=== PATIENT | female | born 1945 | race Caucasian/White ===

== ENCOUNTER → 2017-12-20 11:15 | Outpatient (CLI) | payer MEDICARE, OTHER, SELFPAY | PROVIDERS: PCP General Practice; Visit Provider Internal Medicine Cardiovascular Disease | DX: R55 Syncope and collapse (principal) ==

== ENCOUNTER → 2017-12-30 11:12 | Outpatient (CLI) | payer MEDICARE, OTHER, SELFPAY ==
[2017-12-30 13:02] LABS: Magnesium 1.8 mg/dL (1.8-2.4); Potassium 3.9 mmol/L (3.5-5.1); TSH (W/Ref FT4) 0.57 uIU/mL (0.358-3.74)
== END ==
PROVIDERS: PCP General Practice; Visit Provider General Practice
DX: I47.1 Supraventricular tachycardia (principal)
CPT/HCPCS: 36415; 83735; 84132; 84443

== ENCOUNTER 2018-04-05 16:53 | Emergency (ER) | payer MEDICARE, OTHER, SELFPAY ==
[2018-04-05 17:02] VITALS: BP 141/60; PULSE 67; RESP 16; TEMP 36.5; O2SAT 98
--- NOTE | 2018-04-05 17:13 | ED.GENADUL_ITS ---
Discharge Plan Disposition Patient Disposition: HOME Condition: Stable Discharge Details Chief Complaint: Orthopedic Clinical Impression: Contusion of right shoulder, Right shoulder strain, Contusion of right wrist, Contusion of finger, left Primary Care Provider: Brenden Camilo ED Provider: Rosemary Wells Home Meds and New Rx's Prescriptions: New oxycodone 5 mg tablet 5 mg PO Q6H PRN (Reason: pain) Qty: 10 RF: 0 Continue multivitamin [Multi-Day] 1 EACH tablet 1 ea PO DAILY RF: 0 aspirin [Aspir-81] 81 MG tablet,delayed release (DR/EC) 81 mg PO DAILY RF: 0 ropinirole [Requip] 0.5 MG tablet 0.5 mg PO TID RF: 0 fish oil-dha-epa 1 EACH capsule 1 ea PO DAILY RF: 0 sertraline [Zoloft] 100 MG tablet 100 mg PO DAILY Qty: 90 RF: 3 gabapentin 300 MG capsule 300 - 600 mg PO HS MDD 2 Qty: 60 RF: 1 ibuprofen 600 MG tablet 600 mg PO QID PRN PRN (Reason: Pain) Qty: 30 RF: 0 Discharge Instructions Instructions: Contusion in Adults (ED) Additional Instructions: Rest and ice right shoulder and upper arm as much as possible. Call orthopedics to schedule follow-up appointment for reevaluation as needed. Return immediately to the emergency department any worsening or new concerning symptoms. Referrals: Jarek Benjamin MD [ [facility] STAFF PHYSICIAN] - Discharge Data Discharge Physician: Rosemary Wells Medical Decision Making 72yo F w/ L 2nd finger pain and and right shoulder and wrist pain after injury today. Patient slammed her left second finger in a car door and then slipped and fell hitting her right shoulder and right wrist. Unable to move her right shoulder due to pain. No obvious deformity. Neurovascularly intact. There is edema and ecchymosis to left second finger pad. No right snuffbox tenderness but pain with range of motion at base of right thumb and lateral wrist. No other injuries noted. Chest, abdomen, C-spine, T-spine, L-spine nontender. Lungs clear to auscultation. No right chest rib bony tenderness and no right scapular tenderness. We will give a dose of oxycodone and sent for right shoulder, right wrist and left second finger x-rays. 1854 --patient still with pain. We will give another dose of oxycodone a dose of Motrin. 1904 --x-rays negative for fracture. Pt still w/ significant pain. Will send for CT R shoulder. 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 Discussed with patient that this may be contributing to her pain, or she may have ligamentous or muscular injury. 1954 --CT negative for fracture. Patient feels a little better after second dose of oxycodone. She has some movement in the right shoulder. Patient was given sling for comfort. She is instructed to perform gentle range of motion to prevent frozen shoulder. Patient is followed by orthopedics Dr. Sanchez. She is instructed to call him on Saturday to schedule follow-up appointment for evaluation. Patient is instructed to return here with any concerns. She was given 2 tabs of oxycodone for home as well as prescription. HPI General Mode of arrival: ambulatory . Date/Time Provider Initiated Documentation: 04/05/18 16:56 . Limitations to Documentation: no limitations . Information obtained by: patient . HPI Narrative: Patient is a 72-year-old female who presents with left second finger injury and right shoulder injury. Patient states she slammed her left second distal finger into a car door today. A. Patient states when she walked around to the other side of the car she slipped on the ground and hit her right shoulder on the ground. She is complaining of right shoulder and wrist pain. Patient has not taken any medication for pain. Patient denies head injury or any other injuries. Patient states she did not hit her chest or abdomen. Related Data Home Medications Medication Instructions Recorded Confirmed aspirin [Aspir-81] 81 mg PO DAILY 09/04/12 04/05/18 fish oil-dha-epa 1 ea PO DAILY 09/04/12 04/05/18 multivitamin [Multi-Day] 1 ea PO DAILY 09/04/12 04/05/18 ropinirole [Requip] 0.5 mg PO TID 09/04/12 04/05/18 ibuprofen 600 mg PO QID PRN PRN #30 tablet 08/03/16 04/05/18 sertraline [Zoloft] 100 mg PO DAILY #90 tab-cap 01/25/17 04/05/18 gabapentin 300 - 600 mg PO HS #60 tab-cap MDD 02/06/17 04/05/18 2 oxycodone 5 mg PO Q6H PRN #10 tab 04/05/18 Previous Rx's Medication Instructions Recorded ibuprofen 600 mg PO QID PRN PRN #30 tablet 08/03/16 sertraline [Zoloft] 100 mg PO DAILY #90 tab-cap 01/25/17 gabapentin 300 - 600 mg PO HS #60 tab-cap MDD 02/06/17 2 oxycodone 5 mg PO Q6H PRN #10 tab 04/05/18 Allergies Allergy/AdvReac Type Severity Reaction Status Date / Time benzalkonium chloride Allergy Unverified 04/05/18 17:06 [From Travatan] meperidine HCl [From Demerol] Allergy UNSURE Unverified 04/05/18 17:06 travoprost [From Travatan] Allergy Unverified 04/05/18 17:06 BLUE SURGICAL SCRUB? AdvReac Intermediate RASH, Uncoded 04/05/18 17:06 ITCHING General Stated Complaint: Orthopedic SHAGUFTA: 4 Review of Systems Review of Systems All systems reviewed & are unremarkable except as noted in HPI and below Constitutional Reports as per HPI, Denies chills and Denies fever(s) Eyes Denies blurry vision ENT Denies dizziness, Denies sore throat and Denies throat swelling Cardiovascular Denies chest pain and Denies dyspnea Respiratory Denies dyspnea Gastrointestinal Denies abdominal pain, Denies diarrhea and Denies vomiting Genitourinary Denies hematuria and Denies dysuria Musculoskeletal Denies back pain and Denies numbness Integumentary/Breasts Denies lesions and Denies rash Neurologic Denies dizziness and Denies numbness Allergic/Immunologic Denies throat swelling PFSH Medical History Arthritis Back pain Cervical pain Difficulty walking Glaucoma Hip pain Hypercholesteremia Iron deficiency Irregular heart beat Leg pain Lumbar stenosis Lumbosacral radiculopathy Restless legs syndrome Social History Smoking/Tobacco Use Status: Former Tobacco Use Surgical History L knee repair Oophrectomy, Left Oophrectomy, Right Spinal Fusion Vaginal hysterectomy Varicose vein stripping Exam Const General: cooperative, healthy appearing and no acute distress HENMT Head: normal to inspection Mouth: oral mucosae normal Eyes General: appearance normal, both eyes and all related structures Neck Neck: normal visual inspection Resp Effort & Inspection: normal respiratory effort and able to speak in complete sentences Auscultation: clear to auscultation bilaterally Cardio Rate: regular rate Rhythm: regular rhythm GI Inspection: normal to inspection and no abdominal wall ecchymosis Palpation: soft and nontender Auscultation: normal bowel sounds Back/Spine/Pelvis Thoracic/Lumbar Spine: thoracic and lumbar spine normal to inspection, No thoracic spinal tenderness and No lumbar spinal tenderness Pelvis: no pain with anterior-posterior compression Skin General skin exam: no rashes or lesions noted Neuro General: alert, awake and oriented x3 Motor: muscle tone normal throughout Extrem Right upper extremity: shoulder/upper arm (unable to move R shoulder/upper arm due to pain. Tenderness to palpation right anterior/lateral/posterior shoulder/ upper arm. No obvious deformity noted.), elbow/forearm Details: normal to inspection; no tenderness and no swelling, wrist Details: normal to inspection; no tenderness and no swelling and hand (Tenderness to palpation base of right thumb near her wrist. No obvious deformity. ) Left upper extremity: hand (Tenderness to palpation and mild to moderate edema/ ecchymosis of distal second finger/finger pad. No deformity.) Psych Appearance: grossly normal Affect: normal affect Course Vital Signs Temperature 97.7 F 04/05/18 17:02 Pulse 67 04/05/18 17:02 Respiratory Rate 16 04/05/18 17:02 Blood Pressure 141/60 H 04/05/18 17:02 Pulse Oximetry 98 04/05/18 17:02 Temperature 97.7 F 04/05/18 17:02 Temperature Source Skin 04/05/18 17:02 Pulse 67 04/05/18 17:02 Respiratory Rate 16 04/05/18 17:02 Respiratory Effort Non-Labored 04/05/18 17:03 Blood Pressure 141/60 H 04/05/18 17:02 Pulse Oximetry 98 04/05/18 17:02 Pain Level 10 04/05/18 17:02
[2018-04-05] MEDS: oxyCODONE 5 MG TAB PO ×2 (17:30→19:04)
--- NOTE | 2018-04-05 17:36 | DI.RAD_ITS ---
SYMPTOM/DIAGNOSIS: S/P SLAMMED FINGER IN CAR DOOR LEFT INDEX FINGER: There are degenerative changes of the interphalangeal joints. No fracture or dislocation is seen.
--- NOTE | 2018-04-05 17:36 | DI.RAD_ITS ---
SYMPTOM/DIAGNOSIS: S/P FALL ON TO RT SHOULDER, R/O ACUTE FRACTURE RIGHT SHOULDER: No fracture or dislocation is seen. There are degenerative changes at the AC joint and glenohumeral joint. IMPRESSION: Degenerative changes. No acute abnormality.
--- NOTE | 2018-04-05 17:36 | DI.RAD_ITS ---
SYMPTOM/DIAGNOSIS: S/P FALL, R/O ACUTE FRACTURE RIGHT WRIST: No fracture or dislocation is seen. There are intercarpal degenerative changes. IMPRESSION: No acute abnormality.
--- NOTE | 2018-04-05 19:00 | DI.VRAD_ITS ---
EXAM: XR Left Finger(s), 2 or More Views EXAM DATE/TIME: 04/05/2018 5:37 PM CLINICAL HISTORY: 72 years old, female; Pain; Finger(s); Left; Patient HX: S/P slammed finger in car door; Additional info: R/O fracture distal index finger TECHNIQUE: XR Left finger minimum 2 views. COMPARISON: No relevant prior studies available. FINDINGS: Degenerative arthritis of the interphalangeal joints. Degenerative arthritis of the first carpal metacarpal joint. No evidence of acute bony injury. No radiopaque foreign bodies. IMPRESSION: No evidence of acute bony injury. Dictated and Authenticated by: Sergio Espinosa MD. Ordering:JACKY QUINTERO MD
--- NOTE | 2018-04-05 19:01 | DI.VRAD_ITS ---
EXAM: XR Right Shoulder Complete, 2 or More Views EXAM DATE/TIME: 04/05/2018 5:37 PM CLINICAL HISTORY: 72 years old, female; Pain; Shoulder; Right; Patient HX: S/P fall onto r shoulder; Additional info: R/O acute fracture TECHNIQUE: XR Right shoulder complete 2 or more views. COMPARISON: No relevant prior studies available. FINDINGS: Degenerative arthritis of the glenohumeral joint. Degenerative arthritis of the acromioclavicular joint. Anatomic alignment. No acute fracture. IMPRESSION: No evidence of acute bony injury. Dictated and Authenticated by: Sergio Espinosa MD. Ordering:JAKCY QUINTERO MD
--- NOTE | 2018-04-05 19:01 | DI.VRAD_ITS ---
EXAM: XR Right Wrist Complete, 3 or more Views EXAM DATE/TIME: 04/05/2018 5:37 PM CLINICAL HISTORY: 72 years old, female; Pain; Wrist; Right; Patient HX: S/P fall; Additional info: R/O acute fracture TECHNIQUE: XR Right wrist 3 or more views. COMPARISON: US RIGHT EXTREMITY ULTRASOUND 08/03/2016 8:15 AM FINDINGS: The bony structures are in anatomic alignment. No fracture is present. No radiopaque foreign body is identified. The joint spaces are well maintained. IMPRESSION: No evidence of acute bony injury. Dictated and Authenticated by: Sergio Espinosa MD. Ordering:JACKY QUINTERO MD
[2018-04-05] MEDS: Ibuprofen 600 MG TAB PO (19:04)
--- NOTE | 2018-04-05 19:16 | DI.CT_ITS ---
SYMPTOM/DIAGNOSIS: S/P FALL ON TO RT SHOULDER, R/O ACUTE FRACTURE CT RIGHT SHOULDER: There are degenerative changes of the AC joint and glenohumeral joint. There is a subchondral cyst in the acromion as well as several subchondral cysts in the humeral head. No fracture or dislocation is seen. Hardware is seen in the cervical spine related to previous anterior fusion. The visualized portions of the spine are unremarkable. A small area of scarring is seen in the right upper lobe. IMPRESSION: No acute abnormality Degenerative changes.
--- NOTE | 2018-04-05 19:47 | DI.VRAD_ITS ---
EXAM: CT Right Upper Extremity Without Intravenous Contrast, Shoulder EXAM DATE/TIME: 04/05/2018 7:17 PM CLINICAL HISTORY: 72 years old, female; Pain; Shoulder; Right; Prior surgery; Patient HX: S/P fall onto r shoulder; Additional info: R/O acute fracture TECHNIQUE: CT of the Right upper extremity without Intravenous contrast was performed. Exam focused on the shoulder. Coronal and sagittal reformatted images were created and reviewed. COMPARISON: CR XR shoulder RT complete 2+V 04/05/2018 6:01 PM FINDINGS: Degenerative arthritis of the glenohumeral joint. Mild degenerative arthritis of the acromioclavicular joint. Prior anterior interbody fusion with plate and screw fixation of the mid and lower cervical spine. Soft tissues unremarkable. Mild right anterior apical lung scarring. IMPRESSION: No evidence of acute bony abnormality. Dictated and Authenticated by: Sergio Espinosa MD. Ordering:JACKY QUINTERO MD
[2018-04-05] MEDS: oxyCODONE 5 MG TAB 10 MG PO (20:05)
[2018-04-05 20:14] VITALS: BP 128/75; PULSE 65; RESP 16; TEMP 36.5; O2SAT 98
== END 2018-04-05 20:16 | disposition home or self-care (01) ==
PROVIDERS: Emergency Provider Physician Assistant; PCP General Practice
DX: S40.011A Contusion of right shoulder, initial encounter (principal); S60.211A Contusion of right wrist, initial encounter; S60.032A Contusion of left middle finger without damage to nail, initial encounter; W23.0XXA Caught, crushed, jammed, or pinched between moving objects, initial encounter; W00.0XXA Fall on same level due to ice and snow, initial encounter
CPT/HCPCS: 99284; 73030; 73110; 73140; 73200; L3650

== ENCOUNTER 2018-12-02 12:06 | Outpatient (CLI) | payer MEDICARE, OTHER, SELFPAY ==
[2018-12-02 13:22] LABS: C-Reactive Protein 0.37 mg/dL (0.0-0.3)
[2018-12-04 10:47] LABS: Lyme Ab w Rflx to Lyme Confirm Positive
[2018-12-05 12:32] LABS: IgG Immunoblot Negative; IgM Immunoblot Positive; Immunoblot Interpretation SEE COMMENTS
== END 2018-12-02 12:26 ==
PROVIDERS: PCP General Practice; Visit Provider General Practice
DX: R51 Headache (principal)
CPT/HCPCS: 36415; 86617; 86140; 86618

== ENCOUNTER 2019-01-06 12:06 | Outpatient (CLI) | payer MEDICARE, OTHER, SELFPAY ==
--- NOTE | 2019-01-06 12:07 | DI.RAD_ITS ---
SYMPTOM/DIAGNOSIS: FELL, TENDER 8TH LATERALLY PA AND LATERAL CHEST AND RIGHT RIBS: There are no prior comparison exams. The heart size is normal. The lungs are clear. No infiltrate, effusion or pneumothorax is seen. Four views of the right ribs were performed. A marker was placed over the lower ribs in the area of the patient's tenderness. No rib fracture is seen. There are degenerative disc changes in the mid thoracic spine and lower cervical spine. There are degenerative changes of both shoulders. IMPRESSION: No acute abnormality.
== END 2019-01-06 12:26 ==
PROVIDERS: PCP General Practice; Visit Provider General Practice
DX: R07.81 Pleurodynia (principal)
CPT/HCPCS: 71046; 71100

== ENCOUNTER 2019-03-04 10:55 | Outpatient (CLI) | payer MEDICARE, OTHER, SELFPAY ==
[2019-03-04 13:42] LABS: TSH 0.84 uIU/mL (0.36-3.74); Vitamin B12 521 pg/mL (193-986)
== END 2019-03-04 11:15 ==
PROVIDERS: PCP General Practice; Visit Provider Nurse Practitioner Adult Health
DX: R41.3 Other amnesia (principal); R41.89 Other symptoms and signs involving cognitive functions and awareness; M25.551 Pain in right hip
CPT/HCPCS: 36415; 99204; 99215; 82607; 84443

== ENCOUNTER 2019-03-10 01:48 | Outpatient (CLI) | payer MEDICARE, OTHER, SELFPAY ==
--- NOTE | 2019-03-10 14:30 | DI.MRI_ITS ---
EXAM: MR BRAIN WO CLINICAL HISTORY: cognitive impairment R41.89.,MEMORY LOSS TECHNIQUE: Multiplanar multisequence MRI was performed. COMPARISON: No exams were available for comparison FINDINGS: The ventricles and sulci are consistent with the patient's age. There are areas of hyperintensity on the T2 and FLAIR images. These areas most likely represent areas of small vessel ischemic disease. The diffusion-weighted images show no evidence of an acute infarct. No intracranial hemorrhage is p resent. The ventricles are intact. The basilar cisterns are patent. There is a normal flow void pr esent in the [place]. There is mucosal thickening seen in the sphenoid sinus. The remainin g visualized paranasal sinuses are clear. The pituitary gland appears unremarkable. IMPRESSION: 1. No evidence of an acute infarct or hemorrhage. 2. Findings suggestive of cerebral atrophy and small vessel ischemic disease.
== END 2019-03-10 02:08 ==
PROVIDERS: PCP General Practice; Visit Provider Nurse Practitioner Adult Health
DX: R41.89 Other symptoms and signs involving cognitive functions and awareness (principal); R41.3 Other amnesia; G31.89 Other specified degenerative diseases of nervous system; I67.82 Cerebral ischemia
CPT/HCPCS: 70551

== ENCOUNTER → 2019-04-06 12:27 | Outpatient (BNVA) | payer MEDICARE, OTHER, SELFPAY | PROVIDERS: PCP Nurse Practitioner Adult Health; Referring Provider Nurse Practitioner Adult Health; Visit Provider Nurse Practitioner Adult Health | DX: R41.3 Other amnesia (principal); R25.1 Tremor, unspecified; F41.8 Other specified anxiety disorders; Z86.19 Personal history of other infectious and parasitic diseases | CPT/HCPCS: 99213 ==

== ENCOUNTER 2019-07-12 00:18 | Outpatient (CLI) | payer MEDICARE, OTHER, SELFPAY ==
[2019-07-12 09:54] LABS: HCT 41.5 % (36.0-46.0); HGB 13.9 g/dL (12.0-15.5); Mean Corp. HGB Concentration 33.5 g/dL (32.0-36.0); Mean Corpuscular Hemoglobin 32.9 pg (27.0-33.0); Mean Corpuscular Volume 98.1 fL (80-95); Mean Platelet Volume 9.1 fL (8.0-11.0); Platelet Count 190 x1000/uL (130-400); RBC 4.23 m/cumm (4.00-5.20)
--- NOTE | 2019-07-12 10:39 | DI.US_ITS ---
APPROVED REPORT EXAM: Comprehensive 2D, Doppler, and color-flow Echocardiogram Patient Location: Out-Patient Motion Picture Set Grip: Alondra Snow RDCS (AE) Indications: Murmur Conclusion Left Ventricle : The left ventricle is normal size. The left ventricular systolic function is normal . The left ventricular ejection fraction is within the normal range. There is normal left ventricula r wall thickness. There is normal LV segmental wall motion. The left ventricular diastolic function is normal. LVEF is 55-59%. Right Ventricle : The right ventricle is normal size. The right ventricular systolic function is norm al. Atria : The left atrium size is normal. The right atrium size is normal. Aortic Valve : Mild aortic valve sclerosis. Aortic valve is trileaflet. Trace aortic regurgitation. M ild aortic stenosis. Mitral Valve : The mitral valve is normal in structure. Trace mitral regurgitation. No evidence of mi tral valve stenosis. Great Vessels : IVC is normal in size and collapses >50% with inspiration. Estimated RVSP is 22-25 m mHg. There is no prior echocardiogram available for comparison. Wall motion Left Ventricle The left ventricle is normal size. The left ventricular systolic function is normal. The left ventric ular ejection fraction is within the normal range. There is normal left ventricular wall thickness. T here is normal LV segmental wall motion. The left ventricular diastolic function is normal. LVEF is 5 5-59%. Right Ventricle The right ventricle is normal size. The right ventricular systolic function is normal. Atria The left atrium size is normal. The right atrium size is normal. Aortic Valve Mild aortic valve sclerosis. Aortic valve is trileaflet. Mild aortic stenosis. Trace aortic regurgita tion. Mitral Valve The mitral valve is normal in structure. No evidence of mitral valve stenosis. Trace mitral regurgita tion. Tricuspid Valve The tricuspid valve is normal in structure. There is no tricuspid valve stenosis. Trace tricuspid reg urgitation. Pulmonic Valve The pulmonary valve is normal in structure. There is no pulmonic valvular stenosis. Trace pulmonic re gurgitation. Great Vessels The aortic root is normal in size. The ascending aorta size is dilated. IVC is normal in size and col lapses >50% with inspiration. Estimated RVSP is 22-25 mmHg. Pericardium There is no pericardial effusion. 2D Dimensions IVSD d PLAX 0.96 cm F: 0.6-1.0 LV Vol A2C d MOD 86.9 mL LVPW d PLAX 0.96 cm F: 0.6 - 1.0 LV Vol A4C d MOD 92.1 mL LVID d PLAX 4.57 cm F: 3.8 - 5.2 LA vol/ BSA A2C s A-L 28.6 mL/m2 LVDs 3.45 cm F: 2.2 - 3.5 LA vol/ BSA A4C s A-L 25.7 mL/m2 Ao Root d 3.13 cm F: 2.7 - 3.3 LA Vol/ BSA Biplane s A-L 27.6 mL/m2 RA Area A4C 12.51 cm2 LA Area A4C s MOD 15.44 cm2 RA Vol/ BSA A4C s A-L 17.5 mL/m2 LA Area A2C s MOD 16.55 cm2 Ao Asc Diam d 3.42 cm F: 2.3 - 3.1 LV EF A4C MOD 57.0 % LV EF Teichholz 47.2 % LV EF A2C MOD 58.4 % LVEF (Robb's) 57.23 % F: 54 - 74 LV EF Biplane MOD 57.2 % LV Volume 69.87 mL F: 46 - 106 LV Volume Index 37.76 mL/m2 F: 29 - 61 LV Vol Biplane MOD 90.8 mL FS 23.55 % LV Diastology MV E' medial 0.060 (>0.07 m/s) E/A Ratio 1.0 LV E/e MED 12.70 (<14) MV E Vmax 0.76 (0.4-1.3 m/s) MV E' lateral 0.108 (>0.1 m/s) MV A Vmax 0.75 (0.4-1.3 m/s) LV E/e LAT 7.05 (<14) MV E/A Ratio 0.96 MV E/E' medial 12.70 MV E/E' lateral 7.07 Aortic Valve LVOT Area 3.20 cm2 AoV Area Vmax 1.69 cm2 LVOT Vmax 1.10 m/s AoV Area/ BSA (Vmax) 0.91 cm2/m2 LVOT Mean Herbert. 0.79 m/s LISSY Mean Herbert. 1.76 cm2 LVOT Peak Grad 4.9 mmHg LISSY Mean Herbert. Index 0.95 cm2/m2 LVOT Mean Grad 2.8 mmHg AR DT 2922 msec LVOT VTI 0.250 m AR PHT 847 msec LVOT Diam s 2.00 cm (M/F) 1.5-2.5 AoV Vmax 2.09 (0.5-1.3 m/s) Velocity Ratio 0.52 AoV Mean Herbert. 1.44 m/s AoV Peak Grad 17.4 mmHg LVOT SV 79.98 mL AoV Mean Grad 9.3 (<5 mmHg) AoV VTI 0.457 (0.18-0.25 m) AoV Area VTI 1.75 (2.5-4.5 cm2) AoV Area/ BSA (VTI) 0.94 cm/m2 Mitral Valve MV DT 247 (160-240 msec) MV PHT 72 msec MV Area PHT 3.08 cm2 Pulmonary Valve PV Vmax 1.01 (0.5-1.5 m/s) RVOT Peak Gr. 2.01 mmHg PV Peak Grad 4.1 mmHg RVOT Mean Gr. 1.00 mmHg PV Mean Grad 2.0 mmHg RVOT VTI 0.151 m PV VTI 0.207 m RVOT Vmax 0.71 m/s Tricuspid Valve TR Peak Grad 22.4 mmHg TR Vmax 2.37 m/s RA Pressure 3.00 mmHg RVSP (TR) 25.5 mmHg
[2019-07-12 11:29] LABS: ALT 26 U/L (14-59); AST 20 U/L (15-37); Albumin 3.8 g/dL (3.4-5.0); Alkaline Phosphatase 98 U/L (46-116); Anion Gap 5.6 mmol/L (3-11); BUN 21 mg/dL (7-18); Bilirubin, Total 0.3 mg/dL (0.2-1.0); CO2 30.4 mmol/L (21.0-32.0); CREATININE 0.63 mg/dL (0.55-1.02); Calcium 8.7 mg/dL (8.5-10.1); Calculated LDL 135 mg/dL (<100); Chloride 107 mmol/L (98-107); Cholesterol 233 mg/dL (<200); Glucose 86 mg/dL (74-106); HDL Cholesterol 77 mg/dL (40-60); Potassium 4.6 mmol/L (3.5-5.1); Sodium 143 mmol/L (136-145); Total Protein 6.7 g/dL (6.4-8.2); Triglyceride 107 mg/dL (<150); Vitamin B12 748 pg/mL (193-986)
[2019-07-13 06:43] LABS: Vitamin D 25 Total 40.1 ng/ml (30-100)
== END 2019-07-12 00:38 ==
PROVIDERS: PCP Nurse Practitioner Adult Health; Visit Provider Nurse Practitioner Adult Health
DX: R01.1 Cardiac murmur, unspecified (principal); I35.2 Nonrheumatic aortic (valve) stenosis with insufficiency; I34.0 Nonrheumatic mitral (valve) insufficiency; E78.00 Pure hypercholesterolemia, unspecified; M85.80 Other specified disorders of bone density and structure, unspecified site; R41.3 Other amnesia; R53.83 Other fatigue
CPT/HCPCS: 36415; 80053; 80061; 82306; 85027; 93306; 82607

== ENCOUNTER → 2019-10-06 12:45 | Outpatient (BNVA) | payer MEDICARE, OTHER, SELFPAY | PROVIDERS: PCP Nurse Practitioner Adult Health; Referring Provider Nurse Practitioner Adult Health; Visit Provider Nurse Practitioner Adult Health | DX: G31.84 Mild cognitive impairment of uncertain or unknown etiology (principal); R29.6 Repeated falls | CPT/HCPCS: 99214 ==

== ENCOUNTER 2019-11-05 10:54 | Outpatient (CLI) | payer MEDICARE, OTHER, SELFPAY ==
--- NOTE | 2019-11-05 13:30 | DI.RAD_ITS ---
EXAM: XR FOOT LT COMPLETE CLINICAL HISTORY: Left foot pain, M79.672, suspected fracture. TECHNIQUE: COMPARISON: CR LEFT FOOT COMPLETE from 01/14/2015 FINDINGS: Three views were obtained. There is a mildly displaced fracture of the distal metaphyseal diaphyseal junction of the 5th metatarsal. No additional fracture seen. IMPRESSION:
== END 2019-11-05 11:14 ==
PROVIDERS: PCP Nurse Practitioner Adult Health; Visit Provider Family Medicine
DX: M79.672 Pain in left foot (principal); S92.352A Displaced fracture of fifth metatarsal bone, left foot, initial encounter for closed fracture
CPT/HCPCS: 73630

== ENCOUNTER 2019-11-27 10:01 | Outpatient (CLI) | payer MEDICARE, OTHER, SELFPAY ==
--- NOTE | 2019-11-27 09:45 | DI.RAD_ITS ---
EXAM: XR FOOT LT COMPLETE CLINICAL HISTORY: f/u fracture TECHNIQUE: COMPARISON: CR XR FOOT LT COMPLETE from 11/05/2019 FINDINGS: Three views were obtained. Previously described fracture of the distal aspect of the 5th metatarsal is again noted, there appears to be slightly increased loss of length of the bone with increased disp lacement in comparison with previous examination of November 04. There is callus formation now visible at the fracture site. IMPRESSION:
== END 2019-11-27 10:21 ==
PROVIDERS: PCP Nurse Practitioner Adult Health; Referring Provider Nurse Practitioner Adult Health; Visit Provider Student in an Organized Health Care Education/Training Program
DX: S92.352A Displaced fracture of fifth metatarsal bone, left foot, initial encounter for closed fracture (principal); X58.XXXA Exposure to other specified factors, initial encounter
CPT/HCPCS: 99203; 99214; 73630

== ENCOUNTER 2019-12-18 11:36 | Outpatient (CLI) | payer MEDICARE, OTHER, SELFPAY ==
--- NOTE | 2019-12-18 11:15 | DI.RAD_ITS ---
EXAM: XR FOOT LT COMPLETE CLINICAL HISTORY: L foot fx TECHNIQUE: COMPARISON: CR XR FOOT LT COMPLETE from 11/27/2019 FINDINGS: Three views were obtained. Previously described fracture of the 5th metatarsal is again noted, there is increased callus formation at the fracture site, no gross interval change in alignment of the fra cture fragments comparison with examination November 26. IMPRESSION:
== END 2019-12-18 11:56 ==
PROVIDERS: PCP Nurse Practitioner Adult Health; Referring Provider Nurse Practitioner Adult Health; Visit Provider Student in an Organized Health Care Education/Training Program
DX: S92.352D Displaced fracture of fifth metatarsal bone, left foot, subsequent encounter for fracture with routine healing (principal); X58.XXXD Exposure to other specified factors, subsequent encounter
CPT/HCPCS: 99213; 73630

== ENCOUNTER 2020-02-04 02:07 | Outpatient (CLI) | payer MEDICARE, OTHER, SELFPAY ==
--- NOTE | 2020-02-04 08:26 | DI.DEXA_ITS ---
EXAM: XR DEXA BONE DENSITY W/WO TABITHA CLINICAL HISTORY: s/p fracture-assess bones;compare with 2017,N95.9MENOPAUSAL DISORDER,M85.88 TECHNIQUE: COMPARISON: Comparison examination is 11/06/2016. FINDINGS: Lateral Spine Image: Posterior spinal surgery at L5-S1. No compression deformities identified. Left hip: Total T-Score: -1.2. This compares with -0.8 on the prior examination. Total Z-Score: 0.5 T- and Z-scores: Findings consistent with osteopenia and increased fracture risk. Lumbar Spine: Total T-Score: 1.9. This compares with 1.2 on the prior examination. Total Z-Score: 4.1 T- and Z-scores: Within normal limits. IMPRESSION: No evidence of osteoporosis.
--- NOTE | 2020-02-04 13:25 | DI.MAMMO_ITS ---
EXAM: MG MAMMO SCREENING CLINICAL HISTORY: screening,Z12.39 TECHNIQUE: Bilateral full field digital CC and MLO mammographic images were obtained with 3D tomosyn thesis and utilizing computer aided detection (CAD). COMPARISON: Available for comparison. FINDINGS: Masses/Architectural Distortion: None seen. Microcalcifications: No suspicious pleomorphic-type are seen. Skin Thickening/Nipple Retraction: None. IMPRESSION: 1. No significant interval change with no specific features of malignancy noted. 2. Unless there is more urgent need, screening mammography is recommended, as per [employer] guidelines. BI-RADS Category 1 - Negative Breast Density - Category B - Scattered areas of fibroglandular density A negative radiographic report should not delay biopsy if a dominant or clinically suspicious mass is present. Up to ten percent of cancers are not identified on mammography. A negative report may reinforce clinical impression. Adenosis and dense breasts may obscure an underlying neoplasm. False positive reports average 6 to 10%. Patient will receive a letter notifying them of these results.
== END 2020-02-04 02:27 ==
PROVIDERS: PCP Nurse Practitioner Adult Health; Visit Provider Nurse Practitioner Adult Health
DX: Z12.31 Encounter for screening mammogram for malignant neoplasm of breast (principal); M85.88 Other specified disorders of bone density and structure, other site; N95.8 Other specified menopausal and perimenopausal disorders
CPT/HCPCS: 77063; 77067; 77080

== ENCOUNTER 2020-03-14 07:20 | Outpatient (CLI) | payer MEDICARE, OTHER, SELFPAY ==
[2020-03-18 17:18] LABS: Patient Race White; SARS-CoV-2 RNA Undetected (Undetected); SARS-CoV-2 Specimen Source Nasal
== END 2020-03-14 07:40 ==
PROVIDERS: PCP Nurse Practitioner Adult Health; Visit Provider Nurse Practitioner Adult Health
DX: Z11.59 Encounter for screening for other viral diseases (principal)
CPT/HCPCS: U0003

== ENCOUNTER 2020-03-21 10:47 | Outpatient (CLI) | payer MEDICARE, OTHER, SELFPAY ==
--- NOTE | 2020-03-21 10:30 | DI.RAD_ITS ---
EXAM: XR FOOT RT COMPLETE CLINICAL HISTORY: R foot fracture TECHNIQUE: COMPARISON: CR XR FOOT LT COMPLETE from 12/18/2019 FINDINGS: Three views were obtained. There is a fracture of the midshaft of the 5th metatarsal with mild displ acement. No other fracture seen. IMPRESSION: RADIATION DOSE DELIVERED: Total DLP
== END 2020-03-21 11:07 ==
PROVIDERS: PCP Nurse Practitioner Adult Health; Referring Provider Nurse Practitioner Adult Health; Visit Provider Student in an Organized Health Care Education/Training Program
DX: S92.351A Displaced fracture of fifth metatarsal bone, right foot, initial encounter for closed fracture (principal); W18.49XA Other slipping, tripping and stumbling without falling, initial encounter
CPT/HCPCS: 99214; 73630

== ENCOUNTER 2020-04-11 15:39 | Outpatient (CLI) | payer MEDICARE, OTHER, SELFPAY ==
--- NOTE | 2020-04-11 14:15 | DI.RAD_ITS ---
EXAM: XR FOOT RT COMPLETE CLINICAL HISTORY: f.u fracture. TECHNIQUE: 2D digital imaging was performed. COMPARISON: CR XR FOOT RT COMPLETE from 03/21/2020 FINDINGS: Again noted is the previously described oblique fracture of the 5th metatarsal. Fracture line is sti ll evident. No obvious callus formation. No further displacement. No new additional fractures evid ent. IMPRESSION: Unchanged appearance of the 5th metatarsal fracture. DATA REPOSITORY: RADIATION DOSE DELIVERED:
== END 2020-04-11 15:59 ==
PROVIDERS: PCP Nurse Practitioner Adult Health; Referring Provider Nurse Practitioner Adult Health; Visit Provider Student in an Organized Health Care Education/Training Program
DX: S92.351A Displaced fracture of fifth metatarsal bone, right foot, initial encounter for closed fracture; S92.351D Displaced fracture of fifth metatarsal bone, right foot, subsequent encounter for fracture with routine healing; X58.XXXD Exposure to other specified factors, subsequent encounter
CPT/HCPCS: 99213; 73630

== ENCOUNTER → 2020-04-25 07:26 | Outpatient (BNVA) | payer MEDICARE, OTHER, SELFPAY | PROVIDERS: PCP Nurse Practitioner Adult Health; Referring Provider Nurse Practitioner Adult Health; Visit Provider Nurse Practitioner Adult Health | DX: G31.84 Mild cognitive impairment of uncertain or unknown etiology (principal) | CPT/HCPCS: 99213; 99442 ==

== ENCOUNTER 2020-05-05 10:45 | Emergency (ER) | payer MEDICARE, OTHER, SELFPAY ==
[2020-05-05 10:49] VITALS: BP 157/75; PULSE 69; RESP 17; TEMP 36.4; O2SAT 96
--- NOTE | 2020-05-05 11:07 | ED.GENADUL_ITS ---
Discharge Plan Disposition Patient Disposition: HOME Condition: Improving Discharge Details Clinical Impression: Acute diverticulitis Primary Care Provider: Anne Bob ED Provider: Rosemary Wells Home Meds and New Rx's Prescriptions: New amoxicillin-pot clavulanate [Augmentin] 875-125 mg tablet 1 tab PO BID 8 Days Qty: 16 RF: 0 Continued aspirin 81 mg tablet 81 mg PO DAILY RF: 0 famotidine 20 mg tablet 20 mg PO DAILY PRN (Reason: heartburn) Qty: 90 RF: 3 ibuprofen 600 mg tablet 600 mg PO BID PRN (Reason: pain) Qty: 180 RF: 0 cholecalciferol (vitamin D3) 50 mcg (2,000 unit) capsule 50 mcg PO DAILY RF: 0 dextroamphetamine-amphetamine [Adderall] 20 mg tablet 25 mg PO DAILY RF: 0 docusate sodium [Colace] 100 mg capsule 100 mg PO DAILY RF: 0 bupropion HCl [Wellbutrin XL] 150 mg tablet extended release 24 hr 300 mg PO QAM RF: 0 trazodone 50 mg tablet 100 mg PO QHS RF: 0 Viibryd 20 mg tablet 20 mg PO DAILY RF: 0 ropinirole 0.5 mg tablet 0.5 mg PO RF: 0 Discharge Instructions Instructions: Diverticulitis (ED), Diverticulitis Diet (ED) Additional Instructions: Drink plenty of fluids and get plenty of rest. Take antibiotics until finished. Follow-up with your primary care doctor in 1 week. Return to the emergency department with any worsening or new concerning symptoms such as fever, vomiting or worsening pain. Discharge Data Discharge Physician: Rosemary Wells Medical Decision Making 74-year-old female with a history of hyperlipidemia, depression, hysterectomy who presents with constant sharp lower abdominal pain with occasional radiation to her back and right shoulder for the past 4 days. She has tenderness to palpation in her epigastrium and across lower quadrants, most specifically suprapubic and right lower quadrant. She is afebrile and appears nontoxic. Differential diagnosis includes UTI, pyelonephritis, colitis, gastroenteritis, appendicitis, bowel obstruction, cholelithiasis, cholecystitis, diverticulitis. We will place an IV, check screening labs, urinalysis, CT abdomen and pelvis and give a dose of IV Tylenol and reassess. Labs and imaging reviewed. Normal white blood cell count at 6. Urinalysis appears contaminated. CT consistent with findings of acute sigmoid diverticulitis. No abscess or free air. Patient reassessed and she feels much better. She feels good to go home. She was given a dose of Augmentin here and to go Advised to follow up with the primary care doctor for re-evaluation. Usual and customary return precautions given prior to discharge. Medical Records Medical records reviewed: Yes I reviewed the patient's medical records. Imaging Data Radiologic Study: Radiologist's impression: CT ABDOMEN PELVIS W CLINICAL HISTORY: lower abd pain, tender suprapubic, RLQ TECHNIQUE: Imaging Protocol: Axial computed tomography images with coronal and sagittal reformatted images were created and reviewed CONTRAST MATERIAL: Intravenous: Omnipaque 350 Contrast volume:100 mL Oral: No COMPARISON: CT UPPER ABD WITH CONTRAST (P) from 05/23/2015 FINDINGS: ABDOMEN: Lung Bases: The lungs are hyperinflated suggesting underlying COPD. Dependent atelectasis is seen in the lung bases. Liver: Hepatic cysts. No measurable mass. Portal, Superior Mesenteric, and Splenic Veins: Unremarkable. Gallbladder and Biliary Tract: No radiodense calculus or dilation. Pancreas: Normal density, no abnormal calcifications or inflammatory process. Spleen: Normal. Adrenals: No masses seen. Kidneys: Normal size, contour and axis. No radiodense stones or obstructive uropathy. No masses seen. Abdominal Aorta: Abdominal portion non-dilated. Atherosclerosis. Bowel: No evidence of obstruction. There is diverticulosis in the descending and sigmoid colon. Bowel wall thickening and pericolonic inflammatory changes seen in the mid sigmoid colon complete system with acute diverticulitis. No abscess or free air. Appendix is unremarkable. Peritoneal Cavity: No ascites, collection or mesenteric inflammatory response. Lymph Nodes: Within normal limits. Bones: Degenerative changes are seen in the spine there is L4-5 disc fusion and posterior spinal rods with pedicle screws from from L4 through S1. Soft Tissues: Unremarkable. PELVIS: Bladder: Incompletely distended but grossly unremarkable. Reproductive Organs: Status post hysterectomy. Lymph Nodes: Within normal limits. Bones: Please see above. IMPRESSION: Findings of acute sigmoid diverticulitis. No abscess or free air. Lab Data Lab results reviewed: Yes I reviewed the patient's lab results. Labs: Laboratory Tests Range/Units 05/05/20 05/05/20 05/05/20 11:11 11:11 11:11 WBC (4.4-10.8) 10^3/uL 6.15 RBC (3.93-5.22) 10^6/uL 3.69 L Hgb (11.2-15.7) g/dL 12.1 Hct (36.0-46.0) % 36.0 MCV (80-95) fL 97.6 H MCH (27.0-33.0) pg 32.8 MCHC (32.0-36.0) % 33.6 RDW (11.7-14.6) % 12.6 Plt Count (130-400) 10^3/uL 165 MPV (8.0-11.0) fL 9.9 Immature Gran % 0.2 Neutrophils % 58.2 Lymphocytes % 31.7 Monocytes % 6.7 Eosinophils % 2.9 Basophils % 0.3 Nucleated RBC % % 0 Absolute Neutrophils (1.2-6.7) 10^3/uL 3.58 Absolute Lymphocytes (1.2-3.4) 10^3/uL 1.95 Absolute Monocytes (0.1-0.8) 10^3/uL 0.41 Absolute Eosinophils (0.0-0.7) 10^3/uL 0.18 Absolute Basophils (0.0-0.2) 10^3/uL 0.02 PT (9.3-11.0) sec 10.3 INR (0.9-1.1) 1.0 APTT (21.0-27.5) sec 27.4 Sodium (136-145) mmol/L 139 Potassium (3.5-5.1) mmol/L 3.6 Chloride (98-107) mmol/L 105 Carbon Dioxide (21.0-32.0) mmol/L 25.9 Anion Gap (3-11) mmol/L 8.1 BUN (7-18) mg/dL 20 H Creatinine (0.55-1.02) mg/dL 0.60 Estimated GFR/1.73 m2 (mL/min/1.73m2) >= 60.00 Glucose (74-106) mg/dL 95 Calcium (8.5-10.1) mg/dL 8.6 Magnesium (1.8-2.4) mg/dL 2.0 Total Bilirubin (0.2-1.0) mg/dL 0.4 AST (15-37) U/L 16 ALT (14-59) U/L 23 Alkaline Phosphatase (46-116) U/L 68 Troponin I (<0.06) ng/mL < 0.05 Total Protein (6.4-8.2) g/dL 6.8 Albumin (3.4-5.0) g/dL 3.4 Lipase (73-393) U/L 88 Urine Color (Yellow) Urine Clarity (Clear) Urine pH (5-8) Ur Specific [place] (1.005-1.025) Urine Protein (Negative) mg/dL Urine Ketones (Negative) mg/dL Urine Blood (Negative) Urine Nitrite (Negative) Urine Bilirubin (Negative) Urine Urobilinogen (Up TO 0.2) EU/dL Ur Leukocyte Esterase (Negative) Urine RBC (0-2) HPF Urine WBC (0-5) HPF Ur Epithelial Cells (Negative) HPF Urine Crystals (Negative) HPF Urine Bacteria (Negative) HPF Urine Casts (Negative) LPF Urine Mucus (Negative) Ur Culture Indicated? Urine Glucose (Negative) mg/dL Range/Units 05/05/20 11:11 WBC (4.4-10.8) 10^3/uL RBC (3.93-5.22) 10^6/uL Hgb (11.2-15.7) g/dL Hct (36.0-46.0) % MCV (80-95) fL MCH (27.0-33.0) pg MCHC (32.0-36.0) % RDW (11.7-14.6) % Plt Count (130-400) 10^3/uL MPV (8.0-11.0) fL Immature Gran % Neutrophils % Lymphocytes % Monocytes % Eosinophils % Basophils % Nucleated RBC % % Absolute Neutrophils (1.2-6.7) 10^3/uL Absolute Lymphocytes (1.2-3.4) 10^3/uL Absolute Monocytes (0.1-0.8) 10^3/uL Absolute Eosinophils (0.0-0.7) 10^3/uL Absolute Basophils (0.0-0.2) 10^3/uL PT (9.3-11.0) sec INR (0.9-1.1) APTT (21.0-27.5) sec Sodium (136-145) mmol/L Potassium (3.5-5.1) mmol/L Chloride (98-107) mmol/L Carbon Dioxide (21.0-32.0) mmol/L Anion Gap (3-11) mmol/L BUN (7-18) mg/dL Creatinine (0.55-1.02) mg/dL Estimated GFR/1.73 m2 (mL/min/1.73m2) Glucose (74-106) mg/dL Calcium (8.5-10.1) mg/dL Magnesium (1.8-2.4) mg/dL Total Bilirubin (0.2-1.0) mg/dL AST (15-37) U/L ALT (14-59) U/L Alkaline Phosphatase (46-116) U/L Troponin I (<0.06) ng/mL Total Protein (6.4-8.2) g/dL Albumin (3.4-5.0) g/dL Lipase (73-393) U/L Urine Color (Yellow) Yellow Urine Clarity (Clear) Clear Urine pH (5-8) 6.0 Ur Specific [place] (1.005-1.025) 1.025 Urine Protein (Negative) mg/dL 30 H Urine Ketones (Negative) mg/dL Negative Urine Blood (Negative) Trace-intact H Urine Nitrite (Negative) Negative Urine Bilirubin (Negative) Negative Urine Urobilinogen (Up TO 0.2) EU/dL 1.0 H Ur Leukocyte Esterase (Negative) Trace H Urine RBC (0-2) HPF 5-10 H Urine WBC (0-5) HPF 3-5 Ur Epithelial Cells (Negative) HPF Moderate Urine Crystals (Negative) HPF Negative Urine Bacteria (Negative) HPF Few Urine Casts (Negative) LPF Negative Urine Mucus (Negative) Moderate Ur Culture Indicated? No/sq. contamination Urine Glucose (Negative) mg/dL Negative HPI General Mode of arrival: ambulatory . Date/Time Provider Initiated Documentation: 05/05/20 10:45 . Limitations to Documentation: no limitations . Information obtained by: patient . HPI Narrative: Patient is a 74-year-old female with a history of hyperlipidemia,, depression, hysterectomy who presents with lower abdominal pain for the past 2 days. Patient describes the pain as constant, sharp, worse with movement and eating certain foods. She does admit to occasional epigastric pain but states the pain is mainly lower with occasional radiation to her back and right up to her right shoulder. She states the pain is currently 2/10 but increases with movement. She had constipation recently for which she took a laxative yesterday and had 2 normal bowel movements today. She states this did not relieve the pain. She denies any fever, nausea, vomiting, urinary symptoms, recent travel, recent known sick contacts, recent antibiotics. Related Data Home Medications Medication Instructions Recorded Confirmed docusate sodium 100 mg capsule 100 mg PO DAILY 04/06/19 05/05/20 bupropion HCl 150 mg 24 hr tablet, 300 mg PO QAM tab 06/12/19 05/05/20 extended release famotidine 20 mg tablet 20 mg PO DAILY PRN #90 tab 01/04/20 05/05/20 ibuprofen 600 mg tablet 600 mg PO BID PRN #180 tab 01/04/20 05/05/20 trazodone 50 mg tablet 100 mg PO QHS tab 01/13/20 05/05/20 cholecalciferol (vitamin D3) 50 50 mcg PO DAILY 03/23/20 05/05/20 mcg (2,000 unit) capsule aspirin 81 mg tablet 81 mg PO DAILY 04/25/20 05/05/20 dextroamphetamine-amphetamine 20 25 mg PO DAILY tab 04/25/20 05/05/20 mg tablet vilazodone 20 mg tablet 20 mg PO DAILY tab 04/25/20 05/05/20 amoxicillin-pot clavulanate 1 tab PO BID 8 Days #16 tab 05/05/20 [Augmentin] ropinirole 0.5 mg PO 05/05/20 Previous Rx's Medication Instructions Recorded famotidine 20 mg tablet 20 mg PO DAILY PRN #90 tab 01/04/20 ibuprofen 600 mg tablet 600 mg PO BID PRN #180 tab 01/04/20 amoxicillin-pot clavulanate 1 tab PO BID 8 Days #16 tab 05/05/20 [Augmentin] Allergies Allergy/AdvReac Type Severity Reaction Status Date / Time benzalkonium chloride Allergy Unknown unknown Verified 04/25/20 08:09 [From Travatan] brimonidine [From Alphagan P] Allergy Unknown unknown Verified 04/25/20 08:09 meperidine HCl [From Demerol] Allergy Unknown UNSURE Verified 04/25/20 08:09 travoprost [From Travatan] Allergy Unknown unknown Verified 04/25/20 08:09 BLUE SURGICAL SCRUB? AdvReac Intermediate RASH, Uncoded 04/25/20 08:09 ITCHING General Stated Complaint: Abd Prob SHAGUFTA: 3 Review of Systems All systems reviewed & are unremarkable except as noted in HPI and below Constitutional Constitutional: Reports as per HPI, Denies chills and Denies fever(s) Eyes Eyes: Denies blurry vision ENT Ears, Nose, Mouth, and Throat: Denies dizziness, Denies sore throat and Denies throat swelling Cardiovascular Cardiovascular: Denies chest pain and Denies dyspnea Respiratory Respiratory: Denies cough and Denies dyspnea Gastrointestinal Gastrointestinal: Reports abdominal pain, Denies diarrhea and Denies vomiting Genitourinary Genitourinary: Denies hematuria and Denies dysuria Musculoskeletal Musculoskeletal: Reports back pain and Denies numbness Integumentary/Breasts Skin/Breast: Denies lesions and Denies rash Neurologic Neurologic: Denies dizziness, Denies localized weakness and Denies numbness Allergic/Immunologic Allergic/Immunologic: Denies throat swelling [facility] Medical History Ankle fracture Ankle sprain Anxiety NKHS Arthralgia of hip (02/04/17) R, muscular; PT Depression (08/31/11) NK Dysarthria-clumsy hand syndrome Elevated MCV Glaucoma (02/04/17) Heartburn Hip fx History of Lyme disease Early Disseminated-10/29 Dr. Manuel Lucia Hypercholesterolemia (02/04/17) Insomnia Iron deficiency (02/04/17) Lumbar pain with radiation down left leg Improved s/p lumbar spine fusion; stable; Dr. Devi Memory impairment Depression vs. other--see 08/14/2019 note; Neuro 03/2019; normal brain MRI and labs [id number] Mild aortic stenosis ECHO 06/2019 Mild cognitive impairment Osteopenia DEXA 2016 & 2019 Restless legs syndrome (02/04/17) Years; Dr. Ruffin Neuro; medication helps (Requip & Shirlene PRN; Shirlene 300mg HS PRN discontinued 08/14/2019) Spinal stenosis of lumbar region (02/04/17) s/p Neurosurgery Trigger finger, right middle finger [facility] Dr. 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 Parks, R then L (pending 11/2019) History of knee replacement B/L History of lumbar laminectomy L knee repair Oophrectomy, Left Age 20 for cyst Oophrectomy, Right with hyst 1997 Spinal Fusion CERVICAL Status post cervical spinal arthrodesis (02/04/17) Vaginal hysterectomy 1997 - Prolapse Varicose vein stripping Family History Mother Parkinson disease Heart disease Hypertension Brother Depression Diabetes Heart disease Hypertension Father Heart disease Hypertension Social History Smoking/Tobacco Use Status: Former Tobacco Use Quit Date: 05/13/89 Tobacco: How many years used: 10 Smoking risk assessment performed?: Yes Alcohol Intake: current Alcohol Intake frequency: holidays/special occasions only Alcohol type: other Drug use: Never Substance use type: does not use Adopted: No Caregiver/Support person: No Foster care: No Household members: family Housing: house Number of Children: 2 Communication Needs: Corrective Lenses Do you need help understanding health information?: Rarely current occupation: Retired Sexually active: Yes Do you think of yourself as: straight/heterosexual Current gender identity: female What is your relationship status?: Panel score (0-1 are the most socially isolated patients): 1 What type of physical activity do you participate in: none Seatbelt use: always Working smoke detector in home: Yes Fire extinguisher in home: Yes Carbon monox detector in home: Yes Do you feel safe at home: Yes Do you feel safe in your relationship?: Yes Exam Const General: cooperative, healthy appearing and no acute distress [facility] Head: normal to inspection Face and sinus: normal facial exam Eyes General: appearance normal, both eyes and all related structures EOM: EOM intact bilaterally Neck Neck: normal visual inspection and No submandibular swelling Lymphatic: no lymphadenopathy noted Chest Chest: normal inspection of the chest and no tenderness Resp Effort & Inspection: normal respiratory effort and able to speak in complete sentences Auscultation: clear to auscultation bilaterally Cardio Rate: regular rate Rhythm: regular rhythm GI Inspection: normal to inspection Palpation: soft, not firm, not rigid and tender in the epigastrum, in the RLQ and suprapubicly Auscultation: hypoactive bowel sounds Back/Spine/Pelvis Back: no CVA tenderness Skin General skin exam: no rashes or lesions noted Neuro General: patient alert, patient awake and patient oriented x3 Cognition: normal cognition Speech: speech normal Motor: muscle tone normal throughout Sensory Exam: no sensory deficits noted Extrem General: normal to inspection, full ROM, capillary refill normal, no calf tenderness bilaterally and no edema Psych Appearance: grossly normal Mental Status: mental status grossly normal Speech and Movement: speech and movement normal Affect: normal affect Course Vital Signs Vital signs: Vital Signs Temperature 97.5 F L 05/05/20 10:49 Pulse 69 05/05/20 10:49 Respiratory Rate 17 05/05/20 10:49 Blood Pressure 157/75 H 05/05/20 10:49 Pulse Oximetry 96 05/05/20 10:49 Temperature 97.5 F L 05/05/20 10:49 Temperature Source Temporal Artery Scan 05/05/20 10:49 Pulse 69 05/05/20 10:49 Respiratory Rate 17 05/05/20 10:49 Respiratory Effort Non-Labored 05/05/20 10:53 Blood Pressure 157/75 H 05/05/20 10:49 Blood Pressure Position Sitting 05/05/20 10:49 Pulse Oximetry 96 05/05/20 10:49 Oxygen Delivery Method Nasal Cannula 05/05/20 10:49 Pain Level 8 05/05/20 10:49
--- NOTE | 2020-05-05 11:15 | DI.CT_ITS ---
EXAM: CT ABDOMEN PELVIS W CLINICAL HISTORY: lower abd pain, tender suprapubic, RLQ TECHNIQUE: Imaging Protocol: Axial computed tomography images with coronal and sagittal reformatted images were created and reviewed CONTRAST MATERIAL: Intravenous: Omnipaque 350 Contrast volume:100 mL Oral: No COMPARISON: CT UPPER ABD WITH CONTRAST (P) from 05/23/2015 FINDINGS: ABDOMEN: Lung Bases: The lungs are hyperinflated suggesting underlying COPD. Dependent atelectasis is seen in the lung bases. Liver: Hepatic cysts. No measurable mass. Portal, Superior Mesenteric, and Splenic Veins: Unremarkable. Gallbladder and Biliary Tract: No radiodense calculus or dilation. Pancreas: Normal density, no abnormal calcifications or inflammatory process. Spleen: Normal. Adrenals: No masses seen. Kidneys: Normal size, contour and axis. No radiodense stones or obstructive uropathy. No masses seen. Abdominal Aorta: Abdominal portion non-dilated. Atherosclerosis. Bowel: No evidence of obstruction. There is diverticulosis in the descending and sigmoid colon. [place] el wall thickening and pericolonic inflammatory changes seen in the mid sigmoid colon complete system with acute diverticulitis. No abscess or free air. Appendix is unremarkable. Peritoneal Cavity: No ascites, collection or mesenteric inflammatory response. Lymph Nodes: Within normal limits. Bones: Degenerative changes are seen in the spine there is L4-5 disc fusion and posterior spinal rods with pedicle screws from from L4 through S1. Soft Tissues: Unremarkable. PELVIS: Bladder: Incompletely distended but grossly unremarkable. Reproductive Organs: Status post hysterectomy. Lymph Nodes: Within normal limits. Bones: Please see above. IMPRESSION: Findings of acute sigmoid diverticulitis. No abscess or free air. Findings were discussed with the emergency department on the date of the examination. RADIATION DOSE DELIVERED: 1,042.17mGy.cm Total DLP DATA REPOSITORY: All CT scans at this facility are submitted to the National Radiology Data Registry (NRDR) Dose Index Registry (DIR) with the [employer] ([employer]). RADIATION OPTIMIZATION: All CT scans at this facility use at least one of these dose optimization te chniques: automated exposure control; mA and/or kV adjustment per patient size (includes targeted exa ms where dose is matched to clinical indication); or iterative reconstruction.
[2020-05-05 11:22] LABS: Abs Immature Grans 0.01 10^3/uL (0.0-0.06); Absolute Basophil Count 0.02 10^3/uL (0.0-0.2); Absolute Eosinophil Count 0.18 10^3/uL (0.0-0.7); Absolute Lymphocyte Count 1.95 10^3/uL (1.2-3.4); Absolute Monocyte Count 0.41 10^3/uL (0.1-0.8); Absolute Neutrophil Count 3.58 10^3/uL (1.2-6.7); Basophils % 0.3; Eosinophils % 2.9; HGB 12.1 g/dL (11.2-15.7); Immature Grans % 0.2; Lymphocytes % 31.7; MCH 32.8 pg (27.0-33.0); MCHC 33.6 % (32.0-36.0); MCV 97.6 fL (80-95); MPV 9.9 fL (8.0-11.0); Monocytes % 6.7; Neutrophils % 58.2; Nucleated RBC 0 %; Platelet Count 165 10^3/uL (130-400); RBC 3.69 10^6/uL (3.93-5.22); RDW 12.6 % (11.7-14.6); RDW-SD 45.2 fL; WBC 6.15 10^3/uL (4.4-10.8)
[2020-05-05 11:29] LABS: Bilirubin Negative (Negative); Blood Trace-intact (Negative); Clarity Clear (Clear); Glucose Negative (Negative); Ketones Negative (Negative); Leukocyte Esterase Trace (Negative); Nitrite Negative (Negative); Specific Gravity 1.025 (1.005-1.025)
[2020-05-05 11:32] LABS: PTT Activated 27.4 sec (21.0-27.5); Prothrombin Time 10.3 sec (9.3-11.0)
[2020-05-05 11:33] LABS: ALT 23 U/L (14-59); AST 16 U/L (15-37); Albumin 3.4 g/dL (3.4-5.0); Alkaline Phosphatase 68 U/L (46-116); Anion Gap 8.1 mmol/L (3-11); BUN 20 mg/dL (7-18); Bilirubin, Total 0.4 mg/dL (0.2-1.0); CO2 25.9 mmol/L (21.0-32.0); Calcium 8.6 mg/dL (8.5-10.1); Chloride 105 mmol/L (98-107); Glucose 95 mg/dL (74-106); Lipase 88 U/L (73-393); Potassium 3.6 mmol/L (3.5-5.1); Sodium 139 mmol/L (136-145); Total Protein 6.8 g/dL (6.4-8.2); Troponin I < 0.05 ng/mL (<0.06)
[2020-05-05] MEDS: ACETAMINOPHEN 1,000 MG/100 ML BTL 400 MG IVPB (11:41)
[2020-05-05] MEDS: Normal Saline 1,000 ML 1000 ML IV (11:41)
[2020-05-05 11:43] LABS: Bacteria Few HPF (Negative); C & S Indicated? No/Sq. Contamination; Casts Negative LPF (Negative); Crystals Negative HPF (Negative); Epithelial Cells Moderate HPF (Negative); Mucus Moderate (Negative)
[2020-05-05] MEDS: Omnipaque 350 MG/ML 100 ML BTL IJ (12:17)
[2020-05-05] MEDS: Normal Saline - Diluent 50 ML VIAL IV (12:17)
[2020-05-05 13:26] VITALS: BP 157/81; PULSE 78; RESP 17; TEMP 36.5; O2SAT 100
[2020-05-05] MEDS: Amox. 875/Clav. 125, 2 TABS/BTL 1 TAB PO ×2 (13:27)
[2020-05-05] MEDS: Amoxicillin 875/Clav. 125 TAB PO (13:28)
== END 2020-05-05 13:59 | disposition home or self-care (01) ==
PROVIDERS: Emergency Provider Physician Assistant; PCP Nurse Practitioner Adult Health
DX: K57.32 Diverticulitis of large intestine without perforation or abscess without bleeding (principal)
CPT/HCPCS: 36415; 80053; 83690; 96361; 96365; 99285; 74177; 81003; 81015; 83735; 84484; 85025; 85610; 85730; J0131; J3490

== ENCOUNTER 2020-05-12 11:20 | Outpatient (CLI) | payer MEDICARE, OTHER, SELFPAY ==
--- NOTE | 2020-05-12 10:42 | DI.RAD_ITS ---
EXAM: XR FOOT RT COMPLETE CLINICAL HISTORY: F/U FRACTURE. TECHNIQUE: 2D digital imaging was performed. COMPARISON: CR XR FOOT RT COMPLETE from 04/11/2020 FINDINGS: Again noted is the oblique fracture of the diaphysis of the 5th metatarsal. Fracture line is still e vident without bridging callus but there has not been further displacement of the fracture fragments. IMPRESSION: Radiographically unchanged from 04/11/2020 DATA REPOSITORY: RADIATION DOSE DELIVERED:
== END 2020-05-12 11:40 ==
PROVIDERS: PCP Nurse Practitioner Adult Health; Referring Provider Nurse Practitioner Adult Health; Visit Provider Student in an Organized Health Care Education/Training Program
DX: S92.351A Displaced fracture of fifth metatarsal bone, right foot, initial encounter for closed fracture; X58.XXXA Exposure to other specified factors, initial encounter
CPT/HCPCS: 99213; 73630

== ENCOUNTER → 2020-05-24 14:15 | Outpatient (BNVA) | payer MEDICARE, OTHER, SELFPAY | PROVIDERS: PCP Nurse Practitioner Adult Health; Referring Provider Nurse Practitioner Adult Health; Visit Provider Nurse Practitioner Adult Health | DX: R69 Illness, unspecified (principal) ==

== ENCOUNTER → 2020-06-10 11:22 | Outpatient (CLI) | payer MEDICARE, OTHER, SELFPAY ==
--- NOTE | 2020-06-10 10:45 | DI.RAD_ITS ---
EXAM: XR FOOT RT COMPLETE CLINICAL HISTORY: follow up. TECHNIQUE: 2D digital imaging was performed. COMPARISON: CR XR FOOT RT COMPLETE from 05/12/2020 FINDINGS: Again noted is E oblique fracture in the diaphysis of the 5th metatarsal. Fracture line is still yisel dent but there is no further displacement. There is some callus formation evident. No radiopaque fo reign body. No new fractures evident. IMPRESSION: DATA REPOSITORY: RADIATION DOSE DELIVERED:
== END ==
PROVIDERS: PCP Nurse Practitioner Adult Health; Referring Provider Nurse Practitioner Adult Health; Visit Provider Student in an Organized Health Care Education/Training Program
DX: S92.351D Displaced fracture of fifth metatarsal bone, right foot, subsequent encounter for fracture with routine healing; X58.XXXD Exposure to other specified factors, subsequent encounter; M76.71 Peroneal tendinitis, right leg
CPT/HCPCS: 99213; 73630

== ENCOUNTER → 2020-06-15 08:06 | Outpatient (BNVA) | payer MEDICARE, OTHER, SELFPAY | PROVIDERS: PCP Nurse Practitioner Adult Health; Referring Provider Nurse Practitioner Adult Health; Visit Provider Nurse Practitioner Adult Health | DX: G31.84 Mild cognitive impairment of uncertain or unknown etiology (principal) | CPT/HCPCS: 99212; 99443 ==

== ENCOUNTER → 2020-07-08 10:25 | Outpatient (BNVA) | payer MEDICARE, OTHER, SELFPAY | PROVIDERS: PCP Nurse Practitioner Adult Health; Referring Provider Nurse Practitioner Adult Health; Visit Provider Student in an Organized Health Care Education/Training Program | DX: R69 Illness, unspecified (principal) ==

== ENCOUNTER 2020-08-02 01:29 | Outpatient (CLI) | payer MEDICARE, OTHER, SELFPAY ==
--- NOTE | 2020-08-02 14:01 | DI.US_ITS ---
APPROVED REPORT EXAM: Comprehensive 2D, Doppler, and color-flow Echocardiogram Patient Location: Out-Patient Special Education Superintendent: Alondra Snow RDCS (AE) Indications: assess aortic stenosis Other Information Study Quality: Good Conclusion Left Ventricle : The left ventricle is normal size. The left ventricular systolic function is normal. The left ventricular ejection fraction is within the normal range. There is normal left ventricular wall thickness. There is normal LV segmental wall motion. The left ventricular diastolic function is normal. LVEF is 60%. Right Ventricle : The right ventricle is normal size. The right ventricular systolic function is norm al. The RVSP is 17.9 mmHg. Atria : The left atrium size is normal. The right atrium size is normal. Aortic Valve : Aortic valve is calcified. The Aortic valve is sclerotic. Aortic valve is trileaflet. Trace aortic regurgitation. Mild aortic stenosis. Great Vessels : The aortic root is normal in size. The ascending aorta is mildly dilated. Aortic arch is normal in caliber. IVC is normal in size and collapses >50% with inspiration. Compared to study from 07/12/2019, there is no significant change. Wall motion Left Ventricle The left ventricle is normal size. The left ventricular systolic function is normal. The left ventric ular ejection fraction is within the normal range. There is normal left ventricular wall thickness. T here is normal LV segmental wall motion. The left ventricular diastolic function is normal. There is no ventricular septal defect visualized. LVEF is 60%. Right Ventricle The right ventricle is normal size. The right ventricular systolic function is normal. The RVSP is 17 .9 mmHg. Atria The left atrium size is normal. The right atrium size is normal. The interatrial septum is intact wit h no evidence for an atrial septal defect. Aortic Valve Aortic valve is calcified. The Aortic valve is sclerotic. Aortic valve is trileaflet. Mild aortic gretchen nosis. Trace aortic regurgitation. Mitral Valve Mild mitral annular calcification. No evidence of mitral valve stenosis. Trace mitral regurgitation. Tricuspid Valve The tricuspid valve is normal in structure. There is no tricuspid valve stenosis. Trace tricuspid reg urgitation. Pulmonic Valve The pulmonary valve is normal in structure. There is no pulmonic valvular stenosis. Trace pulmonic re gurgitation. Great Vessels The aortic root is normal in size. The ascending aorta is mildly dilated. Aortic arch is normal in ca liber. IVC is normal in size and collapses >50% with inspiration. Pericardium There is no pericardial effusion. 2D Dimensions IVSD d PLAX 1.03 cm F: 0.6-1.0 LV Vol A2C d MOD 103.0 mL LVPW d PLAX 1.01 cm F: 0.6 - 1.0 LV Vol A4C d MOD 130.9 mL LVID d PLAX 4.50 cm F: 3.8 - 5.2 LA vol/ BSA A2C s A-L 36.9 mL/m2 LVDs 3.15 cm F: 2.2 - 3.5 LA vol/ BSA A4C s A-L 27.7 mL/m2 Ao Root d 2.98 cm F: 2.7 - 3.3 LA Vol/ BSA Biplane s A-L 32.3 mL/m2 RA Area A4C 12.79 cm2 LA Area A4C s MOD 17.49 cm2 RA Vol/ BSA A4C s A-L 17.8 mL/m2 LA Area A2C s MOD 20.40 cm2 Ao Asc Diam d 3.42 cm F: 2.3 - 3.1 LV EF A4C MOD 58.3 % LV EF Teichholz 57.2 % LV EF A2C MOD 60.1 % LVEF (Robb's) 61.15 % F: 54 - 74 LV EF Biplane MOD 61.2 % LV Volume 94.57 mL F: 46 - 106 SV 74.98 mL LV Volume Index 51.39 mL/m2 F: 29 - 61 SV Index 40.68 mL/m2 LV Vol Biplane MOD 122.6 mL FS 29.85 % M-Mode TAPSE 2.13 cm (M/F) >1.7 LV Diastology MV E' medial 0.081 (>0.07 m/s) E/A Ratio 0.8 LV E/e MED 9.85 (<14) MV E Vmax 0.80 (0.4-1.3 m/s) MV E' lateral 0.106 (>0.1 m/s) MV A Vmax 1.05 (0.4-1.3 m/s) LV E/e LAT 7.45 (<14) MV E/A Ratio 0.74 MV E/E' medial 9.87 MV E/E' lateral 7.49 Aortic Valve LVOT Area 3.10 cm2 AoV Area Vmax 1.75 cm2 LVOT Vmax 1.18 m/s AoV Area/ BSA (Vmax) 0.95 cm2/m2 LVOT Mean Herbert. 0.77 m/s LISSY Mean Herbert. 1.63 cm2 LVOT Peak Grad 5.5 mmHg LISSY Mean Herbert. Index 0.88 cm2/m2 LVOT Mean Grad 2.8 mmHg AR DT 2293 msec LVOT VTI 0.272 m AR PHT 665 msec LVOT Diam s 1.95 cm AoV Vmax 2.08 m/s Velocity Ratio 0.56 AoV Mean Herbert. 1.46 m/s AoV Peak Grad 17.3 mmHg LVOT SV 84.09 mL AoV Mean Grad 9.3 mmHg AoV VTI 0.453 m AoV Area VTI 1.86 cm2 AoV Area/ BSA (VTI) 1.01 cm/m2 Mitral Valve MV DT 205 (160-240 msec) MV PHT 60 msec MV Area PHT 3.69 cm2 Pulmonary Valve PV Vmax 0.99 (0.5-1.5 m/s) RVOT Peak Gr. 2.15 mmHg PV Peak Grad 3.9 mmHg RVOT Mean Gr. 1.35 mmHg PV Mean Grad 2.2 mmHg RVOT VTI 0.124 m PV VTI 0.207 m RVOT Vmax 0.73 m/s Tricuspid Valve TR Peak Grad 14.9 mmHg TR Vmax 1.93 m/s RA Pressure 3.00 mmHg RVSP (TR) 17.9 mmHg
== END 2020-08-02 01:49 ==
PROVIDERS: PCP Nurse Practitioner Adult Health; Visit Provider Nurse Practitioner Adult Health
DX: I35.0 Nonrheumatic aortic (valve) stenosis (principal)
CPT/HCPCS: 93306

== ENCOUNTER 2020-09-08 10:14 | Outpatient (CLI) | payer MEDICARE, OTHER, SELFPAY ==
--- NOTE | 2020-09-08 11:00 | DI.RAD_ITS ---
Exam(s) XR FOOT RT COMPLETE EXAM: XR FOOT RT COMPLETE CLINICAL HISTORY: Reinjured R 5th MTP--please reassess r/o fx, [id number]. TECHNIQUE: 2D digital imaging was performed. COMPARISON: CR RIGHT ANKLE COMPLETE from 08/13/2015 CR XR FOOT RT COMPLETE from 06/10/2020 FINDINGS: Again noted is a healing oblique fracture site at midshaft of the 5th metatarsal. No further displac ement and there has been further callus formation. No new additional fractures evident. No diastasi s of the Lisfranc joint. IMPRESSION: Further healing at the oblique fracture site in the 5th metatarsal. No further displacement. DATA REPOSITORY: RADIATION DOSE DELIVERED:
== END 2020-09-08 10:34 ==
PROVIDERS: PCP Nurse Practitioner Adult Health; Visit Provider Nurse Practitioner Adult Health
DX: S92.351D Displaced fracture of fifth metatarsal bone, right foot, subsequent encounter for fracture with routine healing (principal)
CPT/HCPCS: 73630

== ENCOUNTER 2020-09-12 02:28 | Outpatient (CLI) | payer MEDICARE, OTHER, SELFPAY ==
[2020-09-12 10:59] LABS: Anion Gap 8.5 mmol/L (3-11); BUN 21 mg/dL (7-18); CO2 28.5 mmol/L (21.0-32.0); CREATININE 0.6 mg/dL (0.55-1.02); Calcium 8.7 mg/dL (8.5-10.1); Calculated LDL 130 mg/dL (<100); Chloride 107 mmol/L (98-107); Cholesterol 234 mg/dL (<200); Glucose 85 mg/dL (74-106); HDL Cholesterol 90 mg/dL (40-60); Potassium 4.4 mmol/L (3.5-5.1); Sodium 144 mmol/L (136-145); TSH (W/Ref FT4) 0.44 uIU/mL (0.36-3.74); Triglyceride 74 mg/dL (<150)
[2020-09-12 11:14] LABS: Vitamin D 25 Total 49.3 ng/mL (30-100)
== END 2020-09-12 02:29 | disposition home or self-care (01) ==
LOC: LBO 02:28
PROVIDERS: PCP Nurse Practitioner Adult Health; Visit Provider Nurse Practitioner Adult Health
DX: E78.00 Pure hypercholesterolemia, unspecified (principal); F41.9 Anxiety disorder, unspecified; F32.9 Major depressive disorder, single episode, unspecified; M85.80 Other specified disorders of bone density and structure, unspecified site
CPT/HCPCS: 36415; 80048; 80061; 82306; 84443

== ENCOUNTER 2020-10-22 09:53 | Emergency (ER) | payer MEDICARE, MEDICAID, SELFPAY ==
[2020-10-22 10:01] VITALS: BP 142/54; PULSE 81; RESP 16; TEMP 36.4; O2SAT 96
--- NOTE | 2020-10-22 10:15 | DI.RAD_ITS ---
Exam(s) XR WRIST RT COMPLETE EXAM: XR WRIST RT COMPLETE CLINICAL HISTORY: DANTE. TECHNIQUE: 2D digital imaging was performed. COMPARISON: CR XR wrist RT complete from 04/05/2018 FINDINGS: BONES: There is an acute impacted comminuted fracture of the distal radius. There is deformity of th e ulnar styloid process which may be old. No bony destructive lesion is seen. JOINTS: The carpal bones are normally aligned. Degenerative changes in the wrist are seen, particular ly at the 1st CMC joint. SOFT TISSUE: Soft tissue swelling of the wrist. Chondrocalcinosis. IMPRESSION: Acute distal right radial fracture. DATA REPOSITORY: RADIATION DOSE DELIVERED:
--- NOTE | 2020-10-22 10:22 | ED.GENADUL_ITS ---
Discharge Plan Disposition Patient Disposition: HOME Condition: Stable Discharge Details Clinical Impression: Closed fracture distal radius and ulna Primary Care Provider: Anne Bob ED Provider: Cheryl Driver Home Meds and New Rx's Prescriptions: New oxycodone 5 mg tablet 5 mg PO BID PRN (Reason: pain) Qty: 7 RF: 0 Continued aspirin 81 mg tablet 81 mg PO DAILY RF: 0 famotidine 20 mg tablet 20 mg PO DAILY PRN (Reason: heartburn) Qty: 90 RF: 3 cholecalciferol (vitamin D3) 50 mcg (2,000 unit) capsule 50 mcg PO DAILY RF: 0 buspirone 15 mg tablet 15 mg PO BID RF: 0 dextroamphetamine-amphetamine [Adderall XR] 25 mg capsule,extended release 24hr 25 mg PO DAILY RF: 0 ropinirole 3 mg tablet 3 mg PO QHS RF: 0 acetaminophen 500 mg capsule 1,000 mg PO BID RF: 0 docusate sodium [Colace] 100 mg capsule 100 mg PO DAILY RF: 0 bupropion HCl [Wellbutrin XL] 150 mg tablet extended release 24 hr 300 mg PO QAM RF: 0 Viibryd 20 mg tablet 20 mg PO DAILY RF: 0 trazodone 50 mg tablet 100 mg PO QHS RF: 0 Discharge Instructions Instructions: Wrist Fracture in Adults (ED) Additional Instructions: Encourage rest, ice, elevation. Tylenol and/or ibuprofen as needed for discomfort. If this is insufficient at alleviating your discomfort, please take the oxycodone as prescribed. Please not drive while taking this medication and take only as prescribed. Please keep splint on until evaluated by orthopedics. You may use sling to help elevate the arm. Please call orthopedics on Saturday to schedule follow-up appointment. If you develop any new or worsening symptoms please seek care urgently once again Referrals: Scar Oliver MD [ [facility] STAFF PHYSICIAN] - Anne Bob LINK TRAINER MAINTENANCE WORKER [Primary Care Provider] - Medical Decision Making Patient is a pleasant 74-year-old [id number] female presenting today with chief complaint of right wrist pain. She reports that last night standing on a 1 foot stool when it tipped and she fell landed on her outstretched right hand. She denies other injuries from the incident. Did not strike her head, no loss of consciousness. Denies any neck, back pain. Describes isolated injury to the right wrist. Has noted swelling and discomfort since that time. Denies any numbness or tingling. States that she is having difficulty moving her hand is unclear if this is associate with pain in the wrist. On exam, patient appears nontoxic. She is able to move her fingers slightly but this does cause increased discomfort in the wrist. No pain to palpation about the hand. No pain with palpation over the anatomical snuffbox or axial thumb loading. Sensation is intact, 2+ distal pulses, brisk capillary refill. She has swelling to the dorsal aspect of the distal radius. Good range of motion of the elbow although supination pronation does cause discomfort in the wrist. No palpable defect. Will give Tylenol and ibuprofen for discomfort. Will obtain x-ray to evaluate for potential fracture. X-ray reviewed by myself. Patient has a distal radius and ulnar fracture. I discussed his imaging with the patient. Plaster splint was applied by myself. Patient is feeling much improved after splint was applied. She has improved range of motion of her fingers at this time with the wrist immobilized is now able to abduct the fingers and fully flex and extend. Continues to be ne urovascularly intact. Encourage rest, ice, elevation. Tylenol and/or ibuprofen as needed for disco mfort. Patient is concerned that this will not be sufficient to help her sleep at night. Will prescribe a short course of oxycodone to help with discomfort prior to bed. Return precautions were discussed. She will follow up with orthopedics and will call Saturday to schedule appointment. All of her questions and concerns were addressed and she is understanding of this plan. FINDINGS: Bones/joints: Incompletely healed ulnar styloid fracture Degenerative changes in the radiocarpal joint Degenerative changes between the scaphoid in the trapezium and thumb carpometacarpal joint Comminuted displaced impacted distal radius fracture. Seen best on the lateral.. Soft tissues: Soft tissue swelling of the wrist IMPRESSION: Comminuted displaced impacted distal radius fracture. Seen best on the lateral.. HPI General Mode of arrival: ambulatory . Date/Time Provider Initiated Documentation: 10/22/20 10:22 . Limitations to Documentation: no limitations . Information obtained by: patient and RN notes reviewed . History of Present Illness 74 year old F presents to the emergency department with the chief complaint of right wrist pain, described as severe, with intensity rated at 8. Quality is described as aching, and is localized to the right and upper extremity. Patient extremity. Patient started experiencing this day(s) (1) and it has been constant. Immobilization improves symptom(s), Movement worsens symptoms . Patient notes no other symptoms.. Patient did receive the following treatments prior to arrival, none Related Data Home Medications Medication Instructions Recorded Confirmed docusate sodium 100 mg capsule 100 mg PO DAILY 04/06/19 10/22/20 bupropion HCl 150 mg 24 hr tablet, 300 mg PO QAM tab 06/12/19 10/22/20 extended release famotidine 20 mg tablet 20 mg PO DAILY PRN #90 tab 01/04/20 10/22/20 cholecalciferol (vitamin D3) 50 50 mcg PO DAILY 03/23/20 10/22/20 mcg (2,000 unit) capsule aspirin 81 mg tablet 81 mg PO DAILY 04/25/20 10/22/20 vilazodone 20 mg tablet 20 mg PO DAILY tab 04/25/20 10/22/20 acetaminophen 500 mg capsule 1,000 mg PO BID cap 09/05/20 10/22/20 buspirone 15 mg tablet 15 mg PO BID 09/05/20 10/22/20 dextroamphetamine-amphetamine ER 25 mg PO DAILY 09/05/20 10/22/20 25 mg 24hr capsule,extend release ropinirole 3 mg tablet 3 mg PO QHS 09/05/20 10/22/20 trazodone 50 mg tablet 100 mg PO QHS tab 09/20/20 10/22/20 oxycodone 5 mg PO BID PRN #7 tab 10/22/20 Previous Rx's Medication Instructions Recorded famotidine 20 mg tablet 20 mg PO DAILY PRN #90 tab 01/04/20 oxycodone 5 mg PO BID PRN #7 tab 10/22/20 Allergies Allergy/AdvReac Type Severity Reaction Status Date / Time benzalkonium chloride Allergy Unknown unknown Verified 10/22/20 10:05 [From Travatan] brimonidine [From Alphagan P] Allergy Unknown unknown Verified 10/22/20 10:05 meperidine HCl [From Demerol] Allergy Unknown UNSURE Verified 10/22/20 10:05 travoprost [From Travatan] Allergy Unknown unknown Verified 10/22/20 10:05 BLUE SURGICAL SCRUB? AdvReac Intermediate RASH, Uncoded 10/22/20 10:05 ITCHING General Stated Complaint: Orthopedic SHAGUFTA: 4 Review of Systems Constitutional Constitutional: Reports as per HPI, Denies chills, Denies fever(s), Denies headache(s) and Denies weakness ENT Ears, Nose, Mouth, and Throat: Denies headache(s) Cardiovascular Cardiovascular: Reports as per HPI Respiratory Respiratory: Reports as per HPI and Denies cough Musculoskeletal Musculoskeletal: Reports as per HPI and Denies tingling Integumentary/Breasts Skin/Breast: Reports as per HPI, Denies rash and Denies wounds Neurologic Neurologic: Reports as per HPI, Denies headache(s), Denies tingling, Denies paresthesias and Denies weakness [facility] Medical History Ankle fracture Ankle sprain Anxiety [facility] Arthralgia of hip (02/04/17) R, muscular; PT Atrophic vaginitis (09/07/13) Depression (08/31/11) [facility] Dysarthria-clumsy hand syndrome Elevated MCV Glaucoma (02/04/17) Heartburn Famotidine 20mg daily Hip fx History of Lyme disease Early Disseminated-10/29 Dr. Manuel Lucia Hypercholesterolemia (02/04/17) Insomnia RX Trazodone Iron deficiency (02/04/17) Lumbar pain with radiation down left leg Improved s/p lumbar spine fusion; stable; Dr. Devi Memory impairment Depression vs. other--see 08/14/2019 note; Neuro 03/2019; normal brain MRI and labs [id number] [facility] Memory Clinic consult 2020--no [facility]; they are following Mild aortic stenosis ECHO 06/2019; 07/2020 (stable) Osteopenia DEXA 2016 & 2020 Restless legs syndrome (02/04/17) Years; Dr. Ruffin Neuro; medication helps (Requip & Shirlene PRN; Shirlene 300mg HS PRN discontinued 08/14/2019) Spinal stenosis of lumbar region (02/04/17) s/p Neurosurgery Trigger finger, right middle finger [facility] Dr. 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 Parks, R then L (pending 11/2019) History of knee replacement B/L History of lumbar laminectomy L knee repair Oophrectomy, Left Age 20 for cyst Oophrectomy, Right with hyst 1997 Spinal Fusion CERVICAL Status post cervical spinal arthrodesis (02/04/17) Vaginal hysterectomy 1997 - Prolapse Varicose vein stripping Family History Mother Parkinson disease Heart disease Hypertension Brother Depression Diabetes Heart disease Hypertension Father Heart disease Hypertension Social History Smoking/Tobacco Use Status: Former Tobacco Use Quit Date: 05/13/89 Tobacco: How many years used: 10 Smoking risk assessment performed?: Yes Alcohol Intake: current Drug use: Never Substance use type: does not use Adopted: No Caregiver/Support person: No Foster care: No Household members: family Housing: house Number of Children: 2 Communication Needs: Corrective Lenses Do you need help understanding health information?: Rarely current occupation: Retired Sexually active: Yes Do you think of yourself as: straight/heterosexual Current gender identity: female What is your relationship status?: Panel score (0-1 are the most socially isolated patients): 1 What type of physical activity do you participate in: none Seatbelt use: always Working smoke detector in home: Yes Fire extinguisher in home: Yes Carbon monox detector in home: Yes Do you feel safe at home: Yes Do you feel safe in your relationship?: Yes Exam Const General: cooperative, healthy appearing, comfortable, no acute distress, well developed and well groomed Nutritional Appearance: average body habitus and well nourished Orientation: alert and awake Resp Effort & Inspection: normal respiratory effort, able to speak in complete sentences and no respiratory distress Cardio Rate: regular rate Rhythm: regular rhythm Skin General skin exam: no rashes or lesions noted Lesions: no lesions Rashes: no rashes Trauma: no lacerations or abrasions Neuro General: patient alert and patient awake Cognition: normal cognition Speech: speech normal Gait: normal gait Motor: muscle tone normal throughout Sensory Exam: no sensory deficits noted Extrem Elbow/forearm/wrist images: 1. Area of swelling and discomfort. No ecchymosis or break in the skin. No palpable deformity. 2+ distal pulses. Capillary refill within normal limits. Sensation intact. Patient is able to move her fingers slightly but this causes significant discomfort in the wrist. No pain to palpation about the fingers or the hand. No pain over the anatomical snuffbox. No pain with axial thumb loading. Psych Appearance: grossly normal and well kempt Mental Status: mental status grossly normal Speech and Movement: speech and movement normal Course Vital Signs Vital signs: Vital Signs Temperature 36.4 C L 10/22/20 10:01 Pulse 81 10/22/20 10:01 Respiratory Rate 16 10/22/20 10:01 Blood Pressure 142/54 H 10/22/20 10:01 Pulse Oximetry 96 10/22/20 10:01 Temperature 36.4 C L 10/22/20 10:01 Temperature Source Skin 10/22/20 10:01 Pulse 81 10/22/20 10:01 Respiratory Rate 16 10/22/20 10:01 Respiratory Effort Non-Labored 10/22/20 10:01 Blood Pressure 142/54 H 10/22/20 10:01 Blood Pressure Position Sitting 10/22/20 10:01 Pulse Oximetry 96 10/22/20 10:01 Oxygen Delivery Method Room Air 10/22/20 10:01 Oxygen Flow Rate 0 10/22/20 10:01 Pain Level 8 10/22/20 10:08
[2020-10-22] MEDS: Acetaminophen 325 MG TAB 650 MG PO (10:34)
[2020-10-22] MEDS: Ibuprofen 600 MG TAB PO (10:34)
--- NOTE | 2020-10-22 11:51 | DI.VRAD_ITS ---
PROCEDURE INFORMATION: Exam: XR Right Wrist Exam date and time: 10/22/2020 10:27 AM Age: 74 years old Clinical indication: Injury or trauma; Other: Fall; Sprain or strain; Wrist; Right TECHNIQUE: Imaging protocol: XR Right wrist. Views: 3 or more views. COMPARISON: CR XR wrist RT complete 04/05/2018 6:04 PM FINDINGS: Bones/joints: Incompletely healed ulnar styloid fracture Degenerative changes in the radiocarpal joint Degenerative changes between the scaphoid in the trapezium and thumb carpometacarpal joint Comminuted displaced impacted distal radius fracture. Seen best on the lateral.. Soft tissues: Soft tissue swelling of the wrist IMPRESSION: Comminuted displaced impacted distal radius fracture. Seen best on the lateral.. Dictated and Authenticated by: Jose Andres MD. Ordering:BLAIR Luna MD
[2020-10-22 12:04] VITALS: PULSE 68; RESP 14; TEMP 36.6; O2SAT 97
== END 2020-10-22 12:04 | disposition home or self-care (01) ==
PROVIDERS: Emergency Provider Physician Assistant; PCP Nurse Practitioner Adult Health
DX: S52.591A Other fractures of lower end of right radius, initial encounter for closed fracture (principal); S52.614A Nondisplaced fracture of right ulna styloid process, initial encounter for closed fracture; W08.XXXA Fall from other furniture, initial encounter
CPT/HCPCS: 25600; 73110

== ENCOUNTER 2020-11-04 08:52 | Outpatient (CLI) | payer MEDICARE, MEDICAID, SELFPAY ==
--- NOTE | 2020-11-04 08:00 | DI.RAD_ITS ---
Exam(s) XR WRIST RT LIMITED EXAM: XR WRIST RT LIMITED INDICATION: f/u fracture. COMPARISON: CR,XR XR WRIST RT COMPLETE from 10/22/2020 TECHNIQUE: 2D digital imaging was performed. FINDINGS: There has been no change in the alignment of the distal radial fracture. The appearance of the ulnar styloid is unchanged. DATA REPOSITORY: RADIATION DOSE DELIVERED:
== END 2020-11-04 08:53 | disposition home or self-care (01) ==
LOC: DIORS 08:52
PROVIDERS: PCP Nurse Practitioner Adult Health; Referring Provider Nurse Practitioner Adult Health; Visit Provider Student in an Organized Health Care Education/Training Program
DX: S52.591A Other fractures of lower end of right radius, initial encounter for closed fracture (principal); S52.611A Displaced fracture of right ulna styloid process, initial encounter for closed fracture; W08.XXXA Fall from other furniture, initial encounter; M19.042 Primary osteoarthritis, left hand
CPT/HCPCS: 20600; 99214; 73100; J1030

== ENCOUNTER 2020-11-11 10:58 | Outpatient (CLI) | payer MEDICARE, MEDICAID, SELFPAY ==
--- NOTE | 2020-11-11 09:00 | DI.RAD_ITS ---
Exam(s) XR WRIST RT LIMITED EXAM: XR WRIST RT LIMITED CLINICAL HISTORY: f/u fracture TECHNIQUE: COMPARISON: CR XR WRIST RT LIMITED from 11/04/2020 FINDINGS: Two views were obtained. The wrist is in a splint. Previously described fracture of the distal radi us with associated ulnar styloid fracture again noted. No gross interval change in alignment of the fracture fragments comparison with examination November 04. IMPRESSION: RADIATION DOSE DELIVERED: Total DLP
== END 2020-11-11 10:59 | disposition home or self-care (01) ==
LOC: DIORS 10:59
PROVIDERS: PCP Nurse Practitioner Adult Health; Referring Provider Nurse Practitioner Adult Health; Visit Provider Physician Assistant
DX: S52.591D Other fractures of lower end of right radius, subsequent encounter for closed fracture with routine healing (principal); S52.611D Displaced fracture of right ulna styloid process, subsequent encounter for closed fracture with routine healing; X58.XXXD Exposure to other specified factors, subsequent encounter
CPT/HCPCS: 99213; 73100

== ENCOUNTER 2020-12-08 13:29 | Outpatient (CLI) | payer MEDICARE, MEDICAID, SELFPAY ==
--- NOTE | 2020-12-08 11:45 | DI.RAD_ITS ---
Exam(s) XR WRIST RT LIMITED EXAM: XR WRIST RT LIMITED CLINICAL HISTORY: fx R wrist. TECHNIQUE: 2D digital imaging was performed. COMPARISON: CR XR WRIST RT LIMITED from 11/11/2020 FINDINGS: Fracture of the base of the ulnar styloid is unchanged. There has been some further healing at the f racture site in the distal radius. No displacement. No new additional fractures evident. IMPRESSION: DATA REPOSITORY: RADIATION DOSE DELIVERED:
== END 2020-12-08 13:30 | disposition home or self-care (01) ==
LOC: DIORS 13:29
PROVIDERS: PCP Nurse Practitioner Adult Health; Referring Provider Nurse Practitioner Adult Health; Visit Provider Student in an Organized Health Care Education/Training Program
DX: S52.591D Other fractures of lower end of right radius, subsequent encounter for closed fracture with routine healing (principal); S52.611D Displaced fracture of right ulna styloid process, subsequent encounter for closed fracture with routine healing; X58.XXXD Exposure to other specified factors, subsequent encounter
CPT/HCPCS: 99212; 73100

== ENCOUNTER 2021-01-19 10:52 | Outpatient (CLI) | payer MEDICARE, MEDICAID, SELFPAY ==
--- NOTE | 2021-01-19 10:45 | DI.RAD_ITS ---
Exam(s) XR WRIST RT LIMITED EXAM: XR WRIST RT LIMITED CLINICAL HISTORY: F/U R WRIST FRACTURE. TECHNIQUE: 2D digital imaging was performed. COMPARISON: CR XR WRIST RT LIMITED from 12/08/2020 FINDINGS: There has been further healing at the distal radius fracture site. No displacement. Fracture at the base of the ulnar styloid is again noted. No additional fractures evident. No carpal dislocation. IMPRESSION: DATA REPOSITORY: RADIATION DOSE DELIVERED:
== END 2021-01-19 10:53 | disposition home or self-care (01) ==
LOC: DIORS 10:53
PROVIDERS: PCP Nurse Practitioner Adult Health; Referring Provider Nurse Practitioner Adult Health; Visit Provider Student in an Organized Health Care Education/Training Program
DX: S52.501D Unspecified fracture of the lower end of right radius, subsequent encounter for closed fracture with routine healing (principal); S52.601D Unspecified fracture of lower end of right ulna, subsequent encounter for closed fracture with routine healing; G56.01 Carpal tunnel syndrome, right upper limb; X58.XXXD Exposure to other specified factors, subsequent encounter
CPT/HCPCS: 99214; 73100

== ENCOUNTER 2021-01-31 11:19 | Outpatient (CLI) | payer MEDICARE, MEDICAID, SELFPAY ==
--- NOTE | 2021-01-31 | DI.RAD_ITS ---
Exam(s) XR RIBS LT W PA LAT CHEST EXAM: XR RIBS LT W PA LAT CHEST CLINICAL HISTORY: LT-SIDED RIB PAIN S/P FALL, R07.81, FEELS LIKE CANNOT TAKE A FULL BREATH TECHNIQUE: 2D digital imaging was performed. Seven images were obtained. PA and lateral chest view s were obtained. AP and oblique images of the delete left ribs were obtained. COMPARISON: No exams were available for comparison FINDINGS: MEDIASTINUM: Normal. HEART: Normal. PULMONARY VASCULATURE: Normal. LUNGS: Clear. PLEURAL SPACE: No pleural effusion or pneumothorax. BONE:Normal. LEFT RIBS: Nondisplaced fractures of the anterolateral aspects of the left 7th and 8th ribs are noted . OTHER FINDINGS:There is a right convex scoliosis of the thoracic spine. Anterior cervical spine fusi on is seen in the lower cervical spine. Lumbar spine surgery is seen. IMPRESSION: 1. No acute pulmonary findings. 2. Nondisplaced fractures of the anterolateral aspects of the left 7th and 8th ribs. No pneumothorax . DATA REPOSITORY: RADIATION DOSE DELIVERED:
== END 2021-01-31 11:39 ==
PROVIDERS: PCP Nurse Practitioner Adult Health; Visit Provider Nurse Practitioner Family
DX: R07.81 Pleurodynia (principal); S22.42XA Multiple fractures of ribs, left side, initial encounter for closed fracture; W19.XXXA Unspecified fall, initial encounter
CPT/HCPCS: 71046; 71100

== ENCOUNTER 2021-03-03 02:03 | Outpatient (CLI) | payer MEDICARE, MEDICAID, SELFPAY ==
[2021-03-03 16:59] LABS: Vitamin D 25 Total 46.4 ng/mL (30-100)
== END 2021-03-03 02:04 | disposition home or self-care (01) ==
LOC: LBO 02:03
PROVIDERS: PCP Nurse Practitioner Adult Health; Visit Provider Nurse Practitioner Adult Health
DX: M85.88 Other specified disorders of bone density and structure, other site (principal)
CPT/HCPCS: 82306

== ENCOUNTER 2021-04-11 00:32 | Outpatient (CLI) | payer MEDICARE, MEDICAID, SELFPAY ==
--- NOTE | 2021-04-11 13:02 | DI.MAMMO_ITS ---
Exam(s) MAMMO SCREENING EXAM: MAMMO SCREENING CLINICAL HISTORY: screening,z12.39 TECHNIQUE: Bilateral full field digital CC and MLO mammographic images were obtained with 3D tomosyn thesis and utilizing computer aided detection (CAD). COMPARISON: Available for comparison. FINDINGS: Masses/Architectural Distortion: None seen. Microcalcifications: No suspicious pleomorphic-type are seen. Skin Thickening/Nipple Retraction: None. IMPRESSION: 1. No significant interval change with no specific features of malignancy noted. 2. Unless there is more urgent need, screening mammography is recommended, as per [employer] guidelines. BI-RADS Category 1 - Negative Breast Density - Category B - Scattered areas of fibroglandular density Breast density category C or D implies that the patient has dense breast tissue. Dense breast tissue is very common and is not abnormal but dense breast tissue can make it harder to find cancer on a ma mmogram. Also, dense breast tissue may increase their breast cancer risk. This information about the result of the mammogram report was provided to the patient to raise their awareness. Use this report when you speak with the patient about their risks for breast cancer, which includes their family hist ory. At that time, you may recommend for more screening tests (Ultrasound or MRI) as they might be us eful based on their risk. A negative radiographic report should not delay biopsy if a dominant or clinically suspicious mass is present. Up to ten percent of cancers are not identified on mammography. A negative report may reinforce clinical impression. Adenosis and dense breasts may obscure an underlying neoplasm. False positive reports average 6 to 10%. Patient will receive a letter notifying them of these results.
== END 2021-04-11 00:52 ==
PROVIDERS: PCP Nurse Practitioner Adult Health; Visit Provider Nurse Practitioner Adult Health
DX: Z12.31 Encounter for screening mammogram for malignant neoplasm of breast (principal)
CPT/HCPCS: 77063; 77067

== ENCOUNTER 2021-05-03 01:22 | Outpatient (CLI) | payer MEDICARE, MEDICAID, SELFPAY ==
--- NOTE | 2021-05-03 07:44 | DI.DEXA_ITS ---
Exam(s) XR DEXA BONE DENSITY W/WO TABITHA EXAM: XR DEXA BONE DENSITY W/WO TABITHA CLINICAL HISTORY: Cont with mutiple fractures; h/o osteopenia, m85.88 TECHNIQUE: [employer] Horizon C densitometer COMPARISON: DX DEXA BONE DENSITY WITH TABITHA from 11/06/2016 PAIN CLINIC LUMBAR SP 2 VIEW from 02/06/2017 CR XR DEXA BONE DENSITY W/WO TABITHA from 02/04/2020 FINDINGS: Lateral view of the thoracic and lumbar spine shows no evidence of compression fractures. Fusion cristina dware is seen from L4 through S1. L1 through L3 were analyzed. Degenerative disc changes and scolio sis are also noted. Bone mineral density measurements of the lumbar spine correspond to a total T-score of 2.4, in the no rmal range. This represents a 5.2 percent increase when compared with 2019 and a 5.2 percent increas e when compared with 2005. Bone mineral density measurements of the left hip correspond to a total T-score of -1.5, in the oste openic range.. The femoral neck T-score is -1.7 a. This represents a 4.6 percent decrease when comp ared with 2019 and 17.4 percent decrease when compared with 2005. There WHO 10 year fracture risk of major osteoporotic fracture is calculated at 17 percent. The risk of hip fracture calculated at 3.4 percent.. The left forearm bone mineral density measurements correspond to a T-score of the distal 3rd of -1.0 , at the low normal range. This represents a 6.9 percent decrease compared with 2016 but is unchange d from 2019.. IMPRESSION: Osteopenia of the left hip with decrease in density over time. Normal bone mineral density of the quoc mbar spine with increased density when compared with previous exams which could in part be secondary to worsening degenerative changes. Borderline osteopenia of the left forearm with little change from previous exams.
== END 2021-05-03 01:42 ==
PROVIDERS: PCP Nurse Practitioner Adult Health; Visit Provider Nurse Practitioner Adult Health
DX: M85.88 Other specified disorders of bone density and structure, other site (principal)
CPT/HCPCS: 77080

== ENCOUNTER 2021-06-19 14:51 | Outpatient (CLI) | payer MEDICARE, MEDICAID, SELFPAY ==
--- NOTE | 2021-06-19 14:45 | DI.RAD_ITS ---
Exam(s) XR KNEE RT 2V AP,LAT EXAM: XR KNEE RT 2V AP,LAT CLINICAL HISTORY: pain. TECHNIQUE: 2D digital imaging was performed. COMPARISON: No exams were available for comparison FINDINGS: Satisfactory position appearance of prosthesis.. IMPRESSION: DATA REPOSITORY: RADIATION DOSE DELIVERED:
== END 2021-06-19 14:52 | disposition home or self-care (01) ==
LOC: DIORS 14:51
PROVIDERS: PCP Nurse Practitioner Adult Health; Referring Provider Nurse Practitioner Adult Health; Visit Provider Student in an Organized Health Care Education/Training Program
DX: Z96.651 Presence of right artificial knee joint (principal); M18.12 Unilateral primary osteoarthritis of first carpometacarpal joint, left hand; G56.01 Carpal tunnel syndrome, right upper limb; M25.561 Pain in right knee
CPT/HCPCS: 20600; 99213; 73560; J1030

== ENCOUNTER 2021-07-10 02:15 | Outpatient (CLI) | payer MEDICARE, MEDICAID, SELFPAY ==
[2021-07-10 12:58] LABS: Source Nasal/Nares
[2021-07-10 16:21] LABS: COVID-19 PCR Negative (Negative)
== END 2021-07-10 02:16 | disposition home or self-care (01) ==
LOC: LBO 02:16
PROVIDERS: PCP Nurse Practitioner Adult Health; Visit Provider Student in an Organized Health Care Education/Training Program
DX: Z20.822 Contact with and (suspected) exposure to COVID-19 (principal); Z01.818 Encounter for other preprocedural examination
CPT/HCPCS: 87635; U0005

== ENCOUNTER 2021-07-11 12:01 | Day surgery (SDC) | payer MEDICARE, MEDICAID, SELFPAY ==
--- NOTE | 2021-07-11 09:15 | PDOC.DSDIS_ITS ---
Discharge Plan Disposition Patient Disposition: HOME Condition: Good Discharge Details Reason For Visit: Right ECTR Attending Provider: Paul Robles Primary Care Provider: Anne Bob Home Meds and New Rx's Prescriptions: New hydrocodone-acetaminophen 5-325 mg tablet 1 tab PO Q6H PRNQty: 5 0RF Continued aspirin 81 mg tablet 81 mg PO DAILY 0RF dextroamphetamine-amphetamine [Adderall XR] 25 mg capsule,extended release 24hr 25 mg PO DAILY 0RF acetaminophen 500 mg capsule 1,000 mg PO BID 0RF docusate sodium [Colace] 100 mg capsule 100 mg PO DAILY 0RF buspirone 15 mg tablet See Rx Instructions PO TID 0RF Rx Instructions: 2tabs AM, 1tab PM PO three times a day; NENASIMAS bupropion HCl [Wellbutrin XL] 150 mg tablet extended release 24 hr 300 mg PO QAM 0RF Viibryd 20 mg tablet 20 mg PO DAILY 0RF Rx Instructions: must administer with a meal/food 01/21/20 [facility] - Started 02/18/20 [facility] - Increase to 40 mg trazodone 50 mg tablet 50 - 100 mg PO QHS PRN (Reason: insomnia) 0RF Label Comments: [facility] 10/07/20 note Rx Instructions: for sleep Lactobacillus acidoph-L.bulgar [Floranex] 1 million cell tablet 1 tab PO DAILY 0RF Label Comments: 10/07/20 NK visit ibuprofen 600 mg tablet 600 mg PO BID PRN (Reason: pain) Qty: 90 0RF Rx Instructions: fracture pain cholecalciferol (vitamin D3) 50 mcg (2,000 unit) capsule 50 mcg PO DAILY Qty: 90 3RF Rx Instructions: Bone health/osteopenia BLISTER BRAD PO 0RF Rx Instructions: [facility] famotidine 20 mg tablet 20 mg PO DAILY Qty: 90 3RF Rx Instructions: Heartburn ropinirole 0.5 mg tablet 0.5 mg PO QHS 0RF Rx Instructions: 01/18/21-per last rx on file at pt's previous pharmacy, [facility], rx written by Dr. Saldaña on 01/10/21 for 0.5mg QHS 2 hours before bedtime. [facility](pt's new pharm) notified and they will request the transfer of this rx over to them. [place] Discharge Instructions Stand Alone Forms: [place] Tunnel Release Referrals: Paul Robles MD [ [facility] STAFF PHYSICIAN] - Activity:: Activity as Tolerated Remove Dressings/Wound Care:: 72 hours Shower/Bathe:: 72 hours Diet:: As Tolerated Discharge Orders Discharge Orders: Discharge Order (Routine); Ordered 07/11/21 Ordered By: Leonor Galvez DS: Diagnosis Discharge Diagnosis (1) Carpal tunnel syndrome, right: Status: Acute
[2021-07-11 12:16] VITALS: BP 162/69; PULSE 74; RESP 16; TEMP 35.6; O2SAT 93
--- NOTE | 2021-07-11 12:40 | W.ANESPRE ---
General Info Date of Service Date Performed: 07/11/21 Height: 5 ft 6 in Weight: 79.4 kg Body Mass Index (BMI): 28.2 Surgical Procedure: Operation Date: 07/11/21 14:55 Proposed Procedure Side Surgeon p Wrist ECTR RT Right Paul Robles MD Meds Allergies and Home Medications Allergies Allergy/AdvReac Type Severity Reaction Status Date / Time benzalkonium chloride Allergy Unknown unknown Verified 07/11/21 12:30 [From Travatan] brimonidine [From Alphagan P] Allergy Unknown unknown Verified 07/11/21 12:30 meperidine HCl [From Demerol] Allergy Unknown UNSURE Verified 07/11/21 12:30 travoprost [From Travatan] Allergy Unknown unknown Verified 07/11/21 12:30 BLUE SURGICAL SCRUB? AdvReac Intermediate RASH, Uncoded 07/11/21 12:30 ITCHING Home Medication Medication Instructions Recorded docusate sodium 100 mg capsule 100 mg PO DAILY 04/06/19 (Colace) bupropion HCl 150 mg 24 hr tablet, 300 mg PO QAM tab 06/12/19 extended release (Wellbutrin XL) aspirin 81 mg tablet 81 mg PO DAILY 04/25/20 vilazodone 20 mg tablet (Viibryd) 20 mg PO DAILY tab 04/25/20 acetaminophen 500 mg capsule 1,000 mg PO BID cap 09/05/20 dextroamphetamine-amphetamine ER 25 mg PO DAILY 09/05/20 25 mg 24hr capsule,extend release (Adderall XR) Lactobacillus acidoph-L.bulgaricus 1 tab PO DAILY 10/24/20 1 million cell tablet (Floranex) trazodone 50 mg tablet 50 - 100 mg PO QHS PRN tab 10/24/20 ibuprofen 600 mg tablet 600 mg PO BID PRN #90 tab 11/07/20 BLISTER BRAD PO 01/06/21 cholecalciferol (vitamin D3) 50 50 mcg PO DAILY #90 cap 01/06/21 mcg (2,000 unit) capsule famotidine 20 mg tablet 20 mg PO DAILY #90 tab 01/06/21 ropinirole 0.5 mg tablet 0.5 mg PO QHS 01/18/21 buspirone 15 mg tablet See Rx Instructions PO TID tab 05/15/21 hydrocodone 5 mg-acetaminophen 325 1 tab PO Q6H PRN #5 tab 07/11/21 mg tablet Current Visit Medications: Current Medications Generic Name Dose Route Start Last Admin Trade Name Freq PRN Reason Stop Dose Admin Acetaminophen 650 mg 07/11/21 09:14 Acetaminophen 325 Mg Tab PO Q4H PRN PRN Hydrocodone Bitart/Acetaminophen 0 tab 07/11/21 09:14 Hydrocodone 5/Acetaminophen 325 Tab PO Q3H PRN PRN Pain Ringer's Solution 1,000 mls @ 80 mls/hr 07/11/21 06:00 IV 08/09/21 23:59 INFUSION MALENA Ondansetron HCl 4 mg/ Sodium 52 mls @ 200 mls/hr 07/11/21 09:14 Chloride IVPB Q6H PRN PRN IV Miscellaneous Supplies 1 each 07/11/21 06:00 Iv Access IV 08/09/21 23:59 DIRECTED MALENA Sodium Chloride 0 ml 07/11/21 06:00 Normal Saline Flush 10 Ml Syr IV 08/09/21 23:59 PRN PRN Sodium Chloride 0 ml 07/11/21 06:00 Normal Saline 10 Ml Vial IJ 08/09/21 23:59 DIRECTED PRN Sterile Water 0 ml 07/11/21 06:00 Water,Injection,Sterile 10 Ml Vial IJ 08/09/21 23:59 DIRECTED PRN PFSH Active Problems Active Problems: Problem Status Onset Code Carpal tunnel syndrome, right G56.01 History of arthroplasty of right knee Z96.651 Scoliosis of thoracic spine M41.9 Arthritis of carpometacarpal joint M19.049 Heartburn R12 Bladder incontinence R32 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 Memory impairment R41.3 Mild aortic stenosis I35.0 Elevated MCV R71.8 Trigger finger, right middle finger M65.331 Osteopenia M85.80 Insomnia G47.00 Anxiety F41.9 Depression 08/31/11 F32.9 Restless legs syndrome 02/04/17 G25.81 Spinal stenosis of lumbar region 02/04/17 M48.061 Hypercholesterolemia 02/04/17 E78.00 Arthralgia of hip 02/04/17 M25.559 Glaucoma 02/04/17 H40.9 Medical History Medical History Ankle fracture Ankle sprain Atrophic vaginitis (09/07/13) 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 Manuel Lucia Iron deficiency (02/04/17) Lumbar pain with radiation down left leg Improved s/p lumbar spine fusion; stable; Dr. Devi Peroneal tendonitis of right lower extremity Medical History Comments:: Per pt. stated when she was coming out of anesthesia, her brother was at her bedside where he noticed it seemed as if she had a hard time breathing, labored. Surgical History Surgical History Acquired absence of both cervix and uterus (08/31/11) History of cataract extraction B/L eyes [facility] Dr. Parks, R then L (pending 11/2019) History of knee replacement B/L History of lumbar laminectomy L knee repair Oophrectomy, Left Age 20 for cyst Oophrectomy, Right with hyst 1998 Spinal Fusion CERVICAL Status post cervical spinal arthrodesis (02/04/17) Vaginal hysterectomy 1997 - Prolapse Varicose vein stripping Tobacco Smoking/Tobacco Use Status: Former Tobacco Use Alcohol Alcohol Intake: never Substance Use Substance use: Never Substance use type: does not use Vital Signs and Lab Results Vital Signs Most Recent Vital Signs in EMR: Most Recent Vital Signs Temp Pulse Resp BP Pulse Ox 35.6 C L 74 16 162/69 H 93 07/11/21 12:16 07/11/21 12:16 07/11/21 12:16 07/11/21 12:16 07/11/21 12:16 Lab Results Blood Type / Crossmatch: No Data to Display Complete Blood Count: No Data to Display Complete Metabolic Panel: No Data to Display Liver Function Panel: No Data to Display Coagulation Panel: No Data to Display Cardiac Panel: No Data to Display Arterial Blood Gas: No Data to Display Venous Blood Gas: No Data to Display Pancreas Panel: No Data to Display Thyroid Panel: No Data to Display Infectious Disease: Coronavirus (COVID-19)(PCR) Negative (Negative) 07/10/21 10:34 07/10/21 Coronavirus 2019 Source Nasal/Nares 07/10/21 10:34 07/10/21 Blood Cultures: No Data to Display Toxicology Panel: No Data to Display Imaging and Studies Imaging and Studies Study information below may be from another EMR and interpreted by another provider. Please see original notes in EMR for more complete details. Echocardiogram Summary: Left Ventricle : The left ventricle is normal size. The left ventricular systolic function is normal. The left ventricular ejection fraction is within the normal range. There is normal left ventricular wall thickness. There is normal LV segmental wall motion. The left ventricular diastolic function is normal. LVEF is 60%. Right Ventricle : The right ventricle is normal size. The right ventricular systolic function is normal. The RVSP is 17.9 mmHg. Atria : The left atrium size is normal. The right atrium size is normal. Aortic Valve : Aortic valve is calcified. The Aortic valve is sclerotic. Aortic valve is trileaflet. Trace aortic regurgitation. Mild aortic stenosis. Great Vessels : The aortic root is normal in size. The ascending aorta is mildly dilated. Aortic arch is normal in caliber. IVC is normal in size and collapses >50% with inspiration. Compared to study from 07/12/2019, there is no significant change. 08/02/20 Anesthesia Assessment and Plan Anesthesia History Personal History: No History of Anesthesia Complications and Other (Pt reports rare anesthesia complication back in 80s but unsure. No issues since.) Family History: No Family History of Anesthesia Complications Exercise Tolerance Exercise Tolerance: Metabolic Equivalents>4 Pertinent Negatives Pertinent Negatives: No Symptoms of GERD (Sometimes) and Other (Has heart palpitations sometimes) Cardiac & Pulmonary Exam Cardiac Exam: Normal S1/S2 Heart Sounds and Heart Murmur Present Pulmonary Exam: Clear Bilateral Breath Sounds Implantable Cardiac Device Does patient have a Pacemaker or an ICD?: No Airway Exam Known Difficult Airway: No Mallampati Class: 4 Mouth Opening: Normal (> 3cm) Thyromental Distance: Greater than 3 cm Neck Range of Motion: Limited ROM Neck Circumference: Normal Teeth Condition: Loose or Chipped (Chipped front tooth, chipped left molar) ASA Classification ASA Score: ASA 3 Emergency Case?: No NPO Status NPO Status: NPO Clears >2 hours, Solids >8 hours and NPO Clear Liquids>2 hours Anesthesia Plan Resuscitation Status: DNR Modified During Perioperative Period Resuscitation Modifications: Pt. Requests for Clinical Judgement to be Used Anesthesia Technique: MAC Anesthesia Airway Planned: Natural Airway Monitors Used: Standard Monitors
[2021-07-11 12:42] VITALS: BMI 28.2
[2021-07-11] MEDS: Lactated Ringers 1,000 ML 80 ML IV (12:46)
--- NOTE | 2021-07-11 13:39 | W.PREOPHP ---
Assessment and Plan Assessment and plan (1) Carpal tunnel syndrome, right: Status: Acute Assessment and plan: Edith is a 75yo who has carpal tunnel syndrome of the right hand. She is here today for endoscopic carpal tunnel release. She has no acute medical changes. I have reviewed the risks of the procedure to include bleeding, infection, pain, stiffness, persistent numbness. Despite these risks, she elects to proceed. History of Present Illness Narrative: Edith is a 75yo who has carpal tunnel of the right wrist. Please see the previous office note for a detailed history of the current problem. She has failed nonoperative treatments and desires to proceed with carpal tunnel release on the right. She has had no actue medical concerns. Negative COVID-19. Review of Systems All systems reviewed & are unremarkable except as noted in HPI and below PFSH All Active Problems Carpal tunnel syndrome, right (Acute) History of arthroplasty of right knee (Acute) Scoliosis of thoracic spine (Chronic) R convex scoliosis Arthritis of carpometacarpal joint (Acute) left Heartburn (Chronic) Famotidine 20mg daily Bladder incontinence (Acute) Kegels & bladder training instruction Dysarthria-clumsy hand syndrome (Acute) Memory impairment (Acute) Depression vs. other--see 08/14/2019 note; Neuro 03/2019; normal brain MRI and labs [id number] [facility] consult 2020--no [facility]; they are following Mild aortic stenosis (Acute) ECHO 06/2019; 07/2020 (stable) Elevated MCV (Acute) Trigger finger, right middle finger (Chronic) [facility] Dr. Meza Osteopenia (Chronic) DEXA 2016 & 2020 Insomnia (Chronic) RX Trazodone Anxiety (Chronic) [facility] Depression (Chronic 08/31/11) [facility] Restless legs syndrome (Chronic 02/04/17) Years; Dr. 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 Manuel Lucia Iron deficiency (02/04/17) Lumbar pain with radiation down left leg Improved s/p lumbar spine fusion; stable; Dr. Devi Peroneal tendonitis of right lower extremity Surgical History Acquired absence of both cervix and uterus (08/31/11) History of cataract extraction B/L eyes [facility] Dr. Parks, R then L (pending 11/2019) History of knee replacement B/L History of lumbar laminectomy L knee repair Oophrectomy, Left Age 20 for cyst Oophrectomy, Right with hyst 1997 Spinal Fusion CERVICAL Status post cervical spinal arthrodesis (02/04/17) Vaginal hysterectomy 1997 - Prolapse Varicose vein stripping Family History Mother Parkinson disease Heart disease Hypertension Brother Depression Diabetes Heart disease Hypertension Father Heart disease Hypertension Social History Smoking/Tobacco Use Status: Former Tobacco Use Quit Date: 05/13/89 Tobacco: How many years used: 10 Smoking risk assessment performed?: Yes Alcohol Intake: never Drug use: Never Substance use type: does not use Adopted: No Caregiver/Support person: No Foster care: No Household members: family Housing: house Number of Children: 2 Communication Needs: Corrective Lenses Do you need help understanding health information?: Rarely current occupation: Retired Sexually active: Yes Do you think of yourself as: straight/heterosexual Current gender identity: female What is your relationship status?: Panel score (0-1 are the most socially isolated patients): 1 What type of physical activity do you participate in: none Seatbelt use: always Working smoke detector in home: Yes Fire extinguisher in home: Yes Carbon monox detector in home: Yes Do you feel safe at home: Yes Do you feel safe in your relationship?: Yes Meds Allergies and Home Medications Allergies Allergy/AdvReac Type Severity Reaction Status Date / Time benzalkonium chloride Allergy Unknown unknown Verified 07/11/21 12:30 [From Travatan] brimonidine [From Alphagan P] Allergy Unknown unknown Verified 07/11/21 12:30 meperidine HCl [From Demerol] Allergy Unknown UNSURE Verified 07/11/21 12:30 travoprost [From Travatan] Allergy Unknown unknown Verified 07/11/21 12:30 BLUE SURGICAL SCRUB? AdvReac Intermediate RASH, Uncoded 07/11/21 12:30 ITCHING Home Medications Medication Instructions Recorded Confirmed Type docusate sodium 100 mg capsule 100 mg PO DAILY 04/06/19 07/11/21 History (Colace) bupropion HCl 150 mg 24 hr tablet, 300 mg PO QAM tab 06/12/19 07/11/21 History extended release (Wellbutrin XL) aspirin 81 mg tablet 81 mg PO DAILY 04/25/20 07/11/21 History vilazodone 20 mg tablet (Viibryd) 20 mg PO DAILY tab 04/25/20 07/11/21 History acetaminophen 500 mg capsule 1,000 mg PO BID cap 09/05/20 07/11/21 History dextroamphetamine-amphetamine ER 25 mg PO DAILY 09/05/20 07/11/21 History 25 mg 24hr capsule,extend release (Adderall XR) Lactobacillus acidoph-L.bulgaricus 1 tab PO DAILY 10/24/20 07/11/21 History 1 million cell tablet (Floranex) trazodone 50 mg tablet 50 - 100 mg PO QHS PRN tab 10/24/20 07/11/21 History ibuprofen 600 mg tablet 600 mg PO BID PRN #90 tab 11/07/20 07/11/21 Rx BLISTER BRAD PO 01/06/21 06/26/21 History cholecalciferol (vitamin D3) 50 50 mcg PO DAILY #90 cap 01/06/21 07/11/21 Rx mcg (2,000 unit) capsule famotidine 20 mg tablet 20 mg PO DAILY #90 tab 01/06/21 07/11/21 Rx ropinirole 0.5 mg tablet 0.5 mg PO QHS 01/18/21 07/11/21 History buspirone 15 mg tablet See Rx Instructions PO TID tab 05/15/21 07/11/21 History hydrocodone 5 mg-acetaminophen 325 1 tab PO Q6H PRN #5 tab 07/11/21 Rx mg tablet Exam Resp Auscultation: clear to auscultation bilaterally Cardio Rate: regular rate Rhythm: regular rhythm Results Last Vital Signs Temp 35.6 C L 07/11/21 12:16 Pulse 74 07/11/21 12:16 Resp 16 07/11/21 12:16 BP 162/69 H 07/11/21 12:16 Pulse Ox 93 07/11/21 12:16
[2021-07-11] MEDS: ceFAZolin 2 GM/50 ML BAG IVPB (13:53)
[2021-07-11 14:12] VITALS: BP 149/73; PULSE 67; RESP 16; TEMP 36.1; O2SAT 16
[2021-07-11] MEDS: Sodium Bicarbonate 50 MEQ/50 ML VIAL (14:23)
[2021-07-11] MEDS: Lidocaine 1% Multi-Dose 50 ML VIAL (14:24)
--- NOTE | 2021-07-11 14:43 | W.ANESPOSTOP ---
Postoperative Evaluation Date, Time and Location Date Performed: 07/11/21 Time Performed: 14:12 Patient Location: Day Surgery Unit Vital Signs Most Recent Imported Vital Signs: Most Recent Vital Signs Temp Pulse Resp BP Pulse Ox 36.1 C L 67 16 149/73 H 16 L 07/11/21 14:12 07/11/21 14:12 07/11/21 14:12 07/11/21 14:12 07/11/21 14:12 Pain Score Most Recent Pain Score: Most Recent Pain Score Pain Level 0 07/11/21 14:12 Assessment Mental Status: Awake (Alert & Oriented to Patient Baseline) Airway and Respiratory Function: Patent airway with normal (patient baseline) respiratory exam Cardiovascular Function: Hemodynamically Stable Hydration Status: Adequately Hydrated Nausea & Vomiting: No Nausea or Vomiting Pain: Pt. Denies Any Pain Peripheral Nerve Block: Patient did not receive a nerve block
[2021-07-11 14:57] VITALS: BP 150/67; PULSE 68; RESP 16; TEMP 36; O2SAT 96
--- NOTE | 2021-07-11 20:24 | W.PM.OP ---
Date of service: 07/11/21 Time of Service: 13:20 Operative Note Operative Note DATE OF PROCEDURE: 07/11/21 PRE-OP DIAGNOSIS: Right Carpal Tunnel Syndrome POST-OP DIAGNOSIS: same PROCEDURE: Right Endoscopic Carpal Tunnel Release SURGEON: Paul Robles ANESTHESIA TYPE: General:No Airway Refer to Anesthesia Record ESTIMATED BLOOD LOSS: 0 PATHOLOGY: none sent TOURNIQUET TIME: 5 COMPLICATIONS: None Patient was transported to: same day Patient's condition: stable Indications: I have seen Edith in clinic for symptoms of carpal tunnel syndrome followin wrist fracture. The numbness, tingling, and pain limited function. Clinical exam findings with nerve conduction tests confirmed the diagnosis of carpal tunnel syndrome. Nonoperative measures such as bracing, time, activity modifications had been tried but disability and pain persisted. I discussed carpal tunnel release with the patient. I reviewed the risks of the procedure to include, but not limited to, bleeding, infection, pain, stiffness, incomplete release, damage to nerves or vessels, persistent numbness, recurrence. Despite these risks, the patient elected to proceed. Findings: There was tightened carpal tunnel. This was dilated and released successfully with the endoscopic with increased space within the tunnel. The antebrachial fascia was released proximally freeing the median nerve at the wrist. Procedure Description: Edith was greeted in the preoperative holding area where the correct side was identified and marked. The consent was reviewed with the patient and signed. The history and physical was updated. All questions were answered. She was taken back to the operating room. The patient was placed into the supine position on the operating room table with the right arm on an arm board. A nonsterile tourniquet was placed high onto the arm. All bony prominences were well padded. Prophylactic antibiotics in the form of Cefazolin were administered. The right arm was then prepped with Chloraprep and draped in a standard fashion with stockinette and extremity drape. A timeout to confirm correct identity, side and site, procedure, allergies, anesthesia, and medical concerns was performed. The surgical site was marked in the volar wrist creases in line with the radial border of the fourth ray. This area was anesthetized with approximately 6cc of 1% Lidocaine. The limb was then exsanguinated with an Esmarch. The skin was incised with a 15 blade, approximately 1cm. The skin only was cut and the deeper tissue was dissected bluntly with a tenotomy scissor, avoiding passing nerve and venous structures. The fascia was penetrated and opened bluntly. A two-prong skin hook was placed under this proximal fascial edge. A series of hamate finders were used to identify and dilate the carpal tunnel. Synovial elevator was used to free synovial attachments to the underside of the transverse carpal ligament. My thumb was kept in the palm to clark the distal extent of the carpal tunnel and correctly position the hand. The Microaire endoscope was inserted without difficulty and without resistance. Excellent visualization showed horizontally running fibers of the transverse carpal ligament (TCL). The distal extent of the TCL was visualized and the end of the scope palpated with the thumb. The blade was elevated and withdrawn from distal to proximal. The TCL was split into two flaps. The endoscope was reinserted to confirm complete release and any remnant ligament was incised. The scope was withdrawn and the proximal aspect of the carpal tunnel was grossly inspected and appeared release with the median nerve visible. The antebrachial fascia at the level of the wrist was then freed from the overlying skin and then the underlying median nerve with blunt dissection. This was transected longitudinally for about 3cm proximal to the wrist incision. The wound was then irrigated with easy flow of irrigant distally and proximally. The incision was closed with a single 4-0 Nylon suture. The wound was dressed with Xeroform, Gauze, Kerlix and Rajat. The tourniquet was deflated with the initial dressing and held with some pressure. Blood flow returned easily to all digits with capillary refill less than 2 seconds. The patient tolerated the procedure well and was returned to the Same Day Surgery area in a stable condition suffering no known complication.
== END 2021-07-11 15:17 | disposition home or self-care (01) ==
LOC: SUR 12:01
PROVIDERS: PCP Nurse Practitioner Adult Health; Visit Provider Student in an Organized Health Care Education/Training Program
PROC: 01N54ZZ Release Median Nerve, Percutaneous Endoscopic Approach (ICD-10-PCS; CPT 29848; principal; 2021-07-11 14:45)
DX: G56.01 Carpal tunnel syndrome, right upper limb (principal); I35.0 Nonrheumatic aortic (valve) stenosis; F41.9 Anxiety disorder, unspecified; E78.00 Pure hypercholesterolemia, unspecified; H40.9 Unspecified glaucoma
CPT/HCPCS: 29848; J0690; J1885; J2001; J2704

== ENCOUNTER → 2021-07-20 11:55 | Outpatient (BNVA) | payer MEDICARE, MEDICAID, SELFPAY | PROVIDERS: PCP Nurse Practitioner Adult Health; Referring Provider Nurse Practitioner Adult Health; Visit Provider Student in an Organized Health Care Education/Training Program | DX: G56.01 Carpal tunnel syndrome, right upper limb (principal) ==

== ENCOUNTER 2021-08-14 04:41 | Outpatient (CLI) | payer MEDICARE, MEDICAID, SELFPAY ==
--- NOTE | 2021-09-07 15:35 | W.CARDEVENT ---
Date of service: 09/07/21 Time of Service: 15:37 Cardiac Event Recorder Referring Provider:: Anne Bob Indications:: Palpitations Cardiac Event Note: This is a 14-day campus monitor, ordered for palpitations and history of SVT Predominant rhythm was sinus. Average heart rate was 77. Minimum was 51, maximum 113 There were occasional ventricular ectopic beats, rare couplets, no ventricular tachycardia There were moderately frequent atrial premature beats. There were multiple episodes of supraventricular tachycardia, most of these were 8-30 beats in duration. Some lasted 30 seconds, some longer. These appear to be atrial tachycardia. SVT was asymptomatic There was no atrial fibrillation, no high-grade AV block, no pauses greater than 3 seconds Patient symptoms were reported which corresponded to atrial and ventricular ectopic beats
--- NOTE | 2021-09-21 12:15 | W.CARDEVENT ---
Date of service: 09/21/21 Time of Service: 11:16 Cardiac Event Recorder Referring Provider:: Anne Bob Indications:: Palpitations Cardiac Event Note: This is a cardiac event recorder. The test duration was 3 days 11 hours 17 minutes. Of this 12 hours 49 minutes and 24 seconds was analyzed Predominant rhythm was sinus with first degree AV block. Average heart rate was 81. Minimum was 64, maximum 101 There were occasional ventricular ectopic beat There were frequent atrial premature beats. There were multiple self-limited atrial runs, the longest of which was 41 seconds in duration. There was no atrial fibrillation, no high-grade AV block, no pauses greater than 3 seconds Patient symptoms were reported. The majority of these did not correspond to any dysrhythmia, others to atrial premature beats
== END 2021-08-14 04:42 | disposition home or self-care (01) ==
LOC: RT 04:41
PROVIDERS: PCP Nurse Practitioner Adult Health; Visit Provider Nurse Practitioner Adult Health
DX: R00.2 Palpitations (principal); Z86.79 Personal history of other diseases of the circulatory system; M85.88 Other specified disorders of bone density and structure, other site
CPT/HCPCS: 93246

== ENCOUNTER 2021-09-07 15:37 | Outpatient (CLI) | payer MEDICARE, MEDICAID, SELFPAY | END 2021-09-07 15:38 | LOC: CARDO 10-19 14:46 | PROVIDERS: PCP Nurse Practitioner Adult Health; Referring Provider Nurse Practitioner Adult Health; Visit Provider Internal Medicine Cardiovascular Disease | DX: R00.2 Palpitations (principal); Z86.79 Personal history of other diseases of the circulatory system; M85.88 Other specified disorders of bone density and structure, other site | CPT/HCPCS: 93248 ==

== ENCOUNTER 2021-09-21 11:16 | Outpatient (CLI) | payer MEDICARE, MEDICAID, SELFPAY | END 2021-09-21 11:17 | LOC: CARDO 11-27 13:53 | PROVIDERS: PCP Nurse Practitioner Adult Health; Referring Provider Nurse Practitioner Adult Health; Visit Provider Internal Medicine Cardiovascular Disease | DX: R00.2 Palpitations (principal); Z86.79 Personal history of other diseases of the circulatory system; I47.1 Supraventricular tachycardia | CPT/HCPCS: 93248 ==

== ENCOUNTER 2021-09-25 03:27 | Outpatient (CLI) | payer MEDICARE, MEDICAID, SELFPAY ==
[2021-09-25 10:31] LABS: Vitamin D 25 Total 43.3 ng/mL (30-100)
[2021-09-25 10:39] LABS: ALT 26 U/L (14-59); AST 23 U/L (15-37); Albumin 3.9 g/dL (3.4-5.0); Alkaline Phosphatase 82 U/L (46-116); Anion Gap 8.2 mmol/L (3-11); BUN 24 mg/dL (7-18); CO2 29.8 mmol/L (21.0-32.0); CREATININE 0.6 mg/dL (0.55-1.02); Calcium 8.4 mg/dL (8.5-10.1); Calculated LDL 137 mg/dL (<100); Chloride 105 mmol/L (98-107); Cholesterol 244 mg/dL (<200); Glucose 88 mg/dL (74-106); HDL Cholesterol 92 mg/dL (40-60); Potassium 3.6 mmol/L (3.5-5.1); Sodium 143 mmol/L (136-145); TSH (W/Ref FT4) 0.52 uIU/mL (0.36-3.74); Total Protein 6.8 g/dL (6.4-8.2); Triglyceride 75 mg/dL (<150); Vitamin B12 555 pg/mL (193-986)
[2021-09-25 10:49] LABS: Folate > 20.0 ng/mL (8.6-20.0)
[2021-09-25 11:02] LABS: Bilirubin, Total 0.4 mg/dL (0.2-1.0)
== END 2021-09-25 03:28 | disposition home or self-care (01) ==
LOC: LBO 03:27
PROVIDERS: PCP Nurse Practitioner Adult Health; Visit Provider Nurse Practitioner Adult Health
DX: E78.00 Pure hypercholesterolemia, unspecified (principal); M85.80 Other specified disorders of bone density and structure, unspecified site; R00.2 Palpitations; Z86.79 Personal history of other diseases of the circulatory system
CPT/HCPCS: 36415; 80053; 80061; 82306; 82607; 82746; 84443

== ENCOUNTER → 2022-01-01 14:07 | Outpatient (BNVA) | payer MEDICARE, MEDICAID, SELFPAY | PROVIDERS: PCP Nurse Practitioner Adult Health; Referring Provider Nurse Practitioner Adult Health; Visit Provider Internal Medicine Cardiovascular Disease | DX: I47.1 Supraventricular tachycardia (principal); R00.2 Palpitations; I35.0 Nonrheumatic aortic (valve) stenosis; Z86.79 Personal history of other diseases of the circulatory system | CPT/HCPCS: 93005; 99203; 99214 ==

== ENCOUNTER 2022-01-01 14:21 | Outpatient (CLI) | payer MEDICARE, MEDICAID, SELFPAY ==
--- NOTE | 2022-01-01 14:15 | RT.EKG_ITS ---
APPROVED REPORT Exam: Resting ECG Reason for Exam: NPW Baseline needed Patient Location: O HR:53 bpm ECG Measurements Heart Rate 53 AXIS SC 168 P 71 QRSd 111 QRS -20 QT 440 T 7 QTc 414 Conclusion Sinus rhythm...normal P axis, V-rate 50- 99 Atrial premature complexes...SV Minor diffuse nondiagnostic ST-T abnormalities
== END 2022-01-01 14:22 | disposition home or self-care (01) ==
LOC: DI.CARD 14:22
PROVIDERS: PCP Nurse Practitioner Adult Health; Visit Provider Internal Medicine Cardiovascular Disease
DX: I47.1 Supraventricular tachycardia (principal); R00.2 Palpitations; Z86.79 Personal history of other diseases of the circulatory system; R94.31 Abnormal electrocardiogram [ECG] [EKG]; I49.1 Atrial premature depolarization
CPT/HCPCS: 93010

== ENCOUNTER → 2022-01-18 16:15 | Outpatient (CLI) | payer MEDICARE, MEDICAID, SELFPAY ==
--- NOTE | 2022-01-18 14:45 | DI.RAD_ITS ---
Exam(s) XR FOOT RT COMPLETE EXAM: XR FOOT RT COMPLETE CLINICAL HISTORY: pain, swelling,m79.671,7m79.89. TECHNIQUE: 2D digital imaging was performed of the right foot. Three images were obtained. AP, obl ique and lateral views were obtained. COMPARISON: CR XR FOOT RT COMPLETE from 09/08/2020 FINDINGS: BONES: No acute fracture is present. There is an old healed 5th metatarsal fracture deformity. Ther e is a small enthesophyte at the posterior calcaneus. No bony destructive lesion is seen. JOINTS: No dislocation present. Mild degenerative changes are seen in the interphalangeal joints. SOFT TISSUE: There is soft tissue swelling of the foot. IMPRESSION: 1. Mild degenerative changes in the toes. 2. Diffuse soft tissue swelling of the foot. 3. No acute fracture or dislocation. DATA REPOSITORY: RADIATION DOSE DELIVERED:
== END ==
PROVIDERS: PCP Nurse Practitioner Adult Health; Visit Provider Nurse Practitioner
DX: M19.071 Primary osteoarthritis, right ankle and foot (principal); M79.89 Other specified soft tissue disorders
CPT/HCPCS: 73630

== ENCOUNTER 2022-01-19 01:59 | Outpatient (CLI) | payer MEDICARE, MEDICAID, SELFPAY ==
[2022-01-19 17:10] LABS: ESR 1 mm/hr (0-30)
[2022-01-19 17:37] LABS: Uric Acid 3.2 mg/dL (2.6-6.0)
== END 2022-01-19 02:00 | disposition home or self-care (01) ==
LOC: LBO 02:00
PROVIDERS: PCP Nurse Practitioner Adult Health; Visit Provider Nurse Practitioner
DX: M25.59 Pain in other specified joint (principal)
CPT/HCPCS: 36415; 85652; 84550

== ENCOUNTER 2022-01-21 14:14 | Emergency (ER) | payer MEDICARE, MEDICAID, SELFPAY ==
[2022-01-21 14:22] VITALS: BP 115/75; PULSE 68; RESP 20; TEMP 36.8; O2SAT 95
--- NOTE | 2022-01-21 14:45 | ED.GENADUL_ITS ---
Discharge Plan Disposition Patient Disposition: HOME Condition: Improving Discharge Details Clinical Impression: Arthritis of foot, right Primary Care Provider: Anne Bob ED Provider: Umesh Shah Home Meds and New Rx's Prescriptions: New prednisone 50 mg tablet 50 mg PO DAILY 5 Days Qty: 5 0RF Continued aspirin 81 mg tablet 81 mg PO DAILY dextroamphetamine-amphetamine [Adderall XR] 25 mg capsule,extended release 24hr 25 mg PO DAILY acetaminophen 500 mg capsule 1,000 mg PO BID docusate sodium [Colace] 100 mg capsule 100 mg PO DAILY buspirone 15 mg tablet See Rx Instructions PO TID Rx Instructions: 2tabs AM, 1tab PM PO three times a day; NEKHS bupropion HCl [Wellbutrin XL] 150 mg tablet extended release 24 hr 300 mg PO QAM vilazodone [Viibryd] 20 mg tablet 20 mg PO DAILY Rx Instructions: must administer with a meal/food 01/21/20 [facility] - Started 02/18/20 NK - Increase to 40 mg trazodone 50 mg tablet 50 - 100 mg PO QHS PRN (Reason: insomnia) Label Comments: [facility] 10/07/20 note Rx Instructions: for sleep Lactobacillus acidoph-L.bulgar [Floranex] 1 million cell tablet 1 tab PO DAILY Label Comments: 10/07/20 [facility] visit ibuprofen 600 mg tablet 600 mg PO BID PRN (Reason: pain) Qty: 90 0RF Rx Instructions: fracture pain ropinirole 0.5 mg tablet 0.5 mg PO QHS Rx Instructions: 01/18/21-per last rx on file at pt's previous pharmacy, [facility], rx written by Dr. Saldaña on 01/10/21 for 0.5mg QHS 2 hours before bedtime. [facility](pt's new pharm) notified and they will request the transfer of this rx over to them. [place] cholecalciferol (vitamin D3) 50 mcg (2,000 unit) capsule See Rx Instructions .ROUTE .COMPLEX Qty: 90 3RF Dose Instruction: TAKE 1 CAPSULE BY MOUTH DAILY FOR BONE HEALTH/OSTEOPENIA Rx Instructions: TAKE 1 CAPSULE BY MOUTH DAILY FOR BONE HEALTH/OSTEOPENIA famotidine 20 mg tablet See Rx Instructions .ROUTE .COMPLEX Qty: 90 3RF Dose Instruction: TAKE 1 TABLET BY MOUTH DAILY FOR HEARTBURN Rx Instructions: TAKE 1 TABLET BY MOUTH DAILY FOR HEARTBURN No Action BLISTER BRAD PO Rx Instructions: [facility] Discharge Instructions Additional Instructions: Please follow-up in clinic for your scheduled appointment this week. Postop shoe as needed for comfort. Take prednisone as prescribed, next dose tomorrow morning. May use Tylenol if needed for discomfort and continue your regularly prescribed ibuprofen if needed. Return if you develop a fever, spreading redness, swelling of the leg, or any other acute concern. Medical Decision Making 76-year-old female reports the atraumatic onset approximately 5 days ago of right foot burning discomfort on the dorsum that she feels was brought on by wearing socks at bedtime. She states she removed the sock with some improvement. She went on to develop mild discomfort for which she was seen in clinic. A CRP, ESR and uric acid were obtained and unremarkable. Patient was referred for outpatient foot x-ray on January 18 which showed mild degenerative changes and soft tissue swelling. She presents to the ER today with ongoing burning discomfort. There is no evidence of edema or vascular insufficiency. Does not seem to be consistent with cellulitis. This may be a dermatitis versus flare of underlying arthritides. Discussed with her that we will trial a burst of prednisone. She has follow-up planned for this Saturday in primary care clinic for recheck. She is stable and understands indications to seek reevaluation in the interim. [facility] General Mode of arrival: ambulatory . Date/Time Provider Initiated Documentation: 01/21/22 14:14 . Limitations to Documentation: no limitations . Information obtained by: patient . History of Present Illness 76 year old F presents to the emergency department with the chief complaint of Right foot burning and discolored, described as mild, Quality is described as constant, and is localized to the right and lower extremity. Patient reports no radiation. Patient started experiencing this day(s) and it has been constant. No relieving factors improve symptom(s), Movement worsens symptoms . Patient notes denies chest pain, fever/chills and shortness of breath. Patient did receive the following treatments prior to arrival, none Related Data Home Medications Medication Instructions Recorded Confirmed docusate sodium 100 mg capsule 100 mg PO DAILY 04/06/19 01/21/22 (Colace) bupropion HCl 150 mg 24 hr tablet, 300 mg PO QAM 06/12/19 01/21/22 extended release (Wellbutrin XL) aspirin 81 mg tablet 81 mg PO DAILY 04/25/20 01/18/22 vilazodone 20 mg tablet (Viibryd) 20 mg PO DAILY 04/25/20 01/21/22 acetaminophen 500 mg capsule 1,000 mg PO BID 09/05/20 01/18/22 dextroamphetamine-amphetamine ER 25 mg PO DAILY 09/05/20 01/21/22 25 mg 24hr capsule,extend release (Adderall XR) Lactobacillus acidoph-L.bulgaricus 1 tab PO DAILY 10/24/20 01/21/22 1 million cell tablet (Floranex) trazodone 50 mg tablet 50 - 100 mg PO QHS PRN insomnia 10/24/20 01/21/22 ibuprofen 600 mg tablet 600 mg PO BID PRN pain #90 tabs 11/07/20 01/21/22 BLISTER BRAD PO 01/06/21 01/18/22 ropinirole 0.5 mg tablet 0.5 mg PO QHS 01/18/21 01/21/22 buspirone 15 mg tablet See Rx Instructions PO TID 05/15/21 01/21/22 cholecalciferol (vitamin D3) 50 See Rx Instructions .Route 12/08/21 01/18/22 mcg (2,000 unit) capsule .COMPLEX #90 caps famotidine 20 mg tablet See Rx Instructions .Route 12/08/21 01/21/22 .COMPLEX #90 tabs prednisone 50 mg tablet 50 mg PO DAILY 5 days #5 tabs 01/21/22 Previous Rx's Medication Instructions Recorded ibuprofen 600 mg tablet 600 mg PO BID PRN pain #90 tabs 11/07/20 cholecalciferol (vitamin D3) 50 See Rx Instructions .Route 12/08/21 mcg (2,000 unit) capsule .COMPLEX #90 caps famotidine 20 mg tablet See Rx Instructions .Route 12/08/21 .COMPLEX #90 tabs prednisone 50 mg tablet 50 mg PO DAILY 5 days #5 tabs 01/21/22 Allergies Allergy/AdvReac Type Severity Reaction Status Date / Time benzalkonium chloride Allergy Unknown unknown Verified 01/21/22 14:28 [From Travatan] brimonidine [From Alphagan P] Allergy Unknown unknown Verified 01/21/22 14:28 meperidine HCl [From Demerol] Allergy Unknown UNSURE Verified 01/21/22 14:28 travoprost [From Travatan] Allergy Unknown unknown Verified 01/21/22 14:28 [facility]? AdvReac Intermediate RASH, Uncoded 01/21/22 14:28 ITCHING General Stated Complaint: Orthopedic SHAGUFTA: 4 Review of Systems Narrative: 6 systems reviewed and otherwise negative. No fever, chills, spreading redness. No swelling. No chest pain, cough or shortness of breath. PFSH All Active Problems (Updated 01/21/22 @ 14:49 by Umesh Shah MD) Arthritis of foot, right (Acute) Supraventricular tachycardia (Chronic ~08/2021) Started 2013 with repeat air sampling and monitoring 08/2021 validating Palpitations (Acute ~07/2021) H/O supraventricular tachycardia (Acute ~2013) 2013 & 2018 cardiac monitors Scoliosis of thoracic spine (Chronic) R convex scoliosis Arthritis of carpometacarpal joint (Acute) left Heartburn (Chronic) Famotidine 20mg daily Bladder incontinence (Acute) Kegels & bladder training instruction Dysarthria-clumsy hand syndrome (Acute) Mild aortic stenosis (Acute ~06/2019) ECHO 06/2019; 07/2020 (stable) Elevated MCV (Acute) Trigger finger, right middle finger (Chronic) [facility] Dr. Meza Osteopenia (Chronic) DEXA 2016 & 2020 Insomnia (Chronic) RX Trazodone Anxiety (Chronic) [facility] Depression (Chronic 08/31/11) [facility] Restless legs syndrome (Chronic 02/04/17) Years; Dr. 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 Manuel Lucia Iron deficiency (02/04/17) Lumbar pain with radiation down left leg Improved s/p lumbar spine fusion; stable; Dr. Devi Memory impairment Depression vs. 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 Parks, R then L (pending 11/2019) History of knee replacement B/L History of lumbar laminectomy L knee repair Oophrectomy, Left Age 20 for cyst Oophrectomy, Right with hyst 1998 Spinal Fusion CERVICAL Status post cervical spinal arthrodesis (02/04/17) Vaginal hysterectomy 1997 - Prolapse Varicose vein stripping Family History Mother Parkinson disease Heart disease Hypertension Brother Depression Diabetes Heart disease Hypertension Father Heart disease Hypertension Social History Smoking/Tobacco Use Status: Former Tobacco Use Quit Date: 05/13/89 Tobacco: How many years used: 10 Smoking risk assessment performed?: Yes Alcohol Intake: never Drug use: Never Substance use type: does not use Adopted: No Caregiver/Support person: No Foster care: No Household members: family Housing: house Number of Children: 2 Communication Needs: Corrective Lenses Do you need help understanding health information?: Rarely current occupation: Retired Sexually active: Yes Do you think of yourself as: straight/heterosexual Current gender identity: female What is your relationship status?: Panel score (0-1 are the most socially isolated patients): 1 What type of physical activity do you participate in: none Seatbelt use: always Working smoke detector in home: Yes Fire extinguisher in home: Yes Carbon monox detector in home: Yes Do you feel safe at home: Yes Do you feel safe in your relationship?: Yes Exam Narrative Exam Narrative: GEN: awake, alert, oriented 3. Pleasant, well groomed, interactive. HEAD: Normocephalic, atraumatic EYES: PERRL, EOMI NECK: Full ROM, no GWYN, no menigismus CHEST/RESP: Nontender, clear to auscultation bilateral, no wheeze/rhonchi/rales CARDIOVASCULAR: RRR, no murmur appreciable. 2+ Rad pulse bilateral ABDOMEN: Soft, nontender, no mass. +Bowel sounds EXT: Full ROM, no edema, the dorsum of the right foot has a slightly erythematous and blanching rash. It is not warm to the touch. Palpable DP and PT pulses present. Capillary refill less than 2 seconds. Range of motion is wi thin normal limits. Neuro: Grossly normal neurologic exam, conversant, interactive. Psych: Speech fluent, thoughts congruent, affect normal Course Vital Signs Vital signs: Vital Signs Temperature 36.8 C 01/21/22 14:22 Pulse 68 01/21/22 14:22 Respiratory Rate 20 01/21/22 14:22 Blood Pressure 115/75 01/21/22 14:22 Pulse Oximetry 95 01/21/22 14:22 Temperature 36.8 C 01/21/22 14:22 Temperature Source Oral 01/21/22 14:22 Pulse 68 01/21/22 14:22 Respiratory Rate 20 01/21/22 14:22 Respiratory Effort 01/21/22 14:25 Blood Pressure 115/75 01/21/22 14:22 Blood Pressure Position Sitting 01/21/22 14:22 Pulse Oximetry 95 01/21/22 14:22 Oxygen Delivery Method Room Air 01/21/22 14:22 Oxygen Flow Rate 0 01/21/22 14:22
== END 2022-01-21 15:17 | disposition home or self-care (01) ==
PROVIDERS: Emergency Provider Emergency Medicine; PCP Nurse Practitioner Adult Health
DX: M19.071 Primary osteoarthritis, right ankle and foot (principal); Z87.891 Personal history of nicotine dependence
CPT/HCPCS: 99283; 99284

== ENCOUNTER → 2022-02-20 01:21 | Outpatient (CLI) | payer MEDICARE, MEDICAID, SELFPAY ==
--- NOTE | 2022-02-20 07:00 | DI.RAD_ITS ---
Exam(s) XR LUMBAR SPINE COMPLETE EXAM: XR LUMBAR SPINE COMPLETE CLINICAL HISTORY: h/o laminectomy 2013; assess spinal stenosis,radicular pain rt lower ext,. TECHNIQUE: 2D digital imaging was performed of the lumbar spine. Five images were obtained. AP, la teral, right oblique, left oblique and L5-S1 spot views were obtained. COMPARISON: CR LUMBAR SPINE COMPLETE from 08/12/2014 CR XR DEXA BONE DENSITY W/WO TABITHA from 02/04/2020 CR XR DEXA BONE DENSITY W/WO TABITHA from 05/03/2021 FINDINGS: BONES: No fracture or destructive lesion. Endplate osteophytes are present throughout the lumbar spin e. No facet hypertrophy identified. The patient is status post posterior spinal fusion from L4 throu gh S1. The patient is also status post discectomy at L4-5. DISKS: There is disc space narrowing at all levels of the lumbar spine with vacuum discs also present . ALIGNMENT: There is a moderate left convex lumbar scoliosis. Mild retrolisthesis of L2 on L3 and L3 on L4 is noted. This is likely degenerative in nature. No spondylolysis. SOFT TISSUE: Atherosclerosis. IMPRESSION: 1. Marked lumbar spondylosis. 2. Postsurgical changes from L4 through S1. 3. Left convex scoliosis. DATA REPOSITORY: RADIATION DOSE DELIVERED:
== END ==
PROVIDERS: PCP Nurse Practitioner Adult Health; Visit Provider Nurse Practitioner Adult Health
DX: M48.061 Spinal stenosis, lumbar region without neurogenic claudication (principal); M54.10 Radiculopathy, site unspecified; M47.816 Spondylosis without myelopathy or radiculopathy, lumbar region; M41.9 Scoliosis, unspecified
CPT/HCPCS: 72110

== ENCOUNTER → 2022-03-26 08:13 | Outpatient (BNVA) | payer MEDICARE, MEDICAID, SELFPAY | PROVIDERS: PCP Nurse Practitioner Adult Health; Referring Provider Nurse Practitioner Adult Health; Visit Provider Student in an Organized Health Care Education/Training Program | DX: M18.12 Unilateral primary osteoarthritis of first carpometacarpal joint, left hand (principal); M54.10 Radiculopathy, site unspecified | CPT/HCPCS: 20600; J1030 ==

== ENCOUNTER 2022-04-01 06:29 | Emergency (ER) | payer MEDICARE, MEDICAID, SELFPAY ==
[2022-04-01 06:29] VITALS: BP 146/76; PULSE 65; RESP 16; TEMP 36.6; O2SAT 95
--- NOTE | 2022-04-01 06:44 | ED.GENADUL_ITS ---
Discharge Plan Disposition Patient Disposition: Home Condition: Good Discharge Details Clinical Impression: Back pain Primary Care Provider: Anne Bob ED Provider: Barry Duncan Home Meds and New Rx's Prescriptions: New cyclobenzaprine 10 mg tablet 10 mg PO TID Qty: 14 0RF lidocaine [Lidoderm] 5 % adhesive patch,medicated 1 patch Topical Q24H Qty: 15 0RF No Action aspirin 81 mg tablet 81 mg PO DAILY dextroamphetamine-amphetamine [Adderall XR] 25 mg capsule,extended release 24hr 25 mg PO DAILY acetaminophen 500 mg capsule 1,000 mg PO BID docusate sodium [Colace] 100 mg capsule 100 mg PO DAILY buspirone 15 mg tablet See Rx Instructions PO TID Rx Instructions: 2tabs AM, 1tab PM PO three times a day; [facility] methylprednisolone [Medrol (Joshua)] 4 mg tablets,dose pack See Rx Instructions PO DIRECTED Qty: 21 1RF Rx Instructions: 1 pack PO as directed; for severe radicular lumbar spine pain lidocaine 5 % adhesive patch,medicated 1 patch topical DAILY PRN (Reason: neck pain, back pain) Qty: 30 3RF Rx Instructions: leave on most painful area for 12 hrs then remove; may cut to size; for lumbar spine with right leg radicular pain (central spinal stenosis) bupropion HCl [Wellbutrin XL] 150 mg tablet extended release 24 hr 300 mg PO QAM vilazodone [Viibryd] 20 mg tablet 20 mg PO DAILY Rx Instructions: must administer with a meal/food 01/21/20 NK - Started 02/18/20 [facility] - Increase to 40 mg trazodone 50 mg tablet 50 - 100 mg PO QHS PRN (Reason: insomnia) Label Comments: [facility] 10/07/20 note Rx Instructions: for sleep Lactobacillus acidoph-L.bulgar [Floranex] 1 million cell tablet 1 tab PO DAILY Label Comments: 10/07/20 NK visit ibuprofen 600 mg tablet 600 mg PO BID PRN (Reason: pain) Qty: 90 0RF Rx Instructions: fracture pain BLISTER JOSHUA PO Rx Instructions: [facility] ropinirole 0.5 mg tablet 0.5 mg PO QHS Rx Instructions: 01/18/21-per last rx on file at pt's previous pharmacy, [facility], rx written by Dr. Saldaña on 01/10/21 for 0.5mg QHS 2 hours before bedtime. [facility](pt's new pharm) notified and they will request the transfer of this rx over to them. [place] cholecalciferol (vitamin D3) 50 mcg (2,000 unit) capsule See Rx Instructions .ROUTE .COMPLEX Qty: 90 3RF Dose Instruction: TAKE 1 CAPSULE BY MOUTH DAILY FOR BONE HEALTH/OSTEOPENIA Rx Instructions: TAKE 1 CAPSULE BY MOUTH DAILY FOR BONE HEALTH/OSTEOPENIA famotidine 20 mg tablet See Rx Instructions .ROUTE .COMPLEX Qty: 90 3RF Dose Instruction: TAKE 1 TABLET BY MOUTH DAILY FOR HEARTBURN Rx Instructions: TAKE 1 TABLET BY MOUTH DAILY FOR HEARTBURN Discharge Instructions Instructions: Back Pain (ED) Additional Instructions: At this time your signs and symptoms are clinically consistent with a back sprain. This can cause significant pain and take a fair bit of time to heal. I expect 1 to 2 months for potential resolution. In the meantime do not lift anything greater than 5 pounds for the next 2 weeks. Avoid any significant vigorous physical activity. Perform easy gentle regular activities at home without any significant bending or lifting. You have been given a prescription for Lidoderm patch. If your insurance does not cover this you can get [id number] Lidoderm patches at 4% which are almost just as effective. Please take the Flexeril as directed but do not take it when driving or operating any vehicles or heavy machinery, swimming, taking long baths, or operating firearms. Please use a heating pad as often as possible on your back. Perform daily gentle stretches on your back. Please continue to take the Tylenol and apply the Voltaren gel regularly. If you notice any worsening of your symptoms, or any new symptoms such as vomiting, diarrhea, fever, chills, sh ortness of breath, chest pain, numbness or tingling in your groin or legs, weakness in your legs, loss of control for your bowels or bladder, or fainting , please return immediately to the emergency department for reevaluation. Please follow up with your primary care provider as soon as possible for reassessment and reevaluation. As always, it was a pleasure participating in your medical care today. Referrals: Anne Bob NP [Primary Care Provider] - Medical Decision Making This is a 76-year-old female with a past medical history of chronic back pain, previous back surgeries, restless leg syndrome, mild aortic stenosis, who presents today for back pain. Patient has a history of back pain and was recently on steroid Dosepak, and has been prescribed muscle relaxants and NSAIDs and Lidoderm patches before. Patient states that last night she slept with her dog next to her in a funny position, and woke up with notable pain. She applied a Lidoderm patch and notable improvement. She did contact EMS and was brought to the ED for further evaluation. She has an MRI scheduled in 2 weeks for further assessment of her back. Patient denies any saddle anesthesia, numbness or tingling in the groin, change in sensation when wiping. Patient denies any bowel or bladder incontinence, leakage, or retention. Patient denies any weakness in the lower extremities, atypical falls or imbalance. No other complaints at this time. She has not taken any NSAIDs this morning. She has not taken any muscle relaxants this morning. Physical exam demonstrates well-appearing female, back pain is already improved after Lidoderm patch. Notable right-sided paraspinal spasm. No concerning red flags for cauda equina syndrome. No falls or trauma to suggest new osseous fracture deformities. Patient does have definitive MRI scheduled in 2 weeks. It is currently the weekend and I am not able to get her an expedited MRI today. Will recommend Voltaren gel, will give Toradol and Tylenol here, will recommend cyclobenzaprine and Lidoderm patches for home. Discussed the plan with the patient as well as her son. They are in agreement. I have extensively reviewed the treatment plan and discharge instructions with the patient and their family. I have addressed all patient concerns at this time. The patient and family was made aware of what symptoms to monitor for that would warrant a return to the emergency department. Discussed the plan with the patient and family, they demonstrate verbal understanding and agreement with our assessment and plan at this time. The documentation in this chart was dictated using [employer] dictation software. Please excuse any dictation errors. Sign Out No HPI General Date/Time Provider Initiated Documentation: 04/01/22 07:32 . HPI Narrative: This is a 76-year-old female with a past medical history of chronic back pain, previous back surgeries, restless leg syndrome, mild aortic stenosis, who presents today for back pain. Patient has a history of back pain and was recently on steroid Dosepak, and has been prescribed muscle relaxants and NSAIDs and Lidoderm patches before. Patient states that last night she slept with her dog next to her in a funny position, and woke up with notable pain. She applied a Lidoderm patch and notable improvement. She did contact EMS and was brought to the ED for further evaluation. She has an MRI scheduled in 2 weeks for further assessment of her back. Patient denies any saddle anesthesia, numbness or tingling in the groin, change in sensation when wiping. Patient denies any bowel or bladder incontinence, leakage, or retention. Patient denies any weakness in the lower extremities, atypical falls or imbalance. No other complaints at this time. She has not taken any NSAIDs this morning. She has not taken any muscle relaxants this morning. Related Data Home Medications Medication Instructions Recorded Confirmed docusate sodium 100 mg capsule 100 mg PO DAILY 04/06/19 03/26/22 (Colace) bupropion HCl 150 mg 24 hr tablet, 300 mg PO QAM 06/12/19 03/26/22 extended release (Wellbutrin XL) aspirin 81 mg tablet 81 mg PO DAILY 04/25/20 03/26/22 vilazodone 20 mg tablet (Viibryd) 20 mg PO DAILY 04/25/20 03/26/22 acetaminophen 500 mg capsule 1,000 mg PO BID 09/05/20 03/26/22 dextroamphetamine-amphetamine ER 25 mg PO DAILY 09/05/20 03/26/22 25 mg 24hr capsule,extend release (Adderall XR) Lactobacillus acidoph-L.bulgaricus 1 tab PO DAILY 10/24/20 03/26/22 1 million cell tablet (Floranex) trazodone 50 mg tablet 50 - 100 mg PO QHS PRN insomnia 10/24/20 03/26/22 ibuprofen 600 mg tablet 600 mg PO BID PRN pain #90 tabs 11/07/20 03/26/22 BLISTER JOSHUA PO 01/06/21 03/26/22 ropinirole 0.5 mg tablet 0.5 mg PO QHS 01/18/21 03/26/22 buspirone 15 mg tablet See Rx Instructions PO TID 05/15/21 03/26/22 cholecalciferol (vitamin D3) 50 See Rx Instructions .Route 07/29/22 11/14/22 mcg (2,000 unit) capsule .COMPLEX #90 caps famotidine 20 mg tablet See Rx Instructions .Route 12/08/21 03/26/22 .COMPLEX #90 tabs lidocaine 5 % topical patch 1 patch topical DAILY PRN neck 02/19/22 03/26/22 pain, back pain #30 ea methylprednisolone 4 mg tablets in See Rx Instructions PO DIRECTED 02/19/22 03/26/22 a dose pack (Medrol (Joshua)) #21 dose pk cyclobenzaprine 10 mg tablet 10 mg PO TID #14 tabs 04/01/22 lidocaine 5 % topical patch 1 patch topical Q24H #15 ea 04/01/22 (Lidoderm) Previous Rx's Medication Instructions Recorded ibuprofen 600 mg tablet 600 mg PO BID PRN pain #90 tabs 11/07/20 cholecalciferol (vitamin D3) 50 See Rx Instructions .Route 12/08/21 mcg (2,000 unit) capsule .COMPLEX #90 caps famotidine 20 mg tablet See Rx Instructions .Route 12/08/21 .COMPLEX #90 tabs lidocaine 5 % topical patch 1 patch topical DAILY PRN neck 02/19/22 pain, back pain #30 ea methylprednisolone 4 mg tablets in See Rx Instructions PO DIRECTED 02/19/22 a dose pack (Medrol (Joshua)) #21 dose pk cyclobenzaprine 10 mg tablet 10 mg PO TID #14 tabs 04/01/22 lidocaine 5 % topical patch 1 patch topical Q24H #15 ea 04/01/22 (Lidoderm) Allergies Allergy/AdvReac Type Severity Reaction Status Date / Time benzalkonium chloride Allergy Unknown unknown Verified 03/26/22 08:15 [From Travatan] brimonidine [From Alphagan P] Allergy Unknown unknown Verified 03/26/22 08:15 meperidine HCl [From Demerol] Allergy Unknown UNSURE Verified 03/26/22 08:15 travoprost [From Travatan] Allergy Unknown unknown Verified 03/26/22 08:15 BLUE SURGICAL SCRUB? AdvReac Intermediate RASH, Uncoded 03/26/22 08:15 ITCHING General Stated Complaint: Nk/Back Pain SHAGUFTA: 3 Review of Systems All systems reviewed & are unremarkable except as noted in HPI and below PFSH All Active Problems Back pain (Acute) Radicular pain of right lower extremity (Acute ~02/2022) Supraventricular tachycardia (Chronic ~08/2021) Started 2013 with repeat diagnostic cardiac sonographer 08/2021 validating ?Stimulant contributory Cardiology consult 01/2022--consider BB or diltiazem Scoliosis of thoracic spine (Chronic) R convex scoliosis Arthritis of carpometacarpal joint (Acute) left Heartburn (Chronic) Famotidine 20mg daily Bladder incontinence (Acute) Kegels & bladder training instruction Dysarthria-clumsy hand syndrome (Acute) Mild aortic stenosis (Acute ~06/2019) ECHO 06/2019; 07/2020 (stable) Elevated MCV (Acute) Trigger finger, right middle finger (Chronic) [facility] Dr. Meza Osteopenia (Chronic) DEXA 2016 & 2020 Insomnia (Chronic) RX Trazodone Anxiety (Chronic) [facility] Depression (Chronic 08/31/11) [facility] Restless legs syndrome (Chronic 02/04/17) Years; Dr. 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 Manuel Lucia Iron deficiency (02/04/17) Lumbar pain with radiation down left leg Improved s/p lumbar spine fusion; stable; Dr. Devi Memory impairment Depression vs. other--see 08/14/2019 note; Neuro 03/2019; normal brain MRI and labs [id number] [facility] consult 2020 & 2021--no [facility]; they are following Palpitations (~07/2021) Peroneal tendonitis of right lower extremity Surgical History Acquired absence of both cervix and uterus (08/31/11) Carpal tunnel syndrome, right (07/11/21) s/p ECTR DOS: 07/11/2021 History of arthroplasty of right knee History of cataract extraction B/L eyes [facility] Dr. Parks, R then L (pending 11/2019) History of knee replacement B/L History of lumbar discectomy L4-5 History of lumbar laminectomy (~2013) L knee repair Oophrectomy, Left Age 20 for cyst Oophrectomy, Right with hyst 1997 Spinal Fusion Lumbar L4-S1; also cervical Status post cervical spinal arthrodesis (02/04/17) Vaginal hysterectomy 1997 - Prolapse Varicose vein stripping Family History Mother Parkinson disease Heart disease Hypertension Brother Depression Diabetes Heart disease Hypertension Father Heart disease Hypertension Social History Smoking/Tobacco Use Status: Former Tobacco Use Quit Date: 05/13/89 Tobacco: How many years used: 10 Smoking risk assessment performed?: Yes Alcohol Intake: never Drug use: Never Substance use type: does not use Adopted: No Caregiver/Support person: No Foster care: No Household members: family Housing: house Number of Children: 2 Communication Needs: Corrective Lenses Do you need help understanding health information?: Rarely current occupation: Retired Sexually active: Yes Do you think of yourself as: straight/heterosexual Current gender identity: female What is your relationship status?: Panel score (0-1 are the most socially isolated patients): 1 What type of physical activity do you participate in: none Seatbelt use: always Working smoke detector in home: Yes Fire extinguisher in home: Yes Carbon monox detector in home: Yes Do you feel safe at home: Yes Do you feel safe in your relationship?: Yes Exam Narrative Exam Narrative: 1.Const: Well-nourished, Well-developed, appearing stated age 2.Eyes: PERRL, no conjunctival injection, and symmetrical lids. 3.ENT: Atraumatic external nose and ears. Moist MM. Neck: Symmetric, trachea midline, No thyromegaly. 4.CVS: +S1/S2, No murmurs or gallops. Peripheral pulses 2+ and equal in all extremities. Brisk capillary refill in all extremities. 5.RESP: Unlabored respiratory effort. Clear to auscultation bilaterally. No wheezes rales or rhonchi 6.GI: Soft, Nontender/Nondistended, No hepatosplenomegaly. No guarding or rebound. 7.MSK: Normocephalic/Atraumatic, Extremities w/o deformity or ttp No cyanosis or clubbing, Normal movement of all extremities No midline tenderness to palpation over the CTLS spine. Mild right-sided juancho jairon spasm. Normal ROM in flexion, extension, side bend, and rotation. Patient has +5 out of 5 strength in the lower extremities in dorsiflexion and plantarflexion, knee flexion and extension, hip flexion and extension. Normal strength for dorsiflexion and plantar flexion of the great toe bilaterally. There is +2 over 2 dorsalis pedis pulses bilaterally. There is normal sensation to the skin with light touch at the foot, knee, and hip. Normal saddle sensation. Good sensation over the deep sural nerve area bilaterally. Rectal exam deferred. Reflexes are +2 over 4 in the patellar reflex bilaterally. +5 out of 5 strength in the medial, ulnar, radial nerve distribution bilaterally in the hands as well as intact light touch sensation to these dermatomes on the hands 8.Skin: Warm, Dry. No rashes or lesions. 9.Neuro: size worker II-XII grossly intact. Sensation grossly intact, no focal neurologic deficits. 10.Psych: (AAO) x3. Appropriate mood and affect Course Vital Signs Vital signs: Vital Signs Temperature 36.6 C 04/01/22 06:29 Pulse 65 04/01/22 06:29 Respiratory Rate 16 04/01/22 06:29 Blood Pressure 146/76 H 04/01/22 06:29 Pulse Oximetry 95 04/01/22 06:29 Temperature 36.6 C 04/01/22 06:29 Temperature Source Oral 04/01/22 06:29 Pulse 65 04/01/22 06:29 Respiratory Rate 16 04/01/22 06:29 Respiratory Effort 04/01/22 06:36 Blood Pressure 146/76 H 04/01/22 06:29 Blood Pressure Position Supine 04/01/22 06:29 Pulse Oximetry 95 04/01/22 06:29 Oxygen Delivery Method Room Air 04/01/22 06:29 Oxygen Flow Rate 0 04/01/22 06:29 Pain Level 5 04/01/22 06:40
[2022-04-01] MEDS: Cyclobenzaprine 10 MG TAB PO (06:56)
[2022-04-01] MEDS: Acetaminophen 500 MG TAB 1000 MG PO (06:56)
[2022-04-01] MEDS: Ketorolac 15 MG/ML VIAL IM (06:56)
== END 2022-04-01 07:49 | disposition home or self-care (01) ==
LOC: ER 07:06
PROVIDERS: Emergency Provider Student in an Organized Health Care Education/Training Program; PCP Nurse Practitioner Adult Health
DX: M54.50 Low back pain, unspecified (principal); G89.29 Other chronic pain; M62.830 Muscle spasm of back
CPT/HCPCS: 96372; 99284; 99283; J1885

== ENCOUNTER → 2022-04-16 01:27 | Outpatient (CLI) | payer MEDICARE, MEDICAID, SELFPAY ==
--- NOTE | 2022-04-16 07:45 | DI.MRI_ITS ---
Exam(s) MR LUMBAR SPINE WO EXAM: MR LUMBAR SPINE WO CLINICAL HISTORY: PAIN,M54.10,RADICULOPATHY,M54.10. TECHNIQUE: Multiplanar multisequence MRI of the Lumbar spine was performed. COMPARISON: MR MRI - LUMBAR SPINE WO CONTRAST from 12/04/2016 CR XR LUMBAR SPINE COMPLETE from 02/20/2022 FINDINGS: Bones: The last intervertebral disc space is designated the L5/S1 level for the numbering purpose of this examination. The vertebral body heights are well maintained. Degenerative levoscoliosis.. The marrow signal characteristics are unremarkable. There is metallic posterior fusion hardware in place extending from L3 through S1 which creates artif act. Cord: The conus tip ends at the T12 L1 level. It is of normal size and signal intensity. T12-L1: No disc herniations or bulges are present. No central spinal canal or neural foraminal stenos is. L1-2: Severe loss of disc height. Blood broad-based endplate osteophytes. Minimal central canal gretchen nosis. Moderate bilateral neural foraminal narrowing. L2-3: Severe loss of disc height and broad-based end plate osteophytes. Facet degenerative changes. Mild central canal stenosis. Severe right and moderate left neural foraminal narrowing. L3-4: Asymmetric disc space narrowing and endplate osteophytes severe on the right. severe right ne ural foraminal narrowing. Moderate central canal stenosis. Moderate to severe left neural foraminal narrowing. L4-5: Disc spacer. No central canal stenosis. Mild bilateral neural foraminal narrowing. L5-S1: Asymmetric loss of disc height and endplate osteophytes toward the left. Artifact related to spinal hardware. Severe bilateral neural foraminal narrowing. no central spinal canal stenosis. The visualized SI joints and sacrum are well maintained. Soft tissues: The paraspinal soft tissues are unremarkable. IMPRESSION: No evidence of a disc herniation. Multi level neural foraminal narrowing. Moderate central canal stenosis at L 3 4. DATA REPOSITORY:
== END ==
PROVIDERS: PCP Nurse Practitioner Adult Health; Visit Provider Student in an Organized Health Care Education/Training Program
DX: M51.17 Intervertebral disc disorders with radiculopathy, lumbosacral region; M48.07 Spinal stenosis, lumbosacral region; M47.27 Other spondylosis with radiculopathy, lumbosacral region
CPT/HCPCS: 72148

== ENCOUNTER → 2022-04-26 08:20 | Outpatient (BNVA) | payer MEDICARE, MEDICAID, SELFPAY | PROVIDERS: PCP Nurse Practitioner Adult Health; Referring Provider Nurse Practitioner Adult Health; Visit Provider Student in an Organized Health Care Education/Training Program | DX: M19.042 Primary osteoarthritis, left hand (principal); M70.61 Trochanteric bursitis, right hip; M48.061 Spinal stenosis, lumbar region without neurogenic claudication | CPT/HCPCS: 20600; 20610; J1030; J1040 ==

== ENCOUNTER 2022-05-16 09:10 | Outpatient (CLI) | payer MEDICARE, MEDICAID, SELFPAY ==
[2022-05-16 09:28] VITALS: BP 148/71; PULSE 60; RESP 20; TEMP 36.6; O2SAT 96
--- NOTE | 2022-05-16 10:04 | DI.RAD_ITS ---
Exam(s) XR PAIN CLINIC LUMBAR SP 2V EXAM: XR PAIN CLINIC LUMBAR SP 2V CLINICAL HISTORY: Dx: Lumbar Radiculopathy. TECHNIQUE: Fluoroscopy was provided for the referring physician for guidance with performing pain cl inic injection procedure. COMPARISON: No exams were available for comparison FINDINGS: Please see procedure note for details. Fluoro time: 929.9 seconds RADIATION DOSE DELIVERED: Ka,r=16.18 mGy
--- NOTE | 2022-05-16 10:06 | PDOC.PAIN_ITS ---
Date of service: 05/16/22 Time of Service: 10:09 Pain Clinic Procedure Note Procedure Note Procedure Note: CAUDAL EPIDURAL STEROID WITH CATHETER INJECTION PROCEDURE NOTE COMMENTS: She has a Chloroprep allergy and thus we used Alcohol for skin prep. Pre-procedure pain VAS was 6/10. She has lumbar fusion. This is the reason for using the caudal approach. Dx: Lumbosacral radiculopathy Edith Corbin has been referred to the [facility] for lumbar epidural steroid injection. Patient was greeted by the nurse who verified the patient?s name and .? Patient was then taken to the fluoroscopy suite. The patient was interviewed and the medical record was reviewed.? There were no medical, pharmacologic, radiographic, or other structural contraindications to attempting fluoroscopically guided caudal epidural steroid injection. Risks and expected side effects as well as potential benefits of the procedure were reviewed and voiced concerns addressed.? The patient consent form was signed.? Standard time-out procedure was performed. The patient was placed in the prone position on the fluoroscopy table and automated blood pressure cuff, pulse oximeter, and 3 lead EKG was applied.? The skin entry point for entering/approaching the sacral hiatus was marked.? Following thorough alcohol preparation of the skin and draping and 1% lidocaine infiltration of the skin entry point and subcutaneous tissues, a 17 gauge Touhy needle was placed under fluoroscopic guidance through the sacral hiatus.? Needle tip placement and depth were aided and confirmed by fluoroscopy. There was no paresthesia or return of blood or CSF through the needle. A 19G Arrow spinal catheter was threaded to the L5 height and 1 cc's of Omnipaque 240 was injected with clear epidural spread confirmed with fluoroscopy.? Aspiration was performed with no resulting blood or clear fluid. One cc of depomedrol (80 mg/cc) was injected.? This was followed by 2 cc of 1% Lidocaine to flush the catheter.?There was not any unusual discomfort expressed.? The needle and catheter were removed together without difficulty. Vital signs were stable throughout the procedure and were as recorded in nursing records.? Follow up plans and appointments were discussed.? Post procedure instruction was given as documented in nursing records and having met discharge criteria and was discharged from the [facility] Management [facility]. This procedure can be completed up to 3 times per 12 months if it is found to be helpful. Post-procedure pain VAS was 0/10. Brenden Haxtun, DO, MPH [facility]
[2022-05-16] MEDS: methylPREDNISolone ACETATE 80 MG/ML VIAL IJ (10:12)
[2022-05-16] MEDS: Omnipaque 240 MG/ML 50 ML BTL IJ (10:12)
[2022-05-16 10:18] VITALS: BP 146/69; PULSE 66; RESP 14; O2SAT 97
== END 2022-05-16 09:11 | disposition home or self-care (01) ==
LOC: PC 09:11
PROVIDERS: PCP Nurse Practitioner Adult Health; Visit Provider Preventive Medicine Occupational Medicine
DX: M54.17 Radiculopathy, lumbosacral region (principal); M54.50 Low back pain, unspecified
CPT/HCPCS: 62323; 72100; J1040; Q9967

== ENCOUNTER 2022-06-12 01:12 | Outpatient (CLI) | payer MEDICARE, MEDICAID, SELFPAY ==
--- NOTE | 2022-06-12 06:30 | DI.US_ITS ---
APPROVED REPORT EXAM: Comprehensive 2D, Doppler, and color-flow Echocardiogram Patient Location: Out-Patient Suggestion Clerk: Alondra Snow RDCS (AE) Indications: f/u mild aortic stenosis Other Information Study Quality: Adequate Conclusion Normal left ventricular wall thickness and chamber size. Estimated ejection fraction is 55 to 60%. Wall motion is normal Normal right ventricular size and systolic function Both atria are normal in size The aortic valve is sclerotic and probably trileaflet. There is no aortic stenosis. There is trace aortic regurgitation Mildly dilated ascending aorta measuring 3.51 cm Wall motion Left Ventricle The left ventricle is normal size. The left ventricular systolic function is normal. The left ventric ular ejection fraction is within the normal range. There is normal left ventricular wall thickness. T here is normal LV segmental wall motion. There is no ventricular septal defect visualized. LVEF is 57 %. Right Ventricle The right ventricle is normal size. The right ventricular systolic function is normal. Atria The left atrium size is normal. The right atrium size is normal. The interatrial septum is intact wit h no evidence for an atrial septal defect. Aortic Valve Aortic valve is calcified. Aortic valve is probably trileaflet. No hemodynamically significant valvul ar aortic stenosis. Trace aortic regurgitation. Mitral Valve The mitral valve is normal in structure. No evidence of mitral valve stenosis. Trace mitral regurgita tion. Tricuspid Valve The tricuspid valve is normal in structure. There is no tricuspid valve stenosis. Trace tricuspid reg urgitation. Unable to assess PA pressure. Pulmonic Valve The pulmonary valve is normal in structure. There is no pulmonic valvular stenosis. Trace pulmonic re gurgitation. Great Vessels The aortic root is normal in size. The ascending aorta is mildly dilated. Aortic arch is normal in ca liber. The IVC collapses <50% with inspiration. Pericardium There is no pericardial effusion. 2D Dimensions IVSD d PLAX 1.01 cm F: 0.6-1.0 LV Vol A2C d MOD 116.0 mL LVPW d PLAX 1.01 cm F: 0.6 - 1.0 LV Vol A4C d MOD 120.1 mL LVID d PLAX 4.38 cm F: 3.8 - 5.2 LA vol/ BSA A2C s A-L 41.5 mL/m2 LVDs 3.15 cm F: 2.2 - 3.5 LA vol/ BSA A4C s A-L 15.5 mL/m2 Ao Root d 3.18 cm F: 2.7 - 3.3 LA Vol/ BSA Biplane s A-L 27.6 mL/m2 RA Area A4C 11.64 cm2 LA Area A4C s MOD 12.29 cm2 RA Vol/ BSA A4C s A-L 15.1 mL/m2 LA Area A2C s MOD 21.86 cm2 Ao Asc Diam d 3.51 cm F: 2.3 - 3.1 LV EF A4C MOD 57.8 % LV EF Teichholz 54.3 % LV EF A2C MOD 51.9 % LVEF (Robb's) 55.17 % F: 54 - 74 LV EF Biplane MOD 55.2 % LV Volume 91.75 mL F: 46 - 106 SV 65.75 mL LV Volume Index 49.59 mL/m2 F: 29 - 61 SV Index 35.49 mL/m2 LV Vol Biplane MOD 119.2 mL FS 27.85 % M-Mode TAPSE 1.65 cm (M/F) >1.7 LV Diastology MV E' medial 0.065 (>0.07 m/s) E/A Ratio 0.9 LV E/e MED 11.60 (<14) MV E Vmax 0.76 (0.4-1.3 m/s) MV E' lateral 0.117 (>0.1 m/s) MV A Vmax 0.85 (0.4-1.3 m/s) LV E/e LAT 6.45 (<14) MV E/A Ratio 0.86 MV E/E' medial 11.62 MV E/E' lateral 6.46 Aortic Valve LVOT Area 3.37 cm2 AoV Area Vmax 1.67 cm2 LVOT Vmax 0.98 m/s AoV Area/ BSA (Vmax) 0.90 cm2/m2 LVOT Mean Herbert. 0.66 m/s LISSY Mean Herbert. 1.63 cm2 LVOT Peak Grad 3.8 mmHg LISSY Mean Herbert. Index 0.88 cm2/m2 LVOT Mean Grad 2.0 mmHg AR DT 4263 msec LVOT VTI 0.253 m AR PHT 1236 msec LVOT Diam s 2.05 cm AoV Vmax 1.98 m/s Velocity Ratio 0.49 AoV Mean Herbert. 1.37 m/s AoV Peak Grad 15.6 mmHg LVOT SV 85.39 mL AoV Mean Grad 8.3 mmHg AoV VTI 0.460 m AoV Area VTI 1.86 cm2 AoV Area/ BSA (VTI) 1.00 cm/m2 Mitral Valve MV DT 209 (160-240 msec) MV PHT 61 msec MV Area PHT 3.63 cm2 MV VTI 0.447 m MV Area VTI 1.91 (4.0-6.0 cm2) Pulmonary Valve PV Vmax 0.77 (0.5-1.5 m/s) RVOT Peak Gr. 1.68 mmHg PV Peak Grad 2.4 mmHg RVOT Mean Gr. 0.80 mmHg PV Mean Grad 1.3 mmHg RVOT VTI 0.156 m PV VTI 0.185 m RVOT Vmax 0.65 m/s
== END 2022-06-12 01:32 ==
LOC: DI 01:12
PROVIDERS: PCP Nurse Practitioner Adult Health; Visit Provider Nurse Practitioner Adult Health
DX: I35.0 Nonrheumatic aortic (valve) stenosis (principal)
CPT/HCPCS: 93306

== ENCOUNTER → 2022-07-30 08:10 | Outpatient (BNVA) | payer MEDICARE, MEDICAID, SELFPAY | PROVIDERS: PCP Nurse Practitioner Adult Health; Referring Provider Student in an Organized Health Care Education/Training Program; Visit Provider Psychiatry & Neurology Neurology | DX: G62.9 Polyneuropathy, unspecified (principal); M70.61 Trochanteric bursitis, right hip; M54.16 Radiculopathy, lumbar region | CPT/HCPCS: 36415; 95885; 95908; 99214; 83036; 84165 ==

== ENCOUNTER 2022-07-30 13:06 | Outpatient (CLI) | payer MEDICARE, MEDICAID, SELFPAY ==
[2022-07-30 10:34] LABS: Hemoglobin A1C 5.6 % (<5.7)
[2022-07-31 12:51] LABS: Albumin 64.2 % (55.8-66.1); Total Protein 6.2 g/dL (6.3-8.2)
== END 2022-07-30 13:07 | disposition home or self-care (01) ==
LOC: LBO 13:06
PROVIDERS: PCP Nurse Practitioner Adult Health; Visit Provider Psychiatry & Neurology Neurology
DX: R73.9 Hyperglycemia, unspecified (principal); I10 Essential (primary) hypertension; E78.5 Hyperlipidemia, unspecified; G62.9 Polyneuropathy, unspecified
CPT/HCPCS: 36415; 83036; 84165

== ENCOUNTER 2022-08-07 22:36 | Outpatient (REF) | payer MEDICARE, MEDICAID, SELFPAY ==
[2022-08-07 20:46] LABS: Influenza A PCR Negative (Negative); Influenza B PCR Negative (Negative); RSV PCR Negative (Negative)
[2022-08-07 20:54] LABS: Source Nasopharynx
[2022-08-07 20:56] LABS: COVID-19 PCR Positive (Negative)
== END 2022-08-07 22:37 | disposition home or self-care (01) ==
LOC: LBN 22:36
PROVIDERS: PCP Nurse Practitioner Adult Health; Visit Provider Nurse Practitioner
DX: U07.1 COVID-19 (principal)
CPT/HCPCS: 87637

== ENCOUNTER 2022-08-22 00:46 | Outpatient (CLI) | payer MEDICARE, MEDICAID, SELFPAY ==
--- NOTE | 2022-08-22 | DI.MRI_ITS ---
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 COMPARISON: MR MRI - CERVICAL SPINE WO CONT from 03/31/2014 FINDINGS: There has been interval multilevel fusion surgery since the 2013 study. There is anterior fusion marshal te and screws at C4-C7, inclusive. There is artifact from these screws. At C4 and C5 levels there i s artifact which extends posterior to the posterior cortex of the vertebral body. See below. CERVICOMEDULLARY JUNCTION: Intact with no evidence of cerebellar tonsillar ectopia. No obvious abnor mality of the odontoid process. No evidence of Chiari 1 malformation. CERVICAL SPINAL CORD: There is no abnormal signal in the cervical spinal cord and no evidence of foca l cord atrophy nor focal cord swelling. OSSEOUS:There are no cervical fractures evident. No significant osseous lesions in the cervical vert ebrae. INDIVIDUAL LEVELS: C2-3: There is significant disc space narrowing now evident at this level when compared to 2013 and t here is mild anterolisthesis of C2 upon C3. There is posterior annular bulging without a dominant di sc herniation. Central canal dimensions are lower normal. There are facet joint degenerative change s. There is bilateral foraminal stenosis at this level due to annular bulging into the exiting neura l foramina and decreased disc height at this level. This causes impingement of the exiting nerve zaina ts bilaterally at this level. Also facet arthropathy noted at this level. C3-4: This is 1 level above the fusion. There is artifact in this region. There is element of mild anterolisthesis C3 upon C4. Posterior bony ridging noted bilateral Luschka joint osteophytes. Promi nent posterior artifact noted from the screws but is doubtful that this screws project posterior to t he posterior cortex of the vertebral body.Mild central spinal canal stenosis. Bilateral foraminal st enosis. Facet arthropathy. C4-5: Prominent artifact from the hardware noted at this level. No obvious disc herniation at this l evel. No obvious central canal stenosis. No obvious facet prominent hypertrophy. Mild bilateral fo raminal stenosis. C5-6: No disc herniation. Central canal dimensions lower normal. Some facet degenerative changes. Mild foraminal stenosis bilaterally. C6-7: Chronic disc space narrowing. No disc herniation. No central canal stenosis. Mild bilateral foraminal stenosis. Mild facet degenerative changes. C7-T1: No disc herniation nor central canal stenosis. The facet arthropathy.No foraminal stenosis IMPRESSION: 1. Studies difficult to assess because of the abundant artifact from C4 through C7 hardware. Finding s as above. 2. No prominent central canal stenosis. 3. Multilevel foraminal stenosis. DATA REPOSITORY:
== END 2022-08-22 01:06 ==
LOC: DI 00:46
PROVIDERS: PCP Nurse Practitioner Adult Health; Visit Provider Physician Assistant Medical
DX: M50.01 Cervical disc disorder with myelopathy, high cervical region (principal); Z98.1 Arthrodesis status; M50.323 Other cervical disc degeneration at C6-C7 level; M47.12 Other spondylosis with myelopathy, cervical region
CPT/HCPCS: 80048; 72141; 81003; 81015; 87086

== ENCOUNTER 2022-08-22 03:01 | Outpatient (CLI) | payer MEDICARE, MEDICAID, SELFPAY ==
[2022-08-22 13:34] LABS: Bilirubin Negative (Negative); Blood Trace-intact (Negative); Clarity Clear (Clear); Glucose Negative (Negative); Ketones Negative (Negative); Leukocyte Esterase Trace (Negative); Nitrite Negative (Negative); Specific Gravity >= 1.030 (1.005-1.025); Urobilinogen 0.2 mg/dL (Up to 0.2); pH 5.5 (5-8)
[2022-08-22 13:57] LABS: Bacteria Rare HPF (Negative); C & S Indicated? Yes; Casts 0-2 Hyaline LPF (Negative); Crystals Negative HPF (Negative); Epithelial Cells Few HPF (Negative); Mucus Negative (Negative)
[2022-08-22 14:21] LABS: Anion Gap 8.8 mmol/L (3-11); BUN 20 mg/dL (7-18); CO2 27.2 mmol/L (21.0-32.0); CREATININE 0.7 mg/dL (0.55-1.02); Calcium 9.1 mg/dL (8.5-10.1); Chloride 105 mmol/L (98-107); Estimated GFR 90.14 (mL/min/1.73m2); Glucose 94 mg/dL (74-106); Potassium 3.8 mmol/L (3.5-5.1); Sodium 141 mmol/L (136-145)
== END 2022-08-22 03:02 | disposition home or self-care (01) ==
LOC: LBO 03:01
PROVIDERS: PCP Nurse Practitioner Adult Health; Visit Provider Nurse Practitioner Adult Health
DX: I10 Essential (primary) hypertension (principal); R35.0 Frequency of micturition
CPT/HCPCS: 80048; 81003; 81015; 87086

== ENCOUNTER → 2022-09-20 14:04 | Outpatient (BNVA) | payer MEDICARE, MEDICAID, SELFPAY | PROVIDERS: PCP Nurse Practitioner Adult Health; Referring Provider Nurse Practitioner Adult Health; Visit Provider Student in an Organized Health Care Education/Training Program | DX: M19.042 Primary osteoarthritis, left hand (principal) | CPT/HCPCS: 20604; J1030 ==

== ENCOUNTER → 2022-10-02 12:18 | Outpatient (BNVA) | payer MEDICARE, MEDICAID, SELFPAY | PROVIDERS: PCP Nurse Practitioner Adult Health; Referring Provider Nurse Practitioner Adult Health; Visit Provider Psychiatry & Neurology Neurology | DX: G62.9 Polyneuropathy, unspecified (principal); M70.61 Trochanteric bursitis, right hip; I10 Essential (primary) hypertension | CPT/HCPCS: 99214 ==

== ENCOUNTER 2022-10-04 11:40 | Emergency (ER) | payer MEDICARE, MEDICAID, SELFPAY ==
--- NOTE | 2022-10-04 11:45 | RT.EKG_ITS ---
APPROVED REPORT Exam: Resting ECG Reason for Exam: dizzy Patient Location: E HR:54 bpm ECG Measurements Heart Rate 54 AXIS MI 188 P 59 QRSd 116 QRS -24 QT 433 T -21 QTc 411 Conclusion Sinus bradycardia...rate< 60 Left ventricular hypertrophy...multiple voltage criteria Nonspecific T abnormalities, inferior leads...T <-0.10mV, II III aVF. Sinus. Less than 1mm ST depression/T wave inversion in III and aVF. No STEMI. I have reviewed and interpreted ECG and agree with software generated interpretation.
[2022-10-04 11:54] VITALS: BP 165/69; PULSE 55; RESP 18; TEMP 36.5; O2SAT 96
[2022-10-04 12:20] VITALS: BP 136/71; PULSE 54; RESP 14; O2SAT 96
[2022-10-04 12:29] VITALS: BP 150/66; PULSE 52; RESP 12; O2SAT 97
[2022-10-04 12:36] LABS: Abs Immature Grans 0.01 10^3/uL (0.0-0.06); Absolute Basophil Count 0.05 10^3/uL (0.0-0.2); Absolute Eosinophil Count 0.19 10^3/uL (0.0-0.7); Absolute Lymphocyte Count 1.43 10^3/uL (1.2-3.4); Absolute Monocyte Count 0.32 10^3/uL (0.1-0.8); Absolute Neutrophil Count 2.28 10^3/uL (1.2-6.7); Basophils % 1.2; Eosinophils % 4.4; HCT 37.5 % (36.0-46.0); HGB 12.7 g/dL (11.2-15.7); Immature Grans % 0.2; Lymphocytes % 33.4; MCH 33.8 pg (27.0-33.0); MCHC 33.9 % (32.0-36.0); MCV 100 fL (80-95); MPV 9.6 fL (8.0-11.0); Monocytes % 7.5; Neutrophils % 53.3; Platelet Count 177 10^3/uL (130-400); RBC 3.76 10^6/uL (3.93-5.22); RDW 12.8 % (11.7-14.6); RDW-SD 46.9 fL; WBC 4.28 10^3/uL (4.4-10.8)
[2022-10-04 12:57] LABS: ALT 24 U/L (14-59); AST 27 U/L (15-37); Albumin 3.5 g/dL (3.4-5.0); Alkaline Phosphatase 67 U/L (46-116); Anion Gap 5.8 mmol/L (3-11); BUN 20 mg/dL (7-18); Bilirubin, Total 0.3 mg/dL (0.2-1.0); CO2 29.2 mmol/L (21.0-32.0); CREATININE 0.6 mg/dL (0.55-1.02); Calcium 8.6 mg/dL (8.5-10.1); Chloride 106 mmol/L (98-107); Estimated GFR 93.55 (mL/min/1.73m2); Glucose 87 mg/dL (74-106); Magnesium 1.9 mg/dL (1.8-2.4); Potassium 4.3 mmol/L (3.5-5.1); Sodium 141 mmol/L (136-145); Total Protein 6.6 g/dL (6.4-8.2); Troponin I < 50 ng/L (<or=60)
[2022-10-04 13:11] VITALS: RESP 16
[2022-10-04 13:25] LABS: Bilirubin Negative (Negative); Blood Trace-intact (Negative); Clarity Clear (Clear); Glucose Negative (Negative); Ketones Negative (Negative); Leukocyte Esterase Trace (Negative); Nitrite Negative (Negative); Specific Gravity 1.015 (1.005-1.025); Urobilinogen 0.2 mg/dL (Up to 0.2); pH 7.5 (5-8)
[2022-10-04 13:31] LABS: Bacteria Negative HPF (Negative); Crystals Negative HPF (Negative); Epithelial Cells Few HPF (Negative); Mucus Negative (Negative); RBC 0-2 HPF (0-2)
[2022-10-04 13:32] LABS: C & S Indicated? Yes; Casts Negative LPF (Negative)
--- NOTE | 2022-10-04 13:45 | DI.CT_ITS ---
Exam(s) CT LUMBAR SPINE WO EXAM: CT LUMBAR SPINE WO CLINICAL HISTORY: midline lower back pain, r/o fx. TECHNIQUE: Imaging Protocol: Axial computed tomography images with coronal and sagittal reformatted images were created and reviewed. COMPARISON: CT CT ABDOMEN PELVIS W from 05/05/2020 CR XR LUMBAR SPINE COMPLETE from 02/20/2022 FINDINGS: There is artifact from the patient's posterior spinal surgery standing from L4 through S1. Bones: No fractures or dislocations are seen. There is a left convex curvature of the lumbar spine. There is 2-3 mm of retro listhesis at L2 on L3. There is minimal anterolisthesis of L4 on L5. Vacuum discs are seen at multiple levels of the lumbar spine. Endplate osteophytes are present throughout the lumbar spine. Facet arthropathy is also present. Soft tissues: The soft tissues of the visualized abdomen and chest are unremarkable. No large disk he rniations are identified. There is atherosclerosis present. There is diverticulosis in the colon, bu t no evidence of acute diverticulitis. Stable cysts are seen in the liver. IMPRESSION: 1. No acute fracture or subluxation in the lumbar spine. 2. Findings were discussed with the emergency department at 3:10 p.m. on 10/04/2022. RADIATION DOSE DELIVERED: 705.38mGy.cm Total DLP 705.38mGy.cm Total DLP DATA REPOSITORY: All CT scans at this facility are submitted to the National Radiology Data Registry (NRDR) Dose Index Registry (DIR) with the [employer] ([employer]). RADIATION OPTIMIZATION: All CT scans at this facility use at least one of these dose optimization te chniques: automated exposure control; mA and/or kV adjustment per patient size (includes targeted exa ms where dose is matched to clinical indication); or iterative reconstruction.
--- NOTE | 2022-10-04 13:45 | DI.RAD_ITS ---
Exam(s) XR CHEST 2V PA LATERAL EXAM: XR CHEST 2V PA LATERAL CLINICAL HISTORY: possible cva, r/o acute disease TECHNIQUE: 2D digital imaging was performed of the chest. Two images were obtained. PA and lateral views were obtained. COMPARISON: CR XR RIBS LT W PA LAT CHEST from 01/31/2021 FINDINGS: MEDIASTINUM: Normal. HEART: Normal. PULMONARY VASCULATURE: Normal. LUNGS: Clear. PLEURAL SPACE: No pleural effusion or pneumothorax. BONE:Within normal limits for the patient's age. There is a right convex curvature of the spine. Pa tient has had prior anterior cervical disc fusion. OTHER FINDINGS:Normal. IMPRESSION: 1. No acute pulmonary findings. 2. Findings were discussed with the emergency department at 5:40 p.m. on 10/04/2022. DATA REPOSITORY: RADIATION DOSE DELIVERED:
--- NOTE | 2022-10-04 13:46 | DI.CT_ITS ---
Exam(s) CT BRAIN NECK CTA EXAM: CT BRAIN NECK CTA CLINICAL HISTORY: dizziness, fatigue, visual hallucinations. TECHNIQUE: Imaging Protocol: Axial CT angiography was performed with multi-slice acquisition and mu lti-planar and/or 3D reconstructions. CONTRAST MATERIAL: Intravenous: Omnipaque 350 contrast volume:85 mL COMPARISON: CT CT ABDOMEN PELVIS W from 05/05/2020 FINDINGS: CT Head W/O and W: Ventricles and Extra axial spaces: Normal in size and morphology for the patient's age. Hemorrhage: None. Cerebral parenchyma: There are areas of decreased attenuation in the white matter most consistent wit h small vessel ischemic disease. There is no evidence of an acute territorial infarct. Midline shift: None. Brainstem/Cerebellum: Normal. Calvarium: Normal. Visualized Paranasal sinuses/Mastoids: There is mucosal thickening in the right sphenoid sinus. The r emaining visualized paranasal sinuses are clear. Soft Tissues: Unremarkable. Enhancement: Unremarkable. CTA Neck W: Common Carotid: Right: No dissection, occlusion or significant stenosis. Atherosclerosis is present. Left: No dissection, occlusion or significant stenosis. Atherosclerosis is present. External Carotid: Right: No occlusion or significant stenosis. Left: No occlusion or significant stenosis. Internal Carotid: Right: No dissection, occlusion or significant stenosis. Atherosclerosis at the origin. Left: No dissection, occlusion or significant stenosis. Atherosclerosis at the origin. Vertebral Artery: Right: No dissection, occlusion or significant stenosis. Left: No dissection, occlusion or significant stenosis. Lung Apices: Normal. Bones: Within normal limits for the patient's age. There is anterior cervical disc fusion from C4 thr ough C7. Multilevel degenerative changes are present. Soft Tissues: Normal. Thyroid gland: There is a 1.4 cm nodule in the right lobe of the thyroid gland. Nonemergent thyroid u ltrasound should be considered for further evaluation. CTA Brain W: Internal Carotid Arteries: Normal. Anterior Cerebral Arteries: Right: No aneurysm, occlusion or significant stenosis. Left: No aneurysm, occlusion or significant stenosis. Middle Cerebral Arteries: Right: No aneurysm, occlusion or significant stenosis. Left: No aneurysm, occlusion or significant stenosis. Posterior Cerebral Arteries: Right: No aneurysm, occlusion or significant stenosis. Left: No aneurysm, occlusion or significant stenosis. Vertebral Arteries: Right: No aneurysm, occlusion or significant stenosis. Left: No aneurysm, occlusion or significant stenosis. Basilar Artery: No aneurysm, occlusion or significant stenosis. IMPRESSION: 1. No large vessel occlusion or significant stenosis on the CT angiography of the head. 2. No acute intracranial process. 3. No occlusion or significant stenosis on the CT angiography of the neck. 4. Findings were discussed with the emergency department at 3:27 p.m. on 10/04/2022. RADIATION DOSE DELIVERED: 2,088.14mGy.cm Total DLP DATA REPOSITORY: All CT scans at this facility are submitted to the National Radiology Data Registry (NRDR) Dose Index Registry (DIR) with the [employer] ([employer]). RADIATION OPTIMIZATION: All CT scans at this facility use at least one of these dose optimization te chniques: automated exposure control; mA and/or kV adjustment per patient size (includes targeted exa ms where dose is matched to clinical indication); or iterative reconstruction.
--- NOTE | 2022-10-04 13:56 | ED.GENADUL_ITS ---
Discharge Plan Disposition Patient Disposition: Home Condition: Improving Discharge Details Clinical Impression: Dizziness, Fatigue, Visual hallucination Primary Care Provider: Anne Bob ED Provider: Rosemary Wells Home Meds and New Rx's Prescriptions: Continued aspirin 81 mg tablet 81 mg PO DAILY Vyvanse 20 mg capsule 20 mg PO QAM Rx Instructions: to replace Adderal per [facility] 08/15/22 cc lorazepam [Ativan] 0.5 mg tablet 0.5 mg PO HS PRN docusate sodium [Colace] 100 mg capsule 100 mg PO DAILY buspirone 15 mg tablet See Rx Instructions PO TID Rx Instructions: 2tabs AM, 1tab PM PO three times a day; NEKHS multivitamin Tablet 1 tab PO DAILY gabapentin 300 mg capsule See Rx Instructions PO .COMPLEX Qty: 60 5RF Rx Instructions: 300mg HS x 1wk, then 600mg HS thereafter bupropion HCl [Wellbutrin XL] 150 mg tablet extended release 24 hr 300 mg PO QAM vilazodone [Viibryd] 20 mg tablet 20 mg PO DAILY Rx Instructions: must administer with a meal/food 01/21/20 [facility] - Started 02/18/20 [facility] - Increase to 40 mg trazodone 50 mg tablet 50 - 100 mg PO QHS PRN (Reason: insomnia) Patient Comments: [facility] 10/07/20 note Rx Instructions: for sleep Lactobacillus acidoph-L.bulgar [Floranex] 1 million cell tablet 1 tab PO DAILY Patient Comments: 10/07/20 [facility] visit BLISTER BRAD PO Rx Instructions: [facility] [employer] [facility] cholecalciferol (vitamin D3) 50 mcg (2,000 unit) capsule See Rx Instructions .ROUTE .COMPLEX Qty: 90 3RF Dose Instruction: TAKE 1 CAPSULE BY MOUTH DAILY FOR BONE HEALTH/OSTEOPENIA Rx Instructions: TAKE 1 CAPSULE BY MOUTH DAILY FOR BONE HEALTH/OSTEOPENIA famotidine 20 mg tablet See Rx Instructions .ROUTE .COMPLEX Qty: 90 3RF Dose Instruction: TAKE 1 TABLET BY MOUTH DAILY FOR HEARTBURN Rx Instructions: TAKE 1 TABLET BY MOUTH DAILY FOR HEARTBURN metoprolol succinate 25 mg tablet extended release 24 hr 25 mg PO .bedtime Qty: 90 3RF Rx Instructions: Blood pressure ropinirole 0.5 mg tablet 3 mg PO QHS Rx Instructions: 01/18/21-per last rx on file at pt's previous pharmacy, , rx written by Dr. Saldaña on 01/10/21 for 0.5mg QHS 2 hours before bedtime. [facility](pt's new pharm) notified and they will request the transfer of this rx over to them. NC lidocaine [Lidoderm] 5 % adhesive patch,medicated 1 patch Topical Q24H Qty: 15 0RF No Action ibuprofen 600 mg tablet 600 mg PO BID PRN (Reason: pain) Qty: 90 0RF Rx Instructions: back pain; take with food Discharge Instructions Instructions: Dizziness (ED), Fatigue (ED), Hallucinations (ED) Additional Instructions: Your blood tests, EKG and imaging today are reassuring and show no evidence of acute concerning or significant findings. Your urine culture was sent for further analysis and you will be notified if it shows findings consistent with a urinary tract infection. Drink plenty of fluids and get plenty of rest. Continue all your regular medications as needed and directed. You have been placed on care management list to arrange for a follow-up appointment with your primary care doctor within the next week for reevaluation. Return to the emergency department with any worsening or new concerning symptoms. Discharge Data Discharge Date/Time-TO BE ENTERED AT DEPARTURE: 10/04/22 18:01 Discharge Physician: Rosemary Wells Medical Decision Making 1200 -- 76-year-old female with a history of hypertension, hyperlipidemia, anxiety, depression, GERD, history of Lyme disease who presents for dizziness today while speaking with her counselor during an appointment. She also endorsed visual hallucinations while speaking with her counselor. She also endorsed midline lower back pain after a fall over a fence a few days ago. Blood pressure moderately hypertensive. Heart rate 50s which is close to her baseline, she is on a beta-vandana. Patient appears generally fatigued but nontoxic. She has no focal deficits, fever or altered mental status to suggest meningitis or CVA. She has no cauda equina symptoms or focal deficits to suggest cauda equina syndrome or disc herniation. She has no complaint of fever, vomiting, abdominal pain to suggest an acute abdominal etiology. She has no chest pain or shortness of breath to suggest ACS. Differential diagnosis includes dehydration, electrolyte abnormality, UTI, stress response, CVA, muscle strain. Will obtain screening labs, urinalysis, CTA head and neck, chest x-ray and CT lumbar spine. We will give a dose of IV Tylenol and fluid bolus and reassess. 1730 --Labs and imaging reviewed and unremarkable. Normal electrolytes. Urinalysis notes 3-5 WBCs, trace leukocyte esterase, but negative bacteria and nitrates, urine culture sent. She has no urinary symptoms, leukocytosis or fever so we will hold on antibiotics at this time. FLUVID negative. CTA head and neck, lumbar spine CT and chest x-ray negative for acute findings. Patient reassessed and she feels much better and is requesting to go home. She discussed that she took Ativan for feelings of stress and anxiety earlier with her usual medications and she does not take this often. Discussed that she did not eat or drink much today and in the setting of benzodiazepines and feeling stress or anxiety, this certainly could have contributed to her symptoms. She denies any further hallucinations. Patient would like to go home. As she feels much better and has a reassuring work-up, I feel that discharge home is appropriate at this time. Disposition decision made weighing the risks and benefits of hospitalization versus outpatient treatment, the risk for further decompensation, and the patient's wishes. Advised to follow up with the primary care doctor for re-evaluation. Usual and customary return precautions given prior to discharge. Medical Records Medical records reviewed: Yes I reviewed the patient's medical records. Imaging Data Radiologic Study: Radiologist's impression: CT BRAIN ? NECK CTA CLINICAL HISTORY: ? dizziness, fatigue, visual hallucinations. ? TECHNIQUE:? Imaging Protocol:? Axial CT angiography was performed with multi- slice acquisition and multi-planar and/or 3D reconstructions. CONTRAST MATERIAL:? Intravenous: Omnipaque 350 contrast volume:85 mL COMPARISON:? CT CT ABDOMEN ? PELVIS W from 05/05/2020 FINDINGS: CT Head W/O and W: Ventricles and Extra axial spaces: Normal in size and morphology for the patient's age. Hemorrhage: None. Cerebral parenchyma: There are areas of decreased attenuation in the white matter most consistent with small vessel ischemic disease.? There is no evidence of an acute territorial infarct.? Midline shift: None. Brainstem/Cerebellum: Normal. Calvarium: Normal. Visualized Paranasal sinuses/Mastoids: There is mucosal thickening in the right sphenoid sinus. The remaining visualized paranasal sinuses are clear. Soft Tissues: Unremarkable. Enhancement: Unremarkable.? CTA Neck W: Common Carotid: Right:? No dissection, occlusion or significant stenosis. Atherosclerosis is present. Left:? No dissection, occlusion or significant stenosis. Atherosclerosis is present. External Carotid: Right:? No occlusion or significant stenosis. Left:? No occlusion or significant stenosis. Internal Carotid: Right:? No dissection, occlusion or significant stenosis. Atherosclerosis at the origin. Left:? No dissection, occlusion or significant stenosis. Atherosclerosis at the origin. Vertebral Artery: Right:? No dissection, occlusion or significant stenosis. Left:? No dissection, occlusion or significant stenosis. Lung Apices: Normal. Bones: Within normal limits for the patient's age. There is anterior cervical disc fusion from C4 through C7. Multilevel degenerative changes are present. Soft Tissues: Normal. Thyroid gland: There is a 1.4 cm nodule in the right lobe of the thyroid gland. Nonemergent thyroid ultrasound should be considered for further evaluation. CTA Brain W: Internal Carotid Arteries: Normal.? Anterior Cerebral Arteries: Right:? No aneurysm, occlusion or significant stenosis. Left:? No aneurysm, occlusion or significant stenosis. Middle Cerebral Arteries: Right:? No aneurysm, occlusion or significant stenosis. Left:? No aneurysm, occlusion or significant stenosis. Posterior Cerebral Arteries: Right:? No aneurysm, occlusion or significant stenosis. Left:? No aneurysm, occlusion or significant stenosis. Vertebral Arteries: Right:? No aneurysm, occlusion or significant stenosis. Left:? No aneurysm, occlusion or significant stenosis. Basilar Artery:? No aneurysm, occlusion or significant stenosis. IMPRESSION: 1. No large vessel occlusion or significant stenosis on the CT angiography of the head.? 2. No acute intracranial process.? 3. No occlusion or significant stenosis on the CT angiography of the neck.? CT LUMBAR SPINE WO CLINICAL HISTORY: ? midline lower back pain, r/o fx. ? TECHNIQUE:? Imaging Protocol: Axial computed tomography images with coronal and sagittal reformatted images were created and reviewed. COMPARISON:? CT CT ABDOMEN ? PELVIS W from 05/05/2020 CR XR LUMBAR SPINE COMPLETE from 02/20/2022 FINDINGS: There is artifact from the patient's posterior spinal surgery standing from L4 through S1. Bones: No fractures or dislocations are seen. There is a left convex curvature of the lumbar spine.? There is 2-3 mm of retro listhesis at L2 on L3.? There is minimal anterolisthesis of L4 on L5. Vacuum discs are seen at multiple levels of the lumbar spine.? Endplate osteophytes are present throughout the lumbar spine.? Facet arthropathy is also present. Soft tissues: The soft tissues of the visualized abdomen and chest are unremarkable. No large disk herniations are identified. There is atherosclerosis present.? There is diverticulosis in the colon, but no evidence of acute diverticulitis.? Stable cysts are seen in the liver. IMPRESSION: 1. No acute fracture or subluxation in the lumbar spine.? XR CHEST 2V PA ? LATERAL CLINICAL HISTORY:? possible cva, r/o acute disease TECHNIQUE:? 2D digital imaging was performed of the chest.? Two images were obtained.? PA and lateral views were obtained. COMPARISON:? CR XR RIBS LT W PA ? LAT CHEST from 01/31/2021 FINDINGS: MEDIASTINUM: Normal.? HEART: Normal. PULMONARY VASCULATURE: Normal. LUNGS: Clear. ? PLEURAL SPACE: No pleural effusion or pneumothorax. BONE:Within normal limits for the patient's age.? There is a right convex curvature of the spine.? Patient has had prior anterior cervical disc fusion. OTHER FINDINGS:Normal.? IMPRESSION: 1. No acute pulmonary findings. Lab Data Lab results reviewed: Yes I reviewed the patient's lab results. Labs: 10/04/22 13:05 Urine - Reflex from Ua Urine Culture - Pending Laboratory Tests Range/Units 10/04/22 10/04/22 10/04/22 12:25 12:25 13:05 WBC (4.4-10.8) 10^3/uL 4.28 L RBC (3.93-5.22) 10^6/uL 3.76 L Hgb (11.2-15.7) g/dL 12.7 Hct (36.0-46.0) % 37.5 MCV (80-95) fL 100 H MCH (27.0-33.0) pg 33.8 H MCHC (32.0-36.0) % 33.9 RDW (11.7-14.6) % 12.8 Plt Count (130-400) 10^3/uL 177 MPV (8.0-11.0) fL 9.6 Immature Gran % 0.2 Neutrophils % 53.3 Lymphocytes % 33.4 Monocytes % 7.5 Eosinophils % 4.4 Basophils % 1.2 Nucleated RBC % (0.0-0.3) % 0.0 Absolute Neutrophils (1.2-6.7) 10^3/uL 2.28 Absolute Lymphocytes (1.2-3.4) 10^3/uL 1.43 Absolute Monocytes (0.1-0.8) 10^3/uL 0.32 Absolute Eosinophils (0.0-0.7) 10^3/uL 0.19 Absolute Basophils (0.0-0.2) 10^3/uL 0.05 Sodium (136-145) mmol/L 141 Potassium (3.5-5.1) mmol/L 4.3 Chloride (98-107) mmol/L 106 Carbon Dioxide (21.0-32.0) mmol/L 29.2 Anion Gap (3-11) mmol/L 5.8 BUN (7-18) mg/dL 20 H Creatinine (0.55-1.02) mg/dL 0.6 Est GFR (CKD-EPI 2020) (mL/min/1.73m2) 93.55 Glucose (74-106) mg/dL 87 Calcium (8.5-10.1) mg/dL 8.6 Magnesium (1.8-2.4) mg/dL 1.9 Total Bilirubin (0.2-1.0) mg/dL 0.3 AST (15-37) U/L 27 ALT (14-59) U/L 24 Alkaline Phosphatase (46-116) U/L 67 Troponin I (<or=60) ng/L < 50 Total Protein (6.4-8.2) g/dL 6.6 Albumin (3.4-5.0) g/dL 3.5 Urine Color (Yellow) Yellow Urine Clarity (Clear) Clear Urine pH (5-8) 7.5 Ur Specific [place] (1.005-1.025) 1.015 Urine Protein (Negative) mg/dL Negative Urine Ketones (Negative) mg/dL Negative Urine Blood (Negative) Trace-intact H Urine Nitrite (Negative) Negative Urine Bilirubin (Negative) Negative Urine Urobilinogen (Up to 0.2) mg/dL 0.2 Ur Leukocyte Esterase (Negative) Trace H Urine RBC (0-2) HPF 0-2 Urine WBC (0-5) HPF 3-5 Ur Epithelial Cells (Negative) HPF Few Urine Crystals (Negative) HPF Negative Urine Bacteria (Negative) HPF Negative Urine Casts (Negative) LPF Negative Urine Mucus (Negative) Negative Ur Culture Indicated? Yes Urine Glucose (Negative) mg/dL Negative COVID-19 Source SARS-CoV-2 (PCR) (Negative) Influenza Type A (PCR) (Negative) Influenza Type B (PCR) (Negative) RSV (PCR) (Negative) Range/Units 10/04/22 13:17 WBC (4.4-10.8) 10^3/uL RBC (3.93-5.22) 10^6/uL Hgb (11.2-15.7) g/dL Hct (36.0-46.0) % MCV (80-95) fL MCH (27.0-33.0) pg MCHC (32.0-36.0) % RDW (11.7-14.6) % Plt Count (130-400) 10^3/uL MPV (8.0-11.0) fL Immature Gran % Neutrophils % Lymphocytes % Monocytes % Eosinophils % Basophils % Nucleated RBC % (0.0-0.3) % Absolute Neutrophils (1.2-6.7) 10^3/uL Absolute Lymphocytes (1.2-3.4) 10^3/uL Absolute Monocytes (0.1-0.8) 10^3/uL Absolute Eosinophils (0.0-0.7) 10^3/uL Absolute Basophils (0.0-0.2) 10^3/uL Sodium (136-145) mmol/L Potassium (3.5-5.1) mmol/L Chloride (98-107) mmol/L Carbon Dioxide (21.0-32.0) mmol/L Anion Gap (3-11) mmol/L BUN (7-18) mg/dL Creatinine (0.55-1.02) mg/dL Est GFR (CKD-EPI 2020) (mL/min/1.73m2) Glucose (74-106) mg/dL Calcium (8.5-10.1) mg/dL Magnesium (1.8-2.4) mg/dL Total Bilirubin (0.2-1.0) mg/dL AST (15-37) U/L ALT (14-59) U/L Alkaline Phosphatase (46-116) U/L Troponin I (<or=60) ng/L Total Protein (6.4-8.2) g/dL Albumin (3.4-5.0) g/dL Urine Color (Yellow) Urine Clarity (Clear) Urine pH (5-8) Ur Specific [place] (1.005-1.025) Urine Protein (Negative) mg/dL Urine Ketones (Negative) mg/dL Urine Blood (Negative) Urine Nitrite (Negative) Urine Bilirubin (Negative) Urine Urobilinogen (Up to 0.2) mg/dL Ur Leukocyte Esterase (Negative) Urine RBC (0-2) HPF Urine WBC (0-5) HPF Ur Epithelial Cells (Negative) HPF Urine Crystals (Negative) HPF Urine Bacteria (Negative) HPF Urine Casts (Negative) LPF Urine Mucus (Negative) Ur Culture Indicated? Urine Glucose (Negative) mg/dL COVID-19 Source Nasopharynx SARS-CoV-2 (PCR) (Negative) Negative Influenza Type A (PCR) (Negative) Negative Influenza Type B (PCR) (Negative) Negative RSV (PCR) (Negative) Negative ECG Data Attestation: I personally reviewed and interpreted this ECG (s) as follows: Interpretation: Rate of 54, sinus, less than [address] depression and T wave inversion in inferior leads. Normal QTc. No acute ischemic findings. HPI General Mode of arrival: ambulatory . Date/Time Provider Initiated Documentation: 10/04/22 11:55 . Limitations to Documentation: no limitations . Information obtained by: patient . HPI Narrative: Patient is a 76-year-old female with a history of hypertension, hyperlipidemia, GERD, anxiety, depression and Lyme disease who presents for dizziness that started while sitting in her counselor's office today. Patient states that she meets with her frequently to discuss her anxiety, depression and after her in 2019. Patient states she was sitting when she felt lightheaded. She states during that time she also saw 4 people in her office that she knows were hallucinations and not there. She discussed this with her counselor and she advised she come here for further evaluation. Patient states she had 1 cup of water and a bite of an apple today. Patient states she does not drink enough water and reports she is only drinks 1 glass of water daily. She usually also has 1 cup of coffee and 1 cup of tea daily. She states she has not eaten nearly enough of what she would normally eat today. Patient states a few days ago she fell over a fence in which her abdomen was caught over the wooden fence and she instantly felt pain across her lower back and down her right leg. She denies any abdominal pain, nausea, vomiting, diarrhea or urinary symptoms since then. She denies any new urinary or fecal incontinence. She states she took Tylenol and ibuprofen at 8 AM this morning for her back pain without relief. She states she has noticed some blurry vision since she got new glasses 2 weeks ago but states this is no worse than usual. She denies any headache, chest pain, difficulty breathing, leg pain or swelling. Related Data Home Medications Medication Instructions Recorded Confirmed docusate sodium 100 mg capsule 100 mg PO DAILY 04/06/19 10/15/22 (Colace) bupropion HCl 150 mg 24 hr tablet, 300 mg PO QAM 06/12/19 10/15/22 extended release (Wellbutrin XL) aspirin 81 mg tablet 81 mg PO DAILY 04/25/20 10/15/22 vilazodone 20 mg tablet (Viibryd) 20 mg PO DAILY 04/25/20 10/15/22 Lactobacillus acidoph-L.bulgaricus 1 tab PO DAILY 10/24/20 10/15/22 1 million cell tablet (Floranex) trazodone 50 mg tablet 50 - 100 mg PO QHS PRN insomnia 10/24/20 10/15/22 BLISTER BRAD PO 01/06/21 10/15/22 buspirone 15 mg tablet See Rx Instructions PO TID 05/15/21 10/15/22 cholecalciferol (vitamin D3) 50 See Rx Instructions .Route 12/08/21 10/15/22 mcg (2,000 unit) capsule .COMPLEX #90 caps famotidine 20 mg tablet See Rx Instructions .Route 12/08/21 10/15/22 .COMPLEX #90 tabs lidocaine 5 % topical patch 1 patch topical Q24H #15 ea 04/01/22 10/15/22 (Lidoderm) multivitamin 1 tab PO DAILY 04/24/22 10/15/22 lorazepam 0.5 mg tablet (Ativan) 0.5 mg PO HS PRN 08/07/22 10/15/22 metoprolol succinate 25 mg 25 mg PO .bedtime #90 tabs 08/08/22 10/15/22 tablet,extended release 24 hr lisdexamfetamine 20 mg capsule 20 mg PO QAM 04/05/23 06/05/23 (Vyvanse) gabapentin 300 mg capsule See Rx Instructions PO .COMPLEX 10/02/22 10/15/22 #60 caps ropinirole 0.5 mg tablet 3 mg PO QHS 10/02/22 10/15/22 ibuprofen 600 mg tablet 600 mg PO BID PRN pain #90 tabs 10/15/22 10/15/22 Previous Rx's Medication Instructions Recorded cholecalciferol (vitamin D3) 50 See Rx Instructions .Route 12/08/21 mcg (2,000 unit) capsule .COMPLEX #90 caps famotidine 20 mg tablet See Rx Instructions .Route 12/08/21 .COMPLEX #90 tabs lidocaine 5 % topical patch 1 patch topical Q24H #15 ea 04/01/22 (Lidoderm) metoprolol succinate 25 mg 25 mg PO .bedtime #90 tabs 08/08/22 tablet,extended release 24 hr gabapentin 300 mg capsule See Rx Instructions PO .COMPLEX 10/02/22 #60 caps ibuprofen 600 mg tablet 600 mg PO BID PRN pain #90 tabs 10/15/22 Allergies Allergy/AdvReac Type Severity Reaction Status Date / Time benzalkonium chloride Allergy Unknown unknown Verified 10/15/22 09:48 [From Travatan] brimonidine [From Alphagan P] Allergy Unknown unknown Verified 10/15/22 09:48 meperidine HCl [From Demerol] Allergy Unknown UNSURE Verified 10/15/22 09:48 travoprost [From Travatan] Allergy Unknown unknown Verified 10/15/22 09:48 BLUE SURGICAL SCRUB? AdvReac Intermediate RASH, Uncoded 10/15/22 09:48 ITCHING General Stated Complaint: Dizzy/Sync SHAGUFTA: 3 Review of Systems All systems reviewed & are unremarkable except as noted in HPI and below Constitutional Constitutional: Reports as per HPI, Denies chills, Reports fatigue, Denies fever(s) and Reports weakness Eyes Eyes: Denies blurry vision ENT Ears, Nose, Mouth, and Throat: Reports dizziness, Denies sore throat and Denies throat swelling Cardiovascular Cardiovascular: Denies chest pain and Denies dyspnea Respiratory Respiratory: Denies cough and Denies dyspnea Gastrointestinal Gastrointestinal: Denies abdominal pain, Denies diarrhea and Denies vomiting Genitourinary Genitourinary: Denies hematuria and Denies dysuria Musculoskeletal Musculoskeletal: Reports back pain and Denies numbness Integumentary/Breasts Skin/Breast: Denies lesions and Denies rash Neurologic Neurologic: Reports dizziness, Denies localized weakness, Denies numbness and Reports weakness Endocrine Endocrine: Reports fatigue Allergic/Immunologic Allergic/Immunologic: Denies throat swelling PFSH All Active Problems (Updated 10/04/22 @ 17:47 by Rosemary Wells DO) Dizziness (Acute) Fatigue (Acute) Visual hallucination (Acute) Peripheral neuropathy (Acute) Hypertension (Chronic ~05/2022) Trochanteric bursitis, right hip (Acute) Radicular pain of right lower extremity (Acute ~02/2022) Supraventricular tachycardia (Chronic ~08/2021) Started 2013 with repeat city assessor 08/2021 validating ?Stimulant contributory Cardiology consult 01/2022--consider BB or diltiazem Scoliosis of thoracic spine (Chronic) R convex scoliosis Arthritis of carpometacarpal joint (Acute) left Heartburn (Chronic) Famotidine 20mg daily Bladder incontinence (Acute) Kegels & bladder training instruction Dysarthria-clumsy hand syndrome (Acute) Mild aortic stenosis (Acute ~06/2019) ECHO 06/2019; 07/2020 (stable); 2022 ECHO normalized (no aortic stenosis); recheck in 1-2y Elevated MCV (Acute) Trigger finger, right middle finger (Chronic) [facility] Dr. Meza Osteopenia (Chronic) DEXA 2016 & 2020 Insomnia (Chronic) RX Trazodone Anxiety (Chronic) [facility] Depression (Chronic 08/31/11) [facility] Restless legs syndrome (Chronic 02/04/17) Years; Dr. 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 Manuel Lucia Iron deficiency (02/04/17) Lumbar pain with radiation down left leg Improved s/p lumbar spine fusion; stable; Dr. Devi Memory impairment Depression vs. other--see 08/14/2019 note; Neuro 03/2019; normal brain MRI and labs [id number] [facility] Memory Clinic consult 2020 & 2021--no [facility]; they are following Palpitations (~07/2021) Peroneal tendonitis of right lower extremity Surgical History Acquired absence of both cervix and uterus (08/31/11) Carpal tunnel syndrome, right (07/11/21) s/p ECTR DOS: 07/11/2021 History of arthroplasty of right knee History of cataract extraction B/L eyes [facility] Dr. Parks, R then L (pending 11/2019) History of knee replacement B/L History of lumbar discectomy L4-5 History of lumbar laminectomy (~2013) L knee repair Oophrectomy, Left Age 20 for cyst Oophrectomy, Right with hyst 1997 Spinal Fusion Lumbar L4-S1; also cervical Status post cervical spinal arthrodesis (02/04/17) Vaginal hysterectomy 1997 - Prolapse Varicose vein stripping Family History Mother Parkinson disease Heart disease Hypertension Brother Depression Diabetes Heart disease Hypertension Father Heart disease Hypertension Social History Smoking/Tobacco Use Status: Former Tobacco Use Quit Date: 05/13/89 Tobacco: How many years used: 10 Smoking risk assessment performed?: Yes Alcohol Intake: never Drug use: Never Substance use type: does not use Adopted: No Caregiver/Support person: No Foster care: No Household members: family Housing: house Number of Children: 2 Communication Needs: Corrective Lenses Do you need help understanding health information?: Rarely current occupation: Retired Sexually active: Yes Do you think of yourself as: straight/heterosexual Current gender identity: female What is your relationship status?: Panel score (0-1 are the most socially isolated patients): 1 What type of physical activity do you participate in: none Seatbelt use: always Working smoke detector in home: Yes Fire extinguisher in home: Yes Carbon monox detector in home: Yes Do you feel safe at home: Yes Do you feel safe in your relationship?: Yes Exam Const General: cooperative, healthy appearing and no acute distress HENMT Head: normal to inspection Face and sinus: normal facial exam Eyes General: appearance normal, both eyes and all related structures Pupils: PERRL EOM: EOM intact bilaterally Neck Neck: normal visual inspection and No submandibular swelling Lymphatic: no lymphadenopathy noted Chest Chest: normal inspection of the chest and no tenderness Resp Effort & Inspection: normal respiratory effort and able to speak in complete sentences Auscultation: clear to auscultation bilaterally Cardio Rate: bradycardic Rhythm: regular rhythm GI Inspection: normal to inspection Palpation: soft, not firm, not rigid and nontender Auscultation: normal bowel sounds and hypoactive bowel sounds Back/Spine/Pelvis Thoracic/Lumbar Spine: thoracic and lumbar spine normal to inspection, No thoracic spinal tenderness and No lumbar spinal tenderness Skin General skin exam: no rashes or lesions noted Neuro General: patient alert, patient awake, patient oriented x3, moves all ext remities, no meningeal signs and no focal motor deficits Cranial Nerves: CN's II-XI intact bilaterally Cognition: normal cognition Speech: speech normal Motor: muscle tone normal throughout and strength 5/5 throughout Sensory Exam: no sensory deficits noted DTR's: Rt Patellar: 0, Lt Patellar: 0, Rt Ankle: 1+ and Lt Ankle: 1+ Plantar Reflexes: Equivocal: bilateral (negative babinski b/l ) Extrem General: normal to inspection, full ROM and no edema Other: B/L DP/PT pulses intact Psych Appearance: grossly normal Mental Status: mental status grossly normal Speech and Movement: speech and movement normal Affect: normal affect Course Vital Signs Vital signs: Vital Signs Temperature 97.7 F 10/04/22 11:54 Pulse 55 L 0525/23 11:54 Respiratory Rate 18 10/04/22 11:54 Blood Pressure 165/69 H 10/04/22 11:54 Pulse Oximetry 96 10/04/22 11:54 Temperature 97.7 F 10/04/22 11:54 Temperature Source Oral 10/04/22 11:54 Pulse 52 L 10/04/22 12:29 Respiratory Rate 16 10/04/22 13:11 Respiratory Effort Normal, Non-Labored 10/04/22 13:13 Respiratory Depth Normal 10/04/22 13:11 Respiratory Pattern Normal 10/04/22 13:11 Blood Pressure 150/66 H 10/04/22 12:29 Blood Pressure Position Sitting 10/04/22 11:54 Pulse Oximetry 97 10/04/22 12:29 Oxygen Delivery Method Room Air 10/04/22 12:29 Oxygen Flow Rate 0 10/04/22 12:29 Pain Level 0 10/04/22 11:54 Lab/Test Results Lab/Test Results: 10/04/22 13:05 Urine - Reflex from Ua Urine Culture - Pending Laboratory Tests Range/Units 10/04/22 10/04/22 10/04/22 12:25 12:25 13:05 WBC (4.4-10.8) 10^3/uL 4.28 L RBC (3.93-5.22) 10^6/uL 3.76 L Hgb (11.2-15.7) g/dL 12.7 Hct (36.0-46.0) % 37.5 MCV (80-95) fL 100 H MCH (27.0-33.0) pg 33.8 H MCHC (32.0-36.0) % 33.9 RDW (11.7-14.6) % 12.8 Plt Count (130-400) 10^3/uL 177 MPV (8.0-11.0) fL 9.6 Immature Gran % 0.2 Neutrophils % 53.3 Lymphocytes % 33.4 Monocytes % 7.5 Eosinophils % 4.4 Basophils % 1.2 Nucleated RBC % (0.0-0.3) % 0.0 Absolute Neutrophils (1.2-6.7) 10^3/uL 2.28 Absolute Lymphocytes (1.2-3.4) 10^3/uL 1.43 Absolute Monocytes (0.1-0.8) 10^3/uL 0.32 Absolute Eosinophils (0.0-0.7) 10^3/uL 0.19 Absolute Basophils (0.0-0.2) 10^3/uL 0.05 Sodium (136-145) mmol/L 141 Potassium (3.5-5.1) mmol/L 4.3 Chloride (98-107) mmol/L 106 Carbon Dioxide (21.0-32.0) mmol/L 29.2 Anion Gap (3-11) mmol/L 5.8 BUN (7-18) mg/dL 20 H Creatinine (0.55-1.02) mg/dL 0.6 Est GFR (CKD-EPI 2020) (mL/min/1.73m2) 93.55 Glucose (74-106) mg/dL 87 Calcium (8.5-10.1) mg/dL 8.6 Magnesium (1.8-2.4) mg/dL 1.9 Total Bilirubin (0.2-1.0) mg/dL 0.3 AST (15-37) U/L 27 ALT (14-59) U/L 24 Alkaline Phosphatase (46-116) U/L 67 Troponin I (<or=60) ng/L < 50 Total Protein (6.4-8.2) g/dL 6.6 Albumin (3.4-5.0) g/dL 3.5 Urine Color (Yellow) Yellow Urine Clarity (Clear) Clear Urine pH (5-8) 7.5 Ur Specific [place] (1.005-1.025) 1.015 Urine Protein (Negative) mg/dL Negative Urine Ketones (Negative) mg/dL Negative Urine Blood (Negative) Trace-intact H Urine Nitrite (Negative) Negative Urine Bilirubin (Negative) Negative Urine Urobilinogen (Up to 0.2) mg/dL 0.2 Ur Leukocyte Esterase (Negative) Trace H Urine RBC (0-2) HPF 0-2 Urine WBC (0-5) HPF 3-5 Ur Epithelial Cells (Negative) HPF Few Urine Crystals (Negative) HPF Negative Urine Bacteria (Negative) HPF Negative Urine Casts (Negative) LPF Negative Urine Mucus (Negative) Negative Ur Culture Indicated? Yes Urine Glucose (Negative) mg/dL Negative
[2022-10-04] MEDS: Omnipaque 350 MG/ML 100 ML BTL 85 ML IJ (14:45)
[2022-10-04 14:46] LABS: COVID-19 PCR Negative (Negative); Influenza A PCR Negative (Negative); Influenza B PCR Negative (Negative); RSV PCR Negative (Negative)
[2022-10-04] MEDS: Normal Saline - Diluent 50 ML VIAL IJ (14:46)
[2022-10-04 15:05] LABS: Source Nasopharynx
[2022-10-04] MEDS: Normal Saline 1,000 ML 1000 ML IV (15:15)
[2022-10-04] MEDS: ACETAMINOPHEN 1,000 MG/100 ML BTL 400 MG IVPB (15:15)
--- NOTE | 2022-10-04 17:54 | NUR.NOTE ---
Nursing Note: Referral faxed to PCP for dizziness and hallucinations/ 1 week.
--- NOTE | 2022-10-06 10:13 | NUR.NOTE ---
Nursing Note: Accessed pt chart to determine if patient is on antibiotics.
== END 2022-10-04 18:01 | disposition home or self-care (01) ==
PROVIDERS: Emergency Provider Physician Assistant; PCP Nurse Practitioner Adult Health
DX: R42 Dizziness and giddiness (principal); R53.83 Other fatigue; R44.1 Visual hallucinations; F41.9 Anxiety disorder, unspecified; F32.A Depression, unspecified; I10 Essential (primary) hypertension
CPT/HCPCS: 36415; 70496; 70498; 80053; 87637; 93005; 96361; 96374; 99285; 71046; 72131; 81003; 81015; 83735; 84484; 85025; 87086; 93010; 99284; J0131; J3490

== ENCOUNTER 2022-11-18 19:32 | Emergency (ER) | payer MEDICARE, MEDICAID, SELFPAY ==
[2022-11-18 19:38] VITALS: BP 139/82; PULSE 60; RESP 18; TEMP 36.8; O2SAT 99
--- NOTE | 2022-11-18 20:00 | DI.RAD_ITS ---
Exam(s) XR FOOT RT COMPLETE EXAM: XR FOOT RT COMPLETE CLINICAL HISTORY: toe pain, great. TECHNIQUE: 2D digital imaging was performed. COMPARISON: CR XR FOOT RT COMPLETE from 01/18/2022 FINDINGS: 3 views No evidence of acute fracture or diastasis of the Lisfranc joint. Healed oblique fracture of the mid shaft of the 5th metatarsal is again noted. Small in these 0 fight posterior calcaneus at insertion of Achilles tendon noted. IMPRESSION: Healed 5th metatarsal fracture again noted. No acute fractures evident. DATA REPOSITORY: RADIATION DOSE DELIVERED:
[2022-11-18] MEDS: predniSONE 20 MG TAB 40 MG PO (21:04)
--- NOTE | 2022-11-18 21:13 | DI.VRAD_ITS ---
PROCEDURE INFORMATION: Exam: XR Right Foot Exam date and time: 11/18/2022 8:33 PM Age: 77 years old Clinical indication: Injury or trauma; Other: Dropped item on R great toe; Blunt trauma; Toes; Right TECHNIQUE: Imaging protocol: Radiologic exam of the right foot. Views: 3 or more views. COMPARISON: CR XR FOOT RT COMPLETE 01/18/2022 2:57 PM FINDINGS: Bones/joints: There is no acute fracture or dislocation. There is a tiny plantar spur. Enthesopathic spur in the posterosuperior calcaneal tuberosity. Hammertoe deformities from 2nd through 5th digits. There is chronic fracture deformity of the midshaft of 5th metatarsal bone. Soft tissues: Normal. IMPRESSION: 1. No definite acute fracture or dislocation visualized. 2. Old healed fracture deformity of the 5th metatarsal bone. Dictated and Authenticated by: Roshan Luque MD. Ordering:KETAN Silverio MD
--- NOTE | 2022-11-19 16:38 | ED.GENADUL_ITS ---
Discharge Plan Disposition Patient Disposition: Home Discharge Details Clinical Impression: Sciatica Primary Care Provider: Anne Bob ED Provider: Nusrat Leung Home Meds and New Rx's Prescriptions: New prednisone 10 mg tablet 10 mg PO DAILY Qty: 54 0RF Rx Instructions: take 4 tabs for 6 days, take 3 tabs for 5 days, take 2 tabs for 5 days, and 1 tab x 5days Continued aspirin 81 mg tablet 81 mg PO DAILY Vyvanse 20 mg capsule 20 mg PO QAM Rx Instructions: to replace Adderal per [facility] 08/15/22 cc lorazepam [Ativan] 0.5 mg tablet 0.5 mg PO HS PRN docusate sodium [Colace] 100 mg capsule 100 mg PO DAILY buspirone 15 mg tablet See Rx Instructions PO TID Rx Instructions: 2tabs AM, 1tab PM PO three times a day; NEKHS multivitamin Tablet 1 tab PO DAILY gabapentin 300 mg capsule See Rx Instructions PO .COMPLEX Qty: 60 5RF Rx Instructions: 300mg in morning, 600mg at night. 300mg daytime PRN. ibuprofen 600 mg tablet 600 mg PO BID PRN (Reason: pain) Qty: 90 0RF Rx Instructions: back pain; take with food bupropion HCl [Wellbutrin XL] 150 mg tablet extended release 24 hr 150 mg PO QAM vilazodone [Viibryd] 20 mg tablet 20 mg PO DAILY Rx Instructions: must administer with a meal/food 01/21/20 NK - Started 02/18/20 NKHS - Increase to 40 mg trazodone 50 mg tablet 50 - 100 mg PO QHS PRN (Reason: insomnia) Patient Comments: [facility] 10/07/20 note Rx Instructions: for sleep Lactobacillus acidoph-L.bulgar [Floranex] 1 million cell tablet 1 tab PO DAILY Patient Comments: 10/07/20 [facility] visit BLISTER BRAD PO Rx Instructions: [facility] metoprolol succinate 25 mg tablet extended release 24 hr 25 mg PO .bedtime Qty: 90 3RF Rx Instructions: Blood pressure ropinirole 0.5 mg tablet 3 mg PO QHS Rx Instructions: 01/18/21-per last rx on file at pt's previous pharmacy, [facility], rx written by Dr. Saldaña on 01/10/21 for 0.5mg QHS 2 hours before bedtime. [facility](pt's new pharm) notified and they will request the transfer of this rx over to them. [place] cholecalciferol (vitamin D3) 50 mcg (2,000 unit) capsule See Rx Instructions .ROUTE .COMPLEX Qty: 90 3RF Dose Instruction: TAKE 1 CAPSULE BY MOUTH DAILY FOR BONE HEALTH/OSTEOPENIA Rx Instructions: TAKE 1 CAPSULE BY MOUTH DAILY FOR BONE HEALTH/OSTEOPENIA famotidine 20 mg tablet See Rx Instructions .ROUTE .COMPLEX Qty: 90 3RF Dose Instruction: TAKE 1 TABLET BY MOUTH DAILY FOR HEARTBURN Rx Instructions: TAKE 1 TABLET BY MOUTH DAILY FOR HEARTBURN lidocaine [Lidoderm] 5 % adhesive patch,medicated 1 patch Topical Q24H Qty: 15 0RF Discharge Instructions Instructions: Sciatica (ED) Additional Instructions: Take prednisone as prescribed continue on your prescribed medications Follow-up with the pain center and see if they are able to schedule earlier Take the Neurontin as prescribed Return earlier should you have new or worsening complaints Referrals: Anne Bob COUNSELING PROGRAM LEADER [Primary Care Provider] - Discharge Data Discharge Date/Time-TO BE ENTERED AT DEPARTURE: 11/18/22 21:06 Medical Decision Making Patient is alert, oriented, actually sleeping in room when I enter, arouses easily, tenderness to the right sacroiliac region, with report of radiation down to toes some lateral leg, positive straight leg raise, neurovascularly intact distally, no weakness to hamstrings or quadriceps muscles on exam, sensation intact distally No abdominal tenderness, no abdominal bruit or pulsatile mass, no CVA tenderness I suspect patient has sciatica versus lumbar radiculopathy, will place on prednisone taper, on high-dose Neurontin, no indication for opiate analgesia at this time, encouraged to follow-up with pain clinic for early appointment and neurosurgeon Return precautions reviewed and patient expressed understanding Low suspicion for discitis or epidural abscess clinically, denies any illicit drug use, afebrile, and pain is not out of proportion to current state on exam Ambulatory with steady but antalgic gait and safe for discharge home at this time Careful return precautions reviewed in detail and patient expressed understanding HPI General Date/Time Provider Initiated Documentation: 11/18/22 19:49 . HPI Narrative: This 77-year-old female with history of back pain, SVT, aortic stenosis presents with report of back pain with radiation to right lower extremity. Denies fever or chills. History of acute exacerbation of chronic pain. Has been evaluated by her neurosurgeon who was ordered outpatient pain clinic evaluation and steroid injection which is scheduled for January per patient. Denies any abdominal pain, changes in bowel or bladder, groin paresthesias, fever or chills. States she had MRI previously at [facility] and will be followed by neurosurgery there. Also has followed up with her orthopedist regarding this complaint who referred her to neurosurgery. She has been taking her Neurontin, up to 1200 mg a day for pain. She states she is able to ambulate around her home with discomfort. Related Data Home Medications Medication Instructions Recorded Confirmed docusate sodium 100 mg capsule 100 mg PO DAILY 04/06/19 11/18/22 (Colace) bupropion HCl 150 mg 24 hr tablet, 150 mg PO QAM 06/12/19 11/18/22 extended release (Wellbutrin XL) aspirin 81 mg tablet 81 mg PO DAILY 04/25/20 11/18/22 vilazodone 20 mg tablet (Viibryd) 20 mg PO DAILY 04/25/20 11/18/22 Lactobacillus acidoph-L.bulgaricus 1 tab PO DAILY 10/24/20 11/18/22 1 million cell tablet (Floranex) trazodone 50 mg tablet 50 - 100 mg PO QHS PRN insomnia 10/24/20 11/18/22 BLISTER BRAD PO 01/06/21 10/15/22 buspirone 15 mg tablet See Rx Instructions PO TID 05/15/21 11/18/22 lidocaine 5 % topical patch 1 patch topical Q24H #15 ea 04/01/22 11/18/22 (Lidoderm) multivitamin 1 tab PO DAILY 04/24/22 11/18/22 lorazepam 0.5 mg tablet (Ativan) 0.5 mg PO HS PRN 08/07/22 11/18/22 metoprolol succinate 25 mg 25 mg PO .bedtime #90 tabs 08/08/22 11/18/22 tablet,extended release 24 hr lisdexamfetamine 20 mg capsule 20 mg PO QAM 08/15/22 11/18/22 (Vyvanse) gabapentin 300 mg capsule See Rx Instructions PO .COMPLEX 10/02/22 11/18/22 #60 caps ropinirole 0.5 mg tablet 3 mg PO QHS 10/02/22 11/18/22 ibuprofen 600 mg tablet 600 mg PO BID PRN pain #90 tabs 10/15/22 11/18/22 cholecalciferol (vitamin D3) 50 See Rx Instructions .Route 11/16/22 11/18/22 mcg (2,000 unit) capsule .COMPLEX #90 caps famotidine 20 mg tablet See Rx Instructions .Route 11/16/22 11/18/22 .COMPLEX #90 tabs prednisone 10 mg tablet 10 mg PO DAILY #54 tabs 11/18/22 Previous Rx's Medication Instructions Recorded lidocaine 5 % topical patch 1 patch topical Q24H #15 ea 04/01/22 (Lidoderm) metoprolol succinate 25 mg 25 mg PO .bedtime #90 tabs 08/08/22 tablet,extended release 24 hr gabapentin 300 mg capsule See Rx Instructions PO .COMPLEX 10/02/22 #60 caps ibuprofen 600 mg tablet 600 mg PO BID PRN pain #90 tabs 10/15/22 cholecalciferol (vitamin D3) 50 See Rx Instructions .Route 11/16/22 mcg (2,000 unit) capsule .COMPLEX #90 caps famotidine 20 mg tablet See Rx Instructions .Route 11/16/22 .COMPLEX #90 tabs prednisone 10 mg tablet 10 mg PO DAILY #54 tabs 11/18/22 Allergies Allergy/AdvReac Type Severity Reaction Status Date / Time benzalkonium chloride Allergy Unknown unknown Verified 11/18/22 19:44 [From Travatan] brimonidine [From Alphagan P] Allergy Unknown unknown Verified 11/18/22 19:44 meperidine HCl [From Demerol] Allergy Unknown UNSURE Verified 11/18/22 19:44 travoprost [From Travatan] Allergy Unknown unknown Verified 11/18/22 19:44 BLUE SURGICAL SCRUB? AdvReac Intermediate RASH, Uncoded 11/18/22 19:44 ITCHING General Stated Complaint: Orthopedic SHAGUFTA: 4 PFSH All Active Problems (Updated 11/18/22 @ 20:56 by BETO Toussaint) Sciatica (Acute) Peripheral neuropathy (Acute) Hypertension (Chronic ~05/2022) Trochanteric bursitis, right hip (Acute) Radicular pain of right lower extremity (Acute ~02/2022) Supraventricular tachycardia (Chronic ~08/2021) Started 2013 with repeat monitor technician 08/2021 validating ?Stimulant contributory Cardiology consult 01/2022--consider BB or diltiazem Scoliosis of thoracic spine (Chronic) R convex scoliosis Arthritis of carpometacarpal joint (Acute) left Heartburn (Chronic) Famotidine 20mg daily Bladder incontinence (Acute) Kegels & bladder training instruction Dysarthria-clumsy hand syndrome (Acute) Mild aortic stenosis (Acute ~06/2019) ECHO 06/2019; 07/2020 (stable); 2022 ECHO normalized (no aortic stenosis); recheck in 1-2y Elevated MCV (Acute) Trigger finger, right middle finger (Chronic) [facility] Dr. Meza Osteopenia (Chronic) DEXA 2016 & 2020 Insomnia (Chronic) RX Trazodone Anxiety (Chronic) NKHS Depression (Chronic 08/31/11) NKHS Restless legs syndrome (Chronic 02/04/17) Years; Dr. 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 Manuel Lucia Iron deficiency (02/04/17) Lumbar pain with radiation down left leg Improved s/p lumbar spine fusion; stable; Dr. Devi Memory impairment Depression vs. other--see 08/14/2019 note; Neuro 03/2019; normal brain MRI and labs [id number] [facility] Memory [facility] consult 2020 & 2021--no [facility]; they are following Palpitations (~07/2021) Peroneal tendonitis of right lower extremity Surgical History Acquired absence of both cervix and uterus (08/31/11) Carpal tunnel syndrome, right (07/11/21) s/p ECTR DOS: 07/11/2021 History of arthroplasty of right knee History of cataract extraction B/L eyes [facility] Dr. Parks, R then L (pending 11/2019) History of knee replacement B/L History of lumbar discectomy L4-5 History of lumbar laminectomy (~2013) L knee repair Oophrectomy, Left Age 20 for cyst Oophrectomy, Right with hyst 1997 Spinal Fusion Lumbar L4-S1; also cervical Status post cervical spinal arthrodesis (02/04/17) Vaginal hysterectomy 1997 - Prolapse Varicose vein stripping Family History Mother Parkinson disease Heart disease Hypertension Brother Depression Diabetes Heart disease Hypertension Father Heart disease Hypertension Social History Smoking/Tobacco Use Status: Former Tobacco Use Quit Date: 05/13/89 Tobacco: How many years used: 10 Smoking risk assessment performed?: Yes Alcohol Intake: never Drug use: Never Substance use type: does not use Adopted: No Caregiver/Support person: No Foster care: No Household members: family Housing: house Number of Children: 2 Communication Needs: Corrective Lenses Do you need help understanding health information?: Rarely current occupation: Retired Sexually active: Yes Do you think of yourself as: straight/heterosexual Current gender identity: female What is your relationship status?: Panel score (0-1 are the most socially isolated patients): 1 What type of physical activity do you participate in: none Seatbelt use: always Working smoke detector in home: Yes Fire extinguisher in home: Yes Carbon monox detector in home: Yes Do you feel safe at home: Yes Do you feel safe in your relationship?: Yes Course Vital Signs Vital signs: Vital Signs Temperature 36.8 C 11/18/22 19:38 Pulse 60 11/18/22 19:38 Respiratory Rate 18 11/18/22 19:38 Blood Pressure 139/82 11/18/22 19:38 Pulse Oximetry 99 11/18/22 19:38 Temperature 36.8 C 11/18/22 19:38 Temperature Source Oral 11/18/22 19:38 Pulse 60 11/18/22 19:38 Respiratory Rate 18 11/18/22 19:38 Blood Pressure 139/82 11/18/22 19:38 Blood Pressure Position Supine 11/18/22 19:38 Pulse Oximetry 99 11/18/22 19:38 Oxygen Delivery Method Room Air 11/18/22 19:38 Oxygen Flow Rate 0 11/18/22 19:38 Pain Level 8 11/18/22 19:38
== END 2022-11-18 21:06 | disposition home or self-care (01) ==
PROVIDERS: Emergency Provider Physician Assistant; PCP Nurse Practitioner Adult Health
DX: M54.31 Sciatica, right side (principal); M25.561 Pain in right knee; Z79.82 Long term (current) use of aspirin; Z96.651 Presence of right artificial knee joint
CPT/HCPCS: 99283; 73630; J7512

== ENCOUNTER 2023-01-17 12:49 | Outpatient (CLI) | payer MEDICARE, MEDICAID, SELFPAY ==
--- NOTE | 2023-01-17 06:00 | DI.RAD_ITS ---
Exam(s) XR PAIN CLINIC LUMBAR SP 2V EXAM: XR PAIN CLINIC LUMBAR SP 2V CLINICAL HISTORY: Dx:Lumbar Radiculopathy TECHNIQUE: 2D and realtime digital imaging was performed. CONTRAST MATERIAL: Refer to procedure report. COMPARISON: No exams were available for comparison FINDINGS: Fluoroscopy was provided for Dr. Plaza during the performance of a transforaminal epidural steroid in [facility]. Please refer to the procedure report for complete details. Ka,r=16.5 mGy IMPRESSION:
[2023-01-17 13:02] VITALS: BP 111/73; PULSE 69; RESP 20; TEMP 36.7; O2SAT 96
[2023-01-17] MEDS: Omnipaque 240 MG/ML 50 ML BTL IJ (13:43)
[2023-01-17] MEDS: Dexamethasone Sod. Phos./Pres-Free 10 MG/ML VIAL IJ (13:43)
[2023-01-17 13:44] VITALS: BP 135/67; PULSE 70; RESP 15; O2SAT 94
--- NOTE | 2023-01-18 10:28 | PDOC.PAIN ---
Date of service: 01/17/23 Time of Service: 14:00 Pain Managment Procedure Note Procedure Note Procedure Note: PROCEDURE NOTE RIGHT S1 TRANSFORAMINAL EPIDURAL STEROID INJECTION Chief Complaint: RIGHT leg pain. Date of Service: January 17, 2023 Patient: Edith Corbin Provider: Brenden Plaza DO, MPH Edith Corbin has been referred to the [facility] Management Center for a right S1 transforaminal epidural steroid injection. Pre-operative diagnosis: Lumbosacral Radiculopathy Post-operative diagnosis: Same Pre-Procedure Pain: VAS= 8/10 Comments: She is a direct referral by her spine surgeon for this procedure. She has had L4-S1 instrumented fusion and has pain in the right S1 distribution. Edith was interviewed and the medical record reviewed. There were no medical, pharmacologic, radiographic or other structural contraindications to attempting a fluoroscopically-guided transforaminal lumbar epidural steroid injection. The risks, benefits, and potential side effects were reviewed with the patient. Risks include, but are not limited to, [id number] headache, infection, bleeding, nerve injury, spinal cord damage, allergic reaction, possible increase in symptoms over the ensuing 24 to 48 hours, paralysis, and . The patient appeared to understand, questions were answered to the patient?s satisfaction and the patient agreed to proceed. Once I obtained informed verbal consent, the printed consent form was signed by the patient and myself. A standard time-out procedure was performed. Edith was placed in the prone position on the fluoroscopy table and automated blood pressure cuff, three lead EKG, and pulse oximeter were applied. The skin entry point for entering/approaching the right S1 space for the transforaminal epidural steroid injection was marked. Following thorough chlorhexadine preparation of the skin and draping, 2 ml of 1% lidocaine was infiltrated into the skin over the entry point and subcutaneous tissues. Under fluoroscopic guidance, in ipsilateral oblique view, a co-axial approach using a 5 22G spinal needle was advanced to the superior sacrum. The needle was advanced to the superio-posterior aspect of the neural foramen under lateral view. Oblique and AP views were rechecked. Under AP and lateral views, 1 ml of Omnipaque-240 was injected while visualized with fluoroscopy. There was no evidence of intravascular or intrathecal uptake, the epidural space was delineated. Next 1.5 ml of preservative-free Dexamethasone (10 mg/ml) was injected after negative aspiration. This was followed by 1 ml of preservative-free 1% lidocaine. (49 mls of Omnipaque-240 was wasted) There was no unusual discomfort expressed by Edith. The needle was withdrawn without difficulty. Edith was observed and was without hemodynamic, neurologic, or allergic reactions.? Fluoroscopic images were digitally archived. Edith's vital signs were stable throughout the procedure and were as recorded in the docflowsheet by the nursing staff.? If given, dosages of intravenous drugs for anxiolysis and analgesia were documented in MAR. Follow up plans and appointments were discussed with Edith. Post procedure instruction was given as documented in nursing records and having met discharge criteria Edith was discharged from the [facility]. COMMENTS: Post-procedure pain (To the right leg): VAS= 0/10. Edith to contact [facility] as needed. If at least 50% improvement in pain and/or function for at least 3 months is achieved, this procedure can be repeated. I personally performed this entire procedure. BRENDEN PLAZA DO, MPH ABPMR-subspecialty board certification in Pain Medicine [facility]
== END 2023-01-17 12:50 | disposition home or self-care (01) ==
LOC: PC 12:50
PROVIDERS: PCP Family Medicine; Visit Provider Preventive Medicine Occupational Medicine
DX: M54.50 Low back pain, unspecified (principal); M54.17 Radiculopathy, lumbosacral region
CPT/HCPCS: 64483; 72100; Q9967

== ENCOUNTER 2023-04-15 16:03 | Outpatient (CLI) | payer MEDICARE, MEDICAID, SELFPAY ==
--- NOTE | 2023-04-15 15:00 | DI.RAD_ITS ---
Exam(s) XR SHOULDER RT COMPLETE 2+V EXAM: XR SHOULDER RT COMPLETE 2+V CLINICAL HISTORY: right shoulder pain. TECHNIQUE: 2D digital imaging was performed. Two views. COMPARISON: CT CT upper extremity RT wo from 04/05/2018 FINDINGS: BONES: No acute fracture is present. No bony destructive lesion is seen.Degenerative subchondral cyst s in the greater tuberosity. JOINTS: No dislocation present. Moderate narrowing of the glenohumeral joint space. Spurring at the inferior glenoid and inferior humeral head as well as greater tuberosity. Humeral head is normally positioned. SOFT TISSUE: Normal. IMPRESSION: Moderate degenerative changes of the glenohumeral joint. DATA REPOSITORY: RADIATION DOSE DELIVERED:
== END 2023-04-15 16:04 | disposition home or self-care (01) ==
LOC: DIORS 16:03
PROVIDERS: PCP Family Medicine; Referring Provider Family Medicine; Visit Provider Student in an Organized Health Care Education/Training Program
DX: M25.511 Pain in right shoulder (principal); M19.042 Primary osteoarthritis, left hand; M19.011 Primary osteoarthritis, right shoulder
CPT/HCPCS: 20600; 20611; 73030; J1030; J1040

== ENCOUNTER 2023-07-25 14:47 | Outpatient (CLI) | payer MEDICARE, MEDICAID, SELFPAY ==
--- NOTE | 2023-07-25 10:30 | DI.RAD_ITS ---
Exam(s) XR KNEE RT 2V AP,LAT EXAM: XR KNEE RT 2V AP,LAT CLINICAL HISTORY: R KNEE PAIN. TECHNIQUE: 2D digital imaging was performed. COMPARISON: CR XR KNEE RT 2V AP,LAT from 06/19/2021 FINDINGS: Two views. Stable position alignment of the components of the prosthesis. No fracture nor loosening evident. IMPRESSION: Stable satisfactory appearance. DATA REPOSITORY: RADIATION DOSE DELIVERED:
== END 2023-07-25 14:48 | disposition home or self-care (01) ==
LOC: DIORS 14:49
PROVIDERS: PCP Family Medicine; Visit Provider Physician Assistant
DX: Z96.651 Presence of right artificial knee joint (principal); M25.561 Pain in right knee; W19.XXXA Unspecified fall, initial encounter
CPT/HCPCS: 99213; 73560

== ENCOUNTER 2023-09-16 15:53 | Outpatient (CLI) | payer MEDICARE, MEDICAID, SELFPAY ==
--- NOTE | 2023-09-16 13:45 | DI.RAD_ITS ---
Exam(s) XR HIP RT AP LAT ONLY EXAM: XR HIP RT AP LAT ONLY CLINICAL HISTORY: R hip pain. TECHNIQUE: 2D digital imaging was performed of the right hip. Two images were obtained. AP pelvis a nd lateral right hip views were obtained. COMPARISON: CR RT HIP COMPLETE AP PELVIS from 08/13/2015 FINDINGS: BONES: No acute fracture is present. No bony destructive lesion is seen. Enthesophytes are seen at th e greater trochanter. JOINTS: No dislocation present. There is moderate narrowing of the superior joint space of the right hip. Small osteophytes are seen at the right femoral head. SOFT TISSUE: Normal. IMPRESSION: Moderate degenerative changes seen in the right hip. DATA REPOSITORY: RADIATION DOSE DELIVERED:
== END 2023-09-16 15:54 | disposition home or self-care (01) ==
LOC: DIORS 15:54
PROVIDERS: PCP Family Medicine; Visit Provider Student in an Organized Health Care Education/Training Program
DX: M70.61 Trochanteric bursitis, right hip
CPT/HCPCS: 99213; 73502

== ENCOUNTER 2023-10-20 18:45 | Emergency (ER) | payer MEDICARE, MEDICAID, SELFPAY ==
[2023-10-20] VITALS (19 sets, daily range): BP systolic 154–190; BP diastolic 64–98; PULSE 55–71; RESP 10–20; TEMP 36; O2SAT 88–100
--- NOTE | 2023-10-20 18:45 | RT.EKG_ITS ---
APPROVED REPORT Exam: Resting ECG Reason for Exam: sob Patient Location: E HR:55 bpm ECG Measurements Heart Rate 55 AXIS CA 170 P 62 QRSd 115 QRS -18 QT 428 T 24 QTc 404 Conclusion Sinus bradycardia...rate< 60 Atrial premature complex...SV complex w/ short R-R interval Probable left atrial enlargement...P >50mS, <-0.10mV V1 Left ventricular hypertrophy...multiple LVH criteria Lateral infarct, age indeterminate...Q>35mS, T neg, V5-V6 I aVL
--- NOTE | 2023-10-20 18:45 | DI.CT_ITS ---
Exam(s) CT HEAD CERV SPINE FACIAL WO EXAM: CT HEAD CERV SPINE FACIAL WO CLINICAL HISTORY: fall, right sided head and face pain. TECHNIQUE: Imaging Protocol: Axial computed tomography images with coronal and sagittal reformatted images were created and reviewed COMPARISON: CT CT BRAIN NECK CTA from 10/04/2022 FINDINGS: CT BRAIN: There is a prominent right-sided occipital hematoma and there is a subjacent right occipital and subo ccipital linear skull fracture which is nondepressed. There is no evidence of intracranial hemorrhage, mass effect, or shift of midline structures. There are no extra-axial fluid collections. The ventricles are not enlarged or shifted and there is no blo od within the ventricular system nor within the basal cisterns. CT MAXILLOFACIAL BONES: There is no evidence of facial fractures nor fluid in the visualized paranasal sinuses. There is, ho wever, some mucosal thickening in the floor of the right maxillary sinus, not associated with fluid l evel. Other paranasal sinuses are clear. No evidence of significant nasal bone fracture. There is no evidence of orbital blowout fracture. CT CERVICAL SPINE: There is anterior fusion plate at C 4-5-6-7 levels. There are no fractures. No listhesis. Multilev el facet arthropathy but no facet malalignment evident. No significant osseous lesions evident. IMPRESSION: Large posterior scalp hematoma with subjacent non displaced/nondepressed right of center fracture of the right occipital bone. No evidence of intracranial hemorrhage at this time. No evidence of facial nor orbital blowout fractures. No evidence of acute cervical spine fracture, malalignment, nor acute compromise of the cervical spin al canal. Multilevel fusion plate in the cervical spine noted. RADIATION DOSE DELIVERED: 1,757mGy.cm Total DLP 1,757mGy.cm Total DLP DATA REPOSITORY: All CT scans at this facility are submitted to the National Radiology Data Registry (NRDR) Dose Index Registry (DIR) with the [employer] (A[employer]). RADIATION OPTIMIZATION: All CT scans at this facility use at least one of these dose optimization te chniques: automated exposure control; mA and/or kV adjustment per patient size (includes targeted exa ms where dose is matched to clinical indication); or iterative reconstruction.
--- NOTE | 2023-10-20 18:59 | ED.GENADUL_ITS ---
Discharge Plan Disposition Patient Disposition: Home Condition: Stable Discharge Details Clinical Impression: Closed skull fracture, Fall Primary Care Provider: Armando Castañeda ED Provider: Solomon Camacho Home Meds and New Rx's Prescriptions: Continued trazodone 50 mg tablet 50 - 100 mg PO QHS PRN (Reason: insomnia) Qty: 180 3RF Rx Instructions: for sleep, patient can decide if she needs 1 or 2 tabs per night, and can take an extra if she wakes up in the night multivitamin Tablet 1 tab PO DAILY ibuprofen 600 mg tablet 600 mg PO BID PRN (Reason: pain) Qty: 180 0RF Rx Instructions: back pain; take with food ropinirole 3 mg tablet 3 mg PO QHS Qty: 90 3RF Rx Instructions: administer 1-3 hours before bedtime buspirone 15 mg tablet See Rx Instructions PO TID Qty: 270 3RF Rx Instructions: 2tabs AM, 1tab PM PO three times a day; cholecalciferol (vitamin D3) 50 mcg (2,000 unit) capsule See Rx Instructions .ROUTE .COMPLEX Qty: 90 3RF Dose Instruction: TAKE 1 CAPSULE BY MOUTH DAILY FOR BONE HEALTH/OSTEOPENIA Rx Instructions: TAKE 1 CAPSULE BY MOUTH DAILY FOR BONE HEALTH/OSTEOPENIA famotidine 20 mg tablet See Rx Instructions .ROUTE .COMPLEX Qty: 90 3RF Dose Instruction: TAKE 1 TABLET BY MOUTH DAILY FOR HEARTBURN Rx Instructions: TAKE 1 TABLET BY MOUTH DAILY FOR HEARTBURN vilazodone 40 mg tablet 40 mg PO DAILY Qty: 90 3RF Rx Instructions: must administer with a meal/food Lactobacillus acidoph-L.bulgar [Floranex] 1 million cell tablet 1 tab PO DAILY Qty: 90 3RF metoprolol succinate 25 mg tablet extended release 24 hr 25 mg PO .bedtime Qty: 90 3RF Rx Instructions: Blood pressure atomoxetine 40 mg capsule 40 mg PO DAILY Qty: 60 3RF Discharge Instructions Additional Instructions: Your blood work did not show any concerning findings at this time. Your CAT scan showed a nondisplaced skull fracture, there is no bleeding inside the head. This was discussed with the neurosurgical team at [facility] who recommended a CT with contrast to evaluate for signs of vessel tears in the head. Your CAT scan with contrast did not show any tears so they felt he did not need any neurological intervention. You likely have symptoms of a concussion including intermittent headaches and possibly some memory issues over the next few days. Try to take it easy, and make sure you are drinking plenty of fluids is important. Follow-up with your primary care provider within 1 week If you feel more ill or have new symptoms such as high fevers or persistent vomiting return to the emergency department for reevaluation HPI General Mode of arrival: wheelchair . Date/Time Provider Initiated Documentation: 10/20/23 18:48 . Limitations to Documentation: no limitations . Information obtained by: patient . History of Present Illness 77 year old F presents to the emergency department with the chief complaint of fall, head pain, described as moderate, Quality is described as aching, and is localized to the head and face. Patient reports no radiation. Patient started experiencing this hour(s) (1) and it has been constant. No relieving factors improve symptom(s), No exacerbating factors reported . Patient notes other (dizziness); denies chest pain and shortness of breath. Patient did receive the following treatments prior to arrival, none Related Data Home Medications Medication Instructions Recorded Confirmed multivitamin 1 tab PO DAILY 04/24/22 10/20/23 cholecalciferol (vitamin D3) 50 See Rx Instructions .Route 11/16/22 10/20/23 mcg (2,000 unit) capsule .COMPLEX #90 caps famotidine 20 mg tablet See Rx Instructions .Route 11/16/22 10/20/23 .COMPLEX #90 tabs buspirone 15 mg tablet See Rx Instructions PO TID #270 01/31/23 10/20/23 tabs ibuprofen 600 mg tablet 600 mg PO BID PRN pain #180 tabs 01/31/23 10/20/23 ropinirole 3 mg tablet 3 mg PO QHS #90 tabs 01/31/23 10/20/23 Lactobacillus acidoph-L.bulgaricus 1 tab PO DAILY #90 tabs 04/22/23 10/20/23 1 million cell tablet (Floranex) vilazodone 40 mg tablet 40 mg PO DAILY #90 tabs 04/22/23 10/20/23 metoprolol succinate 25 mg 25 mg PO .bedtime #90 tabs 07/08/23 10/20/23 tablet,extended release 24 hr trazodone 50 mg tablet 50 - 100 mg (1 - 2 x 50 mg) PO QHS 07/26/23 10/20/23 PRN insomnia #180 tabs atomoxetine 40 mg capsule 40 mg PO DAILY #60 caps 10/01/23 10/20/23 Previous Rx's Medication Instructions Recorded cholecalciferol (vitamin D3) 50 See Rx Instructions .Route 11/16/22 mcg (2,000 unit) capsule .COMPLEX #90 caps famotidine 20 mg tablet See Rx Instructions .Route 11/16/22 .COMPLEX #90 tabs buspirone 15 mg tablet See Rx Instructions PO TID #270 01/31/23 tabs ibuprofen 600 mg tablet 600 mg PO BID PRN pain #180 tabs 01/31/23 ropinirole 3 mg tablet 3 mg PO QHS #90 tabs 01/31/23 Lactobacillus acidoph-L.bulgaricus 1 tab PO DAILY #90 tabs 04/22/23 1 million cell tablet (Floranex) vilazodone 40 mg tablet 40 mg PO DAILY #90 tabs 04/22/23 metoprolol succinate 25 mg 25 mg PO .bedtime #90 tabs 07/08/23 tablet,extended release 24 hr trazodone 50 mg tablet 50 - 100 mg (1 - 2 x 50 mg) PO QHS 07/26/23 PRN insomnia #180 tabs atomoxetine 40 mg capsule 40 mg PO DAILY #60 caps 10/01/23 Allergies Allergy/AdvReac Type Severity Reaction Status Date / Time benzalkonium chloride Allergy Unknown unknown Verified 10/20/23 18:56 [From Travatan] brimonidine [From Alphagan P] Allergy Unknown unknown Verified 10/20/23 18:56 meperidine HCl [From Demerol] Allergy Unknown UNSURE Verified 10/20/23 18:56 travoprost [From Travatan] Allergy Unknown unknown Verified 10/20/23 18:56 BLUE SURGICAL SCRUB? AdvReac Intermediate RASH, Uncoded 10/20/23 18:56 ITCHING General Stated Complaint: HeadInjury SHAGUFTA: 2 Review of Systems All systems reviewed & are unremarkable except as noted in HPI and below Constitutional Constitutional: Denies chills, Denies fever(s) and Denies weakness Eyes Eyes: Denies loss of vision Cardiovascular Cardiovascular: Denies chest pain and Denies dyspnea Respiratory Respiratory: Denies cough and Denies dyspnea Gastrointestinal Gastrointestinal: Denies abdominal pain and Denies vomiting Musculoskeletal Musculoskeletal: Denies joint swelling Neurologic Neurologic: Denies loss of vision and Denies weakness Exam Const Orientation: alert [facility] Head: no palpable skull fracture, normocephalic and no lacerations Ears: external ears normal General nose exam: external nose normal Mouth: moist mucous membranes Eyes General: appearance normal, both eyes and all related structures Neck Neck: normal visual inspection and nontender Resp Effort & Inspection: normal respiratory effort and able to speak in complete sentences Auscultation: clear to auscultation bilaterally Cardio Jugular venous pressure: no JVD Rate: regular rate GI Palpation: soft and nontender Back/Spine/Pelvis Back: no CVA tenderness Thoracic/Lumbar Spine: No thoracic spinal tenderness Skin General skin exam: no rashes or lesions noted Neuro General: patient alert and patient oriented x3 Extrem General: normal to inspection Psych Mental Status: mental status grossly normal Course Vital Signs Vital signs: Vital Signs Temperature 36.0 C L 10/20/23 18:51 Pulse 66 10/20/23 18:51 Respiratory Rate 16 10/20/23 18:51 Blood Pressure 190/98 H 10/20/23 18:51 Pulse Oximetry 100 10/20/23 18:51 Temperature 36.0 C L 10/20/23 18:51 Temperature Source Temporal Artery Scan 10/20/23 18:51 Pulse 66 10/20/23 18:51 Respiratory Rate 16 10/20/23 18:51 Blood Pressure 190/98 H 10/20/23 18:51 Blood Pressure Position Sitting 10/20/23 18:51 Pulse Oximetry 100 10/20/23 18:51 Oxygen Delivery Method Room Air 10/20/23 18:51 Oxygen Flow Rate 0 10/20/23 18:51 Pain Level 10 10/20/23 18:51 Medical Decision Making 77-year-old female with a history of ADD, peripheral artery disease, hypertension, restless leg syndrome, comes in with right head and face pain after a fall. She says she was standing doing dishes when she became lightheaded and dizzy. She fell over and hit her right side of her face on the ground, did not have loss of consciousness. She denies any chest pain, difficulty breathing, she currently has a headache but states prior to that hitting her head she had no headache. She is alert and oriented on arrival speaking clearly holding the right side of her head. She has an approximately 5cm scalp hematoma on the right occipatal part of her scalp. Also has tenderness over the right zygomatic arch, no periorbital swelling, pupils are equal and reactive to light with full range of motion of her eyes are intact. No midline C-spine, T-spine, L-spine tenderness, no chest or abdominal tenderness. Unclear etiology for her dizziness and lightheadedness, will check an EKG, troponin, CBC and CMP along with UA. In terms of her fall and hitting her head will obtain CT head and CT face to evaluate for traumatic injuries and even though she has no C-spine tenderness she has distracting injuries of her head and given her age will obtain CT C-spine. ct shows nondisplaced skull fracture near scaslp hemoatoma otherwise negative, pt stable, caox4. Will consult with neurosurgery at [facility] Spoke with Dr. Chaney from [facility] reviewed the images and case, she recommends obtaining a CT with contrast to evaluate for possible cerebral sinus injury. She states that if this is negative she is cleared from neurosurgical standpoint. Patient stable, will obtain CT. CT with IV contrast shows no evidence of venous tear. Patient is stable and has no acute complaints other than mild headache. Discussed with her observation admission versus discharge and she would prefer discharge and given reassuring workup within the skull fracture I feel is reasonable. She will follow-up with her PCP and return precautions given Differential Diagnosis Differential Diagnosis: Orthostasis, TBI, facial trauma Medical Records Medical records reviewed: Yes I reviewed the patient's medical records. Imaging Data Radiologic Study: Attestation: I personally reviewed and interpreted this imaging study as follows: Imaging: CT Scan Radiologist's impression: IMPRESSION: 1. No evidence for acute intracranial abnormality. Right occipital and suboccipital nondisplaced skull fracture. 2. Senescent changes noted. Radiologic Study #2: Attestation: I personally reviewed and interpreted this imaging study as follows: Imaging: CT Scan Radiologist's impression: IMPRESSION: Unremarkable vascular exam. No evidence for venous tear. Lab Data Lab results reviewed: Yes I reviewed the patient's lab results. ECG Data Attestation: I personally reviewed and interpreted this ECG (s) as follows: Prior ECG tracings: available for review Interpretation: Sinus bradycardia, rate of 55, MO 170, no STEMI Quality:SDOH Health Related Social Needs: No Data to Display [facility] All Active Problems (Updated 10/20/23 @ 22:16 by Solomon Camacho MD) Fall (Acute) Closed skull fracture (Acute) ADD (attention deficit disorder) (Acute) Arthritis of right glenohumeral joint (Chronic) Intra-articular 80 mg injection: 04/15/2023 Neuropathy (Acute) Nail dystrophy (Acute) PAD (peripheral artery disease) (Acute) Venous insufficiency (Acute) Peripheral neuropathy (Acute) Hypertension (Chronic ~05/2022) Trochanteric bursitis, right hip (Acute) Radicular pain of right lower extremity (Acute ~02/2022) Supraventricular tachycardia (Chronic ~08/2021) Started 2013 with repeat supervisor sample 08/2021 validating ?Stimulant contributory Cardiology consult 01/2022--consider BB or diltiazem Scoliosis of thoracic spine (Chronic) R convex scoliosis Arthritis of carpometacarpal joint (Acute) left Most recent 40 mg Depo-Medrol injection: 04/15/2023 Heartburn (Chronic) Famotidine 20mg daily Bladder incontinence (Acute) Kegels & bladder training instruction Dysarthria-clumsy hand syndrome (Acute) Mild aortic stenosis (Acute ~06/2019) ECHO 06/2019; 07/2020 (stable); 2022 ECHO normalized (no aortic stenosis); recheck in 1-2y Elevated MCV (Acute) Trigger finger, right middle finger (Chronic) [facility] Dr. Meza Osteopenia (Chronic) DEXA 2016 & 2020 Insomnia (Chronic) RX Trazodone Depression (Chronic 08/31/11) [facility] Restless legs syndrome (Chronic 02/04/17) Years; Dr. 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 Manuel Lucia Iron deficiency (02/04/17) Lumbar pain with radiation down left leg Improved s/p lumbar spine fusion; stable; Dr. Devi Memory impairment Depression vs. other--see 08/14/2019 note; Neuro 03/2019; normal brain MRI and labs [id number] [facility] consult 2020 & 2021--no [facility]; they are following Palpitations (~07/2021) Peroneal tendonitis of right lower extremity Surgical History Acquired absence of both cervix and uterus (08/31/11) Carpal tunnel syndrome, right (07/11/21) s/p ECTR DOS: 07/11/2021 History of arthroplasty of right knee History of cataract extraction B/L eyes [facility] Dr. Parks, R then L (pending 11/2019) History of knee replacement B/L History of lumbar discectomy L4-5 History of lumbar laminectomy (~2013) L knee repair Oophrectomy, Left Age 20 for cyst Oophrectomy, Right with hyst 1997 Spinal Fusion Lumbar L4-S1; also cervical Status post cervical spinal arthrodesis (02/04/17) Vaginal hysterectomy 1997 - Prolapse Varicose vein stripping Family History Mother Parkinson disease Heart disease Hypertension Brother Depression Diabetes Heart disease Hypertension Father Heart disease Hypertension Social History Smoking/Tobacco Use Status: Former Tobacco Use Quit Date: 05/13/89 Tobacco: How many years used: 10 Smoking risk assessment performed?: Yes Alcohol Intake: never Drug use: Never Substance use type: does not use Adopted: No Caregiver/Support person: No Foster care: No Household members: family Housing: house Number of Children: 2 Communication Needs: Corrective Lenses Do you need help understanding health information?: Rarely current occupation: Retired Sexually active: Yes Do you think of yourself as: straight/heterosexual Current gender identity: female What is your relationship status?: Panel score (0-1 are the most socially isolated patients): 1 What type of physical activity do you participate in: none Seatbelt use: always Working smoke detector in home: Yes Fire extinguisher in home: Yes Carbon monox detector in home: Yes Do you feel safe at home: Yes Do you feel safe in your relationship?: Yes
[2023-10-20 19:19] LABS: Abs Immature Grans 0.03 10^3/uL (0.0-0.06); Absolute Basophil Count 0.03 10^3/uL (0.0-0.2); Absolute Eosinophil Count 0.24 10^3/uL (0.0-0.7); Absolute Monocyte Count 0.41 10^3/uL (0.1-0.8); Basophils % 0.6 %; Eosinophils % 4.9 %; HCT 38.2 % (36.0-46.0); HGB 12.8 g/dL (11.2-15.7); Immature Grans % 0.6 %; Lymphocytes % 32.6 %; MCHC 33.5 % (32.0-36.0); MCV 99 fL (80-95); MPV 9.8 fL (8.0-11.0); Monocytes % 8.4 %; Neutrophils % 52.9 %; Platelet Count 155 10^3/uL (130-400); RBC 3.88 10^6/uL (3.93-5.22); RDW 12.3 % (11.7-14.6); RDW-SD 44.5 fL; WBC 4.91 10^3/uL (4.4-10.8)
[2023-10-20] MEDS: ACETAMINOPHEN 1,000 MG/100 ML BTL 400 MG IVPB (19:20)
[2023-10-20 19:32] LABS: Magnesium 1.9 mg/dL (1.8-2.4)
[2023-10-20 19:39] LABS: ALT 25 U/L (14-59); AST 22 U/L (15-37); Albumin 3.5 g/dL (3.4-5.0); Alkaline Phosphatase 96 U/L (46-116); Anion Gap 7.5 mmol/L (3-11); BUN 17 mg/dL (7-18); Bilirubin, Total 0.2 mg/dL (0.2-1.0); CO2 27.5 mmol/L (21.0-32.0); CREATININE 0.6 mg/dL (0.55-1.02); Calcium 8.9 mg/dL (8.5-10.1); Chloride 107 mmol/L (98-107); Estimated GFR 92.97 (mL/min/1.73m2); Glucose 99 mg/dL (74-106); Potassium 3.9 mmol/L (3.5-5.1); Sodium 142 mmol/L (136-145); Total Protein 6.7 g/dL (6.4-8.2); Troponin I < 50 ng/L (< or =60)
--- NOTE | 2023-10-20 20:05 | DI.VRAD_ITS ---
Addendum created by Angelina Graham MD on 10/20/2023 8:19:07 PM EDT: I discussed case findings with Solomon Camacho 10/20/2023 8:18 PM EDT. Initial report created on 10/20/2023 8:03:31 PM EDT: PROCEDURE INFORMATION: Exam: CT Head Without Contrast Exam date and time: 10/20/2023 7:30 PM Age: 77 years old Clinical indication: Injury or trauma; Blunt trauma (contusions or hematomas); Consciousness not specified; Head/scalp; Loss of consciousness not known; Injury date: 11/19/23; Injury details: Fall, hit head TECHNIQUE: Imaging protocol: Computed tomography of the head without contrast. Radiation optimization: All CT scans at this facility use at least one of these dose optimization techniques: automated exposure control; mA and/or kV adjustment per patient size (includes targeted exams where dose is matched to clinical indication); or iterative reconstruction. COMPARISON: CT BRAIN NECK CTA 10/04/2022 2:55 PM FINDINGS: Brain: Cerebral volume loss noted. Scattered areas of decreased attenuation in the deep periventricular white matter consistent with small vessel ischemic change. No evidence for acute intracranial hemorrhage. Cerebral ventricles: No ventriculomegaly. Paranasal sinuses: Right maxillary sinus retention cyst. Mastoid air cells: Visualized mastoid air cells are well aerated. Bones: See Soft tissues finding. Soft tissues: Right occipital scalp hematoma. There is an adjacent right occipital and suboccipital nondisplaced linear skull fracture. IMPRESSION: 1. No evidence for acute intracranial abnormality. Right occipital and suboccipital nondisplaced skull fracture. 2. Senescent changes noted. PROCEDURE INFORMATION: Exam: CT Maxillofacial Without Contrast Exam date and time: 10/20/2023 7:30 PM Age: 77 years old Clinical indication: Injury or trauma; Blunt trauma (contusions or hematomas); Consciousness not specified; Head/scalp; Loss of consciousness not known; Injury date: 11/19/23; Injury details: Fall, hit head TECHNIQUE: Imaging protocol: Computed tomography of the face without contrast. Radiation optimization: All CT scans at this facility use at least one of these dose optimization techniques: automated exposure control; mA and/or kV adjustment per patient size (includes targeted exams where dose is matched to clinical indication); or iterative reconstruction. COMPARISON: CT BRAIN NECK CTA 10/04/2022 2:55 PM FINDINGS: Orbital cavities: Orbits are normal. Globes are unremarkable. Paranasal sinuses: Right maxillary sinus retention cyst. Bones: No acute fracture. Soft tissues: Unremarkable. IMPRESSION: No evidence for fracture. PROCEDURE INFORMATION: Exam: CT Cervical Spine Without Contrast Exam date and time: 10/20/2023 7:30 PM Age: 77 years old Clinical indication: Injury or trauma; Blunt trauma (contusions or hematomas); Consciousness not specified; Head/scalp; Loss of consciousness not known; Injury date: 11/19/23; Injury details: Fall, hit head TECHNIQUE: Imaging protocol: Computed tomography of the cervical spine without contrast. Radiation optimization: All CT scans at this facility use at least one of these dose optimization techniques: automated exposure control; mA and/or kV adjustment per patient size (includes targeted exams where dose is matched to clinical indication); or iterative reconstruction. COMPARISON: MR CERVICAL SPINE WO 08/22/2022 12:33 PM FINDINGS: Bones: Status post cervical fusion C4-C7. There is mild anterolisthesis C2-C3 and C3-C4 with associated underlying facet arthropathy. No significant stenosis appreciated. Right occipital and suboccipital nondisplaced skull fracture noted. No evidence for cervical spine fracture. Lungs: Lung apices are normal. Thyroid: Low-density left lobe thyroid nodule 6 mm. Soft tissues: Unremarkable. IMPRESSION: Postsurgical change. Spondylosis. No evidence for fracture. Dictated and Authenticated by: Angelina Graham MD. Ordering:BENJAMIN Carbajal MD
[2023-10-20] MEDS: HYDROmorphone 2 MG/ML SYR 0.5 MG IVP ×2 (20:28→21:11)
[2023-10-20 20:30] LABS: Bilirubin Negative (Negative); Blood Trace-intact (Negative); Clarity Clear (Clear); Glucose Negative (Negative); Ketones Negative (Negative); Leukocyte Esterase Trace (Negative); Nitrite Negative (Negative); Specific Gravity 1.015 (1.005-1.025); Urobilinogen 0.2 mg/dL (Up to 0.2); pH 6.5 (5-8)
[2023-10-20 20:36] LABS: Bacteria Rare HPF (Negative); C & S Indicated? No; Casts Negative LPF (Negative); Crystals Negative HPF (Negative); Epithelial Cells Few HPF (Negative); Mucus Trace (Negative); RBC 0-2 HPF (0-2)
--- NOTE | 2023-10-20 20:45 | DI.CT_ITS ---
Exam(s) CT HEAD W EXAM: CT HEAD W CLINICAL HISTORY: skull fracutre, ?cerebral venous injury. TECHNIQUE: Imaging Protocol: Both noninfused and contrast infused CT scans of the brain were perform ed. IV Contrast Dose =75 cc Axial computed tomography images with coronal and sagittal reformatted images were created and review ed COMPARISON: CT CT HEAD CERV SPINE FACIAL WO from 10/20/2023 FINDINGS: The dural venous sinuses appear intact without evidence of thrombosis nor extra-axial hemorrhage in this patient who has a large posterior occipital parietal scalp hematoma and subjacent nondepressed r ight of center CIS skull fracture. There is no evidence of intracranial hemorrhage, intra nor extra-axial. There is no significant mass effect nor, Mass effect, or shift of midline structures. Ventricles are not enlarged or shifted and there is no blood within the ventricular system nor within the basal cisterns. There are no ring enhancing lesions in the brain and there is no abnormal meningeal enhancement, foca l or diffuse. With respect to the intracranial arteries, both internal carotid arteries are patent in the skull bas e and cavernous sinuses. Supraclinoid aspects are patent and nonaneurysmal. Both A1 segments are pa tent as are the anterior cerebral arteries. There is no aneurysm at the level of the anterior commun icating artery. Both middle cerebral arteries are patent. In the posterior circulation basilar artery is formed predominately by the dominant right vertebral a rtery. Basilar artery exhibits normal diameter. Distally terminates as patent bilateral posterior c erebral arteries. There is no aneurysm of the tip of the basilar artery nor elsewhere in the [place]. IMPRESSION: Large posterior scalp hematoma with subjacent nondisplaced fracture of the right occipital bone. No obvious abnormality of the dural venous sinuses. No evidence of intracranial hemorrhage, intra or extra-axial.. Patent intracranial arteries. No aneurysms evident. RADIATION DOSE DELIVERED: 813.84mGy.cm Total DLP DATA REPOSITORY: All CT scans at this facility are submitted to the National Radiology Data Registry (NRDR) Dose Index Registry (DIR) with the [employer] (ACR). RADIATION OPTIMIZATION: All CT scans at this facility use at least one of these dose optimization te chniques: automated exposure control; mA and/or kV adjustment per patient size (includes targeted exa ms where dose is matched to clinical indication); or iterative reconstruction.
[2023-10-20] MEDS: Omnipaque 350 MG/ML 100 ML BTL IJ (20:58)
[2023-10-20] MEDS: Normal Saline - Diluent 50 ML VIAL IJ (20:59)
[2023-10-20] MEDS: Normal Saline Flush 10 ML SYR IVP (21:00)
--- NOTE | 2023-10-20 22:02 | DI.VRAD_ITS ---
PROCEDURE INFORMATION: Exam: CTA Head With Contrast, Arteriography Exam date and time: 10/20/2023 9:03 PM Age: 77 years old Clinical indication: Other: Skull fracture, ? cerebral venous injury; Additional info: Venogram per provider TECHNIQUE: Imaging protocol: Computed tomographic angiography of the head with contrast. Exam focused on the arteries. 3D rendering (Not supervised by radiologist): MIP and/or 3D reconstructed images were created by the technologist. Contrast material: 350; Contrast volume: 100 ml; Contrast route: INTRAVENOUS (IV); COMPARISON: CT HEAD CERV SPINE FACIAL WO 10/20/2023 7:30 PM FINDINGS: ANTERIOR CIRCULATION: Right internal carotid artery: Intracranial segment is patent with no significant stenosis. No aneurysm. Right middle cerebral artery: No occlusion or significant stenosis. No aneurysm. Right anterior cerebral artery: No occlusion or significant stenosis. No aneurysm. Left internal carotid artery: Intracranial segment is patent with no significant stenosis. No aneurysm. Left middle cerebral artery: No occlusion or significant stenosis. No aneurysm. Left anterior cerebral artery: No occlusion or significant stenosis. No aneurysm. POSTERIOR CIRCULATION: Right vertebral artery: No occlusion or significant stenosis. No aneurysm. Left vertebral artery: No occlusion or significant stenosis. No aneurysm. Basilar artery: No occlusion or significant stenosis. No aneurysm. Right posterior cerebral artery: No occlusion or significant stenosis. No aneurysm. Left posterior cerebral artery: No occlusion or significant stenosis. No aneurysm. Brain: No definite mass, mass effect, or midline shift. Cerebral ventricles: No ventriculomegaly. Bones/joints: Nondisplaced linear right occipital bone fracture extending to the suboccipital level. Soft tissues: Large right occipital scalp hematoma. Sigmoid sinus: Intact. IMPRESSION: Unremarkable vascular exam. No evidence for venous tear. Dictated and Authenticated by: Angelina Graham MD. Ordering:BENJAMIN Carbajal MD
[2023-10-20 22:24] LABS: Troponin I < 50 ng/L (< or =60)
== END 2023-10-20 22:51 | disposition home or self-care (01) ==
PROVIDERS: Emergency Provider Emergency Medicine; PCP Family Medicine
DX: R42 Dizziness and giddiness (principal); S02.119A Unspecified fracture of occiput, initial encounter for closed fracture; R94.31 Abnormal electrocardiogram [ECG] [EKG]; I10 Essential (primary) hypertension; I73.9 Peripheral vascular disease, unspecified; Z98.1 Arthrodesis status; W18.39XA Other fall on same level, initial encounter; Y93.61 Activity, american tackle football; Y92.010 Kitchen of single-family (private) house as the place of occurrence of the external cause; Z87.891 Personal history of nicotine dependence
CPT/HCPCS: 36415; 80053; 93005; 96374; 99285; 70450; 70460; 70486; 72125; 81003; 81015; 83735; 84484; 85025; 93010; 99284; J0131; J1170; J3490

== ENCOUNTER 2023-11-01 10:51 | Emergency (ER) | payer MEDICARE, MEDICAID, SELFPAY ==
[2023-11-01 10:54] VITALS: BP 132/57; PULSE 60; RESP 18; TEMP 36.8; O2SAT 96
--- NOTE | 2023-11-01 11:00 | DI.CT_ITS ---
Exam(s) CT LUMBAR SPINE WO EXAM: CT LUMBAR SPINE WO CLINICAL HISTORY: pain s/p fall. TECHNIQUE: Imaging Protocol: Axial computed tomography images with coronal and sagittal reformatted images were created and reviewed COMPARISON: CT CT LUMBAR SPINE WO from 10/04/2022 FINDINGS: Bones: The last intervertebral disc space is designated the L5/S1 level for the numbering purpose of this examination. Posterior fusion hardware from L4 through S1 again noted. Disc spacer at L4-5. The vertebral body h eights are well maintained. Endplate osteophytes throughout. Alignment is unchanged. Stable levoscoliosis. No fracture is seen. The visualized SI joints and sacrum are will maintained. Soft Tissues: The paraspinal soft tissues are unremarkable. IMPRESSION: Postsurgical and degenerative changes. No acute abnormality. RADIATION DOSE DELIVERED: 835.72mGy.cm Total DLP DATA REPOSITORY: All CT scans at this facility are submitted to the National Radiology Data Registry (NRDR) Dose Index Registry (DIR) with the [employer] (ACR). RADIATION OPTIMIZATION: All CT scans at this facility use at least one of these dose optimization te chniques: automated exposure control; mA and/or kV adjustment per patient size (includes targeted exa ms where dose is matched to clinical indication); or iterative reconstruction.
--- NOTE | 2023-11-01 11:00 | DI.RAD_ITS ---
Exam(s) XR SHOULDER RT COMPLETE 2+V EXAM: XR SHOULDER RT COMPLETE 2+V CLINICAL HISTORY: pain s/p fall. TECHNIQUE: 2D digital imaging was performed. Five views. COMPARISON: CR XR SHOULDER RT COMPLETE 2+V from 04/15/[address] HEAD CERVICAL SPINE WO from 11/01/2023 FINDINGS: BONES: No acute fracture is present. No bony destructive lesion is seen. JOINTS: No dislocation present. Degenerative changes of the AC joint. Severe degenerative changes o f the glenohumeral joint. Spurring at the margin of the humeral head and glenoid. Degenerative cyst s in the superior humeral head. SOFT TISSUE: Normal. IMPRESSION: Degenerative changes. No acute abnormality DATA REPOSITORY: RADIATION DOSE DELIVERED:
--- NOTE | 2023-11-01 11:00 | DI.CT_ITS ---
Exam(s) CT HEAD CERVICAL SPINE WO EXAM: CT HEAD CERVICAL SPINE WO CLINICAL HISTORY: recent fall with skull fracture, increased pain. TECHNIQUE: Imaging Protocol: Axial computed tomography images with coronal and sagittal reformatted images were created and reviewed COMPARISON: CT CT HEAD CERV SPINE FACIAL WO from 10/20/[address] HEAD W from 10/20/2023 FINDINGS: Head CT Ventricles and Extra axial spaces: Normal in size and morphology for the patient's age. Hemorrhage: None. Cerebral parenchyma: No evidence of mass or acute infarct. Midline shift: None. Brainstem/Cerebellum: Normal. Calvarium: Normal. Visualized Paranasal sinuses/Mastoids: Clear. Soft tissues: On right posterior parietal scalp hematoma. Cervical Spine CT BONES: Anterior fusion noted from C3 through C7. Vertebral body heights are maintained. Alignment is normal. There is no evidence of acute fracture. Degenerative disc changes and facet degenerative changes are seen . SOFT TISSUES: No paraspinal hematoma. The airway appears intact. No pneumothorax is seen at the lung apices. Apical scarring. IMPRESSION: Head CT: No acute intracranial abnormality.Right posterior parietal scalp hematoma. C-spine CT: Degenerative changes, no acute abnormality. RADIATION DOSE DELIVERED: 1,390.87mGy.cm Total DLP DATA REPOSITORY: All CT scans at this facility are submitted to the National Radiology Data Registry (NRDR) Dose Index Registry (DIR) with the [employer] (ACR). RADIATION OPTIMIZATION: All CT scans at this facility use at least one of these dose optimization te chniques: automated exposure control; mA and/or kV adjustment per patient size (includes targeted exa ms where dose is matched to clinical indication); or iterative reconstruction.
--- NOTE | 2023-11-01 11:13 | W.ED.GENAD ---
Discharge Plan Disposition Patient Disposition: Home Condition: Stable Discharge Details Clinical Impression: Concussion Primary Care Provider: Armando Castañeda ED Provider: Solomon Camacho Home Meds and New Rx's Prescriptions: Continued trazodone 50 mg tablet 50 - 100 mg PO QHS PRN (Reason: insomnia) Qty: 180 3RF Rx Instructions: for sleep, patient can decide if she needs 1 or 2 tabs per night, and can take an extra if she wakes up in the night famotidine 20 mg tablet See Rx Instructions .ROUTE .COMPLEX Qty: 90 3RF Dose Instruction: TAKE 1 TABLET BY MOUTH DAILY FOR HEARTBURN Rx Instructions: TAKE 1 TABLET BY MOUTH DAILY FOR HEARTBURN multivitamin Tablet 1 tab PO DAILY ibuprofen 600 mg tablet 600 mg PO BID PRN (Reason: pain) Qty: 180 0RF Rx Instructions: back pain; take with food ropinirole 3 mg tablet 3 mg PO QHS Qty: 90 3RF Rx Instructions: administer 1-3 hours before bedtime buspirone 15 mg tablet See Rx Instructions PO TID Qty: 270 3RF Rx Instructions: 2tabs AM, 1tab PM PO three times a day; cholecalciferol (vitamin D3) 50 mcg (2,000 unit) capsule See Rx Instructions .ROUTE .COMPLEX Qty: 90 3RF Dose Instruction: TAKE 1 CAPSULE BY MOUTH DAILY FOR BONE HEALTH/OSTEOPENIA Rx Instructions: TAKE 1 CAPSULE BY MOUTH DAILY FOR BONE HEALTH/OSTEOPENIA vilazodone 40 mg tablet 40 mg PO DAILY Qty: 90 3RF Rx Instructions: must administer with a meal/food Lactobacillus acidoph-L.bulgar [Floranex] 1 million cell tablet 1 tab PO DAILY Qty: 90 3RF metoprolol succinate 25 mg tablet extended release 24 hr 25 mg PO .bedtime Qty: 90 3RF Rx Instructions: Blood pressure atomoxetine 40 mg capsule 40 mg PO DAILY Qty: 60 3RF Discharge Instructions Additional Instructions: Your lab work and imaging did not show any concerning findings at this time Follow-up with your primary care provider within 1 to 2 weeks If you feel more ill or have new symptoms such as high fevers or difficulty breathing return to the emergency department for reevaluation HPI General Mode of arrival: ambulatory. Date/Time Provider Initiated Documentation: 11/01/23 10:53. Limitations to Documentation: no limitations. Information obtained by: patient. History of Present Illness 77 year old F presents to the emergency department with the chief complaint of right shoulder pain, described as moderate, Quality is described as aching, Patient started experiencing this week(s) (2) and it has been constant. No relieving factors improve symptom(s), No exacerbating factors reported . Patient notes denies chest pain and shortness of breath. Patient did receive the following treatments prior to arrival, none Related Data Home Medications Medication Instructions Recorded Confirmed multivitamin 1 tab PO DAILY 04/24/22 10/25/23 cholecalciferol (vitamin D3) 50 See Rx Instructions .Route 11/16/22 10/25/23 mcg (2,000 unit) capsule .COMPLEX #90 caps buspirone 15 mg tablet See Rx Instructions PO TID #270 01/31/23 10/25/23 tabs ibuprofen 600 mg tablet 600 mg PO BID PRN pain #180 tabs 01/31/23 10/25/23 ropinirole 3 mg tablet 3 mg PO QHS #90 tabs 01/31/23 10/25/23 Lactobacillus acidoph-L.bulgaricus 1 tab PO DAILY #90 tabs 04/22/23 10/25/23 1 million cell tablet (Floranex) vilazodone 40 mg tablet 40 mg PO DAILY #90 tabs 04/22/23 10/25/23 metoprolol succinate 25 mg 25 mg PO .bedtime #90 tabs 07/08/23 10/25/23 tablet,extended release 24 hr trazodone 50 mg tablet 50 - 100 mg (1 - 2 x 50 mg) PO QHS 07/26/23 10/25/23 PRN insomnia #180 tabs atomoxetine 40 mg capsule 40 mg PO DAILY #60 caps 10/01/23 10/25/23 famotidine 20 mg tablet See Rx Instructions .Route 10/25/23 10/25/23 .COMPLEX #90 tabs Previous Rx's Medication Instructions Recorded cholecalciferol (vitamin D3) 50 See Rx Instructions .Route 11/16/22 mcg (2,000 unit) capsule .COMPLEX #90 caps buspirone 15 mg tablet See Rx Instructions PO TID #270 01/31/23 tabs ibuprofen 600 mg tablet 600 mg PO BID PRN pain #180 tabs 01/31/23 ropinirole 3 mg tablet 3 mg PO QHS #90 tabs 01/31/23 Lactobacillus acidoph-L.bulgaricus 1 tab PO DAILY #90 tabs 04/22/23 1 million cell tablet (Floranex) vilazodone 40 mg tablet 40 mg PO DAILY #90 tabs 04/22/23 metoprolol succinate 25 mg 25 mg PO .bedtime #90 tabs 07/08/23 tablet,extended release 24 hr trazodone 50 mg tablet 50 - 100 mg (1 - 2 x 50 mg) PO QHS 07/26/23 PRN insomnia #180 tabs atomoxetine 40 mg capsule 40 mg PO DAILY #60 caps 10/01/23 famotidine 20 mg tablet See Rx Instructions .Route 10/25/23 .COMPLEX #90 tabs Allergies Allergy/AdvReac Type Severity Reaction Status Date / Time benzalkonium chloride Allergy Unknown unknown Verified 10/25/23 10:50 [From Travatan] brimonidine [From Alphagan P] Allergy Unknown unknown Verified 10/25/23 10:50 meperidine HCl [From Demerol] Allergy Unknown UNSURE Verified 10/25/23 10:50 travoprost [From Travatan] Allergy Unknown unknown Verified 10/25/23 10:50 BLUE SURGICAL SCRUB? AdvReac Intermediate RASH, Uncoded 10/25/23 10:50 ITCHING General Stated Complaint: GenMedical SHAGUFTA: 3 Review of Systems All systems reviewed & are unremarkable except as noted in HPI and below Constitutional Constitutional: Denies chills, Denies fever(s) and Denies weakness Eyes Eyes: Denies loss of vision Cardiovascular Cardiovascular: Denies chest pain and Denies dyspnea Respiratory Respiratory: Denies cough and Denies dyspnea Gastrointestinal Gastrointestinal: Denies abdominal pain, Denies nausea and Denies vomiting Genitourinary Genitourinary: Denies dysuria Musculoskeletal Musculoskeletal: Denies joint swelling Neurologic Neurologic: Denies loss of vision and Denies weakness Exam Const General: no acute distress Orientation: alert HENMA Head: normal to inspection Ears: external ears normal General nose exam: external nose normal Mouth: moist mucous membranes Eyes General: appearance normal, both eyes and all related structures Neck Neck: normal visual inspection Resp Effort & Inspection: normal respiratory effort and able to speak in complete sentences Cardio Rate: regular rate GI Palpation: soft and nontender Back/Spine/Pelvis Back: no CVA tenderness Thoracic/Lumbar Spine: No thoracic spinal tenderness and lumbar spinal tenderness Skin General skin exam: no rashes or lesions noted Neuro General: patient alert and patient oriented x3 Extrem General: normal to inspection Psych Mental Status: mental status grossly normal Course Vital Signs Vital signs: Vital Signs Temperature 36.8 C 11/01/23 10:54 Pulse 60 11/01/23 10:54 Respiratory Rate 18 11/01/23 10:54 Blood Pressure 132/57 L 11/01/23 10:54 Pulse Oximetry 96 11/01/23 10:54 Temperature 36.8 C 11/01/23 10:54 Temperature Source Tympanic 11/01/23 10:54 Pulse 60 11/01/23 10:54 Respiratory Rate 18 11/01/23 10:54 Blood Pressure 132/57 L 11/01/23 10:54 Blood Pressure Position Sitting 11/01/23 10:54 Pulse Oximetry 96 11/01/23 10:54 Oxygen Delivery Method Room Air 11/01/23 10:54 Oxygen Flow Rate 0 11/01/23 10:54 Pain Level 7 11/01/23 10:54 Comment Pain is worst when getting in and out of the car 11/01/23 10:54 Medical Decision Making 77-year-old female with a history of peripheral artery disease, neuropathy, hypertension, who sustained a occipital skull fracture later this month after a fall and had negative CT with contrast imaging after neurosurgery recommendations comes in with continued intermittent headaches, intermittent issues with her memory, still has right shoulder pain and lower lumbar pain. She also notes some dull headaches. Also notes some neck stiffness. She denies any fevers, chills, vomiting, chest pain, abdominal pain. She has not had any other new falls. She is alert and oriented x 4 on arrival speaking clearly, she has no focal deficits on exam, cranial nerves II through XII are intact. She has some right lateral neck tenderness, no midline tenderness, no midline T-spine tenderness, has tenderness over L4 and L5 on palpation without palpable or visible deformities. Has some tenderness over the right lateral shoulder with full range of motion and intact distal sensation and pulses. Suspect her issues with her headaches and memory issues are from postconcussion syndrome. Will repeat a head CT to exclude new hemorrhage and also repeat a CT of her C-spine. Also obtain CT of her lumbar spine. Will check a CBC to evaluate for anemia and also check a CMP to evaluate for electrolyte abnormalities. Labs and imaging show no acute findings. She is stable, discussed this is likely related to question, she is stable for discharge and will follow-up with her PCP return precautions given Differential Diagnosis Differential Diagnosis: Contusion, fracture Medical Records Medical records reviewed: Yes I reviewed the patient's medical records. Imaging Data Radiologic Study: Attestation: I personally reviewed and interpreted this imaging study as follows: Imaging: CT Scan Radiologist's impression: No acute findings on head or C-spine CT Radiologic Study #2: Attestation: I personally reviewed and interpreted this imaging study as follows: Imaging: X-Ray Radiologist's impression: No acute findings on shoulder x-ray Radiologic Study #3: Attestation: I personally reviewed and interpreted this imaging study as follows: Imaging: CT Scan Radiologist's impression: No acute findings on lumbar CT Lab Data Lab results reviewed: Yes I reviewed the patient's lab results. Quality:SDOH Health Related Social Needs: No Data to Display PFSH All Active Problems (Updated 11/01/23 @ 12:48 by Solomon Camacho MD) Skull fracture (Acute) Concussion (Acute) Fall (Acute) Closed skull fracture (Acute) ADD (attention deficit disorder) (Acute) Arthritis of right glenohumeral joint (Chronic) Intra-articular 80 mg injection: 04/15/2023 Neuropathy (Acute) Nail dystrophy (Acute) PAD (peripheral artery disease) (Acute) Venous insufficiency (Acute) Peripheral neuropathy (Acute) Hypertension (Chronic ~05/2022) Trochanteric bursitis, right hip (Acute) Radicular pain of right lower extremity (Acute ~02/2022) Supraventricular tachycardia (Chronic ~08/2021) Started 2013 with repeat environmental monitoring specialist 08/2021 validating ?Stimulant contributory Cardiology consult 01/2022--consider BB or diltiazem Scoliosis of thoracic spine (Chronic) R convex scoliosis Arthritis of carpometacarpal joint (Acute) left Most recent 40 mg Depo-Medrol injection: 04/15/2023 Heartburn (Chronic) Famotidine 20mg daily Bladder incontinence (Acute) Kegels & bladder training instruction Dysarthria-clumsy hand syndrome (Acute) Mild aortic stenosis (Acute ~06/2019) ECHO 06/2019; 07/2020 (stable); 2022 ECHO normalized (no aortic stenosis); recheck in 1-2y Elevated MCV (Acute) Trigger finger, right middle finger (Chronic) [facility] Dr. Meza Osteopenia (Chronic) DEXA 2016 & 2019, 2020 Insomnia (Chronic) RX Trazodone Depression (Chronic 08/31/11) NKHS Restless legs syndrome (Chronic 02/04/17) Years; Dr. 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 Manuel Lucia Iron deficiency (02/04/17) Lumbar pain with radiation down left leg Improved s/p lumbar spine fusion; stable; Dr. Devi Memory impairment Depression vs. other--see 08/14/2019 note; Neuro 03/2019; normal brain MRI and labs [id number] [facility] consult 2020 & 2021--no [facility]; they are following Palpitations (~07/2021) Peroneal tendonitis of right lower extremity Surgical History Acquired absence of both cervix and uterus (08/31/11) Carpal tunnel syndrome, right (07/11/21) s/p ECTR DOS: 07/11/2021 History of arthroplasty of right knee History of cataract extraction B/L eyes [facility] Dr. Parks, R then L (pending 11/2019) History of knee replacement B/L History of lumbar discectomy L4-5 History of lumbar laminectomy (~2013) L knee repair Oophrectomy, Left Age 20 for cyst Oophrectomy, Right with hyst 1997 Spinal Fusion Lumbar L4-S1; also cervical Status post cervical spinal arthrodesis (02/04/17) Vaginal hysterectomy 1997 - Prolapse Varicose vein stripping Family History Mother Parkinson disease Heart disease Hypertension Brother Depression Diabetes Heart disease Hypertension Father Heart disease Hypertension Social History Smoking/Tobacco Use Status: Former Tobacco Use Quit Date: 05/13/89 Tobacco: How many years used: 10 Smoking risk assessment performed?: Yes Alcohol Intake: never Drug use: Never Substance use type: does not use Adopted: No Caregiver/Support person: No Foster care: No Household members: family Housing: house Number of Children: 2 Communication Needs: Corrective Lenses Do you need help understanding health information?: Rarely current occupation: Retired Sexually active: Yes Do you think of yourself as: straight/heterosexual Current gender identity: female What is your relationship status?: Panel score (0-1 are the most socially isolated patients): 1 What type of physical activity do you participate in: none Seatbelt use: always Working smoke detector in home: Yes Fire extinguisher in home: Yes Carbon monox detector in home: Yes Do you feel safe at home: Yes Do you feel safe in your relationship?: Yes
[2023-11-01 11:37] LABS: Abs Immature Grans 0.02 10^3/uL (0.0-0.06); Absolute Basophil Count 0.04 10^3/uL (0.0-0.2); Absolute Eosinophil Count 0.38 10^3/uL (0.0-0.7); Absolute Lymphocyte Count 1.53 10^3/uL (1.2-3.4); Absolute Monocyte Count 0.39 10^3/uL (0.1-0.8); Absolute Neutrophil Count 3.38 10^3/uL (1.2-6.7); Basophils % 0.7 %; Eosinophils % 6.6 %; HCT 39.9 % (36.0-46.0); HGB 13.2 g/dL (11.2-15.7); Immature Grans % 0.3 %; Lymphocytes % 26.7 %; MCH 33.2 pg (27.0-33.0); MCHC 33.1 % (32.0-36.0); MCV 100 fL (80-95); MPV 9.6 fL (8.0-11.0); Monocytes % 6.8 %; Neutrophils % 58.9 %; Platelet Count 220 10^3/uL (130-400); RBC 3.98 10^6/uL (3.93-5.22); RDW 12.6 % (11.7-14.6); WBC 5.74 10^3/uL (4.4-10.8)
[2023-11-01 11:49] LABS: ALT 22 U/L (14-59); AST 18 U/L (15-37); Albumin 3.6 g/dL (3.4-5.0); Alkaline Phosphatase 109 U/L (46-116); Anion Gap 5.5 mmol/L (3-11); BUN 20 mg/dL (7-18); Bilirubin, Total 0.27 mg/dL (0.2-1.0); CO2 29.5 mmol/L (21.0-32.0); CREATININE 0.6 mg/dL (0.55-1.02); Chloride 106 mmol/L (98-107); Estimated GFR 92.97 (mL/min/1.73m2); Glucose 92 mg/dL (74-106); Potassium 4.2 mmol/L (3.5-5.1); Sodium 141 mmol/L (136-145); Total Protein 7.2 g/dL (6.4-8.2)
[2023-11-01 12:06] LABS: Bilirubin Negative (Negative); Blood Negative (Negative); Clarity Clear (Clear); Glucose Negative (Negative); Ketones Negative (Negative); Leukocyte Esterase Negative (Negative); Nitrite Negative (Negative); Urobilinogen 0.2 mg/dL (Up to 0.2)
[2023-11-01 13:02] VITALS: BP 173/99; PULSE 58; RESP 15; TEMP 36.4; O2SAT 95
[2023-11-01 16:19] VITALS: RESP 15
== END 2023-11-01 13:09 | disposition home or self-care (01) ==
PROVIDERS: Emergency Provider Emergency Medicine; PCP Family Medicine
DX: S06.0X0A Concussion without loss of consciousness, initial encounter (principal); M25.511 Pain in right shoulder; M54.50 Low back pain, unspecified; I73.9 Peripheral vascular disease, unspecified; I10 Essential (primary) hypertension; Z87.891 Personal history of nicotine dependence; Z98.1 Arthrodesis status
CPT/HCPCS: 36415; 80053; 99285; 70450; 72125; 72131; 73030; 81003; 85025; 99284

== ENCOUNTER → 2023-11-11 13:08 | Outpatient (BNVA) | payer MEDICARE, MEDICAID, SELFPAY | PROVIDERS: PCP Family Medicine; Referring Provider Family Medicine; Visit Provider Student in an Organized Health Care Education/Training Program | DX: M70.61 Trochanteric bursitis, right hip (principal); M18.12 Unilateral primary osteoarthritis of first carpometacarpal joint, left hand | CPT/HCPCS: 20600; 20610; J1010 ==

== ENCOUNTER 2024-02-17 14:12 | Outpatient (CLI) | payer MEDICARE, MEDICAID, SELFPAY ==
--- NOTE | 2024-02-17 13:30 | DI.RAD_ITS ---
Exam(s) XR HAND LT COMPLETE EXAM: XR HAND LT COMPLETE CLINICAL HISTORY: left [facility] DJD. TECHNIQUE: 2D digital imaging was performed. Three views. COMPARISON: No exams were available for comparison FINDINGS: BONES: No acute fracture is present. No bony destructive lesion is seen. Bones appear osteopenic. JOINTS: No dislocation present. Severe degenerative changes are noted at the 1st carpal metacarpal joint. There is prominent periarticular spurring along with adjacent bony fragmentation. There is l ateral subluxation. Mild degenerative changes elsewhere. Positive ulnar variance. SOFT TISSUE: Normal. IMPRESSION: Severe degenerative changes of 1st carpal metacarpal joint. DATA REPOSITORY: RADIATION DOSE DELIVERED:
== END 2024-02-17 14:13 | disposition home or self-care (01) ==
LOC: DIORS 14:13
PROVIDERS: PCP Family Medicine; Referring Provider Family Medicine; Visit Provider Student in an Organized Health Care Education/Training Program
DX: M18.12 Unilateral primary osteoarthritis of first carpometacarpal joint, left hand (principal); M70.61 Trochanteric bursitis, right hip
CPT/HCPCS: 20610; 99213; J1010; 73130

== ENCOUNTER 2024-03-03 10:02 | Day surgery (SDC) | payer MEDICARE, MEDICAID, SELFPAY ==
[2024-03-03] VITALS (12 sets, daily range): BP systolic 135–170; BP diastolic 63–99; PULSE 56–67; RESP 14–20; TEMP 36.1–36.7; O2SAT 94–100; BMI 28.5
--- NOTE | 2024-03-03 09:48 | PDOC.DSDIS_ITS ---
Date of service: 03/03/24 Time of Service: 09:50 Discharge Plan Disposition Patient Disposition: Home Condition: Good Discharge Details Reason For Visit: Left CMC DJD Attending Provider: Paul Robles Primary Care Provider: Armando Castañeda Home Meds and New Rx's Prescriptions: New acetaminophen 500 mg tablet 500 mg PO Q6H PRN (Reason: pain) Qty: 60 2RF oxycodone 5 mg tablet 5 mg PO Q6H PRNQty: 12 0RF Rx Instructions: Take one tablet up to every 6 hours as needed for severe postoperative pain Continued trazodone 50 mg tablet 50 - 100 mg PO QHS PRN (Reason: insomnia) Qty: 180 3RF Rx Instructions: for sleep, patient can decide if she needs 1 or 2 tabs per night, and can take an extra if she wakes up in the night famotidine 20 mg tablet See Rx Instructions .ROUTE .COMPLEX Qty: 90 3RF Dose Instruction: TAKE 1 TABLET BY MOUTH DAILY FOR HEARTBURN Rx Instructions: TAKE 1 TABLET BY MOUTH DAILY FOR HEARTBURN multivitamin Tablet 1 tab PO DAILY ibuprofen 600 mg tablet 600 mg PO BID PRN (Reason: pain) Qty: 180 0RF Rx Instructions: back pain; take with food (DME) Orthopaedic shoes See Rx Instructions .Route .MEDSUPPLY Qty: 1 0RF Rx Instructions: As directed lactase [Lactaid Fast Act] 9,000 unit tablet 9,000 unit PO ONCE PRN Rx Instructions: administer with meals and/or snacks vilazodone 40 mg tablet 40 mg PO DAILY Qty: 90 3RF Rx Instructions: must administer with a meal/food triamcinolone acetonide 0.1 % cream 1 applic topical DAILY PRN (Reason: itching) Qty: 15 0RF Rx Instructions: Apply to area by knee when itching Lactobacillus acidoph-L.bulgar [Floranex] 1 million cell tablet 1 tab PO DAILY Qty: 90 3RF metoprolol succinate 25 mg tablet extended release 24 hr 25 mg PO .bedtime Qty: 90 3RF Rx Instructions: Blood pressure atomoxetine 40 mg capsule 40 mg PO DAILY Qty: 60 3RF cholecalciferol (vitamin D3) 50 mcg (2,000 unit) capsule See Rx Instructions .ROUTE .COMPLEX Qty: 90 3RF Dose Instruction: TAKE 1 CAPSULE BY MOUTH DAILY FOR BONE HEALTH/OSTEOPENIA Rx Instructions: TAKE 1 CAPSULE BY MOUTH DAILY FOR BONE HEALTH/OSTEOPENIA buspirone 15 mg tablet See Rx Instructions PO TID Qty: 270 3RF Rx Instructions: 2tabs AM, 1tab PM PO three times a day; ropinirole 3 mg tablet 3 mg PO QHS Qty: 90 3RF Rx Instructions: administer 1-3 hours before bedtime Discharge Instructions Additional Instructions: Thumb CMC Discharge Instructions Activity: You should keep the hand/thumb elevated as much as possible for the first few days. You may use the other fingers as tolerated but avoid trying to do too much too soon. You may perform light activities with the splint in place. Dressing/Cast: Your splint should stay in place at all times. Do NOT get it wet. You may loosen the JESUS MANUEL wrap if you feel it is too tight and then rewrap more loosely. Medications: - You should take Tylenol and Ibuprofen for baseline pain control. - You have Oxycodone for breakthrough pain. - You may apply ice over the thumb. Follow-up: 10-14 days Referrals: Paul Robles MD [ [facility] STAFF PHYSICIAN] - Equipment/Supplies: Splint Activity:: Elevate Remove Dressings/Wound Care:: Do Not Remove Shower/Bathe:: Cover Diet:: As Tolerated Discharge Orders Discharge Orders: Discharge Order (Routine); Ordered 03/03/24 Ordered By: Mercedes Hart
[2024-03-03] MEDS: Lactated Ringers 1,000 ML 80 ML IV (10:38)
--- NOTE | 2024-03-03 10:38 | W.ANESPRE ---
General Info Date of Service Date Performed: 03/03/24 Height: 5 ft 6 in Weight: 80.3 kg Body Mass Index (BMI): 28.5 Surgical Procedure: Operation Date: 03/03/24 12:10 Proposed Procedure Side Surgeon p CMC Arthroplasty, Thumb Left Paul Robles MD Meds Allergies and Home Medications Allergies Allergy/AdvReac Type Severity Reaction Status Date / Time benzalkonium chloride (From Allergy Unknown unknown Verified 03/03/24 10:17 Travatan) brimonidine (From Alphagan P) Allergy Unknown unknown Verified 03/03/24 10:17 meperidine HCl (From Demerol) Allergy Unknown UNSURE Verified 03/03/24 10:17 travoprost (From Travatan) Allergy Unknown unknown Verified 03/03/24 10:17 lactose AdvReac Intermediate Diarrhea Verified 03/03/24 10:17 BLUE SURGICAL SCRUB? AdvReac Intermediate RASH, Uncoded 03/03/24 10:17 ITCHING Home Medication ?Medication ?Instructions ?Recorded multivitamin 1 tab PO DAILY 04/24/22 ibuprofen 600 mg tablet 600 mg PO BID PRN pain #180 tabs 01/31/23 Lactobacillus acidoph-L.bulgaricus 1 tab PO DAILY #90 tabs 04/22/23 1 million cell tablet (Floranex) metoprolol succinate 25 mg 25 mg PO .bedtime #90 tabs 07/08/23 tablet,extended release 24 hr trazodone 50 mg tablet 50 - 100 mg (1 - 2 x 50 mg) PO QHS 07/26/23 PRN insomnia #180 tabs atomoxetine 40 mg capsule 40 mg PO DAILY #60 caps 10/01/23 famotidine 20 mg tablet See Rx Instructions .Route 10/25/23 .COMPLEX #90 tabs Orthopaedic shoes #1 ea 12/06/23 cholecalciferol (vitamin D3) 50 See Rx Instructions .Route 12/17/23 mcg (2,000 unit) capsule .COMPLEX #90 caps lactase 9,000 unit tablet (Lactaid 9,000 unit PO ONCE PRN 01/16/24 Fast Act) triamcinolone acetonide 0.1 % 1 applic topical DAILY PRN itching 01/16/24 topical cream #15 grams vilazodone 40 mg tablet 40 mg PO DAILY #90 tabs 01/16/24 buspirone 15 mg tablet See Rx Instructions PO TID #270 02/04/24 tabs ropinirole 3 mg tablet 3 mg PO QHS #90 tabs 02/04/24 acetaminophen 500 mg tablet 500 mg PO Q6H PRN pain #60 tabs 03/03/24 oxycodone 5 mg tablet 5 mg PO Q6H PRN #12 tabs 03/03/24 Current Visit Medications: Current Medications Generic Name Dose Route Start Last Admin Trade Name Freq PRN Reason Stop Dose Admin Acetaminophen 1,000 mg 03/03/24 06:00 Acetaminophen 500 Mg Tab PO 04/01/24 23:59 PREOP MALENA Acetaminophen 650 mg 03/03/24 09:46 Acetaminophen 325 Mg Tab PO 04/02/24 09:45 Q4H PRN PRN Celecoxib 400 mg 03/03/24 06:00 Celecoxib 200 Mg Cap PO 04/01/24 23:59 PREOP MALENA Ringer's Solution 1,000 mls @ 80 mls/hr 03/03/24 06:00 03/03/24 10:38 IV 04/01/24 23:59 80 mls/hr INFUSION [facility] Administration IV Miscellaneous Supplies 1 each 03/03/24 06:00 Iv Access IV 04/01/24 23:59 DIRECTED MALENA Oxycodone HCl 5 mg 03/03/24 09:46 Oxycodone 5 Mg Tab PO 04/02/24 09:45 Q3H PRN PRN Pain Sodium Chloride 0 ml 03/03/24 06:00 Normal Saline Flush 10 Ml Syr IV 04/01/24 23:59 PRN PRN Sodium Chloride 0 ml 03/03/24 06:00 Normal Saline 10 Ml Vial IJ 04/01/24 23:59 DIRECTED PRN Sterile Water 0 ml 03/03/24 06:00 Water,Injection,Sterile 10 Ml Vial IJ 04/01/24 23:59 DIRECTED PRN PFSH Active Problems Active Problems: Problem Status Onset Code Poor balance Acute R26.89 Idiopathic neuropathy Acute G60.9 Cervicalgia Acute M54.2 Arthritis of carpometacarpal (CMC) joint of left thumb Acute M18.12 Skull fracture Acute S02.91XA Concussion Acute S06.0XAA ADD (attention deficit disorder) Acute F98.8 Arthritis of right glenohumeral joint Chronic M19.011 Neuropathy Acute G62.9 Nail dystrophy Acute L60.3 PAD (peripheral artery disease) Acute I73.9 Venous insufficiency Acute I87.2 Peripheral neuropathy Acute G62.9 Hypertension Chronic ~05/2022 I10 Trochanteric bursitis, right hip Acute M70.61 Radicular pain of right lower extremity Acute ~02/2022 M54.10 Supraventricular tachycardia Chronic ~08/2021 I47.1 Scoliosis of thoracic spine Chronic M41.9 Arthritis of carpometacarpal joint Acute M19.049 Heartburn Chronic R12 Bladder incontinence Acute R32 Dysarthria-clumsy hand syndrome Acute G46.7 Mild aortic stenosis Acute ~06/2019 I35.0 Elevated MCV Acute R71.8 Trigger finger, right middle finger Chronic M65.331 Osteopenia Chronic M85.80 Insomnia Chronic G47.00 Depression Chronic 08/31/11 F32.9 Restless legs syndrome Chronic 02/04/17 G25.81 Spinal stenosis of lumbar region Acute 02/04/17 M48.061 Hypercholesterolemia Chronic 02/04/17 E78.00 Arthralgia of hip Acute 02/04/17 M25.559 Glaucoma Chronic 02/04/17 H40.9 Medical History Medical History Elevated BP without diagnosis of hypertension (~04/2022) Palpitations (~07/2021) H/O supraventricular tachycardia (~2013) 2013 & 2017 cardiac monitors; 2021 Closed fracture distal radius and ulna (10/22/20) right 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 other--see 08/14/2019 note; Neuro 03/2019; normal brain MRI and labs [id number] [facility] Memory Clinic consult 2020 & 2021--no [facility]; they are following History of Lyme disease Early Disseminated-10/29 Dr. Manuel Lucia Atrophic vaginitis (09/07/13) Iron deficiency (02/04/17) Lumbar pain with radiation down left leg Improved s/p lumbar spine fusion; stable; Dr. Devi Ankle fracture Ankle sprain Hip fx Medical History Comments:: I was told they had to put the mask with the bag on me but that was 100 years ago Surgical History Surgical History History of lumbar discectomy L4-5 Carpal tunnel syndrome, right (07/11/21) s/p ECTR DOS: 07/11/2021 History of arthroplasty of right knee History of cataract extraction B/L eyes [facility] Dr. Parks, R then L (pending 11/2019) History of knee replacement B/L Acquired absence of both cervix and uterus (08/31/11) Status post cervical spinal arthrodesis (02/04/17) History of lumbar laminectomy (~2013) Varicose vein stripping Spinal Fusion Lumbar L4-S1; also cervical Oophrectomy, Right with hyst 1997 Oophrectomy, Left Age 20 for cyst L knee repair Vaginal hysterectomy 1997 - Prolapse Tobacco Smoking/Tobacco Use Status: Former Tobacco Use Passive smoking exposure: No Alcohol Alcohol Intake: never Substance Use Substance use: Never Substance use type: does not use Vital Signs and Lab Results Vital Signs Most Recent Vital Signs in EMR: Most Recent Vital Signs Temp Pulse Resp BP Pulse Ox 36.7 C 63 18 135/75 94 03/03/24 10:22 03/03/24 10:22 03/03/24 10:22 03/03/24 10:22 03/03/24 10:22 Lab Results Blood Type / Crossmatch: No Data to Display Complete Blood Count: No Data to Display Complete Metabolic Panel: No Data to Display Liver Function Panel: No Data to Display Coagulation Panel: No Data to Display Cardiac Panel: No Data to Display Arterial Blood Gas: No Data to Display Venous Blood Gas: No Data to Display Pancreas Panel: No Data to Display Thyroid Panel: No Data to Display Infectious Disease: No Data to Display Blood Cultures: No Data to Display Toxicology Panel: No Data to Display Imaging and Studies Imaging and Studies Study information below may be from another EMR and interpreted by another provider. Please see original notes in EMR for more complete details. Echocardiogram Summary: Left Ventricle : The left ventricle is normal size. The left ventricular systolic function is normal. The left ventricular ejection fraction is within the normal range. There is normal left ventricular wall thickness. There is normal LV segmental wall motion. The left ventricular diastolic function is normal. LVEF is 60%. Right Ventricle : The right ventricle is normal size. The right ventricular systolic function is normal. The RVSP is 17.9 mmHg. Atria : The left atrium size is normal. The right atrium size is normal. Aortic Valve : Aortic valve is calcified. The Aortic valve is sclerotic. Aortic valve is trileaflet. Trace aortic regurgitation. Mild aortic stenosis. Great Vessels : The aortic root is normal in size. The ascending aorta is mildly dilated. Aortic arch is normal in caliber. IVC is normal in size and collapses >50% with inspiration. Compared to study from 07/12/2019, there is no significant change. 08/02/20 Anesthesia Assessment and Plan Anesthesia History Personal History: Delayed Emergence Family History: No Family History of Anesthesia Complications and Malignant Hyperthermia Exercise Tolerance Exercise Tolerance: Metabolic Equivalents<4 Pertinent Negatives Pertinent Negatives: No Symptoms of GERD, No Major Cardiovascular Symptoms or Complaints, No Major Pulmonary Symptoms or Complaints and No History of CVA/TIA Cardiac & Pulmonary Exam Cardiac Exam: Normal S1/S2 Heart Sounds Pulmonary Exam: Clear Bilateral Breath Sounds Implantable Cardiac Device Does patient have a Pacemaker or an ICD?: No Airway Exam Known Difficult Airway: No Mallampati Class: 4 Mouth Opening: Normal (> 3cm) Thyromental Distance: Greater than 3 cm Neck Range of Motion: Limited ROM Neck Circumference: Normal Teeth Condition: Normal Dentition ASA Classification ASA Score: ASA 2 Emergency Case?: No NPO Status NPO Status: NPO Clears >2 hours, Solids >8 hours Anesthesia Plan Resuscitation Status: Full Code Anesthesia Technique: General Anesthesia Airway Planned: LMA Monitors Used: Standard Monitors
[2024-03-03] MEDS: Celecoxib 200 MG CAP 400 MG PO (10:42)
[2024-03-03] MEDS: Acetaminophen 500 MG TAB 1000 MG PO (10:42)
[2024-03-03] MEDS: Bupivacaine 0.25% Pres-Free 30 ML VIAL (12:08)
[2024-03-03] MEDS: fentaNYL 100 MCG/2 ML VIAL IVP ×2 (12:35→13:00)
[2024-03-03] MEDS: LORazepam 2 MG/ML VIAL 0.5 MG IVP (12:54)
--- NOTE | 2024-03-03 12:59 | DI.RAD_ITS ---
Exam(s) XR HAND LT LIMITED EXAM: XR HAND LT LIMITED CLINICAL HISTORY: left arpometacarpal joint arthritis TECHNIQUE: 2D and realtime digital imaging was performed. CONTRAST MATERIAL: Refer to procedure report. COMPARISON: CR XR HAND LT COMPLETE from 02/17/2024 FINDINGS: Fluoroscopy was provided for Dr. Robles in the OR. Please refer to the procedure report for compl ete details. Ka,r=0.002 mGy IMPRESSION: RADIATION DOSE DELIVERED: 0.0 0.0 0
--- NOTE | 2024-03-03 13:10 | W.PM.OP ---
Date of service: 03/03/24 Time of Service: 11:15 Operative Note Operative Note DATE OF PROCEDURE: 03/03/24 PRE-OP DIAGNOSIS: Left Thumb CMC Arthritis POST-OP DIAGNOSIS: same PROCEDURE: Left trapezial resection arthroplasty with suture suspensionplasty SURGEON: Paul Robles ANESTHESIA TYPE: General LMA/ETT Refer to Anesthesia Record ESTIMATED BLOOD LOSS: 0 PATHOLOGY: none sent TOURNIQUET TIME: 41 COMPLICATIONS: None Patient was transported to: PACU Patient's condition: stable Indications: Edith is a 78 year old female who has had symptoms of thumb CMC arthritis with pain and decreased mobility. Nonoperative treatment options had been trialed. Given their failure, I offered operative intervention. I reviewed the technical details. I reviewed the risk of the procedure to include bleeding, infection, pain, stiffness, instability, subsidence, damage to neighboring arteries, damage to the superficial radial nerve, and weakness. Despite these risks, the patient elected to proceed. Findings: There is notable arthrosis between the trapezium and the first metacarpal with bone spur and deformity of the trapezium. There are large osteophytes around the entirety of the trapezium. Procedure Description: Edith was greeted in the preoperative holding area. Name and surgical site were confirmed. The history and physical was completed. The consent was reviewed the patient and signed. She was taken back to the operating room. The patient was placed and monitored anesthesia care. The left was then prepped with ChloraPrep and draped in a standard fashion after a nonsterile tourniquet was placed high up onto the arm. Prophylactic antibiotics in the form of cefazolin were administered. A timeout was performed for safe surgery. The surgical site was drawn on the skin overlying the dorsal radial border of the wrist. The planned surgical field was anesthetized with 0.25% bupivacaine with epinephrine. The limb was exsanguinated and the tourniquet was inflated where it stayed for 45 minutes. A 3 cm incision was made longitudinally over the radial wrist from the level of the radial styloid to just past the base of the first metacarpal. The skin was incised only. The deep tissue and subcutaneous fat was dissected with a tenotomy scissors trying to protect branches of the superficial radial nerve. Any branches that were identified were retracted out of the way. The first compartment extensor tendons were then identified. The first extensor compartment was released. The interval between EPL and EPB was identified. The base of the first metacarpal was palpated. A needle was placed into the joint between the first metacarpal and the trapezium. A single x-ray was used to confirm appropriate positioning. The capsule of the trapezium was then incised. The radial border of the bone was identified. Soft tissues around trapezium were dissected bluntly to allow relaxation of vital arterial structures traversing the trapezium. Using a [place] blade the capsule was elevated off the trapezium in a subperiosteal fashion. Once it appeared to have all the capsular attachments released, the trapezium was then removed using a rongeur. The wound was inspected to make sure all portions of the trapezium were removed. The wound was then thoroughly irrigated. Using a 2-0 FiberWire then performed a suture suspensionplasty. This was done by incorporating capsule and attachments of the APL at the base of the first metacarpal and creating a sling connected to the deep flexor carpi radialis tendon seen traversing deep within the wound towards the second metacarpal. This was done twice to create a crossing network of 2-0 suture. This was then tied overlying the base of the first metacarpal making sure not to over tighten and hourglass the tendons. This provided support to the first metacarpal to prevent any excessive subsidence. The tourniquet was then released. There is no significant bleeding. The capsule of the trapezium was then reapproximated with a 2-0 Vicryl. The skin was closed with 3-0 Vicryl and subcuticular 4-0 Monocryl, reinforced with skin glue. The hand was dressed with 4 x 4's, Kerlex and JESUS MANUEL to create a soft, thumb spica splint. All counts were correct. Patient was transferred back to PACU in a stable condition.
[2024-03-03] MEDS: oxyCODONE 5 MG TAB PO (14:19)
--- NOTE | 2024-03-03 14:52 | W.ANESPOSTOP ---
Postoperative Evaluation Date, Time and Location Date Performed: 03/03/24 Time Performed: 14:52 Patient Location: Day Surgery Unit Vital Signs Most Recent Imported Vital Signs: Most Recent Vital Signs Temp Pulse Resp BP Pulse Ox 36.4 C L 57 L 20 165/69 H 95 03/03/24 13:57 03/03/24 13:57 03/03/24 13:57 03/03/24 13:57 03/03/24 14:20 Pain Score Most Recent Pain Score: Most Recent Pain Score Pain Level 7 03/03/24 13:15 Assessment Mental Status: Awake (Alert & Oriented to Patient Baseline) Airway and Respiratory Function: Patent airway with normal (patient baseline) respiratory exam Cardiovascular Function: Hemodynamically Stable Hydration Status: Adequately Hydrated Nausea & Vomiting: No Nausea or Vomiting Pain: Pain is tolerable per patient Peripheral Nerve Block: Patient did not receive a nerve block Postoperative Comments:: Pt. will be leaving with grand-daughter who will make sure a family member is with patient until anesthesia medication wears off.
== END 2024-03-03 15:27 | disposition home or self-care (01) ==
LOC: SUR 10:03
PROVIDERS: PCP Family Medicine; Visit Provider Student in an Organized Health Care Education/Training Program
PROC: (CPT 25447; principal; 2024-03-03 12:00)
DX: M18.12 Unilateral primary osteoarthritis of first carpometacarpal joint, left hand (principal); G60.9 Hereditary and idiopathic neuropathy, unspecified; I73.9 Peripheral vascular disease, unspecified; I87.2 Venous insufficiency (chronic) (peripheral); I10 Essential (primary) hypertension; I47.10 Supraventricular tachycardia, unspecified; E78.00 Pure hypercholesterolemia, unspecified
CPT/HCPCS: 25447; 76000; 73120; J0665; J0690; J1100; J1885; J2060; J2405; J2704; J3010

== ENCOUNTER → 2024-03-16 13:53 | Outpatient (BNVA) | payer MEDICARE, MEDICAID, SELFPAY | PROVIDERS: PCP Family Medicine; Referring Provider Family Medicine; Visit Provider Student in an Organized Health Care Education/Training Program | DX: Z47.89 Encounter for other orthopedic aftercare (principal); M18.12 Unilateral primary osteoarthritis of first carpometacarpal joint, left hand | CPT/HCPCS: 99024 ==

== ENCOUNTER 2024-03-30 10:33 | Outpatient (CLI) | payer MEDICARE, MEDICAID, SELFPAY | END 2024-03-30 10:34 | disposition home or self-care (01) | PROVIDERS: PCP Family Medicine; Visit Provider Family Medicine | DX: R55 Syncope and collapse (principal) | CPT/HCPCS: 93246 ==

== ENCOUNTER → 2024-04-13 13:03 | Outpatient (BNVA) | payer MEDICARE, MEDICAID, SELFPAY | PROVIDERS: PCP Family Medicine; Referring Provider Family Medicine | DX: Z47.89 Encounter for other orthopedic aftercare (principal); M18.12 Unilateral primary osteoarthritis of first carpometacarpal joint, left hand | CPT/HCPCS: 99024 ==

== ENCOUNTER 2024-04-21 07:57 | Outpatient (CLI) | payer MEDICARE, MEDICAID, SELFPAY ==
--- NOTE | 2024-04-21 13:43 | W.CARDEVENT ---
Date of service: 04/21/24 Time of Service: 13:44 Cardiac Event Recorder Referring Provider:: Armando Castañeda Indications:: Syncope Cardiac Event Note: This is a cardiac event monitor. Patient was monitored for 10 days and 4 hours Predominant rhythm was sinus with an average heart rate of 71. Minimum was 45, maximum 125 There were frequent ventricular ectopic beats comprising 12% of total. There were several brief episodes of nonsustained ventricular tachycardia 3-4 beats in duration There were occasional atrial premature beats. Self-limited atrial runs occurred There was no atrial fibrillation, no high-grade AV block, no pauses greater than 3 seconds. Symptoms were reported which correlated with premature ventricular contractions
== END 2024-04-21 07:58 | disposition home or self-care (01) ==
LOC: CARDOPNVT 07:57
PROVIDERS: PCP Family Medicine; Visit Provider Internal Medicine Cardiovascular Disease
DX: R55 Syncope and collapse (principal); I49.1 Atrial premature depolarization; I49.3 Ventricular premature depolarization; I47.20 Ventricular tachycardia, unspecified
CPT/HCPCS: 93248

== ENCOUNTER 2024-06-22 07:39 | Outpatient (CLI) | payer MEDICARE, SELFPAY ==
--- NOTE | 2024-06-22 07:30 | RT.EKG_ITS ---
APPROVED REPORT Exam: Resting ECG Reason for Exam: evaluation of cardiac status Patient Location: O HR:74 bpm ECG Measurements Heart Rate 74 AXIS AL 165 P 73 QRSd 105 QRS -26 QT 396 T 89 QTc 440 Conclusion Sinus rhythm...normal P axis, V-rate 50- 99 Ventricular bigeminy...bigeminy string>4 w/ V complexes Probable left atrial enlargement...P >50mS, <-0.10mV V1 Anteroseptal infarct, age indeterminate...Q >35mS, T neg, V1-V2
== END 2024-06-22 07:40 | disposition home or self-care (01) ==
LOC: DI.CARD 07:40
PROVIDERS: PCP Family Medicine; Visit Provider Registered Nurse
DX: I35.0 Nonrheumatic aortic (valve) stenosis; I49.3 Ventricular premature depolarization; I73.9 Peripheral vascular disease, unspecified
CPT/HCPCS: 93010

== ENCOUNTER → 2024-06-22 08:46 | Outpatient (BNVA) | payer MEDICARE, SELFPAY | PROVIDERS: PCP Family Medicine; Referring Provider Family Medicine; Visit Provider Registered Nurse | DX: R01.1 Cardiac murmur, unspecified (principal); I35.0 Nonrheumatic aortic (valve) stenosis; I49.3 Ventricular premature depolarization | CPT/HCPCS: 93005; 99215 ==

== ENCOUNTER 2024-10-07 07:42 | Emergency (ER) | payer MEDICARE, SELFPAY ==
--- NOTE | 2024-10-07 07:30 | RT.EKG_ITS ---
APPROVED REPORT Exam: Resting ECG Reason for Exam: weakness Patient Location: E HR:61 bpm ECG Measurements Heart Rate 61 AXIS NM 173 P 58 QRSd 109 QRS -29 QT 442 T 5 QTc 445 Conclusion Sinus rhythm...normal P axis, V-rate 60- 99 Supraventricular bigeminy...bigeminy string>4 w/ SV complexes
[2024-10-07 07:42] VITALS: BP 182/95; PULSE 63; RESP 15; TEMP 36.6; O2SAT 97
[2024-10-07 07:50] VITALS: RESP 16
--- NOTE | 2024-10-07 08:00 | DI.RAD_ITS ---
Exam(s) XR CHEST 2V PA LATERAL EXAM: XR CHEST 2V PA LATERAL CLINICAL HISTORY: ?pneumonia TECHNIQUE: 2D digital imaging was performed. Two views. COMPARISON: CR XR CHEST 2V PA LATERAL from 10/04/2022 FINDINGS: HEART: Normal size. Aorta: Not dilated. PULMONARY VASCULATURE: Normal. MEDIASTINUM: Unremarkable. LUNGS: Clear. PLEURAL SPACE: No pleural effusion or pneumothorax. BONE:Unremarkable for age. SOFT TISSUES: Unremarkable. IMPRESSION: No acute abnormality. DATA REPOSITORY: RADIATION DOSE DELIVERED:
--- NOTE | 2024-10-07 08:11 | W.ED.GENAD ---
Discharge Plan Disposition Patient Disposition: Home Condition: Stable Discharge Details Clinical Impression: Dizziness, Falls, Contusion of arm, left Primary Care Provider: Armando Castañeda ED Provider: Solomon Camacho Home Meds and New Rx's Prescriptions: Continued famotidine 20 mg tablet See Rx Instructions .ROUTE .COMPLEX Qty: 90 3RF Dose Instruction: TAKE 1 TABLET BY MOUTH DAILY FOR HEARTBURN Rx Instructions: TAKE 1 TABLET BY MOUTH DAILY FOR HEARTBURN ibuprofen 600 mg tablet 600 mg PO BID PRN (Reason: pain) Qty: 180 0RF Rx Instructions: back pain; take with food (DME) Orthopaedic shoes See Rx Instructions .Route .MEDSUPPLY Qty: 1 0RF Rx Instructions: As directed lactase [Lactaid Fast Act] 9,000 unit tablet 9,000 unit PO ONCE PRN Rx Instructions: administer with meals and/or snacks vilazodone 40 mg tablet 40 mg PO DAILY Qty: 90 3RF Rx Instructions: must administer with a meal/food triamcinolone acetonide 0.1 % cream 1 applic topical DAILY PRN (Reason: itching) Qty: 80 0RF Rx Instructions: Apply to affected areas on feet and lower legs cholecalciferol (vitamin D3) 50 mcg (2,000 unit) capsule See Rx Instructions .ROUTE .COMPLEX Qty: 90 3RF Dose Instruction: TAKE 1 CAPSULE BY MOUTH DAILY FOR BONE HEALTH/OSTEOPENIA Rx Instructions: TAKE 1 CAPSULE BY MOUTH DAILY FOR BONE HEALTH/OSTEOPENIA buspirone 15 mg tablet See Rx Instructions PO TID Qty: 270 3RF Rx Instructions: 2tabs AM, 1tab PM PO three times a day; ropinirole 3 mg tablet 3 mg PO QHS Qty: 90 3RF Rx Instructions: administer 1-3 hours before bedtime metoprolol succinate 25 mg tablet extended release 24 hr 25 mg PO .bedtime Qty: 90 3RF Rx Instructions: Blood pressure trazodone 50 mg tablet 50 - 100 mg PO QHS PRN (Reason: insomnia) Qty: 180 3RF Rx Instructions: for sleep, patient can decide if she needs 1 or 2 tabs per night, and can take an extra if she wakes up in the night atomoxetine 40 mg capsule 40 mg PO DAILY Qty: 90 3RF acetaminophen 500 mg tablet 500 mg PO Q6H PRN (Reason: pain) Qty: 60 2RF Discharge Instructions Additional Instructions: Your blood work and x-rays do not show any concerning findings at this time. Make sure you are drinking plenty of fluid to stay hydrated. Follow-up with your primary care provider especially if your symptoms continue within a week. If you feel more ill or have new symptoms such as severe chest pain or difficulty breathing return to the emergency department for reevaluation. HPI General Mode of arrival: EMS. Date/Time Provider Initiated Documentation: 10/07/24 07:50. Limitations to Documentation: no limitations. Information obtained by: patient. History of Present Illness 78 year old F presents to the emergency department with the chief complaint of fall, dizziness, described as moderate, Quality is described as aching, and is localized to the left and upper extremity. Patient started experiencing this hour(s) (1) and it has been constant. No relieving factors improve symptom(s), No exacerbating factors reported . Patient notes denies chest pain, fever/chills and shortness of breath. Patient did receive the following treatments prior to arrival, none Related Data Home Medications ?Medication ?Instructions ?Recorded ?Confirmed ibuprofen 600 mg tablet 600 mg PO BID PRN pain #180 tabs 01/31/23 10/07/24 famotidine 20 mg tablet See Rx Instructions .Route 10/25/23 10/07/24 .COMPLEX #90 tabs Orthopaedic shoes #1 ea 12/06/23 10/07/24 cholecalciferol (vitamin D3) 50 See Rx Instructions .Route 12/17/23 10/07/24 mcg (2,000 unit) capsule .COMPLEX #90 caps lactase 9,000 unit tablet (Lactaid 9,000 unit PO ONCE PRN 01/16/24 10/07/24 Fast Act) vilazodone 40 mg tablet 40 mg PO DAILY #90 tabs 01/16/24 10/07/24 buspirone 15 mg tablet See Rx Instructions PO TID #270 02/04/24 10/07/24 tabs ropinirole 3 mg tablet 3 mg PO QHS #90 tabs 02/04/24 10/07/24 acetaminophen 500 mg tablet 500 mg PO Q6H PRN pain #60 tabs 03/03/24 10/07/24 triamcinolone acetonide 0.1 % 1 applic topical DAILY PRN itching 07/23/24 10/07/24 topical cream #80 grams metoprolol succinate 25 mg 25 mg PO .bedtime #90 tabs 07/28/24 10/07/24 tablet,extended release 24 hr trazodone 50 mg tablet 50 - 100 mg (1 - 2 x 50 mg) PO QHS 09/03/24 10/07/24 PRN insomnia #180 tabs atomoxetine 40 mg capsule 40 mg PO DAILY #90 caps 09/28/24 10/07/24 Previous Rx's ?Medication ?Instructions ?Recorded ibuprofen 600 mg tablet 600 mg PO BID PRN pain #180 tabs 01/31/23 famotidine 20 mg tablet See Rx Instructions .Route 10/25/23 .COMPLEX #90 tabs Orthopaedic shoes #1 ea 12/06/23 cholecalciferol (vitamin D3) 50 See Rx Instructions .Route 12/17/23 mcg (2,000 unit) capsule .COMPLEX #90 caps vilazodone 40 mg tablet 40 mg PO DAILY #90 tabs 01/16/24 buspirone 15 mg tablet See Rx Instructions PO TID #270 02/04/24 tabs ropinirole 3 mg tablet 3 mg PO QHS #90 tabs 02/04/24 acetaminophen 500 mg tablet 500 mg PO Q6H PRN pain #60 tabs 03/03/24 triamcinolone acetonide 0.1 % 1 applic topical DAILY PRN itching 07/23/24 topical cream #80 grams metoprolol succinate 25 mg 25 mg PO .bedtime #90 tabs 07/28/24 tablet,extended release 24 hr trazodone 50 mg tablet 50 - 100 mg (1 - 2 x 50 mg) PO QHS 09/03/24 PRN insomnia #180 tabs atomoxetine 40 mg capsule 40 mg PO DAILY #90 caps 09/28/24 Allergies Allergy/AdvReac Type Severity Reaction Status Date / Time benzalkonium chloride (From Allergy Unknown unknown Verified 10/07/24 07:55 Travatan) brimonidine (From Alphagan P) Allergy Unknown unknown Verified 10/07/24 07:55 meperidine HCl (From Demerol) Allergy Unknown UNSURE Verified 10/07/24 07:55 travoprost (From Travatan) Allergy Unknown unknown Verified 10/07/24 07:55 lactose AdvReac Intermediate Diarrhea Verified 10/07/24 07:55 BLUE SURGICAL SCRUB? AdvReac Intermediate RASH, Uncoded 10/07/24 07:55 ITCHING General Stated Complaint: Dizzy/Sync SHAGUFTA: 3 Review of Systems All systems reviewed & are unremarkable except as noted in HPI and below Constitutional Constitutional: Denies chills, Denies fever(s) and Denies weakness Cardiovascular Cardiovascular: Denies chest pain, Reports lightheadedness and Denies dyspnea Respiratory Respiratory: Denies cough and Denies dyspnea Gastrointestinal Gastrointestinal: Denies abdominal pain, Denies nausea and Denies vomiting Neurologic Neurologic: Denies weakness Psychiatric Psychiatric: Denies depression Exam Const General: no acute distress Orientation: alert HENMT Head: normal to inspection Ears: external ears normal General nose exam: external nose normal Mouth: moist mucous membranes Eyes General: appearance normal, both eyes and all related structures Neck Neck: normal visual inspection Resp Effort & Inspection: normal respiratory effort and able to speak in complete sentences Auscultation: clear to auscultation bilaterally Cardio Jugular venous pressure: no JVD Rate: regular rate Skin General skin exam: no rashes or lesions noted Neuro General: patient alert and patient oriented x3 Extrem General: normal to inspection Psych Mental Status: mental status grossly normal Course Vital Signs Vital signs: Vital Signs Temperature 36.6 C 10/07/24 07:42 Pulse 63 10/07/24 07:42 Respiratory Rate 15 10/07/24 07:42 Blood Pressure 182/95 H 10/07/24 07:42 Pulse Oximetry 97 10/07/24 07:42 Temperature 36.6 C 10/07/24 07:42 Temperature Source Oral 10/07/24 07:42 Pulse 63 10/07/24 07:42 Respiratory Rate 16 10/07/24 07:50 Respiratory Effort Normal 10/07/24 07:50 Respiratory Depth Normal 10/07/24 07:50 Respiratory Pattern Normal 10/07/24 07:50 Blood Pressure 182/95 H 10/07/24 07:42 Blood Pressure Position Sitting 10/07/24 07:42 Pulse Oximetry 97 10/07/24 07:42 Oxygen Delivery Method Room Air 10/07/24 07:42 Oxygen Flow Rate 0 10/07/24 07:42 Pain Level 2 10/07/24 07:42 Medical Decision Making 78-year-old female with a history of aortic stenosis, PVCs on metoprolol who comes in with EMS after she was of using the bathroom when she got dizzy and lightheaded and fell off the toilet. She denies hitting her head and having loss of consciousness. Denies any chest pain or difficulty breathing. She says this has happened a few times before and usually is when she going from sitting to standing. She currently has mid left humerus pain on the side that she fell on. She is oriented x 4 with no signs of trauma to the head. She is clear lung sounds, no JVD, mild systolic murmur. No calf tenderness, she has mid left humerus tenderness without visible palpable deformities. Intact distal sensation and pulses. She has full range of motion of the shoulder and elbow. I suspect orthostasis but will check CBC, CMP and troponins. Will also obtain a chest x-ray and left humerus x-ray. She has no tearing back pain and has equal peripheral pulses so I doubt dissection. No evidence of DVT on exam no significant hypoxia or tachycardia so I doubt PE. Patient's labs unremarkable, she is stable and has no new symptoms. I suspect orthostasis, she is stable for d/c, will have her f/u with her pcp and return precautions given. Differential Diagnosis Differential Diagnosis: Orthostasis, anemia, electrolyte abnormality Medical Records Medical records reviewed: Yes I reviewed the patient's medical records. Lab Data Lab results reviewed: Yes I reviewed the patient's lab results. ECG Data Attestation: I personally reviewed and interpreted this ECG (s) as follows: Prior ECG tracings: available for review Interpretation: sinus rate of 61 no stemi Quality:SDOH Health Related Social Needs: Health related social needs feeling lonely/isolated (Z60.8) PFS All Active Problems (Updated 10/07/24 @ 10:14 by Solomon Camacho MD) Contusion of arm, left (Acute) Falls (Acute) Dizziness (Acute) Venous stasis dermatitis (Acute) Venous stasis dermatitis of both lower extremities (Acute) Ventricular ectopy (Acute) Syncope (Chronic) Poor balance (Acute) per PT evaluation Idiopathic neuropathy (Acute) Cervicalgia (Acute) Arthritis of carpometacarpal (CMC) joint of left thumb (Acute) Status post trapezial arthroplasty: 03/03/2024 Skull fracture (Acute) Concussion (Acute) ADD (attention deficit disorder) (Acute) Arthritis of right glenohumeral joint (Chronic) Intra-articular 80 mg injection: 04/15/2023 Neuropathy (Acute) Nail dystrophy (Acute) PAD (peripheral artery disease) (Acute) Venous insufficiency (Acute) Peripheral neuropathy (Acute) Hypertension (Chronic ~05/2022) Trochanteric bursitis, right hip (Acute) DEPO MEDROL 11/11/23; 02/17/24 Radicular pain of right lower extremity (Acute ~02/2022) Supraventricular tachycardia (Chronic ~08/2021) Started 2013 with repeat front desk monitor 08/2021 validating ?Stimulant contributory Cardiology consult 01/2022--consider BB or diltiazem Scoliosis of thoracic spine (Chronic) R convex scoliosis Arthritis of carpometacarpal joint (Acute) left Most recent 40 mg Depo-Medrol injection: 04/15/2023 Heartburn (Chronic) Famotidine 20mg daily Bladder incontinence (Acute) Kegels & bladder training instruction Dysarthria-clumsy hand syndrome (Acute) Mild aortic stenosis (Acute ~06/2019) ECHO 06/2019; 07/2020 (stable); 2022 ECHO normalized (no aortic stenosis); recheck in 1-2y Elevated MCV (Acute) Trigger finger, right middle finger (Chronic) [facility] Dr. Meza Osteopenia (Chronic) DEXA 2016 & 2020 Insomnia (Chronic) RX Trazodone Depression (Chronic 08/31/11) [facility] Restless legs syndrome (Chronic 02/04/17) Years; Dr. Ruffin Neuro; medication helps (Requip & Sihrlene PRN; Shirlene 300mg HS PRN discontinued 08/14/2019) Spinal stenosis of lumbar region (Acute 02/04/17) s/p Neurosurgery; 02/2022 lumbar x-ray: lumbar spondylosis, convex scoliosis Hypercholesterolemia (Chronic 02/04/17) FRS 12.8% (2021)-->not a candidate for statin Arthralgia of hip (Acute 02/04/17) R, muscular; PT Glaucoma (Chronic 02/04/17) Medical History Elevated BP without diagnosis of hypertension (~04/2022) Palpitations (~07/2021) H/O supraventricular tachycardia (~2013) 2013 & 2017 cardiac monitors; 2021 Closed fracture distal radius and ulna (10/22/20) right 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 other--see 08/14/2019 note; Neuro 03/2019; normal brain MRI and labs [id number] [facility] Memory Clinic consult 2020 & 2021--no [facility]; they are following History of Lyme disease Early Disseminated-10/29 Dr. Manuel Lucia Atrophic vaginitis (09/07/13) Iron deficiency (02/04/17) Lumbar pain with radiation down left leg Improved s/p lumbar spine fusion; stable; Dr. Devi Ankle fracture Ankle sprain Hip fx Surgical History History of lumbar discectomy L4-5 Carpal tunnel syndrome, right (07/11/21) s/p ECTR DOS: 07/11/2021 History of arthroplasty of right knee History of cataract extraction B/L eyes [facility] Dr. Parks, R then L (pending 11/2019) History of knee replacement B/L Acquired absence of both cervix and uterus (08/31/11) Status post cervical spinal arthrodesis (02/04/17) History of lumbar laminectomy (~2013) Varicose vein stripping Spinal Fusion Lumbar L4-S1; also cervical Oophrectomy, Right with hyst 1997 Oophrectomy, Left Age 20 for cyst L knee repair Vaginal hysterectomy 1997 - Prolapse Family History Mother Parkinson disease Heart disease Hypertension Brother Depression Diabetes Heart disease Hypertension Father Heart disease Hypertension Social History (Updated 06/09/24 @ 13:27 by Rachelle Merrill LPN) Smoking/Tobacco Use Status: Former Tobacco Use Quit Date: 05/13/89 Tobacco: How many years used: 10 Smoking risk assessment performed?: Yes Alcohol Intake: never Drug use: Never Substance use type: does not use Counseling given: No Adopted: No Caregiver/Support person: No Foster care: No Household members: family Housing: house Number of Children: 2 Communication Needs: Corrective Lenses Do you need help understanding health information?: Rarely current occupation: Retired Sexually active: Yes Do you think of yourself as: straight/heterosexual Current gender identity: female What is your relationship status?: How often do you talk on the phone with friends or family?: once per week How often do you get together with friends or relatives?: once per week Panel score (0-1 are the most socially isolated patients): 0 What type of physical activity do you participate in: none Seatbelt use: always Working smoke detector in home: Yes Fire extinguisher in home: Yes Carbon monox detector in home: Yes Do you feel safe at home: Yes Do you feel safe in your relationship?: Yes
[2024-10-07 08:14] LABS: Bilirubin Negative (Negative); Blood Trace-intact (Negative); Clarity Clear (Clear); Glucose Negative (Negative); Ketones Negative (Negative); Leukocyte Esterase Trace (Negative); Nitrite Negative (Negative); Specific Gravity 1.025 (1.005-1.025); Urobilinogen 0.2 mg/dL (Up to 0.2)
[2024-10-07 08:24] LABS: Abs Immature Grans 0.01 10^3/uL (0.0-0.06); Absolute Basophil Count 0.03 10^3/uL (0.0-0.2); Absolute Eosinophil Count 0.17 10^3/uL (0.0-0.7); Absolute Lymphocyte Count 1.33 10^3/uL (1.2-3.4); Absolute Monocyte Count 0.28 10^3/uL (0.1-0.8); Absolute Neutrophil Count 2.54 10^3/uL (1.2-6.7); Basophils % 0.7 %; Eosinophils % 3.9 %; HCT 38.5 % (36.0-46.0); HGB 12.8 g/dL (11.2-15.7); Immature Grans % 0.2 %; Lymphocytes % 30.5 %; MCH 33.4 pg (27.0-33.0); MCHC 33.2 % (32.0-36.0); MCV 101 fL (80-95); MPV 10.1 fL (8.0-11.0); Monocytes % 6.4 %; Neutrophils % 58.3 %; Platelet Count 161 10^3/uL (130-400); RBC 3.83 10^6/uL (3.93-5.22); RDW 12.8 % (11.7-14.6); RDW-SD 47.6 fL; WBC 4.36 10^3/uL (4.4-10.8)
[2024-10-07 08:25] LABS: Bacteria Rare HPF (Negative); C & S Indicated? No; Casts 0-2 Hyaline LPF (Negative); Crystals Negative HPF (Negative); Epithelial Cells Few HPF (Negative); Mucus Trace (Negative); RBC 0-2 HPF (0-2); WBC 0-2 HPF (0-5)
[2024-10-07 08:44] LABS: ALT 23 U/L (14-59); AST 21 U/L (15-37); Albumin 3.5 g/dL (3.4-5.0); Alkaline Phosphatase 72 U/L (46-116); Anion Gap 6.7 mmol/L (3-11); BUN 17 mg/dL (7-18); Bilirubin, Total 0.4 mg/dL (0.2-1.0); CO2 30.3 mmol/L (21.0-32.0); CREATININE 0.6 mg/dL (0.55-1.02); Chloride 106 mmol/L (98-107); Estimated GFR 92.39 (mL/min/1.73m2); Glucose 102 mg/dL (74-106); Potassium 3.7 mmol/L (3.5-5.1); Sodium 143 mmol/L (136-145); Total Protein 6.8 g/dL (6.4-8.2); Troponin I 9 ng/L (<or=51)
--- NOTE | 2024-10-07 09:00 | DI.RAD_ITS ---
Exam(s) XR HUMERUS LT EXAM: XR HUMERUS LT CLINICAL HISTORY: mid shaft pain s/p fall. TECHNIQUE: 2D digital imaging was performed. Two views. COMPARISON: CR XR SHOULDER RT COMPLETE 2+V from 11/01/2023 FINDINGS: Positioning somewhat suboptimal since the exam was performed on a stretcher. BONES: No acute fracture is present. No bony destructive lesion is seen. Visualized portion of elbow and shoulder joints show degenerative changes. SOFT TISSUE: Normal. IMPRESSION: No acute abnormality. DATA REPOSITORY: RADIATION DOSE DELIVERED:
[2024-10-07 09:24] LABS: FREE T4 1.12 ng/dL (0.76-1.46)
[2024-10-07 09:46] LABS: Troponin I 11 ng/L (<or=51)
[2024-10-07 10:50] VITALS: BP 162/85; PULSE 60; RESP 18; O2SAT 96
== END 2024-10-07 11:04 | disposition home or self-care (01) ==
PROVIDERS: Emergency Provider Emergency Medicine; PCP Family Medicine
DX: R42 Dizziness and giddiness (principal); S40.022A Contusion of left upper arm, initial encounter; I10 Essential (primary) hypertension; Z87.891 Personal history of nicotine dependence; W18.11XA Fall from or off toilet without subsequent striking against object, initial encounter; Y93.E8 Activity, other personal hygiene; Y92.012 Bathroom of single-family (private) house as the place of occurrence of the external cause
CPT/HCPCS: 36415; 80053; 93005; 99285; 71046; 73060; 81003; 81015; 83735; 84439; 84443; 84484; 85025; 93010; 99284

== ENCOUNTER 2024-10-09 16:55 | Outpatient (REF) | payer MEDICARE, SELFPAY | END 2024-10-09 16:56 | disposition home or self-care (01) | LOC: LBN 16:55 | PROVIDERS: PCP Family Medicine; Visit Provider Family Medicine | DX: N39.0 Urinary tract infection, site not specified (principal) | CPT/HCPCS: 87077; 87086; 87186 ==

== ENCOUNTER 2024-12-08 01:26 | Outpatient (CLI) | payer MEDICARE, SELFPAY ==
--- NOTE | 2024-12-08 12:30 | DI.US_ITS ---
APPROVED REPORT EXAM: Comprehensive 2D, Doppler, and color-flow Echocardiogram Patient Location: Out-Patient Barrel Inspector: Micah Shea RDCS (AE) Indications: Murmur, palpitations Other Information Study Quality: Adequate Conclusion Normal left ventricular wall thickness and chamber size. Ejection fraction is 60%. Wall motion is normal Normal right ventricular size and function Both atria are normal in size. The atrial septum is thin and hypermobile The aortic valve is mildly sclerotic and trileaflet with trace regurgitation There is no additional significant valvular disease Wall motion Left Ventricle The left ventricle is normal size. The left ventricular systolic function is normal. The left ventricular ejection fraction is within the normal range. There is normal left ventricular wall thickness. There is normal LV segmental wall motion. There is no ventricular septal defect visualized. LVEF is 60% Right Ventricle The right ventricle is normal size. The right ventricular systolic function is normal. Atria The left atrium size is normal. The right atrium size is normal. Atrial septum is thin and hypermobile Aortic Valve The aortic valve is mildly sclerotic. Aortic valve is trileaflet. There is no aortic valvular stenosis. Trace aortic regurgitation. Mitral Valve The mitral valve is normal in structure. No evidence of mitral valve stenosis. Trace mitral regurgitation. Tricuspid Valve The tricuspid valve is normal in structure. There is no tricuspid valve stenosis. There is no tricuspid valve regurgitation noted. Pulmonic Valve The pulmonary valve is normal in structure. There is no pulmonic valvular stenosis. There is no pulmonic valvular regurgitation. Great Vessels The aortic root is normal in size. The ascending aorta is normal in size. Aortic arch is normal in caliber. IVC is normal in size and collapses >50% with inspiration. Pericardium There is no pericardial effusion. 2D Dimensions IVSD d PLAX 0.93 cm F: 0.6-1.0 Ao Root d 3.41 cm F: 2.7 - 3.3 LVPW d PLAX 0.95 cm F: 0.6 - 1.0 Ao Asc Diam d 2.97 cm F: 2.3 - 3.1 LVID d PLAX 5.09 cm F: 3.8 - 5.2 LVDs 3.44 cm F: 2.2 - 3.5 LV EF Teichholz 60.4 % FS 32.43 % LV EDV (Teich) 123.1 mL LV ESV (Teich) 48.7 mL Stroke Vol Index (Teich) 38.54 M-Mode TAPSE 1.96 cm (M/F) >1.7 Auto EF LV EDV A4C 111.0 mL LV EDV A2C 96.3 mL LV EDV BP 109.9 mL LV ESV A4C 49.8 mL LV ESV A2C 39.0 mL LV ESV BP 45.7 mL LVEF(%) A4C 55.1 % LVEF(%) A2C 59.5 % LVEF(%) BP 58.4 % LV SV A4C 61.2 ml LV SV A2C 57.3 ml LV SV BP 64.2 ml LV CO A4C 3.9 L/min LV CO A2C 3.6 L/min LV CO BP 3.7 L/min HR A4C 63.83 BPM HR A2C 62.61 BPM LV EDV Index (BP) LA Volume LA Length A4C 4.3 cm LA Length A2C 4.6 cm LA Area A4C s 10.76 cm2 LA Area A2C s 11.59 cm2 LA Vol A4C A-L 22.66 mL LA Vol A2C A-L 25.03 mL LA Vol Biplane A-L 24.4 mL LA Vol/BSA A4C A-L LA Vol/BSA A2C A-L LA Vol/BSA BP A-L 12.7 mL/m2 LA Vol A4C MOD 21.7 mL LA Vol A2C MOD 23.8 mL LA Vol BP MOD 23.2 mL RA Volume RA Area A4C 11.5 cm2 RA ESV A4C (A-L) 25.7mL RA Vol/BSA A4C A-L RA Length A4C 4.4 cm RA ESV A4C (MOD) 25.2mL LV Diastology MV E' medial 0.066 (>0.07 m/s) MV E Vmax 1.00 (0.4-1.3 m/s) MV E/E' MED 15.04 (<14) MV A Vmax 1.10 (0.4-1.3 m/s) MV E' lateral 0.095 (>0.1 m/s) E/A Ratio 0.9 MV E/E' LAT 10.56 (<14) MV E' Average 0.081 m/s MV E/E'(average) 12.41 Aortic Valve AoV Vmax 1.99 m/s LVOT Vmax 0.78 m/s AoV Peak Grad 15.8 mmHg LVOT Peak Grad 2.4 mmHg AoV Area (Vmax) 1.49 cm2 LVOT VTI 0.211 m AoV VTI 0.500 m LVOT Mean Grad 1.5 mmHg AoV Mean Herbert. 1.40 m/s LVOT SV 80.19 mL AoV Mean Grad 8.9 mmHg LVOT Diam s 2.15 cm AoV Area (VTI) 1.60 cm2 AV Regurg Peak Gr. 15.81 mmHg Velocity Ratio 0.39 Mitral Valve MV DT 163 (160-240 msec) Pulmonary Valve PV Vmax 1.05 (0.5-1.5 m/s) RVOT Vmax 0.63 m/s PV Peak Grad 4.4 mmHg RVOT Peak Gr. 1.6 mmHg PV Mean Herbert 0.65 m/s RVOT VTI 0.169 m PV Mean Grad 2.1 mmHg RVOT Mean Gr. 0.9 mmHg
== END 2024-12-08 01:46 ==
PROVIDERS: PCP Family Medicine; Visit Provider Registered Nurse
DX: R00.2 Palpitations (principal)
CPT/HCPCS: 93306

== ENCOUNTER 2024-12-15 10:12 | Observation (INO) | payer MEDICARE, SELFPAY ==
[2024-12-15] VITALS (61 sets, daily range): BP systolic 126–199; BP diastolic 58–109; PULSE 53–84; RESP 12–23; TEMP 36.4–37.6; O2SAT 91–99
--- NOTE | 2024-12-15 | DI.US_ITS ---
Exam(s) US EXTREMITY VENOUS BI EXAM: US EXTREMITY VENOUS BI CLINICAL HISTORY: PE, h/o varicose veins TECHNIQUE: Grayscale, color, and doppler imaging of the deep venous system of both lower extremities was performed. COMPARISON: None FINDINGS: There is no evidence of DVT in the left lower extremity. In the right lower extremity there is no evidence of the DVT at and above the level of the knee. However, there is occlusive thrombus in 1 of the paired peroneal veins from the proximal to mid calf with clot length approximately 10 cm length. There is no evidence of obvious intraluminal thrombus in the ipsilateral posterior tibial veins in the calf and there is no extension of thrombus into the popliteal vein. The greater saphenous veins also appear patent as do the saphenofemoral junctions bilaterally.. IMPRESSION: 1. This study is positive for the presence of DVT in the right calf. There is a 10 cm length intraluminal clot evident with in 1 of the paired peroneal veins in the proximal and mid calf. There is no extension into the ipsilateral popliteal vein nor above. 2. No evidence of DVT in the opposite-left lower extremity. DATA REPOSITORY:
--- NOTE | 2024-12-15 10:00 | RT.EKG_ITS ---
APPROVED REPORT Exam: Resting ECG Reason for Exam: Palpitations Patient Location: E HR:60 bpm ECG Measurements Heart Rate 60 AXIS SC 158 P 51 QRSd 121 QRS -31 QT 419 T -6 QTc 420 Conclusion Sinus rhythm...normal P axis, V-rate 60- 99 Probable left atrial enlargement...P >50mS, <-0.10mV V1 Left bundle branch block...QRSd>120, broad/notched R Sinus rhythm with T wave inversion III, T wave flattening and baseline artifact. When compared to prior 10/07/24 no longer in bigeminy and T waves are flat.
[2024-12-15 11:17] LABS: Abs Immature Grans 0.02 10^3/uL (0.0-0.06); HCT 38.1 % (36.0-46.0); HGB 12.7 g/dL (11.2-15.7); Immature Grans % 0.4 %; MCH 33.0 pg (27.0-33.0); MCHC 33.3 % (32.0-36.0); MCV 99 fL (80-95); MPV 10.1 fL (8.0-11.0); Platelet Count 161 10^3/uL (130-400); RBC 3.85 10^6/uL (3.93-5.22); RDW 12.2 % (11.7-14.6); RDW-SD 44.2 fL; WBC 4.77 10^3/uL (4.4-10.8)
--- NOTE | 2024-12-15 11:30 | DI.CT_ITS ---
Exam(s) CT HEAD WO EXAM: CT HEAD WO CLINICAL HISTORY: dizziness. TECHNIQUE: Imaging Protocol: Axial computed tomography images with coronal and sagittal reformatted images were created and reviewed COMPARISON: CT CT HEAD CERV SPINE FACIAL WO from 10/20/[address] HEAD CERVICAL SPINE WO from 11/01/2023 FINDINGS: Ventricles and Extra axial spaces: Normal in size and morphology for the patient's age. Hemorrhage: None. Cerebral parenchyma: There are areas of decreased attenuation in the white matter consistent with chronic microvascular ischemic disease. No evidence of an acute territorial infarct or mass effect is identified. Midline shift: None. Brainstem/Cerebellum: Normal. Calvarium: Normal. Visualized Paranasal sinuses/Mastoids: Clear. Soft Tissues: Unremarkable. IMPRESSION: No acute intracranial process. RADIATION DOSE DELIVERED: 796.73mGy.cm Total DLP DATA REPOSITORY: All CT scans at this facility are submitted to the National Radiology Data Registry (NRDR) Dose Index Registry (DIR) with the [employer] (A[employer]). RADIATION OPTIMIZATION: All CT scans at this facility use at least one of these dose optimization techniques: automated exposure control; mA and/or kV adjustment per patient size (includes targeted exams where dose is matched to clinical indication); or iterative reconstruction.
[2024-12-15 11:42] LABS: ALT 22 U/L (14-59); AST 26 U/L (15-37); Albumin 3.8 g/dL (3.4-5.0); Alkaline Phosphatase 86 U/L (46-116); Anion Gap 4.3 mmol/L (3-11); BUN 17 mg/dL (7-18); Bilirubin, Total 0.4 mg/dL (0.2-1.0); CO2 28.7 mmol/L (21.0-32.0); Calcium 8.9 mg/dL (8.5-10.1); Chloride 106 mmol/L (98-107); Estimated GFR 91.82 (mL/min/1.73m2); Glucose 118 mg/dL (74-106); Lipase 36 U/L (<78); Magnesium 2.0 mg/dL (1.8-2.4); Potassium 3.6 mmol/L (3.5-5.1); Sodium 139 mmol/L (136-145); TSH (W/Ref FT4) 0.37 uIU/mL (0.36-3.74); Total Protein 7.1 g/dL (6.4-8.2); Troponin I 7 ng/L (<or=51)
--- NOTE | 2024-12-15 11:50 | ED.GENADUL_ITS ---
Discharge Plan Disposition Patient Disposition: Admit to [facility] Condition: Stable Discharge Details Clinical Impression: Multiple pulmonary emboli Primary Care Provider: Armando Castañeda ED Provider: Barry Bazzi Home Meds and New Rx's Prescriptions: New Eliquis 5 mg tablet See Rx Instructions .ROUTE .COMPLEX Qty: 74 2RF Rx Instructions: 2 tabs po BID x 7 days, then on tab po BID No Action ibuprofen 600 mg tablet 600 mg PO BID PRN (Reason: pain) Qty: 180 0RF Rx Instructions: back pain; take with food (DME) Orthopaedic shoes See Rx Instructions .Route .MEDSUPPLY Qty: 1 0RF Rx Instructions: As directed lactase [Lactaid Fast Act] 9,000 unit tablet 9,000 unit PO ONCE PRN Rx Instructions: administer with meals and/or snacks vilazodone 40 mg tablet 40 mg PO DAILY Qty: 90 3RF Rx Instructions: must administer with a meal/food triamcinolone acetonide 0.1 % cream 1 applic topical DAILY PRN (Reason: itching) Qty: 80 0RF Rx Instructions: Apply to affected areas on feet and lower legs cholecalciferol (vitamin D3) 50 mcg (2,000 unit) capsule See Rx Instructions .ROUTE .COMPLEX Qty: 90 3RF Dose Instruction: TAKE 1 CAPSULE BY MOUTH DAILY FOR BONE HEALTH/OSTEOPENIA Rx Instructions: TAKE 1 CAPSULE BY MOUTH DAILY FOR BONE HEALTH/OSTEOPENIA buspirone 15 mg tablet See Rx Instructions PO TID Qty: 270 3RF Rx Instructions: 2tabs AM, 1tab PM PO three times a day; ropinirole 3 mg tablet 3 mg PO QHS Qty: 90 3RF Rx Instructions: administer 1-3 hours before bedtime metoprolol succinate 25 mg tablet extended release 24 hr 25 mg PO .bedtime Qty: 90 3RF Rx Instructions: Blood pressure trazodone 50 mg tablet 50 - 100 mg PO QHS PRN (Reason: insomnia) Qty: 180 3RF Rx Instructions: for sleep, patient can decide if she needs 1 or 2 tabs per night, and can take an extra if she wakes up in the night atomoxetine 40 mg capsule 40 mg PO DAILY Qty: 90 3RF famotidine 20 mg tablet See Rx Instructions .ROUTE .COMPLEX Qty: 90 3RF Dose Instruction: TAKE 1 TABLET BY MOUTH DAILY FOR HEARTBURN Rx Instructions: TAKE 1 TABLET BY MOUTH DAILY FOR HEARTBURN acetaminophen 500 mg tablet 500 mg PO Q6H PRN (Reason: pain) Qty: 60 2RF HPI General Date/Time Provider Initiated Documentation: 12/15/24 10:20 . HPI Narrative: 79 year-old female presents to ED today by POV/ambulating with a chief complaint of chest pain, shortness of breath with onset yesterday. Quality described as sharp pains in her chest, radiating to both arms and legs, with sweating, no radiation to syncope, tachycardia, respiratory distress. Severity is described as moderate. Palliating factors include nothing specific. Provoking factors include nothing specific. Events leading up to the incident/Associated Symptoms: Patient denies history of heart attacks. Patient not anticoagulated. Related Data Home Medications ?Medication ?Instructions ?Recorded ?Confirmed ibuprofen 600 mg tablet 600 mg PO BID PRN pain #180 tabs 01/31/23 12/15/24 Orthopaedic shoes #1 ea 12/06/23 12/15/24 cholecalciferol (vitamin D3) 50 See Rx Instructions .R oute 12/17/23 12/15/24 mcg (2,000 unit) capsule .COMPLEX #90 caps lactase 9,000 unit tablet (Lactaid 9,000 unit PO ONCE PRN 01/16/24 12/15/24 Fast Act) vilazodone 40 mg tablet 40 mg PO DAILY #90 tabs 09/10/0312/15/24 buspirone 15 mg tablet See Rx Instructions PO TID # 270 02/04/24 12/15/24 tabs ropinirole 3 mg tablet 3 mg PO QHS #90 tabs 4 12/15/24 acetaminophen 500 mg tablet 500 mg PO Q6H PRN pain #60 tabs 03/03/24 12/15/24 triamcinolone acetonide 0.1 % 1 applic topical DAILY P RN itching 07/23/24 12/15/24 topical cream #80 grams metoprolol succinate 25 mg 25 mg PO .bedtime #90 tabs 07/28/24 12/15/24 tablet,extended release 24 hr trazodone 50 mg tablet 50 - 100 mg (1 - 2 x 50 mg) PO QHS 09/03/24 12/15/24 PRN insomnia #180 tabs atomoxetine 40 mg capsule 40 mg PO DAILY #90 caps 09/1012/15/24 famotidine 20 mg tablet See Rx Instructions .Route 0 10/26/24 12/15/24 .COMPLEX #90 tabs apixaban 5 mg tablet (Eliquis) See Rx Instructions .Ro [place] sioux 12/15/24 .COMPLEX #74 tabs Previous Rx's ?Medication ?Instructions ?Recorded ibuprofen 600 mg tablet 600 mg PO BID PRN pain #180 tabs 01/31/23 Orthopaedic shoes #1 ea 12/06/23 cholecalciferol (vitamin D3) 50 See Rx Instructions .R oute 12/17/23 mcg (2,000 unit) capsule .COMPLEX #90 caps vilazodone 40 mg tablet 40 mg PO DAILY #90 tabs 10/03 buspirone 15 mg tablet See Rx Instructions PO TID # 270 02/04/24 tabs ropinirole 3 mg tablet 3 mg PO QHS #90 tabs 4 acetaminophen 500 mg tablet 500 mg PO Q6H PRN pain #60 tabs 03/03/24 triamcinolone acetonide 0.1 % 1 applic topical DAILY P RN itching 07/23/24 topical cream #80 grams metoprolol succinate 25 mg 25 mg PO .bedtime #90 tabs 07/28/24 tablet,extended release 24 hr trazodone 50 mg tablet 50 - 100 mg (1 - 2 x 50 mg) PO QHS 09/03/24 PRN insomnia #180 tabs atomoxetine 40 mg capsule 40 mg PO DAILY #90 caps 09/10 02/04 famotidine 20 mg tablet See Rx Instructions .Route 0 10/26/24 .COMPLEX #90 tabs apixaban 5 mg tablet (Eliquis) See Rx Instructions .Ro [place] 12/15/24 .COMPLEX #74 tabs Allergies Allergy/AdvReac Type Severity Reaction Status Date / Time benzalkonium chloride (From Allergy Unknown unknown Verified 12/15/24 10:35 Travatan) brimonidine (From Alphagan P) Allergy Unknown unknown Verified 12/15/24 10:35 meperidine HCl (From Demerol) Allergy Unknown UNSURE Verified 12/15/24 10:35 travoprost (From Travatan) Allergy Unknown unknown Verified 12/15/24 10:35 lactose AdvReac Intermediate Diarrhea Verified 12/15/24 10:35 BLUE SURGICAL SCRUB? AdvReac Intermediate RASH, Uncoded 12/15/24 10:35 ITCHING General Stated Complaint: Chest Pain SHAGUFTA: 3 Review of Systems All systems reviewed & are unremarkable except as noted in HPI and below Exam Narrative Exam Narrative: GENERAL APPEARANCE: Well-nourished, non-toxic, awake and alert, atraumatic, no acute distress. SKIN: Warm, pink, dry, intact, without rashes/lesions/ulcerations. HEAD: Normocephalic, atraumatic, normal hair distribution for gender/age. EYES: Normal conjunctiva, no exudates on lids/lashes. ENT: Nares patent, no circumoral cyanosis, no facial swelling NECK: Supple, trachea midline, painless cervical ROM. LUNGS/CHEST: Lungs CTA bilaterally- no rhonchi/rales/wheezes diffusely, non- labored respirations, normal A/P diameter, symmetrical expansion, no chest wall deformity, no tenderness/crepitus HEART (CV/PV): Regular rate and rhythm without murmur, no peripheral edema, no JVD. ABDOMEN: Soft, non-distended, no guarding, no tenderness. MSK: Normal ROM, no swelling/deformity to bilateral UEs or LEs, moving all extremities without weakness, no cyanosis, spine midline without tenderness, normal curvature. NEURO: Mental Status AAOx4 - alert to person, place, time, events No facial droop, no forehead involvement. Motor: No focal weakness - strength 5/5 in bilateral UEs and LEs, proximal and distal, symmetric. Sensory: sensation intact to light touch globally. Gait normal: patient ambulated without ataxia into ED room with cane at baseline PSYCH: euthymic, cooperative, pleasant, appropriate speech Course Vital Signs Vital signs: Vital Signs Temperature 36.7 C 12/15/24 10:22 Pulse 62 12/15/24 10:22 Respiratory Rate 16 12/15/24 10:22 Blood Pressure 140/69 12/15/24 10:22 Pulse Oximetry 96 12/15/24 10:22 Temperature 36.7 C 12/15/24 10:22 Temperature Source Oral 12/15/24 10:22 Pulse 65 12/15/24 11:46 Pulse 66 12/15/24 11:46 Respiratory Rate 16 12/15/24 11:46 Respiratory Effort Normal 12/15/24 10:32 Respiratory Depth Normal 12/15/24 10:32 Respiratory Pattern Normal 12/15/24 10:32 Blood Pressure 154/76 H 12/15/24 11:46 Blood Pressure Mean 104 12/15/24 11:46 Pulse Oximetry 96 12/15/24 11:46 Oxygen Delivery Method Room Air 12/15/24 10:22 Oxygen Flow Rate 0 12/15/24 10:22 Lab/Test Results Lab/Test Results: Laboratory Tests Range/Units 12/15/24 11:08 WBC (4.4-10.8) 10^3/uL 4.77 RBC (3.93-5.22) 10^6/uL 3.85 L Hgb (11.2-15.7) g/dL 12.7 Hct (36.0-46.0) % 38.1 MCV (80-95) fL 99 H MCH (27.0-33.0) pg 33.0 MCHC (32.0-36.0) % 33.3 RDW (11.7-14.6) % 12.2 Plt Count (130-400) 10^3/uL 161 MPV (8.0-11.0) fL 10.1 Immature Gran % % 0.4 Neutrophils % % 70.9 Lymphocytes % % 21.0 Monocytes % % 6.5 Eosinophils % % 0.4 Basophils % % 0.8 Nucleated RBC % (0.0-0.3) % 0.0 Absolute Neutrophils (1.2-6.7) 10^3/uL 3.38 Absolute Lymphocytes (1.2-3.4) 10^3/uL 1.00 L Absolute Monocytes (0.1-0.8) 10^3/uL 0.31 Absolute Eosinophils (0.0-0.7) 10^3/uL 0.02 Absolute Basophils (0.0-0.2) 10^3/uL 0.04 D-Dimer Cancelled Sodium (136-145) mmol/L 139 Potassium (3.5-5.1) mmol/L 3.6 Chloride (98-107) mmol/L 106 Carbon Dioxide (21.0-32.0) mmol/L 28.7 Anion Gap (3-11) mmol/L 4.3 BUN (7-18) mg/dL 17 Creatinine (0.55-1.02) mg/dL 0.6 Est GFR (CKD-EPI 2020) (mL/min/1.73m2) 91.82 Glucose (74-106) mg/dL 118 H Calcium (8.5-10.1) mg/dL 8.9 Magnesium (1.8-2.4) mg/dL 2.0 Total Bilirubin (0.2-1.0) mg/dL 0.4 AST (15-37) U/L 26 ALT (14-59) U/L 22 Alkaline Phosphatase (46-116) U/L 86 Troponin I (<or=51) ng/L 7 Total Protein (6.4-8.2) g/dL 7.1 Albumin (3.4-5.0) g/dL 3.8 Lipase (<78) U/L 36 TSH (0.36-3.74) uIU/mL 0.37 Medical Decision Making This dictation utilizes [id number] dictation software and may contain unedited grammatical errors. 79 year-old female presents to ED today by POV/ambulating with a chief complaint of chest pain, shortness of breath with onset yesterday. Quality described as sharp pains in her chest, radiating to both arms and legs, with sweating, no radiation to syncope, tachycardia, respiratory distress. Severity is described as moderate. Palliating factors include nothing specific. Provoking factors include nothing specific. Events leading up to the incident/Associated Symptoms: Patient denies history of heart attacks. Patients' medical history: Hypertension, aortic stenosis, anemia, venous stasis dermatitis of bilateral lower extremities, ventricular ectopy, syncope, peripheral artery disease, peripheral neuropathy, supraventricular tachycardia. Family and social history: Denies EtOH, lives at home, has dogs and birds. Pertinent exam findings / vital signs include benign cardiopulmonary exam, anxious, benign abdomen, no hypoxia or tachypnea. Differential / pathologies of concern include PE, ACS, pneumonia, anxiety, pneumothorax. Diagnostic studies of: - CBC, CMP, troponin, lipase, TSH, magnesium, D-dimer, EKG, CTA chest PE study. - CBC shows no leukocytosis, no anemia - CMP without actionable abnormality - Troponin negative with reliable onset - Lipase negative - TSH within normal limits - D-dimer 2950 - EKG without S1Q3T3 or other ischemic appearing changes - CTA chest shows multiple left-sided pulmonary emboli without RV strain at this time Interventions of: -75mg SubQ Lovenox, PESI simplified score moderate risk- reasonable to admit- U/S bilateral DVT studies. ED Course/Assessment/Plan: 79-year-old female presents with chest pain yesterday, has left-sided chest pain that radiated down both her arms, no ischemic changes on EKG, elevated D-dimer, CTA of the chest showed multiple PEs and 3 different lobes of the left lung, the re is no right heart strain yet but they are somewhat significant, there is no saddle PE, I consulted with Dr. Ruby who admits patient with moderate risk PEs, subQ Lovenox given, admitted 1500. Disposition of Multiple Pulmonary Emboli. Patient verbalized understanding of the plan and return to ED criteria and engaged in shared decision making. Medical Records Medical records reviewed: Yes I reviewed the patient's medical records. Imaging Data Radiologic Study: Attestation: I personally reviewed and interpreted this imaging study as follows: Imaging: CT Scan Radiologist's impression: EXAM: CT CHEST PE CTA CLINICAL HISTORY: CP, elev d-dimer. TECHNIQUE: Imaging Protocol: Axial CT angiography was performed with multi- slice acquisition and multi-planar and/or 3D reconstructions. Lung Computer Aided Detection (CAD) was utilized. CONTRAST MATERIAL: Intravenous: Omnipaque 350 contrast volume:70 mL COMPARISON: CT CT ABDOMEN PELVIS W from 05/05/2020 CR XR CHEST 2V PA LATERAL from 10/07/2024 FINDINGS: Tracheobronchial tree: Patent where visualized. No bronchiectasis. Pulmonary parenchyma: There is atelectasis seen in the lung bases. No focal consolidating infiltrates are present. No architectural distortion. Pulmonary Arteries: There are pulmonary emboli seen to branches of the left upper, lower and lingular lobes. There is no evidence of a saddle embolus. The RV to LV ratio is less than 1. Mediastinum and Edelmira: No dominant adenopathy or fluid collection. The esophagus is unremarkable. There is a small hiatal hernia. Visualized thyroid gland: Unremarkable. Pleura: No effusion or pneumothorax. Heart: The heart is not dilated. There is mild coronary artery calcification. No pericardial effusion. Aorta: Thoracic aorta non-dilated. Atherosclerotic calcification is present. There is no evidence of dissection. Upper abdomen: There are hepatic cysts again noted. Soft tissues: Unremarkable. Bones: Within normal limits for the patient's age. IMPRESSION: 1. Pulmonary emboli seen in branches of the left upper, lower and lingular lobes. There is no evidence of a saddle embolus. 2. Bilateral atelectasis in the lungs. 3. Findings were discussed with Barry Bazzi at 2 p.m. on 12/15/2024. Lab Data Lab results reviewed: Yes I reviewed the patient's lab results. Labs: Laboratory Tests Range/Units 12/15/24 12/15/24 11:08 11:45 WBC (4.4-10.8) 10^3/uL 4.77 RBC (3.93-5.22) 10^6/uL 3.85 L Hgb (11.2-15.7) g/dL 12.7 Hct (36.0-46.0) % 38.1 MCV (80-95) fL 99 H MCH (27.0-33.0) pg 33.0 MCHC (32.0-36.0) % 33.3 RDW (11.7-14.6) % 12.2 Plt Count (130-400) 10^3/uL 161 MPV (8.0-11.0) fL 10.1 Immature Gran % % 0.4 Neutrophils % % 70.9 Lymphocytes % % 21.0 Monocytes % % 6.5 Eosinophils % % 0.4 Basophils % % 0.8 Nucleated RBC % (0.0-0.3) % 0.0 Absolute Neutrophils (1.2-6.7) 10^3/uL 3.38 Absolute Lymphocytes (1.2-3.4) 10^3/uL 1.00 L Absolute Monocytes (0.1-0.8) 10^3/uL 0.31 Absolute Eosinophils (0.0-0.7) 10^3/uL 0.02 Absolute Basophils (0.0-0.2) 10^3/uL 0.04 D-Dimer Cancelled 2950 H Sodium (136-145) mmol/L 139 Potassium (3.5-5.1) mmol/L 3.6 Chloride (98-107) mmol/L 106 Carbon Dioxide (21.0-32.0) mmol/L 28.7 Anion Gap (3-11) mmol/L 4.3 BUN (7-18) mg/dL 17 Creatinine (0.55-1.02) mg/dL 0.6 Est GFR (CKD-EPI 2020) (mL/min/1.73m2) 91.82 Glucose (74-106) mg/dL 118 H Calcium (8.5-10.1) mg/dL 8.9 Magnesium (1.8-2.4) mg/dL 2.0 Total Bilirubin (0.2-1.0) mg/dL 0.4 AST (15-37) U/L 26 ALT (14-59) U/L 22 Alkaline Phosphatase (46-116) U/L 86 Troponin I (<or=51) ng/L 7 Total Protein (6.4-8.2) g/dL 7.1 Albumin (3.4-5.0) g/dL 3.8 Lipase (<78) U/L 36 TSH (0.36-3.74) uIU/mL 0.37 Quality:SDOH Health Related Social Needs: Health related social needs lonely/isolated PFSH All Active Problems Multiple pulmonary emboli (Acute) Facial lesion (Acute) Tremor (Acute) Venous stasis dermatitis (Acute) Venous stasis dermatitis of both lower extremities (Acute) Ventricular ectopy (Acute) Syncope (Chronic) Poor balance (Acute) per PT evaluation Idiopathic neuropathy (Acute) Cervicalgia (Acute) Arthritis of carpometacarpal (CMC) joint of left thumb (Acute) Status post trapezial arthroplasty: 03/03/2024 Skull fracture (Acute) Concussion (Acute) ADD (attention deficit disorder) (Acute) Arthritis of right glenohumeral joint (Chronic) Intra-articular 80 mg injection: 04/15/2023 Neuropathy (Acute) Nail dystrophy (Acute) PAD (peripheral artery disease) (Acute) Venous insufficiency (Acute) Peripheral neuropathy (Acute) Hypertension (Chronic ~05/2022) Trochanteric bursitis, right hip (Acute) DEPO MEDROL 11/11/23; 02/17/24 Radicular pain of right lower extremity (Acute ~02/2022) Supraventricular tachycardia (Chronic ~08/2021) Started 2013 with repeat crew foreman 08/2021 validating ?Stimulant contributory Cardiology consult 01/2022--consider BB or diltiazem Scoliosis of thoracic spine (Chronic) R convex scoliosis Arthritis of carpometacarpal joint (Acute) left Most recent 40 mg Depo-Medrol injection: 04/15/2023 Heartburn (Chronic) Famotidine 20mg daily Bladder incontinence (Acute) Kegels & bladder training instruction Dysarthria-clumsy hand syndrome (Acute) Mild aortic stenosis (Acute ~06/2019) ECHO 06/2019; 07/2020 (stable); 2022 ECHO normalized (no aortic stenosis); recheck in 1-2y Elevated MCV (Acute) Trigger finger, right middle finger (Chronic) [facility] Dr. Meza Osteopenia (Chronic) DEXA 2016 & 2019, 2020 Insomnia (Chronic) RX Trazodone Depression (Chronic 08/31/11) NKHS Restless legs syndrome (Chronic 02/04/17) Years; Dr. Ruffin Neuro; medication helps (Requip & Shirlene PRN; Shirlene 300mg HS PRN discontinued 08/14/2019) Spinal stenosis of lumbar region (Acute 02/04/17) s/p Neurosurgery; 02/2022 lumbar x-ray: lumbar spondylosis, convex scoliosis Hypercholesterolemia (Chronic 02/04/17) FRS 12.8% (2021)-->not a candidate for statin Arthralgia of hip (Acute 02/04/17) R, muscular; PT Glaucoma (Chronic 02/04/17) Medical History Elevated BP without diagnosis of hypertension (~04/2022) Palpitations (~07/2021) H/O supraventricular tachycardia (~2013) 2013 & 2017 cardiac monitors; 2021 Closed fracture distal radius and ulna (10/22/20) right 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 other--see 08/14/2019 note; Neuro 03/2019; normal brain MRI and labs [id number] [facility] consult 2020 & 2021--no [facility]; they are following History of Lyme disease Early Disseminated-10/29 Dr. Manuel Lucia Atrophic vaginitis (09/07/13) Iron deficiency (02/04/17) Lumbar pain with radiation down left leg Improved s/p lumbar spine fusion; stable; Dr. Devi Ankle fracture Ankle sprain Hip fx Surgical History History of lumbar discectomy L4-5 Carpal tunnel syndrome, right (07/11/21) s/p ECTR DOS: 07/11/2021 History of arthroplasty of right knee History of cataract extraction B/L eyes [facility] Dr. Parks, R then L (pending 11/2019) History of knee replacement B/L Acquired absence of both cervix and uterus (08/31/11) Status post cervical spinal arthrodesis (02/04/17) History of lumbar laminectomy (~2013) Varicose vein stripping Spinal Fusion Lumbar L4-S1; also cervical Oophrectomy, Right with hyst 1997 Oophrectomy, Left Age 20 for cyst L knee repair Vaginal hysterectomy 1997 - Prolapse Family History Mother Parkinson disease Heart disease Hypertension Brother Depression Diabetes Heart disease Hypertension Father Heart disease Hypertension Social History Smoking/Tobacco Use Status: Former Tobacco Use Quit Date: 05/13/89 Tobacco: How many years used: 10 Smoking risk assessment performed?: Yes Alcohol Intake: never Drug use: Never Substance use type: does not use Counseling given: No Adopted: No Caregiver/Support person: No Foster care: No Household members: family Housing: house Number of Children: 2 Communication Needs: Corrective Lenses Do you need help understanding health information?: Rarely current occupation: Retired Sexually active: Yes Do you think of yourself as: straight/heterosexual Current gender identity: female What is your relationship status?: How often do you talk on the phone with friends or family?: once per week How often do you get together with friends or relatives?: once per week Panel score (0-1 are the most socially isolated patients): 0 What type of physical activity do you participate in: none Seatbelt use: always Working smoke detector in home: Yes Fire extinguisher in home: Yes Carbon monox detector in home: Yes Do you feel safe at home: Yes Do you feel safe in your relationship?: Yes
[2024-12-15 12:21] LABS: D-Dimer 2950 ng/mlFEU (<500)
[2024-12-15] MEDS: Omnipaque 350 MG/ML 100 ML BTL 70 ML IJ (13:23)
[2024-12-15] MEDS: Normal Saline - Diluent 50 ML VIAL IJ (13:23)
--- NOTE | 2024-12-15 13:35 | DI.CT_ITS ---
Exam(s) CT CHEST PE CTA EXAM: CT CHEST PE CTA CLINICAL HISTORY: CP, elev d-dimer. TECHNIQUE: Imaging Protocol: Axial CT angiography was performed with multi- slice acquisition and multi-planar and/or 3D reconstructions. Lung Computer Aided Detection (CAD) was utilized. CONTRAST MATERIAL: Intravenous: Omnipaque 350 contrast volume:70 mL COMPARISON: CT CT ABDOMEN PELVIS W from 05/05/2020 CR XR CHEST 2V PA LATERAL from 10/07/2024 FINDINGS: Tracheobronchial tree: Patent where visualized. No bronchiectasis. Pulmonary parenchyma: There is atelectasis seen in the lung bases. No focal consolidating infiltrates are present. No architectural distortion. Pulmonary Arteries: There are pulmonary emboli seen to branches of the left upper, lower and lingular lobes. There is no evidence of a saddle embolus. The RV to LV ratio is less than 1. Mediastinum and [place]: No dominant adenopathy or fluid collection. The esophagus is unremarkable. There is a small hiatal hernia. Visualized thyroid gland: Unremarkable. Pleura: No effusion or pneumothorax. Heart: The heart is not dilated. There is mild coronary artery calcification. No pericardial effusion. Aorta: Thoracic aorta non-dilated. Atherosclerotic calcification is present. There is no evidence of dissection. Upper abdomen: There are hepatic cysts again noted. Soft tissues: Unremarkable. Bones: Within normal limits for the patient's age. IMPRESSION: 1. Pulmonary emboli seen in branches of the left upper, lower and lingular lobes. There is no evidence of a saddle embolus. 2. Bilateral atelectasis in the lungs. 3. Findings were discussed with Barry Bazzi at 2 p.m. on 12/15/2024. RADIATION DOSE DELIVERED: 96.29mGy.cm Total DLP DATA REPOSITORY: All CT scans at this facility are submitted to the National Radiology Data Registry (NRDR) Dose Index Registry (DIR) with the [employer] ([employer]). RADIATION OPTIMIZATION: All CT scans at this facility use at least one of these dose optimization techniques: automated exposure control; mA and/or kV adjustment per patient size (includes targeted exams where dose is matched to clinical indication); or iterative reconstruction.
[2024-12-15] MEDS: Enoxaparin 80 MG/0.8 ML SYR 75 MG SC (14:59)
[2024-12-15 15:03] LABS: INR 1.0 (0.9-1.1); PTT Activated 23.7 sec (20.6-30.2); Prothrombin Time 10.4 sec (9.1-11.1)
--- NOTE | 2024-12-15 15:07 | HPE_ITS ---
Date of service: 12/15/24 Time of Service: 15:08 Assessment and Plan Assessment and plan (1) Multiple pulmonary emboli: Status: Acute Assessment and plan: Noted on CT. She is low risk per PESI, but with mulitple emboli, living alone and some concern for memory and her preference, we decided to observe overnight and start therapy here. b-vandana might also be masking tachycardia. venous stasis is a risk factor, get LE dopplers Start on enoxaparin, apixaban sent to pharmacy to check coverage, plan to transition to this prior to discharge. (2) Hypertension: Status: Chronic Assessment and plan: A little high now, but she is anxious. continue outpatient therapy (3) Depression: Status: Chronic Assessment and plan: discussed her anxieties around the diagnosis and prognosis, supports. continue outpatient therapies for mood, ADD, sleep (4) Mild aortic stenosis: Status: Acute Assessment and plan: still mild on recent echo (5) Restless legs syndrome: Status: Chronic Assessment and plan: continue ropinerole (6) Discharge planning issues: Status: Acute Assessment and plan: As above observe overnight at least, make sure chronic treatment available and affordable before discharge. History of Present Illness History of Present Illness Chief Complaint: chest burning Narrative: 79 yo F with history of chronic venous stasis of the lower extremities, aortic stenosis, HTN, and depression/anxiety who presented with intermittent burning chest discomfort radiating to her arms. Sensation started the day prior to admission. Insidious onset some time in morning while she was having a yard sale. Burning sensation in upper chest, mild to moderate, radiationg to both arms. Associated with lightheadeness and some nausea, but not shortness of breath or palpitations. Would come and go lasting about a minute and returning in a few minutes, lasted all day. She had never had this before. Not affected by eating or clearly by exertion. Discomofort continued and she felt extra tired today so came into the hospital. She has had some leg pain right more than left after hurting her right toe recently. No clear heat or asymmetric swelling. She has vein issues in her legs so they are often a little swollen. No history of bleeding other than heavy menses before hysterectomy. No h/o ulcers. Has heartburn at times, this felt different. Review of Systems All systems reviewed & are unremarkable except as noted in HPI and below Constitutional Constitutional: Denies fever(s), Denies night sweats and Denies weight loss Integumentary/Breasts Skin/Breast: Denies breast pain, Denies breast mass and Denies rash PFSH All Active Problems Discharge planning issues (Acute) DVT prophylaxis (Acute) Multiple pulmonary emboli (Acute) Facial lesion (Acute) Tremor (Acute) Venous stasis dermatitis (Acute) Venous stasis dermatitis of both lower extremities (Acute) Ventricular ectopy (Acute) Syncope (Chronic) Poor balance (Acute) per PT evaluation Idiopathic neuropathy (Acute) Cervicalgia (Acute) Arthritis of carpometacarpal (CMC) joint of left thumb (Acute) Status post trapezial arthroplasty: 03/03/2024 Skull fracture (Acute) Concussion (Acute) ADD (attention deficit disorder) (Acute) Arthritis of right glenohumeral joint (Chronic) Intra-articular 80 mg injection: 04/15/2023 Neuropathy (Acute) Nail dystrophy (Acute) PAD (peripheral artery disease) (Acute) Venous insufficiency (Acute) Peripheral neuropathy (Acute) Hypertension (Chronic ~05/2022) Trochanteric bursitis, right hip (Acute) DEPO MEDROL 11/11/23; 02/17/24 Radicular pain of right lower extremity (Acute ~02/2022) Supraventricular tachycardia (Chronic ~08/2021) Started 2013 with repeat playground monitor 08/2021 validating ?Stimulant contributory Cardiology consult 01/2022--consider BB or diltiazem Scoliosis of thoracic spine (Chronic) R convex scoliosis Arthritis of carpometacarpal joint (Acute) left Most recent 40 mg Depo-Medrol injection: 04/15/2023 Heartburn (Chronic) Famotidine 20mg daily Bladder incontinence (Acute) Kegels & bladder training instruction Dysarthria-clumsy hand syndrome (Acute) Mild aortic stenosis (Acute ~06/2019) ECHO 06/2019; 07/2020 (stable); 2022 ECHO normalized (no aortic stenosis); recheck in 1-2y Elevated MCV (Acute) Trigger finger, right middle finger (Chronic) [facility] Dr. Meza Osteopenia (Chronic) DEXA 2016 & 2020 Insomnia (Chronic) RX Trazodone Arthralgia of hip (Acute 02/04/17) R, muscular; PT Depression (Chronic 08/31/11) [facility] Glaucoma (Chronic 02/04/17) Hypercholesterolemia (Chronic 02/04/17) FRS 12.8% (2021)-->not a candidate for statin Restless legs syndrome (Chronic 02/04/17) Years; Dr. 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 other--see 08/14/2019 note; Neuro 03/2019; normal brain MRI and labs [id number] [facility] consult 2020 & 2021--no [facility]; they are following History of Lyme disease Early Disseminated-10/29 Dr. Manuel Lucia Atrophic vaginitis (09/07/13) Iron deficiency (02/04/17) Lumbar pain with radiation down left leg Improved s/p lumbar spine fusion; stable; Dr. Devi Ankle fracture Ankle sprain Hip fx Surgical History History of lumbar discectomy L4-5 Carpal tunnel syndrome, right (07/11/21) s/p ECTR DOS: 07/11/2021 History of arthroplasty of right knee History of cataract extraction B/L eyes [facility] Dr. Parks, R then L (pending 11/2019) History of knee replacement B/L Acquired absence of both cervix and uterus (08/31/11) Status post cervical spinal arthrodesis (02/04/17) History of lumbar laminectomy (~2013) Varicose vein stripping Spinal Fusion Lumbar L4-S1; also cervical Oophrectomy, Right with hyst 1997 Oophrectomy, Left Age 20 for cyst L knee repair Vaginal hysterectomy 1997 - Prolapse Family History Mother Parkinson disease Heart disease Hypertension Brother Depression Diabetes Heart disease Hypertension Father Heart disease Hypertension Social History (Updated 12/15/24 @ 15:33 by Danny Atkins) Smoking/Tobacco Use Status: Former Tobacco Use Quit Date: 05/13/89 Tobacco: How many years used: 10 Smoking risk assessment performed?: Yes Alcohol Intake: never Drug use: Never Substance use type: does not use Counseling given: No Adopted: No Caregiver/Support person: No Foster care: No Household members: family Housing: house Number of Children: 2 Communication Needs: Corrective Lenses Do you need help understanding health information?: Rarely current occupation: Retired Sexually active: Yes Do you think of yourself as: straight/heterosexual Current gender identity: female What is your relationship status?: How often do you talk on the phone with friends or family?: once per week How often do you get together with friends or relatives?: once per week Panel score (0-1 are the most socially isolated patients): 0 What type of physical activity do you participate in: none Seatbelt use: always Working smoke detector in home: Yes Fire extinguisher in home: Yes Carbon monox detector in home: Yes Do you feel safe at home: Yes Do you feel safe in your relationship?: Yes Additional Social history: , lives alone in [facility] with dog and 2 parakeets. 2 children in area. Meds Allergies and Home Medications Allergies Allergy/AdvReac Type Severity Reaction Status Date / Time benzalkonium chloride (From Allergy Unknown unknown Verified 12/15/24 10:35 Travatan) brimonidine (From Alphagan P) Allergy Unknown unknown Verified 12/15/24 10:35 meperidine HCl (From Demerol) Allergy Unknown UNSURE Verified 12/15/24 10:35 travoprost (From Travatan) Allergy Unknown unknown Verified 12/15/24 10:35 lactose AdvReac Intermediate Diarrhea Verified 12/15/24 10:35 BLUE SURGICAL SCRUB? AdvReac Intermediate RASH, Uncoded 12/15/24 10:35 ITCHING Home Medications ?Medication ?Instructions ?Recorded ?Confirmed ?Type ibuprofen 600 mg tablet 600 mg PO BID PRN pain #180 tabs 01/31/23 12/15/24 Rx Orthopaedic shoes #1 ea 12/06/23 12/15/24 Rx cholecalciferol (vitamin D3) 50 See Rx Instructions .R oute 12/17/23 12/15/24 Rx mcg (2,000 unit) capsule .COMPLEX #90 caps lactase 9,000 unit tablet (Lactaid 9,000 unit PO ONCE PRN 01/16/24 12/15/24 History Fast Act) vilazodone 40 mg tablet 40 mg PO DAILY #90 tabs 10/0312/15/24 Rx buspirone 15 mg tablet See Rx Instructions PO TID # 270 02/04/24 12/15/24 Rx tabs ropinirole 3 mg tablet 3 mg PO QHS #90 tabs 4 12/15/24 Rx acetaminophen 500 mg tablet 500 mg PO Q6H PRN pain #60 tabs 03/03/24 12/15/24 Rx triamcinolone acetonide 0.1 % 1 applic topical DAILY P RN itching 07/23/24 12/15/24 Rx topical cream #80 grams metoprolol succinate 25 mg 25 mg PO .bedtime #90 tabs 07/28/24 12/15/24 Rx tablet,extended release 24 hr trazodone 50 mg tablet 50 - 100 mg (1 - 2 x 50 mg) PO QHS 09/03/24 12/15/24 Rx PRN insomnia #180 tabs atomoxetine 40 mg capsule 40 mg PO DAILY #90 caps 09/1012/15/24 Rx famotidine 20 mg tablet See Rx Instructions .Route 0 10/26/24 12/15/24 Rx .COMPLEX #90 tabs apixaban 5 mg tablet (Eliquis) See Rx Instructions .Ro swinomish 12/15/24 Rx .COMPLEX #74 tabs Exam Narrative Exam Narrative: GEN: Alert and oriented x 4, pleasant and cooperative, gives linear history. No acute distress at rest. HEENT: Head atraumatic. Conjunctiva clear, no icterus. PEERL, EOMI. no rhinorrhea. MMM, OP benign. Neck is supple with no masses or lymphadenopathy, trachea midline LUNGS: CTAB with normal effort CV: RRR with 2/6 murmur loudest RUSB to neck, also back. No gallops or rubs. ABD: active bowel sounds, soft, nontender and nondistended. No masses. EXT: no cyanosis, clubbing. 1+ severino ankle edema. Legs/calves not tender, no cords. MSK: No joint redness or swelling NEURO: CN 2-12 grossly intact. Normal movement of 4 extremities. Normal speech and coordination. No tremor SKIN: No rashes or open wounds. PSYCH: Anxious mood and affect, normal thought process Results Imaging CT scan - chest: report reviewed (1. Pulmonary emboli seen in branches of the left upper, lower and lingular lobes. There is no evidence of a saddle embolus. 2. Bilateral atelectasis in the lungs. ) EKG: report reviewed and image reviewed (NSR 60, borderline L axix, LBBB. No ST segment changes, T waves flat ) Imaging Studies: Head CT: No acute intracranial process. Labs 12/15/24 11:08 12/15/24 11:08 Labs: Laboratory Results - last 24 hr 12/15/24 12/15/24 12/15/24 11:08 11:45 14:45 WBC 4.77 RBC 3.85 L Hgb 12.7 Hct 38.1 MCV 99 H MCH 33.0 MCHC 33.3 RDW 12.2 Plt Count 161 MPV 10.1 Immature Gran % 0.4 Neutrophils % 70.9 Lymphocytes % 21.0 Monocytes % 6.5 Eosinophils % 0.4 Basophils % 0.8 Nucleated RBC % 0.0 Absolute Neutrophils 3.38 Absolute Lymphocytes 1.00 L Absolute Monocytes 0.31 Absolute Eosinophils 0.02 Absolute Basophils 0.04 PT 10.4 INR 1.0 APTT 23.7 D-Dimer Cancelled 2950 H Sodium 139 Potassium 3.6 Chloride 106 Carbon Dioxide 28.7 Anion Gap 4.3 BUN 17 Creatinine 0.6 Est GFR (CKD-EPI 2020) 91.82 Glucose 118 H Calcium 8.9 Magnesium 2.0 Total Bilirubin 0.4 AST 26 ALT 22 Alkaline Phosphatase 86 Troponin I 7 Total Protein 7.1 Albumin 3.8 Lipase 36 TSH 0.37 Last Vital Signs Temp 36.7 C 12/15/24 10:22 Pulse 66 12/15/24 14:31 Resp 15 12/15/24 14:31 BP 176/71 H 12/15/24 14:31 Pulse Ox 98 08/05/25 14:31 Time Spent Time spent with Patient: 55-74 minutes Time was spent: preparing to see the patient(eg.review tests), obtaining and/or reviewing separately otained hiistory, ordering medications,tests, procedures, referring, communicating with other health tree care foreman, indepentently interpreting results, counseling the patient and care coordination
--- NOTE | 2024-12-15 16:25 | W.PC.ACHO ---
Registration Status: REG ER Primary Language: Preferred Language: Yakut ED Information & Data Chief Complaint Chest Pain 12/15/24 11:51 Triage Note chest burning radiates to 12/15/24 10:22 arms, multiple episodes yesterday x1 today, feels flushed and sweaty when these episodes occurs Medical / Surgical History (Last Reviewed 12/15/24 @ 15:33 by Danny Atkins) Elevated BP without diagnosis of hypertension (~04/2022) Palpitations (~07/2021) H/O supraventricular tachycardia (~2013) Closed fracture distal radius and ulna (10/22/20) Peroneal tendonitis of right lower extremity Srinivas Bonnet syndrome Fracture of fifth metatarsal bone of right foot (02/29/20) Memory impairment History of Lyme disease Atrophic vaginitis (09/07/13) Iron deficiency (02/04/17) Lumbar pain with radiation down left leg Ankle fracture Ankle sprain Hip fx (Last Reviewed 12/15/24 @ 15:33 by Danny Atkins) History of lumbar discectomy Carpal tunnel syndrome, right (07/11/21) History of arthroplasty of right knee History of cataract extraction History of knee replacement Acquired absence of both cervix and uterus (08/31/11) Status post cervical spinal arthrodesis (02/04/17) History of lumbar laminectomy (~2013) Varicose vein stripping Spinal Fusion Oophrectomy, Right Oophrectomy, Left L knee repair Vaginal hysterectomy Most Recent Vital Signs Temperature 36.7 C 12/15/24 10:22 Temperature Source Oral 12/15/24 10:22 Pulse 65 12/15/24 15:27 Pulse 58 L 12/15/24 15:30 Respiratory Rate 15 12/15/24 15:30 Respiratory Effort Normal 12/15/24 15:11 Respiratory Depth Normal 12/15/24 15:11 Respiratory Pattern Normal 12/15/24 15:11 Blood Pressure 157/109 H 12/15/24 15:27 Blood Pressure Mean 125 12/15/24 15:27 Pulse Oximetry 98 12/15/24 15:27 Oxygen Delivery Method Room Air 12/15/24 15:27 Oxygen Flow Rate 0 12/15/24 15:27 Allergies benzalkonium chloride (From Travatan) Allergy (Unknown, Verified 12/15/24 10:35) unknown Red and itchy eyes brimonidine (From Alphagan P) Allergy (Unknown, Verified 12/15/24 10:35) unknown Ton Pt. states she doesn't remember the reaction meperidine HCl (From Demerol) Allergy (Unknown, Verified 12/15/24 10:35) UNSURE 12/07/20-pt isn't aware of allergy to demerol-LH travoprost (From Travatan) Allergy (Unknown, Verified 12/15/24 10:35) unknown red, itchy eyes lactose Adverse Reaction (Intermediate, Verified 12/15/24 10:35) Diarrhea BLUE SURGICAL SCRUB? Adverse Reaction (Intermediate, Uncoded 12/15/24 10:35) RASH, ITCHING Active Medications Generic Name Dose Route Start Last Admin Trade Name Freq PRN Reason Stop Dose Admin Iohexol 70 ml 12/15/24 13:30 12/15/24 13:23 Omnipaque 350 Mg/Ml 100 Ml Btl IJ 01/14/25 23:59 70 ml DIRECTED MALENA Administration Sodium Chloride 50 ml 12/15/24 13:30 12/15/24 13:23 Normal Saline - Diluent 50 Ml Vial IJ 50 ml .FOR DI USE MALENA Administration IV IV Catheter Gauge [Right Hand] 20 IV Catheter Gauge [Right Wrist 18 ] Diet Orders Category Date Time Status Heart Healthy Eating [DIET] Nutrition 12/15/24 Dinner Active Diagnostics 12/15/24 12/15/24 12/15/24 Range/Units 14:45 11:45 11:08 WBC 4.77 (4.4-10.8) 10^3/uL RBC 3.85 L (3.93-5.22) 10^6/uL Hgb 12.7 (11.2-15.7) g/dL Hct 38.1 (36.0-46.0) % MCV 99 H (80-95) fL MCH 33.0 (27.0-33.0) pg MCHC 33.3 (32.0-36.0) % RDW 12.2 (11.7-14.6) % Plt Count 161 (130-400) 10^3/uL MPV 10.1 (8.0-11.0) fL Immature Gran % 0.4 % Neutrophils % 70.9 % Lymphocytes % 21.0 % Monocytes % 6.5 % Eosinophils % 0.4 % Basophils % 0.8 % Nucleated RBC % 0.0 (0.0-0.3) % Absolute Neutrophils 3.38 (1.2-6.7) 10^3/uL Absolute Lymphocytes 1.00 L (1.2-3.4) 10^3/uL Absolute Monocytes 0.31 (0.1-0.8) 10^3/uL Absolute Eosinophils 0.02 (0.0-0.7) 10^3/uL Absolute Basophils 0.04 (0.0-0.2) 10^3/uL PT 10.4 (9.1-11.1) sec INR 1.0 (0.9-1.1) APTT 23.7 (20.6-30.2) sec D-Dimer 2950 H Cancelled Sodium 139 (136-145) mmol/L Potassium 3.6 (3.5-5.1) mmol/L Chloride 106 (98-107) mmol/L Carbon Dioxide 28.7 (21.0-32.0) mmol/L Anion Gap 4.3 (3-11) mmol/L BUN 17 (7-18) mg/dL Creatinine 0.6 (0.55-1.02) mg/dL Est GFR (CKD-EPI 2020) 91.82 (mL/min/1.73m2) Glucose 118 H (74-106) mg/dL Calcium 8.9 (8.5-10.1) mg/dL Magnesium 2.0 (1.8-2.4) mg/dL Total Bilirubin 0.4 (0.2-1.0) mg/dL AST 26 (15-37) U/L ALT 22 (14-59) U/L Alkaline Phosphatase 86 (46-116) U/L Troponin I 7 (<or=51) ng/L Total Protein 7.1 (6.4-8.2) g/dL Albumin 3.8 (3.4-5.0) g/dL Lipase 36 (<78) U/L TSH 0.37 (0.36-3.74) uIU/mL B. divergens/MO-1 PCR Pending Babesia duncani (PCR) Pending Babesia microti DNA PCR Pending Lyme Disease Antibody Pending E.chaffeensis DNA (PCR) Pending E.ewingii/canis DNA PCR Pending E.muris eauclairensis (PCR) Pending A. phagocytophilum (PCR) Pending Blood B. miyamotoi (PCR) Pending Intake and Output - 24 Hour Total 12/15/24 10:12 thru 12/15/24 10:22 Weight 75.75 kg Falls Risk Assessment History of Falls No History 12/15/24 10:32 Contributing Factors No Factors 12/15/24 10:32 Ambulatory Aids Independent 12/15/24 10:32 Tubes/Lines None 12/15/24 10:32 Gait Evaluation No gait disturbance 12/15/24 10:32 Fall Total Score 0 12/15/24 10:32 Level of Risk Standard/Low Risk 12/15/24 10:32 Problems (Last Reviewed 12/15/24 @ 15:33 by Danny Atkins) Discharge planning issues (Acute) Multiple pulmonary emboli (Acute) Hypertension (Chronic ~05/2022) Mild aortic stenosis (Acute ~06/2019) Depression (Chronic 08/31/11) Restless legs syndrome (Chronic 02/04/17) v v v v v v v v v Sending and/or Receiving Nurses: Please use comment section below to note any information pertinent to the patient hand-off not included above. Information / Comments: Report received from: C/O burning type chest pain and something weird and fluttery with my heart VS WNL, denies SOB, CT shows bilateral PE, DOMINGO Snowden
[2024-12-15] MEDS: rOPINIRole 1 MG TAB 3 MG PO (20:39)
[2024-12-15] MEDS: busPIRone 15 MG TAB PO (20:39)
[2024-12-15] MEDS: Metoprolol CR 25 MG TABCR PO (20:40)
[2024-12-15] MEDS: Enoxaparin 80 MG/0.8 ML SYR SC (20:40)
[2024-12-15] MEDS: traZODone 50 MG TAB PO (20:40)
[2024-12-16 07:08] VITALS: BP 151/67; PULSE 60; RESP 16; TEMP 36; O2SAT 94
--- NOTE | 2024-12-16 10:25 | CMDISCH_ITS ---
Date of service: 12/16/24 Time of Service: 10:25 LACE Index Scoring Tool Questions: Length of Stay (in days): 1 Was the patient admitted via the E.D.?: Yes E.D. Visits: 2 Answers: Total Score: 6 Risk of Readmission: Low Risk Care Management Discharge Plan Reason for Hospitalization: Pulmonary Emboli Discharge Plan: Unfortunately, Edith was discharged before Care Management could see her. New RX for Eliquis is $1 (CM called the pharmacy to verify.) Pt will follow up with community providers and her discharge plan of care as directed. No new services were ordered. Patient/Family Education Needs: Review discharge instructions and plan to follow up with community providers. Discuss ask me three. SDOH Health Related Social Needs: Health related social needs lonely/isolated Health related social needs details feels isolated tonio etimes Health related social needs details: feels isolated sometimes
--- NOTE | 2024-12-16 10:26 | PDOC.CMIN ---
Date of service: 12/16/24 Time of Service: 10:26 Care Management Initial Assmt Advance Directives Advance Directives: Do you have an Advance Directive: Y 06/10/24, 15:06 AD On File at [facility]: Y 06/10/24, 15:06 Date Asked 12/15/24 12/15/24, 15:02 AD Date Reviewed 10/07/24 12/02/24, 20:10 COLST On File at [facility] COLST Date Scanned Code Status Resuscitation Status Full Code Care Team Visit Care Team Role Provider Type Armando Castañeda DO Primary Care Provider OSTEOPATHIC DOCTOR BETO Fuller Emergency Provider PHYSICIANS WINDING R[employer] OPERATOR Danny Atkins Admit Provider [facility] STAFF PHYSICIAN Attending Provider Social Determinants of Health Screening Social Determinants of health last assessed in clinic: 12/15/24 Will the Patient Participate in the Screening?: Yes Do you worry about having a steady place to live?: no Problems where you live: no known problems In the past 12 months, have you had to go without electric, gas, oil or water in your home?: no Has lack of transportation kept you from medical appointments or from doing things needed for daily living?: no Has anyone in your life made you feel unsafe or unsupported?: no How hard is it for you to pay for the very basics like food, housing, medical care, and heating? Would you say it is:: Somewhat hard Do you want help finding or keeping work or a job?: I do not need or want help If for any reason you need help with day-to-day activities such as bathing, preparing meals, shopping, managing finances, etc., do you get the help you need?: I could use a little more help How often do you feel lonely or isolated from those around you?: Sometimes Do you speak a language other than [place]ij[place] at home?: Yes Does the patient want assistance with any of the above?: No Health Related Social Needs Health related social needs: problems related to housing/economic circumstances (Z59.89), problems with daily activities (Z73.9), feeling lonely/isolated (Z60.8) and education (Z55.6) Health related social needs details: feels isolated sometimes PFSH All Active Problems Discharge planning issues (Acute) DVT prophylaxis (Acute) Multiple pulmonary emboli (Acute) Facial lesion (Acute) Tremor (Acute) Venous stasis dermatitis (Acute) Venous stasis dermatitis of both lower extremities (Acute) Ventricular ectopy (Acute) Syncope (Chronic) Poor balance (Acute) per PT evaluation Idiopathic neuropathy (Acute) Cervicalgia (Acute) Arthritis of carpometacarpal (CMC) joint of left thumb (Acute) Status post trapezial arthroplasty: 03/03/2024 Skull fracture (Acute) Concussion (Acute) ADD (attention deficit disorder) (Acute) Arthritis of right glenohumeral joint (Chronic) Intra-articular 80 mg injection: 04/15/2023 Neuropathy (Acute) Nail dystrophy (Acute) PAD (peripheral artery disease) (Acute) Venous insufficiency (Acute) Peripheral neuropathy (Acute) Hypertension (Chronic ~05/2022) Trochanteric bursitis, right hip (Acute) DEPO MEDROL 11/11/23; 02/17/24 Radicular pain of right lower extremity (Acute ~02/2022) Supraventricular tachycardia (Chronic ~08/2021) Started 2013 with repeat shelter monitor 08/2021 validating ?Stimulant contributory Cardiology consult 01/2022--consider BB or diltiazem Scoliosis of thoracic spine (Chronic) R convex scoliosis Arthritis of carpometacarpal joint (Acute) left Most recent 40 mg Depo-Medrol injection: 04/15/2023 Heartburn (Chronic) Famotidine 20mg daily Bladder incontinence (Acute) Kegels & bladder training instruction Dysarthria-clumsy hand syndrome (Acute) Mild aortic stenosis (Acute ~06/2019) ECHO 06/2019; 07/2020 (stable); 2022 ECHO normalized (no aortic stenosis); recheck in 1-2y Elevated MCV (Acute) Trigger finger, right middle finger (Chronic) [facility] Dr. Meza Osteopenia (Chronic) DEXA 2016 & 2020 Insomnia (Chronic) RX Trazodone Depression (Chronic 08/31/11) NKHS Restless legs syndrome (Chronic 02/04/17) Years; Dr. Ruffin Neuro; medication helps (Requip & Shirlene PRN; Shirlene 300mg HS PRN discontinued 08/14/2019) Spinal stenosis of lumbar region (Acute 02/04/17) s/p Neurosurgery; 02/2022 lumbar x-ray: lumbar spondylosis, convex scoliosis Hypercholesterolemia (Chronic 02/04/17) FRS 12.8% (2021)-->not a candidate for statin Arthralgia of hip (Acute 02/04/17) R, muscular; PT Glaucoma (Chronic 02/04/17) Medical History Elevated BP without diagnosis of hypertension (~04/2022) Palpitations (~07/2021) H/O supraventricular tachycardia (~2013) 2013 & 2017 cardiac monitors; 2021 Closed fracture distal radius and ulna (10/22/20) right 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 other--see 08/14/2019 note; Neuro 03/2019; normal brain MRI and labs [id number] [facility] Memory Clinic consult 2020 & 2021--no [facility]; they are following History of Lyme disease Early Disseminated-10/29 Dr. Manuel Lucia Atrophic vaginitis (09/07/13) Iron deficiency (02/04/17) Lumbar pain with radiation down left leg Improved s/p lumbar spine fusion; stable; Dr. Devi Ankle fracture Ankle sprain Hip fx Surgical History History of lumbar discectomy L4-5 Carpal tunnel syndrome, right (07/11/21) s/p ECTR DOS: 07/11/2021 History of arthroplasty of right knee History of cataract extraction B/L eyes [facility] Dr. Parks, R then L (pending 11/2019) History of knee replacement B/L Acquired absence of both cervix and uterus (08/31/11) Status post cervical spinal arthrodesis (02/04/17) History of lumbar laminectomy (~2013) Varicose vein stripping Spinal Fusion Lumbar L4-S1; also cervical Oophrectomy, Right with hyst 1997 Oophrectomy, Left Age 20 for cyst L knee repair Vaginal hysterectomy 1997 - Prolapse Family History Mother Parkinson disease Heart disease Hypertension Brother Depression Diabetes Heart disease Hypertension Father Heart disease Hypertension Social History (Updated 12/15/24 @ 15:33 by Danny Nuñez Smoking/Tobacco Use Status: Former Tobacco Use Quit Date: 05/13/89 Tobacco: How many years used: 10 Smoking risk assessment performed?: Yes Alcohol Intake: never Drug use: Never Substance use type: does not use Counseling given: No Adopted: No Caregiver/Support person: No Foster care: No Household members: family Housing: house Number of Children: 2 Communication Needs: Corrective Lenses Do you need help understanding health information?: Rarely current occupation: Retired Sexually active: Yes Do you think of yourself as: straight/heterosexual Current gender identity: female What is your relationship status?: How often do you talk on the phone with friends or family?: once per week How often do you get together with friends or relatives?: once per week Panel score (0-1 are the most socially isolated patients): 0 What type of physical activity do you participate in: none Seatbelt use: always Working smoke detector in home: Yes Fire extinguisher in home: Yes Carbon monox detector in home: Yes Do you feel safe at home: Yes Do you feel safe in your relationship?: Yes Additional Social history: , lives alone in [facility] with dog and 2 parakeets. 2 children in area.
[2024-12-16] MEDS: Enoxaparin 80 MG/0.8 ML SYR SC (10:28)
[2024-12-16] MEDS: Cholecalciferol (Vitamin D3) 1,000 UNIT TAB 2000 UNITS PO (10:29)
[2024-12-16] MEDS: Vilazodone 20 MG TAB 40 MG PO (10:29)
[2024-12-16] MEDS: Famotidine 20 MG TAB PO (10:29)
[2024-12-16] MEDS: busPIRone 15 MG TAB 30 MG PO (10:29)
--- NOTE | 2024-12-16 10:46 | W.PM.DS.N ---
Date of service: 12/16/24 Time of Service: 10:46 DS: Diagnosis Discharge Diagnosis (1) Multiple pulmonary emboli: Status: Acute (2) Hypertension: Status: Chronic (3) Depression: Status: Chronic (4) Mild aortic stenosis: Status: Acute (5) Restless legs syndrome: Status: Chronic (6) Discharge planning issues: Status: Acute Discharge Plan Disposition Patient Disposition: Home Condition: Good Discharge Details Reason For Visit: Pulmonary emboli Admit Date/Time: 12/15/24 14:18 Admit Provider: Danny Atkins Attending Provider: Danny tAkins [facility] Course: 79 yo F with history of chronic venous stasis of the lower extremities, aortic stenosis, HTN, and depression/anxiety who presented with 2 days intermittent burning chest discomfort radiating to her arms. EKG/troponins were reassuring but CTA showed multiple pulmonary emboli. She was never hypoxic, but she was observed overnight as she lives alone and has some memory impairment. LE ultrasound did show DVT as below: 10 cm length intraluminal clot evident with in 1 of the paired peroneal veins in the proximal and mid calf. There is no extension into the ipsilateral popliteal vein nor above Treatment was started with enoxaparin, and she transitioned to apixaban at discharge, which was well covered by her insurance. Duration of treatment after at least 3 months and consideration of cancer screening is deferred to PCP. She should follow with her PCP in 1-2 weeks. Home Meds and New Rx's Prescriptions: New Eliquis 5 mg tablet See Rx Instructions .ROUTE .COMPLEX Qty: 74 2RF Rx Instructions: 2 tabs po BID x 7 days, then on tab po BID Continued (DME) Orthopaedic shoes See Rx Instructions .Route .MEDSUPPLY Qty: 1 0RF Rx Instructions: As directed lactase [Lactaid Fast Act] 9,000 unit tablet 9,000 unit PO ONCE PRN Rx Instructions: administer with meals and/or snacks vilazodone 40 mg tablet 40 mg PO DAILY Qty: 90 3RF Rx Instructions: must administer with a meal/food triamcinolone acetonide 0.1 % cream 1 applic topical DAILY PRN (Reason: itching) Qty: 80 0RF Rx Instructions: Apply to affected areas on feet and lower legs cholecalciferol (vitamin D3) 50 mcg (2,000 unit) capsule See Rx Instructions .ROUTE .COMPLEX Qty: 90 3RF Dose Instruction: TAKE 1 CAPSULE BY MOUTH DAILY FOR BONE HEALTH/OSTEOPENIA Rx Instructions: TAKE 1 CAPSULE BY MOUTH DAILY FOR BONE HEALTH/OSTEOPENIA buspirone 15 mg tablet See Rx Instructions PO TID Qty: 270 3RF Rx Instructions: 2tabs AM, 1tab PM PO three times a day; ropinirole 3 mg tablet 3 mg PO QHS Qty: 90 3RF Rx Instructions: administer 1-3 hours before bedtime metoprolol succinate 25 mg tablet extended release 24 hr 25 mg PO .bedtime Qty: 90 3RF Rx Instructions: Blood pressure trazodone 50 mg tablet 50 - 100 mg PO QHS PRN (Reason: insomnia) Qty: 180 3RF Rx Instructions: for sleep, patient can decide if she needs 1 or 2 tabs per night, and can take an extra if she wakes up in the night atomoxetine 40 mg capsule 40 mg PO DAILY Qty: 90 3RF famotidine 20 mg tablet See Rx Instructions .ROUTE .COMPLEX Qty: 90 3RF Dose Instruction: TAKE 1 TABLET BY MOUTH DAILY FOR HEARTBURN Rx Instructions: TAKE 1 TABLET BY MOUTH DAILY FOR HEARTBURN acetaminophen 500 mg tablet 500 mg PO Q6H PRN (Reason: pain) Qty: 60 2RF Discontinued ibuprofen 600 mg tablet 600 mg PO BID PRN (Reason: pain) Qty: 180 0RF Rx Instructions: back pain; take with food Discharge Instructions Instructions: Pulmonary embolism - Discharge instructions Additional Instructions: Start the oral blood thinner starting this evening Avoid ibuprofen while taking the blood thinner. You can take acetaminophen or diclofenac 1% cream (Voltaren) for pain. Activity:: Activity as Tolerated Equipment/Supplies:: No Equipment Needed Diet:: As Tolerated Discharge Orders Discharge Orders: Discharge Order (Routine); Ordered 12/16/24 Ordered By: Danny Atkins DS: Summary Time Spent with Patient providing and/or coordinating discharge services: Greater than 30 minutes Status at Discharge Functional status at discharge: independent ambulation Overall status at discharge: patient is back to baseline Mental Status: mental status grossly normal Speech and Movement: speech and movement normal Mood: congruent mood Affect: anxious affect Quality:SDOH Health Related Social Needs: Health related social needs house/econ circumstance daily activities lonely/isolated education Health related social needs details feels isolated sometimes Health related social needs details: feels isolated sometimes Exam Narrative Exam Narrative: GEN: Alert and oriented, but can't recall details about earlier in the morning. No acute distress at rest. LUNGS: CTAB with normal effort CV: RRR with 2/6 murmur loudest RUSB to neck, also back. No gallops or rubs. ABD: active bowel sounds, soft, nontender and nondistended. No masses. EXT: no cyanosis, clubbing. 1+ severino ankle edema. Legs/calves not tender, no cords. PSYCH: Anxious mood and affect, normal thought process Psych Mental Status: mental status grossly normal Speech and Movement: speech and movement normal Mood: congruent mood Affect: anxious affect DS: Data Vitals/I&O Vitals and I&O: Vital Signs Temperature 36.0 C L 12/16/24 07:08 Temperature Source Temporal Artery Scan 12/16/24 07:08 Pulse 60 12/16/24 07:08 Pulse 58 L 12/15/24 15:30 Respiratory Rate 16 12/16/24 07:08 Respiratory Effort Normal 12/15/24 18:33 Respiratory Depth Normal 12/15/24 18:33 Respiratory Pattern Irregular 12/15/24 18:33 Blood Pressure 151/67 H 12/16/24 07:08 Blood Pressure Mean 95 12/16/24 07:08 Pulse Oximetry 94 12/16/24 07:08 Oxygen Delivery Method Room Air 12/16/24 07:08 Oxygen Flow Rate 0 12/16/24 07:08 Pain Level 5 12/16/24 07:08 Intake & Output 12/15/24 12/15/24 12/16/24 11:59 23:59 11:59 Intake Total 960 / 960 Balance 960 / 960 Weight 75.75 kg Intake: Oral 960 / 960 Other: Urine Appearance Clear Comment ANUJA Data Completed and Pending Labs on day of discharge: Labs from last 24 hours 12/15/24 12/15/24 12/15/24 14:45 11:45 11:08 WBC 4.77 RBC 3.85 L Hgb 12.7 Hct 38.1 MCV 99 H MCH 33.0 MCHC 33.3 RDW 12.2 Plt Count 161 MPV 10.1 Immature Gran % 0.4 Neutrophils % 70.9 Lymphocytes % 21.0 Monocytes % 6.5 Eosinophils % 0.4 Basophils % 0.8 Nucleated RBC % 0.0 Absolute Neutrophils 3.38 Absolute Lymphocytes 1.00 L Absolute Monocytes 0.31 Absolute Eosinophils 0.02 Absolute Basophils 0.04 PT 10.4 INR 1.0 APTT 23.7 D-Dimer 2950 H Cancelled Sodium 139 Potassium 3.6 Chloride 106 Carbon Dioxide 28.7 Anion Gap 4.3 BUN 17 Creatinine 0.6 Est GFR (CKD-EPI 2020) 91.82 Glucose 118 H Calcium 8.9 Magnesium 2.0 Total Bilirubin 0.4 AST 26 ALT 22 Alkaline Phosphatase 86 Troponin I 7 Total Protein 7.1 Albumin 3.8 Lipase 36 TSH 0.37 B. divergens/MO-1 PCR Pending Babesia duncani (PCR) Pending Babesia microti DNA PCR Pending Lyme Disease Antibody Pending E.chaffeensis DNA (PCR) Pending E.ewingii/canis DNA PCR Pending E.muris eauclairensis (PCR) Pending A. phagocytophilum (PCR) Pending Blood B. miyamotoi (PCR) Pending PFSH All Active Problems Discharge planning issues (Acute) DVT prophylaxis (Acute) Multiple pulmonary emboli (Acute) Facial lesion (Acute) Tremor (Acute) Venous stasis dermatitis (Acute) Venous stasis dermatitis of both lower extremities (Acute) Ventricular ectopy (Acute) Syncope (Chronic) Poor balance (Acute) per PT evaluation Idiopathic neuropathy (Acute) Cervicalgia (Acute) Arthritis of carpometacarpal (CMC) joint of left thumb (Acute) Status post trapezial arthroplasty: 03/03/2024 Skull fracture (Acute) Concussion (Acute) ADD (attention deficit disorder) (Acute) Arthritis of right glenohumeral joint (Chronic) Intra-articular 80 mg injection: 04/15/2023 Neuropathy (Acute) Nail dystrophy (Acute) PAD (peripheral artery disease) (Acute) Venous insufficiency (Acute) Peripheral neuropathy (Acute) Hypertension (Chronic ~05/2022) Trochanteric bursitis, right hip (Acute) DEPO MEDROL 11/11/23; 02/17/24 Radicular pain of right lower extremity (Acute ~02/2022) Supraventricular tachycardia (Chronic ~08/2021) Started 2013 with repeat shelter monitor 08/2021 validating ?Stimulant contributory Cardiology consult 01/2022--consider BB or diltiazem Scoliosis of thoracic spine (Chronic) R convex scoliosis Arthritis of carpometacarpal joint (Acute) left Most recent 40 mg Depo-Medrol injection: 04/15/2023 Heartburn (Chronic) Famotidine 20mg daily Bladder incontinence (Acute) Kegels & bladder training instruction Dysarthria-clumsy hand syndrome (Acute) Mild aortic stenosis (Acute ~06/2019) ECHO 06/2019; 07/2020 (stable); 2022 ECHO normalized (no aortic stenosis); recheck in 1-2y Elevated MCV (Acute) Trigger finger, right middle finger (Chronic) [facility] Dr. Meza Osteopenia (Chronic) DEXA 2016 & 2019, 2020 Insomnia (Chronic) RX Trazodone Arthralgia of hip (Acute 02/04/17) R, muscular; PT Depression (Chronic 08/31/11) NKHS Glaucoma (Chronic 02/04/17) Hypercholesterolemia (Chronic 02/04/17) FRS 12.8% (2021)-->not a candidate for statin Restless legs syndrome (Chronic 02/04/17) Years; Dr. 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 other--see 08/14/2019 note; Neuro 03/2019; normal brain MRI and labs 1946-1450 [facility] Memory Clinic consult 2020 & 2021--no [facility]; they are following History of Lyme disease Early Disseminated-10/29 Dr. Manuel Lucia Atrophic vaginitis (09/07/13) Iron deficiency (02/04/17) Lumbar pain with radiation down left leg Improved s/p lumbar spine fusion; stable; Dr. Devi Ankle fracture Ankle sprain Hip fx Surgical History History of lumbar discectomy L4-5 Carpal tunnel syndrome, right (07/11/21) s/p ECTR DOS: 07/11/2021 History of arthroplasty of right knee History of cataract extraction B/L eyes [facility] Dr. Parks, R then L (pending 11/2019) History of knee replacement B/L Acquired absence of both cervix and uterus (08/31/11) Status post cervical spinal arthrodesis (02/04/17) History of lumbar laminectomy (~2013) Varicose vein stripping Spinal Fusion Lumbar L4-S1; also cervical Oophrectomy, Right with hyst 1997 Oophrectomy, Left Age 20 for cyst L knee repair Vaginal hysterectomy 1997 - Prolapse Family History Mother Parkinson disease Heart disease Hypertension Brother Depression Diabetes Heart disease Hypertension Father Heart disease Hypertension Social History (Updated 12/15/24 @ 15:33 by Danny Atkins) Smoking/Tobacco Use Status: Former Tobacco Use Quit Date: 05/13/89 Tobacco: How many years used: 10 Smoking risk assessment performed?: Yes Alcohol Intake: never Drug use: Never Substance use type: does not use Counseling given: No Adopted: No Caregiver/Support person: No Foster care: No Household members: family Housing: house Number of Children: 2 Communication Needs: Corrective Lenses Do you need help understanding health information?: Rarely current occupation: Retired Sexually active: Yes Do you think of yourself as: straight/heterosexual Current gender identity: female What is your relationship status?: How often do you talk on the phone with friends or family?: once per week How often do you get together with friends or relatives?: once per week Panel score (0-1 are the most socially isolated patients): 0 What type of physical activity do you participate in: none Seatbelt use: always Working smoke detector in home: Yes Fire extinguisher in home: Yes Carbon monox detector in home: Yes Do you feel safe at home: Yes Do you feel safe in your relationship?: Yes Additional Social history: , lives alone in [facility] with dog and 2 parakeets. 2 children in area. Time Spent with Patient Time Spent with Patient: <45 minutes Time was spent: preparing to see the patient(eg.review tests), obtaining and/or reviewing separately otained hiistory, ordering medications,tests, procedures, referring, communicating with other health care transition mgr, indepentently interpreting results, counseling the patient and care coordination
[2024-12-16 12:14] LABS: Lyme Ab w Rflx to Lyme Confirm Positive (Negative)
[2024-12-16 14:41] LABS: Lyme IgG Ab Positive (Negative)
[2024-12-18 14:09] LABS: B. miyamotoi PCR Negative (Negative); Babesia divergens/MO-1 Negative (Negative); Ehrlichia muris eauclairensis Negative (Negative)
== END 2024-12-16 12:00 | disposition home or self-care (01) ==
LOC: ER 15:20 → MS 16:32
PROVIDERS: Admitting Provider Family Medicine; Emergency Provider Physician Assistant; PCP Family Medicine; Responsible Provider Family Medicine; Visit Provider Family Medicine
DX: I26.94 Multiple subsegmental thrombotic pulmonary emboli without acute cor pulmonale (principal); I82.451 Acute embolism and thrombosis of right peroneal vein; R07.89 Other chest pain; R45.89 Other symptoms and signs involving emotional state; I10 Essential (primary) hypertension; F32.A Depression, unspecified; I35.0 Nonrheumatic aortic (valve) stenosis; G25.81 Restless legs syndrome; I87.2 Venous insufficiency (chronic) (peripheral); F41.8 Other specified anxiety disorders; G60.9 Hereditary and idiopathic neuropathy, unspecified; F98.8 Other specified behavioral and emotional disorders with onset usually occurring in childhood and adolescence; I73.9 Peripheral vascular disease, unspecified; I47.10 Supraventricular tachycardia, unspecified; H53.16 Psychophysical visual disturbances; Z96.653 Presence of artificial knee joint, bilateral; R32 Unspecified urinary incontinence; Z98.1 Arthrodesis status
CPT/HCPCS: 00123; 36415; 71275; 80053; 83690; 86617; 87798; 93005; 96372; 99285; 70450; 83735; 84443; 84484; 85025; 85379; 85610; 85730; 86618; 93010; 93970; 99222; 99239; G0378; J1650; J3490

== ENCOUNTER 2024-12-24 10:31 | Outpatient (CLI) | payer MEDICARE, SELFPAY ==
--- NOTE | 2024-12-24 07:27 | DI.MAMMO_ITS ---
Exam(s) MAMMO SCREENING EXAM: MAMMO SCREENING CLINICAL HISTORY: screening,z12.39 TECHNIQUE: Mammograms were interpreted according to the usual protocol including computer analysis with CAD system, tomosynthesis and C-view imaging. COMPARISON: 2016 through 2020 FINDINGS: The breasts are composed of scattered fibroglandular densities, Breast Density category B. No suspicious masses or suspicious microcalcifications are seen. No skin thickening or abnormal axillary lymph nodes are seen. There has been no significant change from prior exams. IMPRESSION: BI-RADS Category 1, Negative mammogram Yearly screening mammography is recommended. Breast Density - Category B - There are scattered areas of fibroglandular density. Breast density Category C or D implies that the patient has dense breast tissue. Dense breast tissue can make it harder to find cancer on a mammogram. Dense breast tissue is also associated with an increased risk of breast cancer. This information about the result of the mammogram report was provided to the patient to raise their awareness. Use this report when you speak with the patient about their risks for breast cancer, which includes their family history. At that time, you may recommend additional screening tests (Ultrasound or MRI) as these tests may add significant information. A negative radiographic report should not delay biopsy if a dominant or clinically suspicious mass is present. Up to ten percent of cancers are not identified on mammography. A negative report may reinforce clinical impression. Adenosis and dense breasts may obscure an underlying neoplasm. False positive reports average 6 to 10%. Patient will receive a letter notifying them of these results.
== END 2024-12-24 10:51 ==
LOC: DI 10:31
PROVIDERS: PCP Family Medicine; Visit Provider Nurse Practitioner Family
DX: Z12.31 Encounter for screening mammogram for malignant neoplasm of breast (principal); R92.323 Mammographic fibroglandular density, bilateral breasts
CPT/HCPCS: 77063; 77067

== ENCOUNTER → 2025-01-25 13:46 | Outpatient (BNVA) | payer MEDICARE, SELFPAY | PROVIDERS: PCP Family Medicine; Referring Provider Family Medicine; Visit Provider Registered Nurse | DX: I35.0 Nonrheumatic aortic (valve) stenosis (principal); I49.3 Ventricular premature depolarization; Z79.01 Long term (current) use of anticoagulants | CPT/HCPCS: 99214 ==

== ENCOUNTER 2025-01-31 19:20 | Emergency (ER) | payer MEDICARE, SELFPAY ==
--- NOTE | 2025-01-31 19:15 | RT.EKG_ITS ---
APPROVED REPORT Exam: Resting ECG Reason for Exam: SOB Patient Location: E HR:68 bpm ECG Measurements Heart Rate 68 AXIS LA 169 P 59 QRSd 106 QRS -35 QT 398 T 43 QTc 430 Conclusion Sinus rhythm, rate 68 No interval abnormalities No STEMI Borderline <1mm elevations V1-V2 unchanged from prior PVCs
[2025-01-31 19:25] VITALS: BP 134/74; PULSE 66; RESP 20; TEMP 36.7; O2SAT 96
[2025-01-31 19:37] VITALS: BP 134/74; PULSE 78; RESP 20; TEMP 36.7; O2SAT 97
--- NOTE | 2025-01-31 19:45 | DI.CT_ITS ---
Exam(s) CT CHEST PE CTA EXAM: CT CHEST PE CTA CLINICAL HISTORY: SOB/chest discomfort, similar to past PE. TECHNIQUE: Imaging Protocol: Axial CT angiography was performed with multi- slice acquisition and multi-planar reconstructions as well as axial, coronal and sagittal MIP reconstructions. Computer aided detection (CAD) was utilized. CONTRAST MATERIAL: Intravenous: Omnipaque 350 Contrast volume:80 ml COMPARISON: CT CT CHEST PE CTA from 12/15/2024 FINDINGS: Pulmonary Arteries: No evidence of filling defect to suggest pulmonary emboli. Mediastinum and [place]: No dominant adenopathy or fluid collection. Pulmonary parenchyma: Expiratory changes. No consolidation or dominant measurable mass. Mild atelectasis or scarring. Pleura: No effusion or pneumothorax. Heart: The heart is mildly dilated. Mild coronary artery calcifications are seen. Aorta: Thoracic aorta non-dilated. No dissection. Upper abdomen: No acute findings. Bones: hardware lower cervical spine. Scoliosis and degenerative changes in the thoracic spine. Tubes, Catheters, and Lines: None Soft tissues: Unremarkable. IMPRESSION: No evidence of pulmonary embolism. Expiratory changes are noted in the lungs. The preliminary [facility] report was reviewed. RADIATION DOSE DELIVERED: 68.52mGy.cm Total DLP DATA REPOSITORY: All CT scans at this facility are submitted to the National Radiology Data Registry (NRDR) Dose Index Registry (DIR) with the [employer] (A[employer]). RADIATION OPTIMIZATION: All CT scans at this facility use at least one of these dose optimization techniques: automated exposure control; mA and/or kV adjustment per patient size (includes targeted exams where dose is matched to clinical indication); or iterative reconstruction.
--- NOTE | 2025-01-31 19:53 | ED.GENADUL_ITS ---
Discharge Plan Disposition Patient Disposition: Home Condition: Stable Discharge Details Clinical Impression: Chest discomfort, History of pulmonary embolism, Mild aortic stenosis Primary Care Provider: Armando Castañeda ED Provider: Juju Robles Home Meds and New Rx's Prescriptions: No Action (DME) Orthopaedic shoes See Rx Instructions .Route .MEDSUPPLY Qty: 1 0RF Rx Instructions: As directed lactase [Lactaid Fast Act] 9,000 unit tablet 9,000 unit PO ONCE PRN Rx Instructions: administer with meals and/or snacks ropinirole 3 mg tablet 3 mg PO QHS Qty: 90 3RF Rx Instructions: administer 1-3 hours before bedtime metoprolol succinate 25 mg tablet extended release 24 hr 25 mg PO .bedtime Qty: 90 3RF Rx Instructions: Blood pressure trazodone 50 mg tablet 50 - 100 mg PO QHS PRN (Reason: insomnia) Qty: 180 3RF Rx Instructions: for sleep, patient can decide if she needs 1 or 2 tabs per night, and can take an extra if she wakes up in the night atomoxetine 40 mg capsule 40 mg PO DAILY Qty: 90 3RF famotidine 20 mg tablet See Rx Instructions .ROUTE .COMPLEX Qty: 90 3RF Dose Instruction: TAKE 1 TABLET BY MOUTH DAILY FOR HEARTBURN Rx Instructions: TAKE 1 TABLET BY MOUTH DAILY FOR HEARTBURN buspirone 15 mg tablet See Rx Instructions PO TID Qty: 270 3RF Rx Instructions: 2tabs AM, 1tab PM PO three times a day; cholecalciferol (vitamin D3) 50 mcg (2,000 unit) capsule See Rx Instructions .ROUTE .COMPLEX Qty: 90 3RF Dose Instruction: TAKE 1 CAPSULE BY MOUTH DAILY FOR BONE HEALTH/OSTEOPENIA Rx Instructions: TAKE 1 CAPSULE BY MOUTH DAILY FOR BONE HEALTH/OSTEOPENIA vilazodone 40 mg tablet 40 mg PO DAILY Qty: 90 3RF Rx Instructions: must administer with a meal/food acetaminophen 500 mg tablet 500 mg PO Q6H PRN (Reason: pain) Qty: 60 2RF Eliquis 5 mg tablet See Rx Instructions .ROUTE .COMPLEX Qty: 74 2RF Rx Instructions: 2 tabs po BID x 7 days, then on tab po BID Discharge Instructions Instructions: Taking oral medicines for blood clots Additional Instructions: You were seen in the emergency department today for evaluation of chest discomfort and body symptoms similar to when you had a pulmonary embolism. In our department you had a full physical examination performed, had laboratory studies that were reassuring and did not show any sign of infection, electrolyte problems, anemia, or kidney injury. Your EKG and labs did not show any sign of damage to your heart, and you had a CT scan that did not show any blood clots, pneumonia or other problems in your lungs. Unfortunately, we are sometimes unable to determine the exact cause of symptoms here in the emergency department. I do recommend that you continue to take all of your medications as prescribed, including your Eliquis. You will need to follow-up with your primary care provider to discuss this medicine, this ED visit, and next Epson workup and management of your symptoms. Please follow-up with your primary care provider in the next few days to discuss this visit and any symptoms that change, worsen, or persist. Thank you for allowing us to be part of your care. HPI General Mode of arrival: ambulatory . Date/Time Provider Initiated Documentation: 01/31/25 19:29 . Limitations to Documentation: no limitations . Information obtained by: patient and old records reviewed . HPI Narrative: This is a 79-year-old female patient with a past medical history significant for pulmonary embolism, diagnosed 6 weeks ago, on Eliquis, history of aortic stenosis, hypercholesterolemia, and hypertension, presenting for evaluation of chest discomfort and shortness of breath. The patient reports that this morning she noted intermittent episodes where she would get a strange sensation in her chest radiating downwards, associated with diaphoresis. She states that when 1 of these episodes occur she felt generally weak, and felt like her breath was taken away. This is the same symptoms that she experienced when she was diagnosed with pulmonary embolisms. She states that she has not missed any doses of her Eliquis. States that she has not had any recent fever, nasal congestion, has had an intermittent cough productive of clear sputum without hemoptysis. Denies chest pain, nausea or vomiting, has been eating and drinking typically for her. No leg swelling or calf tenderness. Related Data Home Medications ?Medication ?Instructions ?Recorded ?Confirmed Orthopaedic shoes #1 ea 12/06/23 01/31/25 lactase 9,000 unit tablet (Lactaid 9,000 unit PO ONCE PRN 01/16/24 01/31/25 Fast Act) ropinirole 3 mg tablet 3 mg PO QHS #90 tabs 02/03/2 4 01/31/25 acetaminophen 500 mg tablet 500 mg PO Q6H PRN pain #60 tabs 03/03/24 01/25/25 metoprolol succinate 25 mg 25 mg PO .bedtime #90 tabs 07/28/24 01/31/25 tablet,extended release 24 hr trazodone 50 mg tablet 50 - 100 mg (1 - 2 x 50 mg) PO QHS 09/03/24 01/31/25 PRN insomnia #180 tabs atomoxetine 40 mg capsule 40 mg PO DAILY #90 caps 09/1001/31/25 famotidine 20 mg tablet See Rx Instructions .Route 0 10/26/24 01/31/25 .COMPLEX #90 tabs apixaban 5 mg tablet (Eliquis) See Rx Instructions .[place] 12/15/24 01/31/25 .COMPLEX #74 tabs buspirone 15 mg tablet See Rx Instructions PO TID # 270 01/21/25 01/31/25 tabs cholecalciferol (vitamin D3) 50 See Rx Instructions .R oute 01/21/25 01/31/25 mcg (2,000 unit) capsule .COMPLEX #90 caps vilazodone 40 mg tablet 40 mg PO DAILY #90 tabs 01/1101/31/25 Previous Rx's ?Medication ?Instructions ?Recorded Orthopaedic shoes #1 ea 12/06/23 ropinirole 3 mg tablet 3 mg PO QHS #90 tabs 4 acetaminophen 500 mg tablet 500 mg PO Q6H PRN pain #60 tabs 03/03/24 metoprolol succinate 25 mg 25 mg PO .bedtime #90 tabs 07/28/24 tablet,extended release 24 hr trazodone 50 mg tablet 50 - 100 mg (1 - 2 x 50 mg) PO QHS 09/03/24 PRN insomnia #180 tabs atomoxetine 40 mg capsule 40 mg PO DAILY #90 caps 09/10 02/04 famotidine 20 mg tablet See Rx Instructions .Route 0 10/26/24 .COMPLEX #90 tabs apixaban 5 mg tablet (Eliquis) See Rx Instructions .[place] 12/15/24 .COMPLEX #74 tabs buspirone 15 mg tablet See Rx Instructions PO TID # 270 01/21/25 tabs cholecalciferol (vitamin D3) 50 See Rx Instructions .R oute 01/21/25 mcg (2,000 unit) capsule .COMPLEX #90 caps vilazodone 40 mg tablet 40 mg PO DAILY #90 tabs 01/11 06/06 Allergies Allergy/AdvReac Type Severity Reaction Status Date / Time benzalkonium chloride (From Allergy Unknown unknown Verified 01/31/25 19:38 Travatan) brimonidine (From Alphagan P) Allergy Unknown unknown Verified 01/31/25 19:38 meperidine HCl (From Demerol) Allergy Unknown UNSURE Verified 01/31/25 19:38 travoprost (From Travatan) Allergy Unknown unknown Verified 01/31/25 19:38 lactose AdvReac Intermediate Diarrhea Verified 01/31/25 19:38 BLUE SURGICAL SCRUB? AdvReac Intermediate RASH, Uncoded 01/31/25 19:38 ITCHING General Stated Complaint: RespSymp SHAGUFTA: 3 Exam Narrative Exam Narrative: Gen: Awake and alert, in no apparent distress HEENT: Non-icteric sclera Neck: Supple Lungs: No apparent respiratory distress, normal respiratory effort. Lungs clear and equal bilaterally without wheezes, rhonchi, rales CV: Appears well perfused, heart with regular rate and rhythm, a loud holosystolic murmur consistent with the patient's documented aortic stenosis appreciated, strong distal pulses symmetrical bilaterally Abdomen: Non-distended, soft MSK: Moves 4 extremities without apparent limitation in ROM. No peripheral edema, no unilateral calf swelling or tenderness Skin: Visualized skin without rashes, cyanosis. Neuro: Normal Gait, no obvious focal deficits or facial asymmetry. Speaks in full, clear sentences. Psych: Appropriate for situation. Course Vital Signs Vital signs: Vital Signs Temperature 36.7 C 01/31/25 19:25 Pulse 66 01/31/25 19:25 Respiratory Rate 20 01/31/25 19:25 Blood Pressure 134/74 01/31/25 19:25 Pulse Oximetry 96 01/31/25 19:25 Temperature 36.7 C 01/31/25 19:37 Temperature Source Oral 01/31/25 19:37 Pulse 78 01/31/25 19:37 Respiratory Rate 20 01/31/25 19:37 Respiratory Effort Normal, Non-Labored 01/31/25 19:45 Respiratory Depth Normal 01/31/25 19:45 Blood Pressure 134/74 01/31/25 19:37 Blood Pressure Position Sitting 01/31/25 19:37 Pulse Oximetry 97 01/31/25 19:37 Oxygen Delivery Method Room Air 01/31/25 19:37 Oxygen Flow Rate 0 01/31/25 19:25 Pain Level 0 01/31/25 19:25 Medical Decision Making This is a 79-year-old female patient presenting for evaluation of chest discomfort, shortness of breath and diaphoresis. My differential includes but is not limited to recurrent or worsening pulmonary embolism despite anticoagulation. Considered ACS including STEMI, NSTEMI, unstable angina, certainly considered arrhythmia, pericarditis/myocarditis, aortic pathology. Considered pulmonary abnormalities including pneumonia, bronchitis, pleural effusion, pulmonary edema, reactive airway disease, pneumothorax. No GI symptoms or vomiting to suggest Boerhaave's, esophagitis, peptic ulcer disease, pancreatitis. Considered musculoskeletal pathologies including costochondritis, chest wall pain. I am reassured by the patient's hemodynamic stability with no tachycardia or hypoxia. EKG reviewed by myself, showing a sinus rhythm with occasional PVCs, no evidence of acute ischemia or interval abnormality nor significant change from priors. We will obtain laboratory studies to include CBC, CMP, magnesium, troponin, and BNP. Given the history of pulmonary embolism with similar symptoms it is reasonable for us to proceed with a CT pulmonary embolism study to better characterize any abnormalities which might account for the patient's symptoms. - I independently interpreted the laboratory studies, which show no significant leukocytosis, anemia, or thrombocytopenia. The chemistry panel is without evidence of electrolyte abnormality, kidney dysfunction, or liver injury. Troponin was negative and without interval increase in 1 hour delta recheck. BNP is low, urinalysis noninfectious, though with trace blood and trace leukocyte esterase not associated with bacteriuria or pyuria. CT scan reviewed by myself, and radiology report was available for review. No evidence for pulmonary embolism, pneumonia or other abnormality to explain her symptoms. On reevaluation the patient has not had recurrence of her symptoms. I explained to the patient our lack of diagnostic clarity but overall reassuring evaluation in the ED tonight, and she understands that she will need to continue her Eliquis and follow-up with her primary care provider for reevaluation to discuss duration of anticoagulant therapy, as well as ongoing workup and management of her symptoms from today's visit. At this time, the patient has had a full medical evaluation and is safe for discharge to home. They are hemodynamically stable, ambulatory, and tolerating PO. They are understanding of the follow-up plan and return precautions. They left our facility without incident. Juju Robles MD Quality:SDOH Health Related Social Needs: Health related social needs lonely/isolated Health related social needs details feels isolated tonio etimes PFSH All Active Problems (Updated 01/31/25 @ 21:57 by Juju Robles MD) History of pulmonary embolism (Acute) Chest discomfort (Acute) Breast cancer screening (Acute) DVT prophylaxis (Acute) Multiple pulmonary emboli (Acute) Facial lesion (Acute) Tremor (Acute) Venous stasis dermatitis (Acute) Venous stasis dermatitis of both lower extremities (Acute) Ventricular ectopy (Acute) Syncope (Chronic) Poor balance (Acute) per PT evaluation Idiopathic neuropathy (Acute) Cervicalgia (Acute) Arthritis of carpometacarpal (CMC) joint of left thumb (Acute) Status post trapezial arthroplasty: 03/03/2024 Skull fracture (Acute) Concussion (Acute) ADD (attention deficit disorder) (Acute) Arthritis of right glenohumeral joint (Chronic) Intra-articular 80 mg injection: 04/15/2023 Neuropathy (Acute) Nail dystrophy (Acute) PAD (peripheral artery disease) (Acute) Venous insufficiency (Acute) Peripheral neuropathy (Acute) Hypertension (Chronic ~05/2022) Trochanteric bursitis, right hip (Acute) DEPO MEDROL 11/11/23; 02/17/24 Radicular pain of right lower extremity (Acute ~02/2022) Supraventricular tachycardia (Chronic ~08/2021) Started 2013 with repeat monitoring specialist 08/2021 validating ?Stimulant contributory Cardiology consult 01/2022--consider BB or diltiazem Scoliosis of thoracic spine (Chronic) R convex scoliosis Arthritis of carpometacarpal joint (Acute) left Most recent 40 mg Depo-Medrol injection: 04/15/2023 Heartburn (Chronic) Famotidine 20mg daily Bladder incontinence (Acute) Kegels & bladder training instruction Dysarthria-clumsy hand syndrome (Acute) Mild aortic stenosis (Acute ~06/2019) ECHO 06/2019; 07/2020 (stable); 2022 ECHO normalized (no aortic stenosis); recheck in 1-2y Elevated MCV (Acute) Trigger finger, right middle finger (Chronic) [facility] Dr. Meza Osteopenia (Chronic) DEXA 2016 & 2019, 2020 Insomnia (Chronic) RX Trazodone Depression (Chronic 08/31/11) [facility] Restless legs syndrome (Chronic 02/04/17) Years; Dr. Ruffin Neuro; medication helps (Requip & Shirlene PRN; Shirlene 300mg HS PRN discontinued 08/14/2019) Spinal stenosis of lumbar region (Acute 02/04/17) s/p Neurosurgery; 02/2022 lumbar x-ray: lumbar spondylosis, convex scoliosis Hypercholesterolemia (Chronic 02/04/17) FRS 12.8% (2021)-->not a candidate for statin Arthralgia of hip (Acute 02/04/17) R, muscular; PT Glaucoma (Chronic 02/04/17) Medical History Elevated BP without diagnosis of hypertension (~04/2022) Palpitations (~07/2021) H/O supraventricular tachycardia (~2013) 2013 & 2017 cardiac monitors; 2021 Closed fracture distal radius and ulna (10/22/20) right 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 other--see 08/14/2019 note; Neuro 03/2019; normal brain MRI and labs [id number] [facility] consult 2020 & 2021--no [facility]; they are following History of Lyme disease Early Disseminated-10/29 Dr. Manuel Lucia Atrophic vaginitis (09/07/13) Iron deficiency (02/04/17) Lumbar pain with radiation down left leg Improved s/p lumbar spine fusion; stable; Dr. Devi Ankle fracture Ankle sprain Hip fx Surgical History History of lumbar discectomy L4-5 Carpal tunnel syndrome, right (07/11/21) s/p ECTR DOS: 07/11/2021 History of arthroplasty of right knee History of cataract extraction B/L eyes [facility] Dr. Parks, R then L (pending 11/2019) History of knee replacement B/L Acquired absence of both cervix and uterus (08/31/11) Status post cervical spinal arthrodesis (02/04/17) History of lumbar laminectomy (~2013) Varicose vein stripping Spinal Fusion Lumbar L4-S1; also cervical Oophrectomy, Right with hyst 1997 Oophrectomy, Left Age 20 for cyst L knee repair Vaginal hysterectomy 1997 - Prolapse Family History Mother Parkinson disease Heart disease Hypertension Brother Depression Diabetes Heart disease Hypertension Father Heart disease Hypertension Social History (Updated 12/15/24 @ 15:33 by Danny Atkins) Smoking/Tobacco Use Status: Former Tobacco Use Quit Date: 05/13/89 Tobacco: How many years used: 10 Smoking risk assessment performed?: Yes Alcohol Intake: never Drug use: Never Substance use type: does not use Counseling given: No Adopted: No Caregiver/Support person: No Foster care: No Household members: family Housing: house Number of Children: 2 Communication Needs: Corrective Lenses Do you need help understanding health information?: Rarely current occupation: Retired Sexually active: Yes Do you think of yourself as: straight/heterosexual Current gender identity: female What is your relationship status?: How often do you talk on the phone with friends or family?: once per week How often do you get together with friends or relatives?: once per week Panel score (0-1 are the most socially isolated patients): 0 What type of physical activity do you participate in: none Seatbelt use: always Working smoke detector in home: Yes Fire extinguisher in home: Yes Carbon monox detector in home: Yes Do you feel safe at home: Yes Do you feel safe in your relationship?: Yes Additional Social history: , lives alone in [place] with dog and 2 parakeets. 2 children in area.
[2025-01-31 20:16] LABS: Abs Immature Grans 0.01 10^3/uL (0.0-0.06); HCT 39.0 % (36.0-46.0); HGB 13.1 g/dL (11.2-15.7); Immature Grans % 0.2 %; MCH 33.7 pg (27.0-33.0); MCHC 33.6 % (32.0-36.0); MCV 100 fL (80-95); MPV 10.0 fL (8.0-11.0); Platelet Count 184 10^3/uL (130-400); RBC 3.89 10^6/uL (3.93-5.22); RDW 12.6 % (11.7-14.6); RDW-SD 46.6 fL; WBC 4.34 10^3/uL (4.4-10.8)
[2025-01-31 20:48] LABS: ALT 22 U/L (14-59); AST 21 U/L (15-37); Albumin 3.5 g/dL (3.4-5.0); Alkaline Phosphatase 89 U/L (46-116); Anion Gap 6.2 mmol/L (3-11); BUN 18 mg/dL (7-18); Bilirubin, Total 0.3 mg/dL (0.2-1.0); CO2 29.8 mmol/L (21.0-32.0); Calcium 9.3 mg/dL (8.5-10.1); Chloride 106 mmol/L (98-107); Estimated GFR 75.37 (mL/min/1.73m2); Glucose 104 mg/dL (74-106); Magnesium 1.8 mg/dL (1.8-2.4); NT-proBNP 155 pg/mL (<300); Potassium 4.2 mmol/L (3.5-5.1); Sodium 142 mmol/L (136-145); Total Protein 6.9 g/dL (6.4-8.2); Troponin I 7 ng/L (<or=51)
[2025-01-31 21:31] LABS: Glucose Negative (Negative)
[2025-01-31 21:36] LABS: Troponin I 7 ng/L (<or=51)
[2025-01-31 21:43] LABS: C & S Indicated? No; RBC 0-2 HPF (0-2); WBC 0-2 HPF (0-5)
--- NOTE | 2025-01-31 21:50 | DI.VRAD_ITS ---
PROCEDURE INFORMATION: Exam: CTA Chest With Contrast Exam date and time: 01/31/2025 8:06 PM Age: 79 years old Clinical indication: SOB; Chest discomfort, similar to past PE TECHNIQUE: Imaging protocol: Computed tomographic angiography of the chest with contrast. Exam focused on the arteries. 3D rendering (Not supervised by radiologist): MIP and/or 3D reconstructed images were created by the technologist. COMPARISON: CR XR CHEST 2V PA LATERAL 10/07/2024 8:55 AM FINDINGS: Pulmonary arteries: No evidence of acute pulmonary embolism. Aorta: Normal caliber thoracic aorta without dissection or aneurysm. Lungs: No acute alveolar or ground glass infiltrate. Minimal biapical scarring. Left lower lobe linear parenchymal scarring or subsegmental collapse / atelectasis. Pleural spaces: No pleural fluid collection. No pneumothorax. Heart: No right ventricular strain. No pericardial effusion. Lymph nodes: No enlarged lymph nodes. Liver: Cyst within the superior right lobe of the liver. Bones/joints: Spinal degenerative changes. Thoracic spine dextroscoliosis. Soft tissues: Unremarkable. IMPRESSION: 1. No evidence of acute pulmonary embolism. 2. No acute pulmonary infiltrate or pleural fluid collection. Dictated and Authenticated by: Alfred Castillo MD. Orderin St. Fadi Matute MD
[2025-01-31 22:20] VITALS: BP 178/68; PULSE 67; RESP 18; O2SAT 98
== END 2025-01-31 22:21 | disposition home or self-care (01) ==
PROVIDERS: Emergency Provider Emergency Medicine; PCP Family Medicine
DX: R07.9 Chest pain, unspecified (principal); I35.0 Nonrheumatic aortic (valve) stenosis; Z86.711 Personal history of pulmonary embolism
CPT/HCPCS: 99285; 99283; 36415; 71275; 80053; 93005; 81003; 81015; 83735; 83880; 84484; 85025; 93010

== ENCOUNTER 2025-02-04 16:07 | Outpatient (CLI) | payer MEDICARE, SELFPAY ==
[2025-02-04 16:22] LABS: TSH (W/Ref FT4) 0.76 uIU/mL (0.36-3.74)
[2025-02-12 02:29] LABS: Metanephrines, U 186 mcg/24 h; Normetanephrine, U 499 mcg/24 h; Total Metanephrines, U 685 mcg/24 h
== END 2025-02-04 16:08 | disposition home or self-care (01) ==
LOC: LBO 16:08
PROVIDERS: PCP Family Medicine; Visit Provider Family Medicine
DX: R00.2 Palpitations (principal)
CPT/HCPCS: 36415; 81050; 83835; 84443

== ENCOUNTER 2025-02-22 02:10 | Outpatient (CLI) | payer MEDICARE, SELFPAY ==
--- NOTE | 2025-02-22 06:15 | DI.NM_ITS ---
APPROVED REPORT Exam: Pharmacologic Patient Location: Out-Patient Room/Bed: Stress Nurse: Samantha Davis RN Ordering Provider:ESPERANZA TATUM, Contact Number: [phone] BMI: 28.40 Baseline Rhythm: Sinus Rhythm Comment: Occasional PVC's, rare PAC's Indications: Chest pressure, angina pectoris Medical History Medical History: Hx of PE, DVT, syncope, poor balance, idiopathic neuropathy, PAD, HTN, SVT (09/01), GERD, depression, HLD, memory impairment, lyme disease Cardiac Medications: Metoprolol succinate, trazodone, atomextine, famotidine, apixaban, buspirone, vilazodone, oxybutynin chloride, ropinirole Allergies: Benzalkonium chloride, brimonidine, meperidine HCL, travaprost Cardiac Risk Factors: Family hx, HTN, HLD, former smoker Previous Cardiac Procedures: None Pretest Chest Pain Characteristics: None Exercise History: Sedentary Physical Disabilities: hx poor balance Lung Sounds: Clear to auscultation Heart Sounds: Irregular Stress Test Details Test: Pharmacologic stress was paired with low level exercise. Reason for pharmacologic stress test: physical limitation. Nuclear Acquisition: Rest Tc-99m/Stress Tc-99m 1 day Rest Isotope: Tc-99m Sestamibi. Dose: 10.0 Date: 02/22/2025 Injection Time: 0900 Stress Isotope: Tc-99m Sestamibi. Dose: 30.0 Date: 02/22/2025 Injection Time: 1100 HR Resting HR Supine: 59 bpm Max Heart Rate (APMHR): 142 bpm Resting HR Standin bpm Target HR (85% APMHR): 121 bpm Max HR Achieved: 109 bpm % of APMHR: 77 Recovery HR: 70 bpm BP Resting BP Supine: 160/90 mmHg Resting BP Standin/88 mmHg Max BP: 168/88 mmHg Recovery BP: 138/68 mmHg ECG Resting ECG: Sinus Rhythm Ectopy: Occasional PVC's, rare PAC's Stress ECG: Sinus Tachycardia ST Change: Nondiagnostic low heart rate Arrhythmia: Occasional PVC's Recovery ECG: Sinus Rhythm Recovery ST Change: Nondiagnostic low heart rate Recovery Arrhythmia: Occasional PVC's Clinical Stress Symptoms: Mild SOB, dizziness, stomach ache Angina Score: None Rate Pressure Product: [id number] Stress ECG Conclusion 1. Resting electrocardiogram was normal 2. Patient underwent testing using a combination of low-level exercise and pharmacologic stress with regadenoson 3. Peak heart rate achieved was 77% of maximal predicted for age 4. The electrocardiographic portion of the test was nondiagnostic 5. There were occasional atrial and ventricular ectopic beats 6. See MPI report Stress Test Summary STAGE HR BP SpO2 Symptoms NOTES Supine 59 160/90 93% Standing 59 168/88 1 min post Lexiscan injection 76 154/72 93% Mild SOB 3 min post Lexiscan injection 73 156/72 95% SOB resolved, dizziness 6 min post Lexiscan injection 70 138/68 93% Dizziness resolved, stomach ache Walking nicolle performed r/t poor balance. Patient c/o mild SOB, dizziness and stomach ache s/p nicolle injection. All symptoms resolved prior to patient proceeding to imaging ambulatory in no apparent distress. MPI Conclusion Myocardial perfusion is normal. There is no ischemia or evidence of prior infarction Ejection fraction is 55% with normal wall motion
[2025-02-22] MEDS: Regadenoson 0.4 MG/5 ML SYR IVP (11:15)
== END 2025-02-22 02:30 ==
LOC: DI 02:10
PROVIDERS: PCP Family Medicine; Visit Provider Internal Medicine Cardiovascular Disease
DX: I20.9 Angina pectoris, unspecified (principal)
CPT/HCPCS: 78452; 93016; 93018; 93017; J2785

== ENCOUNTER 2025-03-09 12:23 | Emergency (ER) | payer MEDICARE, SELFPAY ==
[2025-03-09 12:31] VITALS: BP 115/75; PULSE 70; RESP 16; TEMP 36.4; O2SAT 96
--- NOTE | 2025-03-09 12:45 | ED.GENADUL_ITS ---
Discharge Plan Disposition Patient Disposition: Home Discharge Details Clinical Impression: Left wrist sprain Primary Care Provider: Armando Castañeda ED Provider: Danny Soares Home Meds and New Rx's Prescriptions: Continued oxybutynin chloride 10 mg tablet extended release 24hr 10 mg PO DAILY Qty: 90 1RF ropinirole 3 mg tablet 3 mg PO QHS Qty: 90 3RF Rx Instructions: administer 1-3 hours before bedtime trazodone 50 mg tablet 50 - 100 mg PO QHS PRN (Reason: insomnia) Qty: 180 3RF Rx Instructions: for sleep, patient can decide if she needs 1 or 2 tabs per night, and can take an extra if she wakes up in the night (DME) Orthopaedic shoes See Rx Instructions .Route .MEDSUPPLY Qty: 1 0RF Rx Instructions: As directed lactase [Lactaid Fast Act] 9,000 unit tablet 9,000 unit PO ONCE PRN Rx Instructions: administer with meals and/or snacks metoprolol succinate 25 mg tablet extended release 24 hr 25 mg PO .bedtime Qty: 90 3RF Rx Instructions: Blood pressure atomoxetine 40 mg capsule 40 mg PO DAILY Qty: 90 3RF famotidine 20 mg tablet See Rx Instructions .ROUTE .COMPLEX Qty: 90 3RF Dose Instruction: TAKE 1 TABLET BY MOUTH DAILY FOR HEARTBURN Rx Instructions: TAKE 1 TABLET BY MOUTH DAILY FOR HEARTBURN buspirone 15 mg tablet See Rx Instructions PO TID Qty: 270 3RF Rx Instructions: 2tabs AM, 1tab PM PO three times a day; cholecalciferol (vitamin D3) 50 mcg (2,000 unit) capsule See Rx Instructions .ROUTE .COMPLEX Qty: 90 3RF Dose Instruction: TAKE 1 CAPSULE BY MOUTH DAILY FOR BONE HEALTH/OSTEOPENIA Rx Instructions: TAKE 1 CAPSULE BY MOUTH DAILY FOR BONE HEALTH/OSTEOPENIA vilazodone 40 mg tablet 40 mg PO DAILY Qty: 90 3RF Rx Instructions: must administer with a meal/food acetaminophen 500 mg tablet 500 mg PO Q6H PRN (Reason: pain) Qty: 60 2RF Eliquis 5 mg tablet See Rx Instructions .ROUTE .COMPLEX Qty: 74 2RF Rx Instructions: 2 tabs po BID x 7 days, then on tab po BID Discharge Instructions Additional Instructions: You are seen in the emergency department for your left wrist pain. Your x-ray showed no signs of any obvious fractures. As we discussed if you develop any redness or swelling in your hand or any worsening pain please return to the emergency department. Otherwise please follow-up with your primary care provider as needed next week. For your pain please take medications as follows: 1. Take acetaminophen (Tylenol), 1,000 mg (two 500 mg tabs) every 6 hours Discharge Data Discharge Date/Time-TO BE ENTERED AT DEPARTURE: 03/09/25 14:28 HPI General Date/Time Provider Initiated Documentation: 03/09/25 12:43 . HPI Narrative: MDM Primary survey intact. Reassuring shock index. On secondary survey patient has left radial wrist tenderness and left lower quadrant tenderness for which she will undergo radiographs. No fluctuance to suggest abscess. No erythema to suggest cellulitis. No preceding chest pain to suggest ACS. No shortness of breath to suggest PE. Patient did not strike her head and is not altered so I did not feel she required a CT scan of her head. Patient has not been vomiting to suggest increased risk for acute electrolyte abnormalities. No dysuria nor frequency to suggest UTI. Left hand warm and well-perfused so I am not concerned for critical limb ischemia so do not feel patient requires an angiogram. No history of thoracic rib to suggest thoracic outlet syndrome. Will treat pain with acetaminophen. 2:15 PM No acute osseous abnormalities on radiographs. Patient does have some chronic abnormalities of her left wrist. Will treat for wrist sprain with removable wrist brace. Will have patient follow-up with PCP. We discussed return indications including worsening pain any color changes in the hand or any streaking signs of infection. Patient understood her return indications and was discharged with an empiric trial of expectant outpatient management. HPI This is a patient with a history of pulmonary embolism presenting with left wrist pain. The patient experienced a fall while attempting to use the bathroom at night. She lost her balance and fell, unsure if she tripped over an object as the incident occurred rapidly. The patient reports no preceding lightheadedness or nausea. She was unable to rise immediately after the fall and remained on the floor for some time. The patient reports no chest pain or shortness of breath prior to the fall. She did not sustain a head injury during the incident. Currently, she is experiencing pain in her left wrist, which radiates upwards. The patient is right-handed. The patient is currently on Eliquis due to a previous diagnosis of pulmonary embolism. PAST SURGICAL HISTORY: The patient has a history of surgery on her left wrist. Exam General: Well-appearing in no acute distress speaking in complete sentences. Head: Normocephalic, atraumatic. Eye: Extraocular eye movements intact. No conjunctival injection. No scleral icterus. Ear, nose, mouth, throat: Grossly normal inspection. Normal voice, handling secretions normally. Neck: Trachea midline. Cardiovascular: Well-perfused distal extremities. Respiratory: Nonlabored respiration. Gastrointestinal: Nondistended abdomen. Musculoskeletal: Left upper extremity no obvious signs of any deformities. No ecchymoses. No lacerations. Patient has left radial wrist tenderness. Intact range of motion. Left snuffbox tenderness. 2+ left radial pulse. Sensation motor function intact in the left hand across the radial, median, and ulnar nerve distributions. Left hand warm and well-perfused with cap refill less than 2 seconds in the left hand. Skin: Normal for age and race, grossly normal temperature and turgor. No acute rash. Neurologic: Alert and appropriate, no apparent acute deficits. GCS 15. Psychiatric: Mood and manner are appropriate. Grooming and personal hygiene are appropriate. Related Data Home Medications ?Medication ?Instructions ?Recorded ?Confirmed Orthopaedic shoes #1 ea 12/06/23 03/09/25 lactase 9,000 unit tablet (Lactaid 9,000 unit PO ONCE PRN 01/16/24 03/09/25 Fast Act) acetaminophen 500 mg tablet 500 mg PO Q6H PRN pain #60 tabs 03/03/24 03/09/25 metoprolol succinate 25 mg 25 mg PO .bedtime #90 tabs 07/28/24 03/09/25 tablet,extended release 24 hr atomoxetine 40 mg capsule 40 mg PO DAILY #90 caps 09/1003/09/25 famotidine 20 mg tablet See Rx Instructions .Route 0 10/26/24 03/09/25 .COMPLEX #90 tabs apixaban 5 mg tablet (Eliquis) See Rx Instructions .Ro [place] 12/15/24 03/09/25 .COMPLEX #74 tabs buspirone 15 mg tablet See Rx Instructions PO TID # 270 01/21/25 03/09/25 tabs cholecalciferol (vitamin D3) 50 See Rx Instructions .R oute 01/21/25 03/09/25 mcg (2,000 unit) capsule .COMPLEX #90 caps vilazodone 40 mg tablet 40 mg PO DAILY #90 tabs 01/1103/09/25 oxybutynin chloride 10 mg 10 mg PO DAILY #90 tabs 02/0403/09/25 tablet,extended release 24 hr ropinirole 3 mg tablet 3 mg PO QHS #90 tabs 5 03/09/25 trazodone 50 mg tablet 50 - 100 mg (1 - 2 x 50 mg) PO QHS 02/18/25 03/09/25 PRN insomnia #180 tabs Previous Rx's ?Medication ?Instructions ?Recorded Orthopaedic shoes #1 ea 12/06/23 acetaminophen 500 mg tablet 500 mg PO Q6H PRN pain #60 tabs 03/03/24 metoprolol succinate 25 mg 25 mg PO .bedtime #90 tabs 07/28/24 tablet,extended release 24 hr atomoxetine 40 mg capsule 40 mg PO DAILY #90 caps 09/10 02/04 famotidine 20 mg tablet See Rx Instructions .Route 0 10/26/24 .COMPLEX #90 tabs apixaban 5 mg tablet (Eliquis) See Rx Instructions .Ro [place] 12/15/24 .COMPLEX #74 tabs buspirone 15 mg tablet See Rx Instructions PO TID # 270 01/21/25 tabs cholecalciferol (vitamin D3) 50 See Rx Instructions .R oute 01/21/25 mcg (2,000 unit) capsule .COMPLEX #90 caps vilazodone 40 mg tablet 40 mg PO DAILY #90 tabs 01/11 06/06 oxybutynin chloride 10 mg 10 mg PO DAILY #90 tabs 02/04 tablet,extended release 24 hr ropinirole 3 mg tablet 3 mg PO QHS #90 tabs 5 trazodone 50 mg tablet 50 - 100 mg (1 - 2 x 50 mg) PO QHS 02/18/25 PRN insomnia #180 tabs Allergies Allergy/AdvReac Type Severity Reaction Status Date / Time benzalkonium chloride (From Allergy Unknown unknown Verified 03/09/25 12:40 Travatan) brimonidine (From Alphagan P) Allergy Unknown unknown Verified 03/09/25 12:40 meperidine HCl (From Demerol) Allergy Unknown UNSURE Verified 03/09/25 12:40 travoprost (From Travatan) Allergy Unknown unknown Verified 03/09/25 12:40 lactose AdvReac Intermediate Diarrhea Verified 03/09/25 12:40 BLUE SURGICAL SCRUB? AdvReac Intermediate RASH, Uncoded 03/09/25 12:40 ITCHING General Stated Complaint: Orthopedic SHAGUFTA: 4 Course Vital Signs Vital signs: Vital Signs Temperature 36.4 C L 03/09/25 12:31 Pulse 70 03/09/25 12:31 Respiratory Rate 16 03/09/25 12:31 Blood Pressure 115/75 03/09/25 12:31 Pulse Oximetry 96 03/09/25 12:31 Temperature 36.4 C L 03/09/25 12:31 Temperature Source Oral 03/09/25 12:31 Pulse 70 03/09/25 12:31 Respiratory Rate 16 03/09/25 12:31 Blood Pressure 115/75 03/09/25 12:31 Blood Pressure Position Sitting 03/09/25 12:31 Pulse Oximetry 96 03/09/25 12:31 Oxygen Delivery Method Nasal Cannula 03/09/25 12:31 Pain Level 5 03/09/25 12:31 Medical Decision Making Quality:SDOH Health Related Social Needs: Health related social needs lonely/isolated Health related social needs details feels isolated tonio etimes PFSH All Active Problems (Updated 03/09/25 @ 14:16 by Danny Soares MD) Left wrist sprain (Acute) Bladder instability (Acute) Breast cancer screening (Acute) DVT prophylaxis (Acute) Multiple pulmonary emboli (Acute) Facial lesion (Acute) Tremor (Acute) Venous stasis dermatitis (Acute) Venous stasis dermatitis of both lower extremities (Acute) Ventricular ectopy (Acute) Syncope (Chronic) Poor balance (Acute) per PT evaluation Idiopathic neuropathy (Acute) Cervicalgia (Acute) Arthritis of carpometacarpal (CMC) joint of left thumb (Acute) Status post trapezial arthroplasty: 03/03/2024 Skull fracture (Acute) Concussion (Acute) ADD (attention deficit disorder) (Acute) Arthritis of right glenohumeral joint (Chronic) Intra-articular 80 mg injection: 04/15/2023 Neuropathy (Acute) Nail dystrophy (Acute) PAD (peripheral artery disease) (Acute) Venous insufficiency (Acute) Peripheral neuropathy (Acute) Hypertension (Chronic ~05/2022) Trochanteric bursitis, right hip (Acute) DEPO MEDROL 11/11/23; 02/17/24 Radicular pain of right lower extremity (Acute ~02/2022) Supraventricular tachycardia (Chronic ~08/2021) Started 2013 with repeat cardiac nurse specialist 08/2021 validating ?Stimulant contributory Cardiology consult 01/2022--consider BB or diltiazem Scoliosis of thoracic spine (Chronic) R convex scoliosis Arthritis of carpometacarpal joint (Acute) left Most recent 40 mg Depo-Medrol injection: 04/15/2023 Heartburn (Chronic) Famotidine 20mg daily Bladder incontinence (Acute) Kegels & bladder training instruction Dysarthria-clumsy hand syndrome (Acute) Mild aortic stenosis (Acute ~06/2019) ECHO 06/2019; 07/2020 (stable); 2022 ECHO normalized (no aortic stenosis); recheck in 1-2y Elevated MCV (Acute) Trigger finger, right middle finger (Chronic) [facility] Dr. Meza Osteopenia (Chronic) DEXA 2016 & 2020 Insomnia (Chronic) RX Trazodone Depression (Chronic 08/31/11) [facility] Restless legs syndrome (Chronic 02/04/17) Years; Dr. Ruffin Neuro; medication helps (Requip & Shrilene PRN; Shirlene 300mg HS PRN discontinued 08/14/2019) Spinal stenosis of lumbar region (Acute 02/04/17) s/p Neurosurgery; 02/2022 lumbar x-ray: lumbar spondylosis, convex scoliosis Hypercholesterolemia (Chronic 02/04/17) FRS 12.8% (2021)-->not a candidate for statin Arthralgia of hip (Acute 02/04/17) R, muscular; PT Glaucoma (Chronic 02/04/17) Medical History Elevated BP without diagnosis of hypertension (~04/2022) Palpitations (~07/2021) H/O supraventricular tachycardia (~2013) 2013 & 2017 cardiac monitors; 2021 Closed fracture distal radius and ulna (10/22/20) right 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 other--see 08/14/2019 note; Neuro 03/2019; normal brain MRI and labs [id number] [facility] consult 2020 & 2021--no [facility]; they are following History of Lyme disease Early Disseminated-10/29 Dr. Manuel Lucia Atrophic vaginitis (09/07/13) Iron deficiency (02/04/17) Lumbar pain with radiation down left leg Improved s/p lumbar spine fusion; stable; Dr. Devi Ankle fracture Ankle sprain Hip fx Surgical History History of lumbar discectomy L4-5 Carpal tunnel syndrome, right (07/11/21) s/p ECTR DOS: 07/11/2021 History of arthroplasty of right knee History of cataract extraction B/L eyes [facility] Dr. Parks, R then L (pending 11/2019) History of knee replacement B/L Acquired absence of both cervix and uterus (08/31/11) Status post cervical spinal arthrodesis (02/04/17) History of lumbar laminectomy (~2013) Varicose vein stripping Spinal Fusion Lumbar L4-S1; also cervical Oophrectomy, Right with hyst 1998 Oophrectomy, Left Age 20 for cyst L knee repair Vaginal hysterectomy 1997 - Prolapse Family History Mother Parkinson disease Heart disease Hypertension Brother Depression Diabetes Heart disease Hypertension Father Heart disease Hypertension Social History (Updated 12/15/24 @ 15:33 by Danny Atkins) Smoking/Tobacco Use Status: Former Tobacco Use Quit Date: 05/13/89 Tobacco: How many years used: 10 Smoking risk assessment performed?: Yes Alcohol Intake: never Drug use: Never Substance use type: does not use Counseling given: No Adopted: No Caregiver/Support person: No Foster care: No Household members: family Housing: house Number of Children: 2 Communication Needs: Corrective Lenses Do you need help understanding health information?: Rarely current occupation: Retired Sexually active: Yes Do you think of yourself as: straight/heterosexual Current gender identity: female What is your relationship status?: How often do you talk on the phone with friends or family?: once per week How often do you get together with friends or relatives?: once per week Panel score (0-1 are the most socially isolated patients): 0 What type of physical activity do you participate in: none Seatbelt use: always Working smoke detector in home: Yes Fire extinguisher in home: Yes Carbon monox detector in home: Yes Do you feel safe at home: Yes Do you feel safe in your relationship?: Yes Additional Social history: , lives alone in [facility] with dog and 2 parakeets. 2 children in area.
--- NOTE | 2025-03-09 13:00 | DI.RAD_ITS ---
Exam(s) XR WRIST LT COMP NAVICULAR EXAM: XR WRIST LT COMP NAVICULAR CLINICAL HISTORY: Left wrist pain. TECHNIQUE: 2D digital imaging was performed. COMPARISON: CR XR WRIST RT LIMITED from 01/19/2021 FINDINGS: Five views No evidence of acute fracture or dislocation nor significant ulnar variance. Scaphoid and scapholunate distance are normal. Advanced degenerative changes are noted at the 1st carpometacarpal joint and there appears to be surgical absence of the trapezium. There is calcification in the triangular fibrocartilage on the medial aspect of the wrist. IMPRESSION: Previous surgery on the lateral aspect of the wrist which appears to have been removal of the trapezium. There are advanced degenerative changes at this level. No scaphoid fracture. DATA REPOSITORY: RADIATION DOSE DELIVERED:
--- NOTE | 2025-03-09 13:00 | DI.RAD_ITS ---
Exam(s) XR HAND LT COMPLETE EXAM: XR HAND LT COMPLETE CLINICAL HISTORY: Left hand pain. TECHNIQUE: 2D digital imaging was performed. COMPARISON: CR XR HAND LT COMPLETE from 02/17/2024 FINDINGS: 3 views No evidence of acute fracture nor dislocation the hand. There are advanced osteoarthritic degenerative changes 1st carpometacarpal joint and there has been removal of the trapezium at this level. There is degenerative change in the distal scaphoid but no scaphoid fracture evident. There are no erosions at the metacarpophalangeal joints. There are mild de generative changes in the interphalangeal joints throughout the hand. No radiopaque foreign bodies. No osseous lesions nor erosions evident. There is calcification in the triangular fibrocartilage at the level the medial wrist. IMPRESSION: Multilevel findings as above but no acute fractures in the hand evident. DATA REPOSITORY: RADIATION DOSE DELIVERED:
[2025-03-09] MEDS: Acetaminophen 500 MG TAB 1000 MG PO (13:08)
== END 2025-03-09 14:28 | disposition home or self-care (01) ==
PROVIDERS: Emergency Provider Emergency Medicine; PCP Family Medicine
DX: S63.502A Unspecified sprain of left wrist, initial encounter (principal); W06.XXXA Fall from bed, initial encounter
CPT/HCPCS: 99283; 99284; 73110; 73130

== ENCOUNTER → 2025-03-17 02:21 | Outpatient (CLI) | payer MEDICARE, SELFPAY | LOC: DI 02:21 | PROVIDERS: PCP Family Medicine; Visit Provider Student in an Organized Health Care Education/Training Program | DX: I26.99 Other pulmonary embolism without acute cor pulmonale (principal); I35.0 Nonrheumatic aortic (valve) stenosis | CPT/HCPCS: 93306 ==

== ENCOUNTER 2025-03-18 10:37 | Emergency (ER) | payer MEDICARE, SELFPAY ==
[2025-03-18] VITALS (18 sets, daily range): BP systolic 157–179; BP diastolic 50–99; PULSE 53–63; RESP 11–21; TEMP 36.3–36.4; O2SAT 95–99
--- NOTE | 2025-03-18 10:30 | RT.EKG_ITS ---
APPROVED REPORT Exam: Resting ECG Reason for Exam: Chest Pain Patient Location: E HR:59 bpm ECG Measurements Heart Rate 59 AXIS [place] [id number] P [id number] QRSd 117 QRS -23 QT 453 T 59 QTc 451 Conclusion Atrial fibrillation...V-rate 38- 68, irreg A-activity Ventricular bigeminy...bigeminy string>4 w/ V complexes Probable left ventricular hypertrophy...(RaVL+SV3)xQRSd >300 Physician: Unchanged, No STEMI
--- NOTE | 2025-03-18 10:56 | DI.CT_ITS ---
Exam(s) CT CHEST PE ABD PELVIS W EXAM: CT CHEST PE ABD PELVIS W CLINICAL HISTORY: Chest pain, RUQ pain. TECHNIQUE: Imaging Protocol: Axial CT angiography was performed with multi- slice acquisition and multi-planar and/or 3D reconstructions. CONTRAST MATERIAL: Intravenous: Omnipaque 350 Contrast volume:100 ml Oral: None COMPARISON: CT CT CHEST PE CTA from 01/31/2025 FINDINGS: CHEST: PULMONARY ARTERIES: There are no intra-arterial filling defects to suggest the presence of acute pulmonary emboli. LUNGS: There is no evidence of pulmonary infarction.No confluent infiltrates nor pleural effusions. Mild symmetrical increased markings in both lung bases are unchanged from 01/31/2025. Also some scarring in the lung bases is unchanged. There are no new findings in the trachea and mainstem bronchi. MEDIASTINUM: There is no hilar nor mediastinal adenopathy. Visualized thyroid unremarkable. CARDIAC: Heart size upper normal. No pericardial effusion. The diameter of the ascending thoracic aorta is within normal limits. There is no evidence of aortic dissection. OSSEOUS: No significant osseous lesions.No fractures. Fusion hardware is noted in the lower cervical spine. ABDOMEN: There is no ascites. LIVER: There are multiple benign appearing cysts in the liver, the largest of these in the superior aspect of the right lobe and measuring 1.8 x 1.5 cm. No solid lesions in the liver evident. There are no dilated intrahepatic ducts. GALLBLADDER/BILIARY: No obvious acute gallbladder pathology. The CBD is not dilated.. PANCREAS: With the exception of the tip of the uncinate process, the entire pancreas is hypodense, probably related to inter gland edema. The pancreatic duct is not dilated. There is no peripancreatic streaking nor fluid collections. There is no obvious distinct focal mass in the pancreas SPLEEN: Spleen is not enlarged. There are no intrasplenic lesions. Splenic and portal veins are patent. ADRENALS: There are no significant adrenal masses. KIDNEYS:No cysts evident. No calculi nor hydronephrosis. No solid renal masses. ABDOMINAL AORTA: Calcified. Maximum diameter 2.9 cm. Iliac arteries are also calcified but without aneurysmal dilatation. LYMPH NODES: There is no retroperitoneal or para-aortic adenopathy. ABDOMINAL WALL/GI: No evidence of significant anterior abdominal wall hernia. There are multiple fluid-filled but nondilated small bowel loops. There is formed fecal material throughout the colon. PELVIS: LYMPH NODES: There is no intrapelvic nor inguinal adenopathy. GI: No evidence of appendicitis.There is sigmoid diverticulosis but without evidence of obvious acute diverticulitis. URINARY BLADDER: Mild cystocele. REPRODUCTIVE: Uterus surgically absent. No abnormal adnexal masses nor free fluid in the pelvis. OSSEOUS: There is a healed fracture of the right transverse process of L3. There is multilevel posterior metallic fusion hardware in the lumbar spine at L4-5-S1 levels bilateral intrapedicular screws at these levels and there is an in term vertebral disc space device at L4-5 level. No obvious hardware fracture IMPRESSION: 1. No evidence of acute pulmonary emboli nor pulmonary infarction. 2. No prominent infiltrates nor pleural effusions nor ominous pulmonary nodules. 3. The entire pancreas (with the exception of the tip of the uncinate process) is abnormally hypodense, probably related to gland edema. Although there is no peripancreatic streaking, 1st consideration would be for pancreatitis. There is no distinct pancreatic mass visible. There are no pancreatic parenchymal calcifications. 4. Multiple benign cysts noted in both lobes of the liver 5. Fluid-filled but nondilated small bowel loops consistent with an enteritis pattern. There is no small bowel obstruction. There is formed fecal material throughout the colon. There is sigmoid diverticulosis but no obvious acute diverticulitis and there is no evidence of appendicitis. Report called by myself to ER provider 03/18/2025 at 2:10 p.m. RADIATION DOSE DELIVERED: 1,450.79mGy.cm Total DLP DATA REPOSITORY: All CT scans at this facility are submitted to the National Radiology Data Registry (NRDR) Dose Index Registry (DIR) with the [employer] ([employer]). RADIATION OPTIMIZATION: All CT scans at this facility use at least one of these dose optimization techniques: automated exposure control; mA and/or kV adjustment per patient size (includes targeted exams where dose is matched to clinical indication); or iterative reconstruction.
[2025-03-18 11:08] LABS: Abs Immature Grans 0.01 10^3/uL (0.0-0.06); HCT 39.5 % (36.0-46.0); HGB 13.4 g/dL (11.2-15.7); Immature Grans % 0.2 %; MCH 33.5 pg (27.0-33.0); MCHC 33.9 % (32.0-36.0); MCV 99 fL (80-95); MPV 10.1 fL (8.0-11.0); Platelet Count 189 10^3/uL (130-400); RBC 4.00 10^6/uL (3.93-5.22); RDW 12.6 % (11.7-14.6); RDW-SD 45.4 fL; WBC 4.84 10^3/uL (4.4-10.8)
--- NOTE | 2025-03-18 11:15 | DI.CT_ITS ---
Exam(s) CT HEAD WO EXAM: CT HEAD WO CLINICAL HISTORY: headache, recent concussion, anticoagulated. TECHNIQUE: Imaging Protocol: Axial computed tomography images with coronal and sagittal reformatted images were created and reviewed COMPARISON: CT CT HEAD WO from 12/15/2024 FINDINGS: Ventricles and Extra axial spaces: Normal in size and morphology for the patient's age. Hemorrhage: None. Cerebral parenchyma: There are areas of decreased attenuation in the white matter consistent with chronic microvascular ischemic disease. There is no evidence of an acute territorial infarct or mass effect. Midline shift: None. Brainstem/Cerebellum: Normal. Calvarium: Normal. Visualized Paranasal sinuses/Mastoids: Clear. Soft Tissues: Unremarkable. IMPRESSION: No acute intracranial process. RADIATION DOSE DELIVERED: 819.1mGy.cm Total DLP DATA REPOSITORY: All CT scans at this facility are submitted to the National Radiology Data Registry (NRDR) Dose Index Registry (DIR) with the [employer] (A[employer]). RADIATION OPTIMIZATION: All CT scans at this facility use at least one of these dose optimization techniques: automated exposure control; mA and/or kV adjustment per patient size (includes targeted exams where dose is matched to clinical indication); or iterative reconstruction.
[2025-03-18 11:24] LABS: ALT 22 U/L (14-59); AST 27 U/L (15-37); Albumin 3.5 g/dL (3.4-5.0); Alkaline Phosphatase 91 U/L (46-116); Anion Gap 7.5 mmol/L (3-11); BUN 16 mg/dL (7-18); Bilirubin, Total 0.4 mg/dL (0.2-1.0); CO2 27.5 mmol/L (21.0-32.0); Calcium 8.8 mg/dL (8.5-10.1); Chloride 107 mmol/L (98-107); Glucose 92 mg/dL (74-106); Potassium 4.4 mmol/L (3.5-5.1); Sodium 142 mmol/L (136-145); Total Protein 6.9 g/dL (6.4-8.2)
[2025-03-18 11:28] LABS: Lipase 30 U/L (<78); Troponin I 5 ng/L (<or=51)
[2025-03-18] MEDS: ACETAMINOPHEN 500 MG/50 ML BAG 200 MG IVPB (11:28)
[2025-03-18] MEDS: Normal Saline - Diluent 50 ML VIAL IJ (12:10)
[2025-03-18] MEDS: Normal Saline Flush 10 ML SYR IVP (12:10)
[2025-03-18] MEDS: Omnipaque 350 MG/ML 500 ML BTL-Imaging package IJ (12:10)
[2025-03-18] MEDS: Normal Saline 500 ML IV (12:49)
[2025-03-18] MEDS: Prochlorperazine 10 MG/2 ML VIAL 5 MG IVP (12:49)
[2025-03-18] MEDS: Normal Saline 50 ML 150 ML (12:49)
[2025-03-18 13:00] LABS: Troponin I 5 ng/L (<or=51)
[2025-03-18 13:01] LABS: Glucose Negative (Negative)
[2025-03-18 13:09] LABS: RBC 0-2 HPF (0-2); WBC Negative HPF (0-5)
[2025-03-18 13:10] LABS: C & S Indicated? No
[2025-03-18] MEDS: diazePAM 2 MG TAB PO ×2 (13:45→14:57)
--- NOTE | 2025-03-18 15:33 | W.ED.GENAD ---
Discharge Plan Disposition Patient Disposition: Home Condition: Stable Discharge Details Clinical Impression: Atypical chest pain, Headache Primary Care Provider: Armando Castañeda ED Provider: Nusrat Leung Home Meds and New Rx's Prescriptions: Continued oxybutynin chloride 10 mg tablet extended release 24hr 10 mg PO DAILY Qty: 90 1RF ropinirole 3 mg tablet 3 mg PO QHS Qty: 90 3RF Rx Instructions: administer 1-3 hours before bedtime trazodone 50 mg tablet 50 - 100 mg PO QHS PRN (Reason: insomnia) Qty: 180 3RF Rx Instructions: for sleep, patient can decide if she needs 1 or 2 tabs per night, and can take an extra if she wakes up in the night (DME) Orthopaedic shoes See Rx Instructions .Route .MEDSUPPLY Qty: 1 0RF Rx Instructions: As directed lactase [Lactaid Fast Act] 9,000 unit tablet 9,000 unit PO ONCE PRN Rx Instructions: administer with meals and/or snacks metoprolol succinate 25 mg tablet extended release 24 hr 25 mg PO .bedtime Qty: 90 3RF Rx Instructions: Blood pressure atomoxetine 40 mg capsule 40 mg PO DAILY Qty: 90 3RF famotidine 20 mg tablet See Rx Instructions .ROUTE .COMPLEX Qty: 90 3RF Dose Instruction: TAKE 1 TABLET BY MOUTH DAILY FOR HEARTBURN Rx Instructions: TAKE 1 TABLET BY MOUTH DAILY FOR HEARTBURN buspirone 15 mg tablet See Rx Instructions PO TID Qty: 270 3RF Rx Instructions: 2tabs AM, 1tab PM PO three times a day; cholecalciferol (vitamin D3) 50 mcg (2,000 unit) capsule See Rx Instructions .ROUTE .COMPLEX Qty: 90 3RF Dose Instruction: TAKE 1 CAPSULE BY MOUTH DAILY FOR BONE HEALTH/OSTEOPENIA Rx Instructions: TAKE 1 CAPSULE BY MOUTH DAILY FOR BONE HEALTH/OSTEOPENIA vilazodone 40 mg tablet 40 mg PO DAILY Qty: 90 3RF Rx Instructions: must administer with a meal/food acetaminophen 500 mg tablet 500 mg PO Q6H PRN (Reason: pain) Qty: 60 2RF Eliquis 5 mg tablet See Rx Instructions .ROUTE .COMPLEX Qty: 74 2RF Rx Instructions: 2 tabs po BID x 7 days, then on tab po BID Discharge Instructions Instructions: Chest Pain, Adult ED, Headache, Adult ED Additional Instructions: You may take the additional dose of Valium as needed for neck and head pain before bed tonight, you should not take an additional dose of this medication until 7:00 tonight Your tests today are reassuring there is no evidence of significant abnormality your heart enzymes and blood work look reassuring Please call your doctor for follow-up tomorrow Please return should you have new or worsening complaints or should any new symptoms arise Stand Alone Forms: Portal Information Discharge Data Discharge Date/Time-TO BE ENTERED AT DEPARTURE: 03/18/25 15:45 HPI General Date/Time Provider Initiated Documentation: 03/18/25 10:38. HPI Narrative: This 79-year-old female presents with report of right-sided chest pain that started during a counseling appointment. She denies any strep rash. She states the pain radiates around the right side of her chest and into her shoulder. She denies any fever or chills. She felt fine prior to the onset of her symptoms. On arrival in the emergency department she states she had a headache which is well for her. She states it starts in her neck posteriorly and radiates to the top of her head. She denies any anterior neck tenderness dizziness shortness of breath. She does have a prior history of PE she states this pain is different. She has any prior abdominal surgeries nausea vomiting or diaphoresis. She denies any exertional component to her symptoms she does have a history of venous stasis, peripheral arterial disease SVT Related Data Home Medications Medication Instructions Recorded Confirmed Orthopaedic shoes #1 ea 12/06/23 03/18/25 lactase 9,000 unit tablet (Lactaid 9,000 unit PO ONCE PRN 01/16/24 03/18/25 Fast Act) acetaminophen 500 mg tablet 500 mg PO Q6H PRN pain #60 tabs 03/03/24 03/18/25 metoprolol succinate 25 mg 25 mg PO .bedtime #90 tabs 07/28/24 03/18/25 tablet,extended release 24 hr atomoxetine 40 mg capsule 40 mg PO DAILY #90 caps 09/28/24 03/18/25 famotidine 20 mg tablet See Rx Instructions .Route 10/26/24 03/18/25 .COMPLEX #90 tabs apixaban 5 mg tablet (Eliquis) See Rx Instructions .Route 12/15/24 03/18/25 .COMPLEX #74 tabs buspirone 15 mg tablet See Rx Instructions PO TID #270 01/21/25 03/18/25 tabs cholecalciferol (vitamin D3) 50 See Rx Instructions .Route 01/21/25 03/18/25 mcg (2,000 unit) capsule .COMPLEX #90 caps vilazodone 40 mg tablet 40 mg PO DAILY #90 tabs 01/21/25 03/18/25 oxybutynin chloride 10 mg 10 mg PO DAILY #90 tabs 02/18/25 03/18/25 tablet,extended release 24 hr ropinirole 3 mg tablet 3 mg PO QHS #90 tabs 02/18/25 03/18/25 trazodone 50 mg tablet 50 - 100 mg (1 - 2 x 50 mg) PO QHS 02/18/25 03/18/25 PRN insomnia #180 tabs Previous Rx's Medication Instructions Recorded Orthopaedic shoes #1 ea 12/06/23 acetaminophen 500 mg tablet 500 mg PO Q6H PRN pain #60 tabs 03/03/24 metoprolol succinate 25 mg 25 mg PO .bedtime #90 tabs 07/28/24 tablet,extended release 24 hr atomoxetine 40 mg capsule 40 mg PO DAILY #90 caps 09/28/24 famotidine 20 mg tablet See Rx Instructions .Route 10/26/24 .COMPLEX #90 tabs apixaban 5 mg tablet (Eliquis) See Rx Instructions .Route 12/15/24 .COMPLEX #74 tabs buspirone 15 mg tablet See Rx Instructions PO TID #270 01/21/25 tabs cholecalciferol (vitamin D3) 50 See Rx Instructions .Route 01/21/25 mcg (2,000 unit) capsule .COMPLEX #90 caps vilazodone 40 mg tablet 40 mg PO DAILY #90 tabs 01/21/25 oxybutynin chloride 10 mg 10 mg PO DAILY #90 tabs 02/18/25 tablet,extended release 24 hr ropinirole 3 mg tablet 3 mg PO QHS #90 tabs 02/18/25 trazodone 50 mg tablet 50 - 100 mg (1 - 2 x 50 mg) PO QHS 02/18/25 PRN insomnia #180 tabs Allergies Allergy/AdvReac Type Severity Reaction Status Date / Time benzalkonium chloride (From Allergy Unknown unknown Verified 03/18/25 10:57 Travatan) brimonidine (From Alphagan P) Allergy Unknown unknown Verified 03/18/25 10:57 meperidine HCl (From Demerol) Allergy Unknown UNSURE Verified 03/18/25 10:57 travoprost (From Travatan) Allergy Unknown unknown Verified 03/18/25 10:57 lactose AdvReac Intermediate Diarrhea Verified 03/18/25 10:57 BLUE SURGICAL SCRUB? AdvReac Intermediate RASH, Uncoded 03/18/25 10:57 ITCHING General Stated Complaint: Chest Pain SHAGUFTA: 3 Exam Narrative Exam Narrative: Patient is alert and oriented she has reproducible tenderness in the right upper quadrant tenderness and chest wall tenderness, she is alert and oriented no acute distress, she has no rebound or guarding, lungs are clear to auscultation no respiratory distress cranial nerves II to XII intact pupils equal round reactive to light and accommodation extraocular muscles intact ambulatory steady gait no carotid bruit no meningismus Course Vital Signs Vital signs: Vital Signs Temperature 36.4 C 03/18/25 10:39 Pulse 57 L 03/18/25 10:39 Respiratory Rate 20 03/18/25 10:39 Blood Pressure 157/50 H 03/18/25 10:39 Pulse Oximetry 99 03/18/25 10:39 Temperature 36.3 C L 03/18/25 15:12 Temperature Source Tympanic 03/18/25 15:12 Pulse 56 L 03/18/25 15:12 Pulse 56 L 03/18/25 12:02 Respiratory Rate 13 03/18/25 12:02 Respiratory Effort Normal 03/18/25 10:57 Respiratory Depth Normal 03/18/25 10:57 Respiratory Pattern Normal 03/18/25 10:57 Blood Pressure 179/99 H 03/18/25 15:12 Blood Pressure Mean 125 03/18/25 15:12 Blood Pressure Position Sitting 03/18/25 10:39 Pulse Oximetry 98 03/18/25 15:12 Oxygen Delivery Method Room Air 03/18/25 15:12 Oxygen Flow Rate 0 03/18/25 15:12 Pain Level 0 03/18/25 15:12 Lab/Test Results Lab/Test Results: Laboratory Tests Range/Units 03/18/25 03/18/25 03/18/25 10:54 12:16 12:23 WBC (4.4-10.8) 10^3/uL 4.84 RBC (3.93-5.22) 10^6/uL 4.00 Hgb (11.2-15.7) g/dL 13.4 Hct (36.0-46.0) % 39.5 MCV (80-95) fL 99 H MCH (27.0-33.0) pg 33.5 H MCHC (32.0-36.0) % 33.9 RDW (11.7-14.6) % 12.6 Plt Count (130-400) 10^3/uL 189 MPV (8.0-11.0) fL 10.1 Immature Gran % % 0.2 Neutrophils % % 53.7 Lymphocytes % % 33.7 Monocytes % % 7.9 Eosinophils % % 3.7 Basophils % % 0.8 Nucleated RBC % (0.0-0.3) % 0.0 Absolute Neutrophils (1.2-6.7) 10^3/uL 2.60 Absolute Lymphocytes (1.2-3.4) 10^3/uL 1.63 Absolute Monocytes (0.1-0.8) 10^3/uL 0.38 Absolute Eosinophils (0.0-0.7) 10^3/uL 0.18 Absolute Basophils (0.0-0.2) 10^3/uL 0.04 Sodium (136-145) mmol/L 142 Potassium (3.5-5.1) mmol/L 4.4 Chloride (98-107) mmol/L 107 Carbon Dioxide (21.0-32.0) mmol/L 27.5 Anion Gap (3-11) mmol/L 7.5 BUN (7-18) mg/dL 16 Creatinine (0.55-1.02) mg/dL 0.6 Est GFR (CKD-EPI 2020) (mL/min/1.73m2) 91.82 Glucose (74-106) mg/dL 92 Calcium (8.5-10.1) mg/dL 8.8 Total Bilirubin (0.2-1.0) mg/dL 0.4 AST (15-37) U/L 27 ALT (14-59) U/L 22 Alkaline Phosphatase (46-116) U/L 91 Troponin I (<or=51) ng/L 5 5 Total Protein (6.4-8.2) g/dL 6.9 Albumin (3.4-5.0) g/dL 3.5 Lipase (<78) U/L 30 Urine Color (Yellow) Yellow Urine Clarity (Clear) Clear Urine pH (5-8) 6.0 Ur Specific [place] (1.005-1.025) 1.015 Urine Protein (Neg-Trace) mg/dL Negative Urine Ketones (Negative) mg/dL Negative Urine Blood (Negative) Trace-intact H Urine Nitrite (Negative) Negative Urine Bilirubin (Negative) Negative Urine Urobilinogen (Up to 0.2) mg/dL 0.2 Ur Leukocyte Esterase (Negative) Negative Urine RBC (0-2) HPF 0-2 Urine WBC (0-5) HPF Negative Ur Epithelial Cells (Negative) HPF Rare Urine Crystals (Negative) HPF Negative Urine Bacteria (Negative) HPF Rare Urine Casts (Negative) LPF Negative Urine Mucus (Negative) Negative Ur Culture Indicated? No Urine Glucose (Negative) mg/dL Negative Range/Units 03/18/25 13:55 WBC (4.4-10.8) 10^3/uL RBC (3.93-5.22) 10^6/uL Hgb (11.2-15.7) g/dL Hct (36.0-46.0) % MCV (80-95) fL MCH (27.0-33.0) pg MCHC (32.0-36.0) % RDW (11.7-14.6) % Plt Count (130-400) 10^3/uL MPV (8.0-11.0) fL Immature Gran % % Neutrophils % % Lymphocytes % % Monocytes % % Eosinophils % % Basophils % % Nucleated RBC % (0.0-0.3) % Absolute Neutrophils (1.2-6.7) 10^3/uL Absolute Lymphocytes (1.2-3.4) 10^3/uL Absolute Monocytes (0.1-0.8) 10^3/uL Absolute Eosinophils (0.0-0.7) 10^3/uL Absolute Basophils (0.0-0.2) 10^3/uL Sodium (136-145) mmol/L Potassium (3.5-5.1) mmol/L Chloride (98-107) mmol/L Carbon Dioxide (21.0-32.0) mmol/L Anion Gap (3-11) mmol/L BUN (7-18) mg/dL Creatinine (0.55-1.02) mg/dL Est GFR (CKD-EPI 2020) (mL/min/1.73m2) Glucose (74-106) mg/dL Calcium (8.5-10.1) mg/dL Total Bilirubin (0.2-1.0) mg/dL AST (15-37) U/L ALT (14-59) U/L Alkaline Phosphatase (46-116) U/L Troponin I (<or=51) ng/L Cancelled Total Protein (6.4-8.2) g/dL Albumin (3.4-5.0) g/dL Lipase (<78) U/L Urine Color (Yellow) Urine Clarity (Clear) Urine pH (5-8) Ur Specific [place] (1.005-1.025) Urine Protein (Neg-Trace) mg/dL Urine Ketones (Negative) mg/dL Urine Blood (Negative) Urine Nitrite (Negative) Urine Bilirubin (Negative) Urine Urobilinogen (Up to 0.2) mg/dL Ur Leukocyte Esterase (Negative) Urine RBC (0-2) HPF Urine WBC (0-5) HPF Ur Epithelial Cells (Negative) HPF Urine Crystals (Negative) HPF Urine Bacteria (Negative) HPF Urine Casts (Negative) LPF Urine Mucus (Negative) Ur Culture Indicated? Urine Glucose (Negative) mg/dL Medical Decision Making Results: Patient with 2 troponins within normal limits that are flat, CT head does not show acute abnormality CT chest abdomen pelvis is reassuring however patient does have some swelling around her pancreas she has a negative lipase and has no tenderness in this area she encouraged to follow-up with her doctor regarding this finding urinalysis does not show evidence of infection EKG is nonischemic, no evidence of PE, CT discussed with radiologist Dr. Phoenix Assessment and plan: Patient presenting with chest pain and subsequently developed headache in the emergency department. She is fully alert and oriented and has a nonfocal neurological assessment. She has reproducible taint pain in the cervical or paraspinal muscle region and she was given 2 mg of Valium p.o. and had significant improvement in symptoms in fact complete resolution of her headache. CT scan does not show acute abnormality which is reassuring as she is on Eliquis. CT chest abdomen pelvis does not also does not show acute abnormality however she does have some enhancement around her pancreas no tenderness in this area and her lipase is within normal limits making pancreatitis less likely. No evidence of biliary disease LFTs within normal limits bilirubin and lipase reassuring. She is chest pain headache free at time of reassessment she is encouraged to follow-up with her primary care physician in the outpatient setting low suspicion clinically that this was a cardiac equivalent for the patient and as she has no evidence of PE think she stable for discharge home at this time. She is given low threshold for to return should she have new or worsening complaints Quality:SDOH Health Related Social Needs: Health related social needs lonely/isolated Health related social needs details feels isolated sometimes PFSH All Active Problems (Updated 03/18/25 @ 14:47 by BETO Toussaint) Headache (Acute) Atypical chest pain (Acute) Left wrist sprain (Acute) Bladder instability (Acute) Breast cancer screening (Acute) DVT prophylaxis (Acute) Multiple pulmonary emboli (Acute) Facial lesion (Acute) Tremor (Acute) Venous stasis dermatitis (Acute) Venous stasis dermatitis of both lower extremities (Acute) Ventricular ectopy (Acute) Syncope (Chronic) Poor balance (Acute) per PT evaluation Idiopathic neuropathy (Acute) Cervicalgia (Acute) Arthritis of carpometacarpal (CMC) joint of left thumb (Acute) Status post trapezial arthroplasty: 03/03/2024 Skull fracture (Acute) Concussion (Acute) ADD (attention deficit disorder) (Acute) Arthritis of right glenohumeral joint (Chronic) Intra-articular 80 mg injection: 04/15/2023 Neuropathy (Acute) Nail dystrophy (Acute) PAD (peripheral artery disease) (Acute) Venous insufficiency (Acute) Peripheral neuropathy (Acute) Hypertension (Chronic ~05/2022) Trochanteric bursitis, right hip (Acute) DEPO MEDROL 11/11/23; 02/17/24 Radicular pain of right lower extremity (Acute ~02/2022) Supraventricular tachycardia (Chronic ~08/2021) Started 2013 with repeat athletic monitor 08/2021 validating ?Stimulant contributory Cardiology consult 01/2022--consider BB or diltiazem Scoliosis of thoracic spine (Chronic) R convex scoliosis Arthritis of carpometacarpal joint (Acute) left Most recent 40 mg Depo-Medrol injection: 04/15/2023 Heartburn (Chronic) Famotidine 20mg daily Bladder incontinence (Acute) Kegels & bladder training instruction Dysarthria-clumsy hand syndrome (Acute) Mild aortic stenosis (Acute ~06/2019) ECHO 06/2019; 07/2020 (stable); 2022 ECHO normalized (no aortic stenosis); recheck in 1-2y Elevated MCV (Acute) Trigger finger, right middle finger (Chronic) [facility] Dr. Meza Osteopenia (Chronic) DEXA 2016 & 2019, 2020 Insomnia (Chronic) RX Trazodone Depression (Chronic 08/31/11) NK[facility] Restless legs syndrome (Chronic 02/04/17) Years; Dr. Ruffin Neuro; medication helps (Requip & Shirlene PRN; Shirlene 300mg HS PRN discontinued 08/14/2019) Spinal stenosis of lumbar region (Acute 02/04/17) s/p Neurosurgery; 02/2022 lumbar x-ray: lumbar spondylosis, convex scoliosis Hypercholesterolemia (Chronic 02/04/17) FRS 12.8% (2021)-->not a candidate for statin Arthralgia of hip (Acute 02/04/17) R, muscular; PT Glaucoma (Chronic 02/04/17) Medical History Elevated BP without diagnosis of hypertension (~04/2022) Palpitations (~07/2021) H/O supraventricular tachycardia (~2013) 2013 & 2017 cardiac monitors; 2021 Closed fracture distal radius and ulna (10/22/20) right 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 other--see 08/14/2019 note; Neuro 03/2019; normal brain MRI and labs [id number] [facility] consult 2020 & 2021--no [facility]; they are following History of Lyme disease Early Disseminated-10/29 Dr. Manuel Lucia Atrophic vaginitis (09/07/13) Iron deficiency (02/04/17) Lumbar pain with radiation down left leg Improved s/p lumbar spine fusion; stable; Dr. Devi Ankle fracture Ankle sprain Hip fx Surgical History History of lumbar discectomy L4-5 Carpal tunnel syndrome, right (07/11/21) s/p ECTR DOS: 07/11/2021 History of arthroplasty of right knee History of cataract extraction B/L eyes [facility] Dr. Parks, R then L (pending 11/2019) History of knee replacement B/L Acquired absence of both cervix and uterus (08/31/11) Status post cervical spinal arthrodesis (02/04/17) History of lumbar laminectomy (~2013) Varicose vein stripping Spinal Fusion Lumbar L4-S1; also cervical Oophrectomy, Right with hyst 1997 Oophrectomy, Left Age 20 for cyst L knee repair Vaginal hysterectomy 1997 - Prolapse Family History Mother Parkinson disease Heart disease Hypertension Brother Depression Diabetes Heart disease Hypertension Father Heart disease Hypertension Social History (Updated 12/15/24 @ 15:33 by Danny Atkins) Smoking/Tobacco Use Status: Former Tobacco Use Quit Date: 05/13/89 Tobacco: How many years used: 10 Smoking risk assessment performed?: Yes Alcohol Intake: never Drug use: Never Substance use type: does not use Counseling given: No Adopted: No Caregiver/Support person: No Foster care: No Household members: family Housing: house Number of Children: 2 Communication Needs: Corrective Lenses Do you need help understanding health information?: Rarely current occupation: Retired Sexually active: Yes Do you think of yourself as: straight/heterosexual Current gender identity: female What is your relationship status?: How often do you talk on the phone with friends or family?: once per week How often do you get together with friends or relatives?: once per week Panel score (0-1 are the most socially isolated patients): 0 What type of physical activity do you participate in: none Seatbelt use: always Working smoke detector in home: Yes Fire extinguisher in home: Yes Carbon monox detector in home: Yes Do you feel safe at home: Yes Do you feel safe in your relationship?: Yes Additional Social history: , lives alone in [facility] with dog and 2 parakeets. 2 children in area. PAWSS Have you Been Recently Intoxicated or Drunk Within the Last 30 days?: No Have you Ever Experienced Previous Episodes of Alcohol Withdrawal?: No Have you ever Experienced Withdrawal Seizures?: No Have you ever Experienced Delirium Tremens(DT)s?: No Have you ever undergone Alcohol Rehabilitation Treatment (i.e, inpt ot outpatient treatment programs)?: No Have you ever Experienced Blackouts?: No Have you ever Combined Alcohol with other Downers within the last 90 days?: No Have you ever Combined Alcohol with any other Substance of Abuse during the last 90 days?: No Positive Blood Alcohol level on Presentation? [PCS.BAL]: No Evidence of Increased Autonomic Activity (i.e. HR>120, tremor, sweating, agitation, nausea)?: No Result: 0
== END 2025-03-18 15:45 | disposition home or self-care (01) ==
PROVIDERS: Emergency Provider Physician Assistant; PCP Family Medicine
DX: R07.89 Other chest pain (principal); R51.9 Headache, unspecified; R10.811 Right upper quadrant abdominal tenderness; Z79.01 Long term (current) use of anticoagulants; Z60.8 Other problems related to social environment
CPT/HCPCS: 36415; 71275; 74177; 80053; 83690; 93005; 96361; 96374; 96375; 99285; 70450; 81003; 81015; 84484; 85025; 93010; 99284; J0131; J0780

== ENCOUNTER 2025-05-03 11:17 | Emergency (ER) | payer MEDICARE, SELFPAY ==
[2025-05-03] VITALS (11 sets, daily range): BP systolic 177–194; BP diastolic 70–123; PULSE 61–90; RESP 20; TEMP 36.8; O2SAT 98–100
--- NOTE | 2025-05-03 11:15 | DI.CT_ITS ---
Exam(s) CT HEAD CERVICAL SPINE WO EXAM: CT HEAD CERVICAL SPINE WO CLINICAL HISTORY: Fall, On anticoags. TECHNIQUE: Imaging Protocol: Axial computed tomography images with coronal and sagittal reformatted images were created and reviewed COMPARISON: CT CT HEAD CERVICAL SPINE WO from 11/01/[address] HEAD WO from 12/15/[address] HEAD WO from 03/18/2025 FINDINGS: The examination is limited due to patient motion artifact. CT Head: Ventricles and Extra axial spaces: Normal in size and morphology for the patient's age. Hemorrhage: None. Cerebral parenchyma: There are areas of decreased attenuation in the white matter consistent with chronic microvascular ischemic disease. No acute territorial infarct is seen. No acute mass effect is present. Midline shift: None. Brainstem/Cerebellum: Normal. Calvarium: Normal. Visualized Paranasal sinuses/Mastoids: There is mucosal thickening in several ethmoid air cells bilaterally. Soft Tissues: Unremarkable. CT Cervical Spine: Bones: No acute fracture or subluxation. There is anterior cervical fusion from C3 through C7. Soft Tissues: Unremarkable. Lung Apices: Clear. IMPRESSION: 1. No acute intracranial process. 2. No acute fracture or subluxation in the cervical spine. RADIATION DOSE DELIVERED: 1,244.57mGy.cm Total DLP DATA REPOSITORY: All CT scans at this facility are submitted to the National Radiology Data Registry (NRDR) Dose Index Registry (DIR) with the [employer] (A[employer]). RADIATION OPTIMIZATION: All CT scans at this facility use at least one of these dose optimization techniques: automated exposure control; mA and/or kV adjustment per patient size (includes targeted exams where dose is matched to clinical indication); or iterative reconstruction.
--- NOTE | 2025-05-03 11:20 | W.ED.GENAD ---
Discharge Plan Disposition Patient Disposition: Home Condition: Stable Discharge Details Clinical Impression: Closed fracture of greater tuberosity of left humerus, Fall Primary Care Provider: Armando Castañeda ED Provider: Elayne Don Home Meds and New Rx's Prescriptions: Continued oxybutynin chloride 10 mg tablet extended release 24hr 10 mg PO DAILY Qty: 90 1RF ropinirole 3 mg tablet 3 mg PO QHS Qty: 90 3RF Rx Instructions: administer 1-3 hours before bedtime trazodone 50 mg tablet 50 - 100 mg PO QHS PRN (Reason: insomnia) Qty: 180 3RF Rx Instructions: for sleep, patient can decide if she needs 1 or 2 tabs per night, and can take an extra if she wakes up in the night (DME) Orthopaedic shoes See Rx Instructions .Route .MEDSUPPLY Qty: 1 0RF Rx Instructions: As directed lactase [Lactaid Fast Act] 9,000 unit tablet 9,000 unit PO ONCE PRN Rx Instructions: administer with meals and/or snacks metoprolol succinate 25 mg tablet extended release 24 hr 25 mg PO .bedtime Qty: 90 3RF Rx Instructions: Blood pressure atomoxetine 40 mg capsule 40 mg PO DAILY Qty: 90 3RF famotidine 20 mg tablet See Rx Instructions .ROUTE .COMPLEX Qty: 90 3RF Dose Instruction: TAKE 1 TABLET BY MOUTH DAILY FOR HEARTBURN Rx Instructions: TAKE 1 TABLET BY MOUTH DAILY FOR HEARTBURN buspirone 15 mg tablet See Rx Instructions PO TID Qty: 270 3RF Rx Instructions: 2tabs AM, 1tab PM PO three times a day; cholecalciferol (vitamin D3) 50 mcg (2,000 unit) capsule See Rx Instructions .ROUTE .COMPLEX Qty: 90 3RF Dose Instruction: TAKE 1 CAPSULE BY MOUTH DAILY FOR BONE HEALTH/OSTEOPENIA Rx Instructions: TAKE 1 CAPSULE BY MOUTH DAILY FOR BONE HEALTH/OSTEOPENIA vilazodone 40 mg tablet 40 mg PO DAILY Qty: 90 3RF Rx Instructions: must administer with a meal/food Eliquis 2.5 mg tablet 2.5 mg PO BID Rx Instructions: 03/30/25- rx'd by [facility] Stephenie Pérez MD take 1 tablet by mouth 2 times daily. rx was sent for #180(90 day supply) with 1 refill. acetaminophen 500 mg tablet 500 mg PO Q6H PRN (Reason: pain) Qty: 60 2RF Discharge Instructions Instructions: Upper Arm Fracture ED, Preventing Falls ED Additional Instructions: It appears that you have broken the top part of your left humerus. Please wear the sling as much as possible and when up and about. You may take it off for bathing. Please take the pain medication as directed as needed for moderate to severe pain. Please take Tylenol or Ibuprofen with food every 4-6 hours as needed for pain and swelling. Please follow-up with orthopedics in their office within the week. They should call you for an appointment you can also call them to make an appointment. Follow up with primary care provider in 3-5 days. Return to ED sooner if any worsening or concerns. Stand Alone Forms: Portal Information Referrals: Paul Robles MD [ [facility] STAFF PHYSICIAN, Orthopaedic Surgical] - 1 week Referral Note: ER follow up Clinical Impression: Closed fracture of greater tuberosity of left humerus HPI General Mode of arrival: EMS. Date/Time Provider Initiated Documentation: 05/03/25 11:17. Limitations to Documentation: no limitations. Information obtained by: patient, EMS, RN notes reviewed and old records reviewed. HPI Narrative: 79-year-old female presents to the ER via EMS after a mechanical slip and fall while going around a corner. Patient states that she slipped and put her arm out landing on the left side of her left shoulder. She presents in a c-collar. She is on blood thinners did not take her blood thinner this morning. She does take apixaban. She denies any loss of consciousness, she is complaining of left shoulder and left elbow pain. Denies any chest pain abdominal pain hip pain or knee pain. She is alert and oriented x 3. Other past medical history includes SVT, hypertension, peripheral neuropathy, venous insufficiency, peripheral artery disease, neuropathy, osteopenia, glaucoma cholesterol and DVT prophylaxis. Patient was given 1 g of IV Tylenol by EMS prior to arrival. Related Data Home Medications ?Medication ?Instructions ?Recorded ?Confirmed Orthopaedic shoes #1 ea 12/06/23 03/25/25 lactase 9,000 unit tablet (Lactaid 9,000 unit PO ONCE PRN 01/16/24 03/25/25 Fast Act) acetaminophen 500 mg tablet 500 mg PO Q6H PRN pain #60 tabs 03/03/24 03/25/25 metoprolol succinate 25 mg 25 mg PO .bedtime #90 tabs 07/28/24 03/25/25 tablet,extended release 24 hr atomoxetine 40 mg capsule 40 mg PO DAILY #90 caps 09/28/24 03/25/25 famotidine 20 mg tablet See Rx Instructions .Route 10/26/24 03/25/25 .COMPLEX #90 tabs buspirone 15 mg tablet See Rx Instructions PO TID #270 01/21/25 03/25/25 tabs cholecalciferol (vitamin D3) 50 See Rx Instructions .Route 01/21/25 03/25/25 mcg (2,000 unit) capsule .COMPLEX #90 caps vilazodone 40 mg tablet 40 mg PO DAILY #90 tabs 01/21/25 03/25/25 oxybutynin chloride 10 mg 10 mg PO DAILY #90 tabs 02/18/25 03/25/25 tablet,extended release 24 hr ropinirole 3 mg tablet 3 mg PO QHS #90 tabs 02/18/25 03/25/25 trazodone 50 mg tablet 50 - 100 mg (1 - 2 x 50 mg) PO QHS 02/18/25 03/25/25 PRN insomnia #180 tabs apixaban 2.5 mg tablet (Eliquis) 2.5 mg PO BID 03/31/25 Previous Rx's ?Medication ?Instructions ?Recorded Orthopaedic shoes #1 ea 12/06/23 acetaminophen 500 mg tablet 500 mg PO Q6H PRN pain #60 tabs 03/03/24 metoprolol succinate 25 mg 25 mg PO .bedtime #90 tabs 07/28/24 tablet,extended release 24 hr atomoxetine 40 mg capsule 40 mg PO DAILY #90 caps 09/28/24 famotidine 20 mg tablet See Rx Instructions .Route 10/26/24 .COMPLEX #90 tabs buspirone 15 mg tablet See Rx Instructions PO TID #270 01/21/25 tabs cholecalciferol (vitamin D3) 50 See Rx Instructions .Route 01/21/25 mcg (2,000 unit) capsule .COMPLEX #90 caps vilazodone 40 mg tablet 40 mg PO DAILY #90 tabs 01/21/25 oxybutynin chloride 10 mg 10 mg PO DAILY #90 tabs 02/18/25 tablet,extended release 24 hr ropinirole 3 mg tablet 3 mg PO QHS #90 tabs 02/18/25 trazodone 50 mg tablet 50 - 100 mg (1 - 2 x 50 mg) PO QHS 02/18/25 PRN insomnia #180 tabs Allergies Allergy/AdvReac Type Severity Reaction Status Date / Time benzalkonium chloride (From Allergy Unknown unknown Verified 03/25/25 15:47 Travatan) brimonidine (From Alphagan P) Allergy Unknown unknown Verified 03/25/25 15:47 meperidine HCl (From Demerol) Allergy Unknown UNSURE Verified 03/25/25 15:47 travoprost (From Travatan) Allergy Unknown unknown Verified 03/25/25 15:47 lactose AdvReac Intermediate Diarrhea Verified 03/25/25 15:47 BLUE SURGICAL SCRUB? AdvReac Intermediate RASH, Uncoded 03/25/25 15:47 ITCHING General SHAGUFTA: 3 Review of Systems All systems reviewed & are unremarkable except as noted in HPI and below ENT Ears, Nose, Mouth, and Throat: Reports neck pain Musculoskeletal Musculoskeletal: Reports as per HPI, Reports arthralgias and Reports neck pain Exam Narrative Exam Narrative: General: Well Developed, Awake and Alert, conversant. Skin: Warm and Dry HEENT: Head: No palpable deformities, Normocephalic Eyes: Pupils PERRLA, EOM's intact. No periorbital eccymosis or step off Ears: Canal patent. Tympanic membranes are clear . No brewer's sign, no hemptympanum. Nose/Face: Atraumatic. Facial bones nontender to palpation and stable with manipulation. Mouth/Throat: No intraoral trauma. Teeth and mandible are intact. Neck: Presents in a c-collar, no step off, no deformity to palpation of C-spine. Trachea midline. Chest: No surface trauma. Nontender without crepitus or deformity. Lungs clear to ausculatation bilaterally. Heart: RRR, no rubs, murmurs or gallop. Abdomen: No abrasions, ecchymosis, or surface trauma. Nondistended. Nontender to palpation no guarding, rebound, or rigidity. Pelvis: Nontender to palpation and stable to compression. Femoral pulses strong and equal Extremities: no surface trauma. Sensation intact. Peripheral pulses intact and equal. Swelling noted to left shoulder tenderness palpation, distal CMS intact. Neuro: ANO x4, GCS 15, cranial nerves II through XII intact. Motor and sensory exam nonfocal. Reflexes are symmetric. Medical Decision Making 79-year-old female presents to the ER via EMS after a mechanical slip and fall while going around a corner. Patient states that she slipped and put her arm out landing on the left side of her left shoulder. She presents in a c-collar. She is on blood thinners did not take her blood thinner this morning. She does take apixaban. She denies any loss of consciousness, she is complaining of left shoulder and left elbow pain. Denies any chest pain abdominal pain hip pain or knee pain. She is alert and oriented x 3. CT head C-spine ordered, x-ray of shoulder elbow and chest. Labs ordered. X-rays show a mildly displaced left greater tuberosity humerus fracture. The remainder of the images and head CT C-spine are negative no acute abnormality. Patient was given 2 mg of morphine and 4 mg of Zofran IV for pain. I did discuss patient case in details with Dr. Robles's on for orthopedics who was able to review the images. He does recommend a sling and follow-up in the office. Will send patient home with morphine to go tablets, place a sling. Have patient follow-up with orthopedics within a week. Discussed plan of care with patient who verbalizes understanding. Patient ambulatory upon discharge from department. Patient remained hemodynamically stable alert and oriented throughout the remainder of her stay. This text was generated using [employer] dictation system, please disregard any oddities of phrase or misspellings. Medical Records Medical records reviewed: Yes I reviewed the patient's medical records. Lab Data Lab results reviewed: Yes I reviewed the patient's lab results. Labs: Laboratory Tests Range/Units 05/03/ 12:22 WBC (4.4-10.8) 10^3/uL 5.84 RBC (3.93-5.22) 10^6/uL 4.18 Hgb (11.2-15.7) g/dL 13.5 Hct (36.0-46.0) % 40.8 MCV (80-95) fL 98 H MCH (27.0-33.0) pg 32.3 MCHC (32.0-36.0) % 33.1 RDW (11.7-14.6) % 12.7 Plt Count (130-400) 10^3/uL 164 MPV (8.0-11.0) fL 10.2 Immature Gran % % 0.2 Neutrophils % % 49.7 Lymphocytes % % 39.4 Monocytes % % 7.4 Eosinophils % % 2.4 Basophils % % 0.9 Nucleated RBC % (0.0-0.3) % 0.0 Absolute Neutrophils (1.2-6.7) 10^3/uL 2.91 Absolute Lymphocytes (1.2-3.4) 10^3/uL 2.30 Absolute Monocytes (0.1-0.8) 10^3/uL 0.43 Absolute Eosinophils (0.0-0.7) 10^3/uL 0.14 Absolute Basophils (0.0-0.2) 10^3/uL 0.05 PT (9.1-11.1) sec 9.9 INR (0.9-1.1) 1.0 APTT (20.6-30.2) sec 23.6 Sodium (136-145) mmol/L 144 Potassium (3.5-5.1) mmol/L 3.8 Chloride (98-107) mmol/L 107 Carbon Dioxide (20.0-31.0) mmol/L 27.3 Anion Gap (3-11) mmol/L 9.7 BUN (9-23) mg/dL 27 H Creatinine (0.55-1.02) mg/dL 0.61 Est GFR (CKD-EPI 2020) (mL/min/1.73m2) 94.74 Glucose (74-106) mg/dL 95 Calcium (8.3-10.6) mg/dL 9.1 Total Bilirubin (0.2-1.2) mg/dL 0.5 AST (<34) U/L 20 ALT (10-49) U/L 14 Alkaline Phosphatase (46-116) U/L 86 Total Protein (5.7-8.2) g/dL 7.1 Albumin (3.2-5.0) g/dL 4.2 Quality:SDOH Health Related Social Needs: Health related social needs lonely/isolated Health related social needs details feels isolated sometimes PFSH All Active Problems (Updated 05/03/25 @ 13:04 by Elayne Don NP) Fall (Acute) Closed fracture of greater tuberosity of left humerus (Acute) Bladder instability (Acute) Breast cancer screening (Acute) DVT prophylaxis (Acute) Multiple pulmonary emboli (Acute) Facial lesion (Acute) Tremor (Acute) Venous stasis dermatitis (Acute) Venous stasis dermatitis of both lower extremities (Acute) Ventricular ectopy (Acute) Syncope (Chronic) Poor balance (Acute) per PT evaluation Idiopathic neuropathy (Acute) Cervicalgia (Acute) Arthritis of carpometacarpal (CMC) joint of left thumb (Acute) Status post trapezial arthroplasty: 03/03/2024 Skull fracture (Acute) Concussion (Acute) ADD (attention deficit disorder) (Acute) Arthritis of right glenohumeral joint (Chronic) Intra-articular 80 mg injection: 04/15/2023 Neuropathy (Acute) Nail dystrophy (Acute) PAD (peripheral artery disease) (Acute) Venous insufficiency (Acute) Peripheral neuropathy (Acute) Hypertension (Chronic ~05/2022) Trochanteric bursitis, right hip (Acute) DEPO MEDROL 11/11/23; 02/17/24 Radicular pain of right lower extremity (Acute ~02/2022) Supraventricular tachycardia (Chronic ~08/2021) Started 2013 with repeat cardiac rn 08/2021 validating ?Stimulant contributory Cardiology consult 01/2022--consider BB or diltiazem Scoliosis of thoracic spine (Chronic) R convex scoliosis Arthritis of carpometacarpal joint (Acute) left Most recent 40 mg Depo-Medrol injection: 04/15/2023 Heartburn (Chronic) Famotidine 20mg daily Bladder incontinence (Acute) Kegels & bladder training instruction Dysarthria-clumsy hand syndrome (Acute) Mild aortic stenosis (Acute ~06/2019) ECHO 06/2019; 07/2020 (stable); 2022 ECHO normalized (no aortic stenosis); recheck in 1-2y Elevated MCV (Acute) Trigger finger, right middle finger (Chronic) [facility] Dr. Meza Osteopenia (Chronic) DEXA 2016 & 2020 Insomnia (Chronic) RX Trazodone Depression (Chronic 08/31/11) [facility] Restless legs syndrome (Chronic 02/04/17) Years; Dr. Ruffin Neuro; medication helps (Requip & Shirlene PRN; Shirlene 300mg HS PRN discontinued 08/14/2019) Spinal stenosis of lumbar region (Acute 02/04/17) s/p Neurosurgery; 02/2022 lumbar x-ray: lumbar spondylosis, convex scoliosis Hypercholesterolemia (Chronic 02/04/17) FRS 12.8% (2021)-->not a candidate for statin Arthralgia of hip (Acute 02/04/17) R, muscular; PT Glaucoma (Chronic 02/04/17) Medical History Elevated BP without diagnosis of hypertension (~04/2022) Palpitations (~07/2021) H/O supraventricular tachycardia (~2013) 2013 & 2017 cardiac monitors; 2021 Closed fracture distal radius and ulna (10/22/20) right 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 other--see 08/14/2019 note; Neuro 03/2019; normal brain MRI and labs [id number] [facility] consult 2020 & 2021--no [facility]; they are following History of Lyme disease Early Disseminated-10/29 Dr. Manuel Lucia Atrophic vaginitis (09/07/13) Iron deficiency (02/04/17) Lumbar pain with radiation down left leg Improved s/p lumbar spine fusion; stable; Dr. Devi Ankle fracture Ankle sprain Hip fx Surgical History History of lumbar discectomy L4-5 Carpal tunnel syndrome, right (07/11/21) s/p ECTR DOS: 07/11/2021 History of arthroplasty of right knee History of cataract extraction B/L eyes [facility] Dr. Parks, R then L (pending 11/2019) History of knee replacement B/L Acquired absence of both cervix and uterus (08/31/11) Status post cervical spinal arthrodesis (02/04/17) History of lumbar laminectomy (~2013) Varicose vein stripping Spinal Fusion Lumbar L4-S1; also cervical Oophrectomy, Right with hyst 1997 Oophrectomy, Left Age 20 for cyst L knee repair Vaginal hysterectomy 1997 - Prolapse Family History Mother Parkinson disease Heart disease Hypertension Brother Depression Diabetes Heart disease Hypertension Father Heart disease Hypertension Social History Smoking/Tobacco Use Status: Former Tobacco Use Quit Date: 05/13/89 Tobacco: How many years used: 10 Smoking risk assessment performed?: Yes Alcohol Intake: never Drug use: Never Substance use type: does not use Counseling given: No Adopted: No Caregiver/Support person: No Foster care: No Household members: family Housing: house Number of Children: 2 Communication Needs: Corrective Lenses Do you need help understanding health information?: Rarely current occupation: Retired Sexually active: Yes Do you think of yourself as: straight/heterosexual Current gender identity: female What is your relationship status?: How often do you talk on the phone with friends or family?: once per week How often do you get together with friends or relatives?: once per week Panel score (0-1 are the most socially isolated patients): 0 What type of physical activity do you participate in: none Seatbelt use: always Working smoke detector in home: Yes Fire extinguisher in home: Yes Carbon monox detector in home: Yes Do you feel safe at home: Yes Do you feel safe in your relationship?: Yes Additional Social history: , lives alone in [place] with dog and 2 parakeets. 2 children in area.
--- NOTE | 2025-05-03 12:00 | DI.RAD_ITS ---
Exam(s) XR ELBOW LT COMPLETE EXAM: XR ELBOW LT COMPLETE CLINICAL HISTORY: Fall. TECHNIQUE: 2D digital imaging was performed of the left elbow. Five images were obtained. AP, lateral and oblique views were obtained. COMPARISON: No exams were available for comparison FINDINGS: BONES: No acute fracture is present. No bony destructive lesion is seen. JOINTS: The elbow is normally aligned. No joint effusion is seen. SOFT TISSUE: Normal. Skin fold artifacts are present over the elbow. IMPRESSION: There is no acute fracture or dislocation present. DATA REPOSITORY: RADIATION DOSE DELIVERED:
--- NOTE | 2025-05-03 12:05 | DI.RAD_ITS ---
Exam(s) XR SHOULDER LT COMPLETE 2+V EXAM: XR SHOULDER LT COMPLETE 2+V CLINICAL HISTORY: Fall. TECHNIQUE: 2D digital imaging was performed of the left shoulder. Three images were obtained. AP, Grashey and Y views were obtained. COMPARISON: No exams were available for comparison FINDINGS: BONES: There is acute mildly displaced fracture through the greater tuberosity. No bony destructive lesion is seen. JOINTS: No dislocation present. Marked degenerative changes are seen at the glenohumeral joint. SOFT TISSUE: Normal. IMPRESSION: Mildly displaced fracture involving the greater tuberosity. DATA REPOSITORY: RADIATION DOSE DELIVERED:
--- NOTE | 2025-05-03 12:10 | DI.RAD_ITS ---
Exam(s) XR CHEST 1V IN DI DEPT EXAM: XR CHEST 1V IN DI DEPT CLINICAL HISTORY: Fall TECHNIQUE: 2D digital imaging was performed of the chest. One image was obtained. An AP view was obtained. COMPARISON: CR XR CHEST 2V PA LATERAL from 10/04/2022 CR XR CHEST 2V PA LATERAL from 10/07/2024 FINDINGS: MEDIASTINUM: Normal. HEART: Normal. PULMONARY VASCULATURE: Normal. LUNGS: Clear. PLEURAL SPACE: No pleural effusion or pneumothorax. BONE:Within normal limits for the patient's age. There is anterior fusion of the lower cervical spine. There are marked degenerative changes seen at the left glenohumeral joint. OTHER FINDINGS:Normal. IMPRESSION: No acute pulmonary findings. DATA REPOSITORY: RADIATION DOSE DELIVERED:
[2025-05-03 12:29] LABS: Abs Immature Grans 0.01 10^3/uL (0.0-0.06); HCT 40.8 % (36.0-46.0); HGB 13.5 g/dL (11.2-15.7); Immature Grans % 0.2 %; MCH 32.3 pg (27.0-33.0); MCHC 33.1 % (32.0-36.0); MCV 98 fL (80-95); MPV 10.2 fL (8.0-11.0); Platelet Count 164 10^3/uL (130-400); RBC 4.18 10^6/uL (3.93-5.22); RDW 12.7 % (11.7-14.6); RDW-SD 45.3 fL; WBC 5.84 10^3/uL (4.4-10.8)
[2025-05-03 12:43] LABS: INR 1.0 (0.9-1.1); PTT Activated 23.6 sec (20.6-30.2); Prothrombin Time 9.9 sec (9.1-11.1)
[2025-05-03 12:48] LABS: ALT 14 U/L (10-49); AST 20 U/L (<34); Albumin 4.2 g/dL (3.2-5.0); Alkaline Phosphatase 86 U/L (46-116); Anion Gap 9.7 mmol/L (3-11); BUN 27 mg/dL (9-23); Bilirubin, Total 0.5 mg/dL (0.2-1.2); CO2 27.3 mmol/L (20.0-31.0); Calcium 9.1 mg/dL (8.3-10.6); Chloride 107 mmol/L (98-107); Glucose 95 mg/dL (74-106); Potassium 3.8 mmol/L (3.5-5.1); Sodium 144 mmol/L (136-145); Total Protein 7.1 g/dL (5.7-8.2)
[2025-05-03] MEDS: MORPHine 2 MG/ML SYR (13:01)
[2025-05-03] MEDS: Ondansetron 4 MG/2 ML VIAL IVP (13:01)
[2025-05-03] MEDS: MORPHine IR 15 MG TAB, 4 TABS/BTL PO (13:23)
== END 2025-05-03 13:50 | disposition home or self-care (01) ==
PROVIDERS: Emergency Provider Registered Nurse Emergency; PCP Family Medicine
DX: S42.252A Displaced fracture of greater tuberosity of left humerus, initial encounter for closed fracture (principal); Z79.01 Long term (current) use of anticoagulants; Z60.8 Other problems related to social environment; W00.0XXA Fall on same level due to ice and snow, initial encounter
CPT/HCPCS: 36415; 80053; 96374; 99284; 70450; 71045; 72125; 73030; 73080; 85025; 85610; 85730; J2270; J2405

== ENCOUNTER 2025-05-11 11:51 | Outpatient (CLI) | payer MEDICARE, SELFPAY ==
--- NOTE | 2025-05-11 08:45 | DI.RAD_ITS ---
Exam(s) XR SHOULDER LT COMPLETE 2+V EXAM: XR SHOULDER LT COMPLETE 2+V INDICATION: F/U FRACTURE. COMPARISON: CR XR SHOULDER LT COMPLETE 2+V from 05/03/2025 TECHNIQUE: 2D digital imaging was performed. Two views. FINDINGS: Stable alignment of humeral head fracture. Degenerative changes are again noted at the glenohumeral joint. DATA REPOSITORY: RADIATION DOSE DELIVERED:
== END 2025-05-11 11:52 | disposition home or self-care (01) ==
LOC: DIORS 11:53
PROVIDERS: PCP Family Medicine; Referring Provider Family Medicine; Visit Provider Physician Assistant
DX: S42.255A Nondisplaced fracture of greater tuberosity of left humerus, initial encounter for closed fracture (principal); W01.0XXA Fall on same level from slipping, tripping and stumbling without subsequent striking against object, initial encounter; Z79.01 Long term (current) use of anticoagulants
CPT/HCPCS: 99213; 73030